=== PATIENT | female | born 1960 | race Caucasian/White ===

== ENCOUNTER 2016-08-01 08:31 | Inpatient (IN) | payer MEDICARE ==
--- NOTE | 2016-08-01 09:17 | ER Document Report ---
ED Extremity Problem, Lower - General Mode of Arrival: Ambulatory Information source: Patient TRAVEL OUTSIDE OF THE [place] IN LAST 30 DAYS: No - HPI Patient complains to provider of: Pain, Swelling Location: Foot - Right <JAYE BARRON - Last Filed: 08/01/16 10:33> <BERRYGUEROANTOINE - Last Filed: 08/01/16 16:07> - General Chief Complaint: Foot Pain Stated Complaint: FOOT INJURY Notes: Patient is a 55-year-old female presenting to the emergency department concerned of a foot wound worsening. Patient was seen here on 07/24/2016 and diagnosed with a cellulitic diabetic wound and treated with Keflex and doxycycline. Patient had a white cell count of 17,000, but her x-ray was normal. Today, patient states that her wound has worsened over the past couple of days. Patient states that her toes have turned purple, there is seepage with blood, foul odor, and her fever is now 99.9. Patient has not been managing her blood sugar for "a few months". Patient does not have access to insulin or other medications due to lack of insurance. (JAYE BARRON) - Related Data Allergies/Adverse Reactions: Shellfish * [Shellfish] Allergy (Verified 07/24/16 17:37) sulfamethoxazole [From Bactrim] Allergy (Verified 07/24/16 17:37) trimethoprim [From Bactrim] Allergy (Verified 07/24/16 17:37) Past Medical History - General Information source: Patient - Social History Smoking Status: Current Every Day Smoker Lives with: Spouse/Significant other Family History: Reviewed & Not Pertinent - Past Medical History Cardiac Medical History: Reports: Hx Hypertension Pulmonary Medical History: Reports: Hx Pneumonia Endocrine Medical History: Reports: Hx Diabetes Mellitus Type 2 Past Surgical History: Reports: Hx Orthopedic Surgery - Left shoulder <JAYE BARRON - Last Filed: 08/01/16 10:33> Review of Systems - Review of Systems Constitutional: See HPI, Fever EENT: No symptoms reported Cardiovascular: No symptoms reported Respiratory: No symptoms reported Gastrointestinal: No symptoms reported Genitourinary: No symptoms reported Female Genitourinary: No symptoms reported Musculoskeletal: See HPI, Other - Right leg and foot pain. Skin: See HPI, Change in color - Right foot wound. Has odor and pus. Neurological/Psychological: No symptoms reported -: Yes All other systems reviewed and negative <JAYE BARRON - Last Filed: 08/01/16 10:33> Physical Exam - Vital signs Interpretation: Hypertensive, Tachycardic - General General appearance: Alert - HEENT Head: Normocephalic, Atraumatic Eyes: Normal Pupils: PERRL - Respiratory Respiratory status: No respiratory distress Chest status: Nontender Breath sounds: Normal Chest palpation: Normal - Cardiovascular Rhythm: Regular Heart sounds: Normal auscultation Murmur: No - Abdominal Distension: No distension Bowel sounds: Normal Tenderness: Nontender Organomegaly: No organomegaly - Extremities General upper extremity: Normal inspection, Nontender, Normal color, Normal ROM , Normal temperature General lower extremity: Tender - Tender to palpation of right calf up into thigh. Foot: Tender, Edema, Other - Left foot anterior surface erythemic from the midfoot down. Limited range of motion secondary to pain. Wound spreads between second and third digits. The dorsal aspect of 2nd, 3rd, and 4th digits are erythemic with open blisters consisting of pus and fowl odor. The bottom of the right foot has deep callusing and discoloration and is exquisitely tender. - Neurological Neuro grossly intact: Yes Cognition: Normal Ashish Coma Scale Eye Opening: Spontaneous Dickens Coma Scale Verbal: Oriented Ashish Coma Scale Motor: Obeys Commands Dickens Coma Scale Total: 15 Speech: Normal - Psychological Associated symptoms: Normal affect, Normal mood - Skin Skin Color: negative: Normal - See foot exam <JAYE BARRON - Last Filed: 08/01/16 10:33> Course <JAYE BARRON - Last Filed: 08/01/16 10:33> - Laboratory Result Diagrams: 08/01/16 11:15 08/01/16 12:00 - Diagnostic Test Radiology reviewed: Image reviewed, Reports reviewed <ANTOINE BERRY - Last Filed: 08/01/16 16:07> - Re-evaluation Re-evalutation: 08/01/16 16:02 Dr. Giles contacted for patient's admission. He agrees on admission to [facility]. Dr. maki called phone reports positive DVT but it looks chronic to him. Dr. Lopes reports this is acute, no history of DVT, will treat for DVT. White count elevated 26.8 lactic acid ordered pt updated on plan. (ANTOINE BERRY) - Vital Signs Vital signs: Temp Pulse Resp BP Pulse Ox 99.9 F 103 H 20 178/79 H 99 08/01/16 08:59 08/01/16 08:59 08/01/16 08:59 08/01/16 08:59 08/01/16 08:59 (ANTOINE BERRY) - Laboratory Laboratory results interpreted by me: 08/01/16 08/01/16 08/01/16 11:15 11:30 12:00 WBC 26.8 H Seg Neuts % (Manual) 80 H Lymphocytes % (Manual) 11 L Abs Neuts (Manual) 22.2 H Abs Monocytes (Manual) 1.6 H Sodium 133.6 L Chloride 93 L Glucose 309 H Total Bilirubin 2.0 H Alkaline Phosphatase 144 H Albumin 3.3 L Urine Protein >=500 H Urine Glucose (UA) >=500 H Urine Ketones 80 H Urine Blood SMALL H Urine Urobilinogen 2.0 H (ANTOINE BERRY) Discharge <JAYE BARRON - Last Filed: 08/01/16 10:33> - Discharge Admitting Provider: Hospitalist - [facility] Unit Admitted: Telemetry <ANTOINE BERRY - Last Filed: 08/01/16 16:07> - Discharge Clinical Impression: Cellulitis of left foot Pain of foot Qualifiers: Laterality: left Qualified Code(s): M79.672 - Pain in left foot Condition: Stable Disposition: ADMITTED INPATIENT Scribe Documentation - Scribe Written by Scribkeyana:: Jaye Barron 08/01/2016 09:16 acting as scribe for :: Moses <JAYE BARRON - Last Filed: 08/01/16 10:33>
[2016-08-01] MEDS ORDERED: FENTANYL CITRATE INJ/PF 100 MCG/2 ML AMPUL IV ONE (10:35)
[2016-08-01] MEDS ORDERED: ERTAPENEM SODIUM INJ 1 GM VIAL IV ONE (10:35)
[2016-08-01 11:35] LABS: HEMATOCRIT 41.2 % (36.0-47.0); HEMOGLOBIN 14.2 g/dL (12.0-15.5); HGB HCT DIFFERENCE 1.4; MEAN CORPUSCULAR HEMOGLOBIN 28.9 pg (27.0-33.4); MEAN CORPUSCULAR HGB CONC 34.5 g/dL (32.0-36.0); MEAN CORPUSCULAR VOLUME 84 fl (80-97); RED BLOOD COUNT 4.91 10^6/uL (3.72-5.28); RED CELL DISTRIBUTION WIDTH 12.6 % (11.5-14.0); WHITE BLOOD COUNT 26.8 10^3/uL (4.0-10.5)
[2016-08-01 11:56] LABS: APPEARANCE,URINE SLIGHTLY-CLOUDY; BILIRUBIN,URINE NEGATIVE (NEGATIVE); GLUCOSE, URINE >=500 mg/dL (NEGATIVE); KETONES,URINE 80 mg/dL (NEGATIVE); LEUKOCYTE ESTERASE,URINE NEGATIVE (NEGATIVE); NITRITE,URINE NEGATIVE (NEGATIVE); PROTEIN,URINE >=500 mg/dL (NEGATIVE); URINE SPECIFIC GRAVITY 1.026
[2016-08-01 11:59] LABS: BAND NEUTROPHILS % (MANUAL) 3 % (3-5); BASOPHILS % (MANUAL) 0 % (0-2); EOSINOPHILS % (MANUAL) 0 % (0-6); LYMPHOCYTES % (MANUAL) 11 % (13-45); TOTAL CELLS COUNTED 100
[2016-08-01 12:00] LABS: RBC MORPHOLOGY COMMENT NORMO-CYTIC/CHROMIC; TOXIC GRANULATION 1+
[2016-08-01 12:26] LABS: ALANINE AMINOTRANSFERASE 22 U/L (9-52); ALBUMIN 3.3 g/dL (3.5-5.0); ALKALINE PHOSPHATASE 144 U/L (38-126); ANION GAP 16 (5-19); ASPARTATE AMINO TRANSFERASE 14 U/L (14-36); BLOOD UREA NITROGEN 10 mg/dL (7-20); CALCIUM 9.1 mg/dL (8.4-10.2); CARBON DIOXIDE 25 mmol/L (22-30); CHLORIDE 93 mmol/L (98-107); GLUCOSE 309 mg/dL (75-110); POTASSIUM 4.1 mmol/L (3.6-5.0); SODIUM 133.6 mmol/L (137-145); TOTAL PROTEIN 6.6 g/dL (6.3-8.2)
--- NOTE | 2016-08-01 14:21 | XCELERA REPORT ---
[address] [address] Lower Extremity Venous Evaluation Name: SATURNINO MURGUIA Age: 55 yrs Gender: Female : 1960 Patient Status: Emergency Patient Location: ER Study Date: 08/01/2016 12:06 PM Procedure: Color flow and duplex imaging of the veins of the left lower extremity as well as the right Common Femoral vein. Reason For Study: er 13 left lower pain and swelling Ordering Physician: AMANDEEP KINGSTON Performed By: Gigi Slater Right Sided Venous Evaluation The right common femoral vein is fully compressible. Spontaneous and phasic flow is present in the right common femoral vein. Left Sided Venous Evaluation Abnormal, partial flow in the medial of two Gastrocnemius veins, with echogenic, retracted intraluminal content.. Otherwise normal vessel filling wall to wall, compression and augmentation as well as Colour flow down to the infrageniculate veins. Critical Findings Discussed with FISH Bocanegra in the ER at 1418 hours. Interpretation Summary Limited, old looking( chronic) DVT in one of two Gastrocnemius veins on the left. : AMANDEEP KINGSTON > Stephen Muñiz
[2016-08-01] MEDS ORDERED: DEXTROSE 50%-WATER 25 GM/50 ML DISP.SYRIN IV PRN ×2 (16:39)
[2016-08-01] MEDS ORDERED: DEXTROSE 40% GEL 15 GM TUBE PO PRN ×2 (16:39)
[2016-08-01] MEDS ORDERED: GLUCAGON,HUMAN RECOMB 1 MG INJ IM PRN (16:39)
[2016-08-01] MEDS ORDERED: IPRATROPIUM/ALBUTEROL 0.5-2.5 MG/3 ML AMPUL NEB PRN (16:42)
[2016-08-01] MEDS ORDERED: ONDANSETRON HCL INJ/PF 4 MG/2 ML SDV IV PRN (16:51)
[2016-08-01] MEDS ORDERED: VANCOMYCIN HCL INJ 1000 MG VIAL IV SCH (17:00)
[2016-08-01 17:07] LABS: PROTHROMBIN TIME 14.7 SEC (11.4-15.4)
--- NOTE | 2016-08-01 17:14 | PDOC H&P ---
History of Present Illness Admission Date/PCP: 08/01/16 16:48 Patient complains of: Foot pain and swelling History of Present Illness: SATURNINO MURGUIA is a 55 year old female with diabetes, peripheral vascular disease apparently stepped on a nail about 10 days ago started noticing some serous drainage. This was on the patient's left foot. Patient noted a small wound on the dorsum of the foot which started to swell. Patient went to the emergency room 3 days later and was even Keflex and doxycycline. She was advised to elevate legs all the time and some warm compress. The patient reports following instructions in taking the medications however started to develop increasing swelling and pain for the past few days there is noted associated redness and eventual follow smelling drainage. Eventually there was sloughing of the skin and therefore he presents with emergency room for evaluation. The patient has a low-grade fever. Drainage became foul-smelling. In the emergency room a lower extremity venous Doppler was obtained was positive for questionable old deep venous thrombosis on the left. Patient was given full dose Lovenox and intravenous Invanz and was referred for admission. Past Medical History Past Medical History: Medication reconciliation pending verification from the patient's pharmacist Cardiac Medical History: Reports: Hypertension, Other - Abdominal aortic aneurysm Pulmonary Medical History: Reports: Pneumonia Neurological Medical History: Reports: Ischemic CVA - Right-sided weakness Endocrine Medical History: Reports: Diabetes Mellitus Type 2 - Insulin- requiring With retinopathy and neuropathy Skin Medical History: Reports: Other - Retinal detachment Psychiatric Medical History: Reports: Depression, General Anxiety Disorder Past Surgical History Past Surgical History: Reports: Orthopedic Surgery - Left shoulder, Other - Eye surgery with laser Social History Information Source: Patient Lives with: Spouse/Significant other Smoking Status: Current Every Day Smoker Frequency of Alcohol Use: None Hx Recreational Drug Use: No Drugs: None Family History Family History: Malignancy, Other - Asthma and heart disease Parental Family History Reviewed: Yes Children Family History Reviewed: Yes Sibling(s) Family History Reviewed.: Yes Medication/Allergy Home Medications: Amox Tr/Potassium Clavulanate [Augmentin 875-125 mg Tablet] 1 tab PO BID #20 tablet 11/13/15 Atenolol [Tenormin] 25 mg PO DAILY 11/13/15 Azithromycin [Zithromax 250 mg Tablet] 250 mg PO ASDIR PRN #6 tablet 11/13/15 Hydrochlorothiazide 25 mg PO DAILY 11/13/15 Insulin NPH Hum/Reg Insulin Hm [Humulin 70-30 Vial] 60 - 80 unit SQ QHS Insulin NPH Hum/Reg Insulin Hm [Humulin 70-30 Vial] 70 unit SQ QAM 11/13/15 Lisinopril 40 mg PO DAILY 11/13/15 Prednisone 40 mg PO QAM #10 tablet 11/13/15 Albuterol Sulfate [Albuterol Sulfate 2.5mg/3 mL] 2.5 mg IH Q6 #20 ml 11/24/15 Atenolol [Tenormin] 25 mg PO BID #60 tablet 11/24/15 Ipratropium [place] [Atrovent 0.02% Neb 0.5 Mg/2.5 Ml Vial.Neb] 0.5 mg IH Q6HP PRN #20 vial.neb 11/24/15 Lisinopril 20 mg PO DAILY #30 tablet 11/24/15 Oxycodone HCl/Acetaminophen [Percocet 5-325 mg Tablet] 1 - 2 tab PO ASDIR PRN # 25 tablet 11/24/15 Cephalexin [Cephalexin 500 MG Capsule] 1 cap PO QID #40 capsule 07/24/16 Doxycycline Hyclate 100 mg PO BID #20 capsule 07/24/16 Fluticasone Propionate [Flonase Nasal [place] 50 Mcg/[place] 16 gm] 2 sprays NASL Q12 #1 inhaler 07/24/16 Allergies/Adverse Reactions: Shellfish * [Shellfish] Allergy (Verified 07/24/16 17:37) sulfamethoxazole [From Bactrim] Allergy (Verified 07/24/16 17:37) trimethoprim [From Bactrim] Allergy (Verified 07/24/16 17:37) Review of Systems Constitutional: PRESENT: fever(s) - Low-grade, weakness - Generalized. ABSENT: chills, headache(s), night sweats, weight gain, weight loss Eyes: PRESENT: visual disturbances - From retinopathy Ears: ABSENT: hearing changes Nose, Mouth, and Throat: ABSENT: mouth pain, sore throat Cardiovascular: ABSENT: chest pain, dyspnea on exertion, edema, orthropnea, palpitations Respiratory: ABSENT: cough, dyspnea, hemoptysis, sputum Gastrointestinal: ABSENT: abdominal pain, constipation, diarrhea, hematemesis, hematochezia, melena, nausea, vomiting Genitourinary: ABSENT: difficulty urinating, dysuria, hematuria Musculoskeletal: PRESENT: joint swelling - Left ankle Integumentary: PRESENT: rash - Foot L. ABSENT: pruritus, wounds Neurological: ABSENT: abnormal gait, abnormal speech, confusion, dizziness, focal weakness, syncope Psychiatric: ABSENT: anxiety, depression, homidical ideation, suicidal ideation Endocrine: ABSENT: cold intolerance, heat intolerance, polydipsia, polyuria Hematologic/Lymphatic: ABSENT: easy bleeding, easy bruising Physical Exam Vital Signs: Temp Pulse Resp BP Pulse Ox 99.9 F 103 H 20 178/79 H 99 08/01/16 08:59 08/01/16 08:59 08/01/16 08:59 08/01/16 08:59 08/01/16 08:59 General appearance: PRESENT: no acute distress, cooperative, obese Head exam: PRESENT: atraumatic, normocephalic Eye exam: PRESENT: conjunctiva pink, EOMI, PERRLA. ABSENT: scleral icterus Ear exam: PRESENT: normal external ear exam Mouth exam: PRESENT: moist, neck supple, tongue midline Throat exam: PRESENT: other - Tonsils enlarged. ABSENT: tonsillar erythema, tonsillar exudate Neck exam: ABSENT: carotid bruit, JVD, lymphadenopathy, thyromegaly Respiratory exam: PRESENT: clear to auscultation martha. ABSENT: rales, rhonchi, wheezes Cardiovascular exam: PRESENT: RRR, +S1, +S2. ABSENT: diastolic murmur, rubs, systolic murmur Pulses: PRESENT: normal dorsalis pedis pul Vascular exam: PRESENT: normal capillary refill GI/Abdominal exam: PRESENT: normal bowel sounds, soft. ABSENT: distended, guarding, mass, organolmegaly, rebound, tenderness Rectal exam: PRESENT: deferred Extremities exam: PRESENT: calf tenderness - left, full ROM, pedal edema - Left foot, warm, other - Left foot. A puncture wound of the dorsum there is foul- smelling drainage. There is surrounding redness. 4th toe with sloughing of the skin. ABSENT: clubbing Neurological exam: PRESENT: alert, awake, oriented to person, oriented to place , oriented to time, oriented to situation Psychiatric exam: PRESENT: appropriate affect, normal mood. ABSENT: homicidal ideation, suicidal ideation Skin exam: PRESENT: dry, intact, warm. ABSENT: cyanosis, rash Results Impressions: Foot X-Ray 08/01/16 10:34 IMPRESSION: SOFT TISSUE SWELLING WITH ULCERATION. NO SUBCUTANEOUS GAS OR ACUTE OSSEOUS ABNORMALITY IDENTIFIED. Assessment & Plan - Diagnosis (1) Cellulitis of left foot Is this a current diagnosis for this admission?: Yes (2) Abscess of left foot Is this a current diagnosis for this admission?: Yes (3) Deep venous thrombosis Qualifiers: DVT location: lower extremity Affected thrombotic vein of extremity: unspecified vein of extremity Laterality: left Chronicity: unspecified Qualified Code(s): I82.402 - Acute embolism and thrombosis of unspecified deep veins of left lower extremity Is this a current diagnosis for this admission?: Yes (4) Diabetes mellitus Qualifiers: Diabetes mellitus type: type 2 Diabetes mellitus complication status: with other specified complication Diabetes mellitus terminal carman insulin use: with terminal carman use Qualified Code(s): E11.69 - Type 2 diabetes mellitus with other specified complication; Z79.4 - buttermaker (current) use of insulin Is this a current diagnosis for this admission?: Yes (5) Hypertension Qualifiers: Hypertension type: essential hypertension Qualified Code(s): I10 - Essential (primary) hypertension Is this a current diagnosis for this admission?: Yes (6) Anxiety and depression Is this a current diagnosis for this admission?: Yes (7) History of stroke Is this a current diagnosis for this admission?: Yes (8) Abdominal aortic aneurysm Qualifiers: Presence of rupture: without rupture Qualified Code(s): I71.4 - Abdominal aortic aneurysm, without rupture Is this a current diagnosis for this admission?: Yes - Time Time Spent: 50 to 70 Minutes - Plan Summary Plan Summary: The patient will be admitted to telemetry. We will fully anticoagulate the patient and begin Invanz and vancomycin intravenously. We will consult surgery for debridement. In the meantime since for anticoagulation will be given we will check abdominal ultrasound to evaluate the aneurysm. Patient will be on sliding scale insulin. We'll resume her antihypertensive medications. I will hydrate her with normal saline. Blood culture and wound culture will be done. Further testing depends on the initial evaluation and per specialty recommendation as ABOVE.
[2016-08-01] MEDS ORDERED: VANCOMYCIN HCL INJ 1000 MG VIAL IV PRN (17:37)
[2016-08-01] MEDS ORDERED: VANCOMYCIN HCL 1,000 MG in DEXTROSE 5%-WATER 250 ML IV SCH (18:00)
[2016-08-01] MEDS: NORMAL SALINE 1000 ML 1,000 ML IV PRN (20:42)
[2016-08-01] MEDS: DOCUSATE SODIUM 100 MG CAPSULE PO SCH (20:45)
[2016-08-01] MEDS ORDERED: VANCOMYCIN HCL INJ 1000 MG VIAL ONE (20:46)
[2016-08-01] MEDS ORDERED: ENOXAPARIN SODIUM INJ 120 MG/0.8 ML DISP.SYRIN SUBCUT SCH (22:00)
[2016-08-02] MEDS ORDERED: INSULIN DETEMIR 100 UNIT/ML 3 ML PEN SUBCUT ONE (00:52)
[2016-08-02] MEDS: ENOXAPARIN SODIUM INJ 120 MG/0.8 ML DISP.SYRIN SUBCUT SCH (00:54)
[2016-08-02] MEDS: INSULIN REG, HUMAN 100 UNIT/ML 3 ML VIAL (PYX) SUBCUT PRN ×3 (00:56→22:24)
[2016-08-02] MEDS: ATENOLOL 50 MG TABLET PO SCH ×3 (00:57→22:21)
[2016-08-02] MEDS ORDERED: INFLUENZA ADLT QUAD (36MOS+) 2016-17 VAC 0.5 ML SYR IM PRN (03:53)
[2016-08-02] MEDS: INSULIN DETEMIR 100 UNIT/ML 3 ML PEN SUBCUT SCH ×3 (05:11→22:21)
[2016-08-02 05:18] LABS: HEMATOCRIT 38.4 % (36.0-47.0); HEMOGLOBIN 13.2 g/dL (12.0-15.5); HGB HCT DIFFERENCE 1.2; MEAN CORPUSCULAR HEMOGLOBIN 28.8 pg (27.0-33.4); MEAN CORPUSCULAR HGB CONC 34.2 g/dL (32.0-36.0); MEAN CORPUSCULAR VOLUME 84 fl (80-97); RED BLOOD COUNT 4.57 10^6/uL (3.72-5.28); RED CELL DISTRIBUTION WIDTH 12.7 % (11.5-14.0); WHITE BLOOD COUNT 26.7 10^3/uL (4.0-10.5)
[2016-08-02] MEDS: LANSOPRAZOLE 30 MG TAB.RAP.DR PO SCH (06:46)
[2016-08-02 07:39] LABS: ANION GAP 14 (5-19); BLOOD UREA NITROGEN 11 mg/dL (7-20); CALCIUM 8.5 mg/dL (8.4-10.2); CARBON DIOXIDE 23 mmol/L (22-30); CHLORIDE 94 mmol/L (98-107); CREATININE RESULT 0.59 mg/dL (0.52-1.25); GLUCOSE 244 mg/dL (75-110); POTASSIUM 3.7 mmol/L (3.6-5.0); SODIUM 130.5 mmol/L (137-145)
--- NOTE | 2016-08-02 08:21 | PDOC CONSULTATION ---
Consultation Consult Date: 08/01/16 History of Present Illness Admission Date/PCP: 08/01/16 16:42 History of Present Illness: Chuy Membreno is a 55-year-old white female with diabetes, with retinopathy and neuropathy, peripheral arterial disease, left bundle branch block, hypertension , history of pneumonia, history of CVA in 2004 with minimal residual right- sided weakness. Her diabetes is insulin-dependent. While her diet nociceptive diabetes was 24 years ago, she reports 11 years up neuropathy with no feeling in her bilateral feet. She reports noticing a puncture wound in the bottom of her left foot on 07/21/2016 or 07/22/2016. She inspected her slippers and found a minh nail sticking up through her slippers at least a half an inch. She cared for the wound at home until 2015, at which time she presented to the emergency room. She was placed on doxycycline and Keflex, told to elevate her foot and soak in Epsom salts daily. She did so but noticed on 07/31/2016 that her foot was much worse and the third toe had become black and blue. She also noticed foul-smelling drainage and a fever. She presented to the ER on 08/01/2016. In addition to the puncture wound in the black and blue toe she is noticed foot and lower leg swelling, erythema, drainage, foul smell, fevers. She has balance issues but this is chronic. Although her feet are numb, she notices some pain in the lower leg and calf. Venous duplex ultrasound was done and a left leg DVT was discovered, it is felt to be chronic in nature. Past Medical History Cardiac Medical History: Reports: DVT, Hypertension, Other - Left bundle branch block, Abdominal aortic aneurysm Pulmonary Medical History: Reports: Pneumonia EENT Medical History: Reports: Eyes - Retinal detachments. Bilateral vitrectomies. Left eye gas bubble placed. Neurological Medical History: Reports: Ischemic CVA - Right-sided weakness Endocrine Medical History: Reports: Diabetes Mellitus Type 2 - Insulin- requiring With retinopathy and neuropathy Psychiatric Medical History: Reports: Depression, General Anxiety Disorder Past Surgical History Past Surgical History: Reports: Other - Bilateral vitrectomies, also ? eye laser surgery. Negative ex laparoscopy. Social History Lives with: Spouse/Significant other Smoking Status: Current Every Day Smoker Cigarettes Packs Per Day: 0.5 - cut back recently, [id number] history Number of Years Smokin Last Time Smoked: 08/01/2016 Frequency of Alcohol Use: None Hx Recreational Drug Use: No Drugs: None Family History Family History: Malignancy, Other - Asthma and heart disease Parental Family History Reviewed: Yes Children Family History Reviewed: Yes Sibling(s) Family History Reviewed.: Yes Medication/Allergy Home Medications: Amox Tr/Potassium Clavulanate [Augmentin 875-125 mg Tablet] 1 tab PO BID #20 tablet 11/13/15 Atenolol [Tenormin] 25 mg PO DAILY 11/13/15 Azithromycin [Zithromax 250 mg Tablet] 250 mg PO ASDIR PRN #6 tablet 11/13/15 Hydrochlorothiazide 25 mg PO DAILY 11/13/15 Insulin NPH Hum/Reg Insulin Hm [Humulin 70-30 Vial] 60 - 80 unit SQ QHS Insulin NPH Hum/Reg Insulin Hm [Humulin 70-30 Vial] 70 unit SQ QAM 11/13/15 Lisinopril 40 mg PO DAILY 11/13/15 Prednisone 40 mg PO QAM #10 tablet 11/13/15 Albuterol Sulfate [Albuterol Sulfate 2.5mg/3 mL] 2.5 mg IH Q6 #20 ml 11/24/15 Atenolol [Tenormin] 25 mg PO BID #60 tablet 11/24/15 Ipratropium [place] [Atrovent 0.02% Neb 0.5 Mg/2.5 Ml Vial.Neb] 0.5 mg IH Q6HP PRN #20 vial.neb 11/24/15 Lisinopril 20 mg PO DAILY #30 tablet 11/24/15 Oxycodone HCl/Acetaminophen [Percocet 5-325 mg Tablet] 1 - 2 tab PO ASDIR PRN # 25 tablet 11/24/15 Cephalexin [Cephalexin 500 MG Capsule] 1 cap PO QID #40 capsule 07/24/16 Doxycycline Hyclate 100 mg PO BID #20 capsule 07/24/16 Fluticasone Propionate [Flonase Nasal [place] 50 Mcg/[place] 16 gm] 2 sprays NASL Q12 #1 inhaler 07/24/16 Allergies/Adverse Reactions: Shellfish * [Shellfish] Allergy (Verified 07/24/16 17:37) sulfamethoxazole [From Bactrim] Allergy (Verified 07/24/16 17:37) trimethoprim [From Bactrim] Allergy (Verified 07/24/16 17:37) Review of Systems All systems: reviewed and no additional remarkable complaints except as stated Physical Exam Vital Signs: Temp Pulse Resp BP Pulse Ox 98.6 F 95 18 163/68 H 99 08/02/16 01:05 08/02/16 02:00 08/02/16 01:05 08/02/16 01:05 08/02/16 01:05 Intake & Output 08/01/16 08/02/16 08/03/16 06:59 06:59 06:59 Weight 118.3 kg General appearance: PRESENT: no acute distress, morbidly obese Head exam: PRESENT: normocephalic Eye exam: PRESENT: EOMI Mouth exam: PRESENT: tongue midline Neck exam: ABSENT: JVD, lymphadenopathy, tenderness, thyromegaly Respiratory exam: PRESENT: clear to auscultation martha Cardiovascular exam: PRESENT: RRR GI/Abdominal exam: PRESENT: soft. ABSENT: distended, tenderness Extremities exam: PRESENT: other - Left calf tenderness. Left lower extremity is erythematous, swollen, indurated. The third toe is black and blue, the surrounding toes are deep red. The third toe has drainage from the base with macerated tissue. The plantar surface of the left foot has discoloration, pallor with a 1.5 cm open sore over the third metatarsal head. Wound culture is taken from the deep aspect of the wound. The wound is debrided with hydrogen peroxide, Q-tips, scissors, forceps. The open wound over the metatarsal head tracks posteriorly towards the heel approximately 3 cm. The wound is debrided with hydrogen peroxide and then packed with iodoform gauze. At the base of the third toe, on the dorsal surface, the macerated tissue is probed and tracks deeply. It is irrigated with hydrogen peroxide and then packed with iodoform gauze. The entire wound is then dressed with gauze 4 x 4 and Kerlix roll. The patient tolerated well. Musculoskeletal exam: PRESENT: deformity - Left foot, see above, tenderness - Left calf Neurological exam: PRESENT: alert, oriented to person, oriented to place, oriented to time, oriented to situation Psychiatric exam: PRESENT: appropriate affect, normal mood Skin exam: ABSENT: jaundice, rash Results Laboratory Results: 08/02/16 04:26 08/02/16 08/02/16 04:26 04:26 WBC 26.7 H RBC 4.57 Hgb 13.2 Hct 38.4 MCV 84 MCH 28.8 MCHC 34.2 RDW 12.7 Plt Count 229 Sodium Cancelled Potassium Cancelled Chloride Cancelled Carbon Dioxide Cancelled Anion Gap Cancelled BUN Cancelled Creatinine Cancelled Est GFR ( Amer) Cancelled Est GFR (Non-Af Amer) Cancelled Glucose Cancelled Calcium Cancelled Impressions: Foot X-Ray 08/01/16 10:34 IMPRESSION: SOFT TISSUE SWELLING WITH ULCERATION. NO SUBCUTANEOUS GAS OR ACUTE OSSEOUS ABNORMALITY IDENTIFIED. Status: Image reviewed by me Assessment & Plan - Diagnosis (1) Abscess of left foot Is this a current diagnosis for this admission?: YesPlan: Patient is eaten, wound was debrided at the bedside. See under physical exam. Will need further debridement in the OR. Morning Lovenox will be held. Nothing by mouth at midnight. Turn over to oncoming surgicalist for likely debridement. (2) Deep venous thrombosis Qualifiers: DVT location: lower extremity Affected thrombotic vein of extremity: unspecified vein of extremity Laterality: left Chronicity: unspecified Qualified Code(s): I82.402 - Acute embolism and thrombosis of unspecified deep veins of left lower extremity Is this a current diagnosis for this admission?: YesPlan: Being treated by medicine service with therapeutic dose Lovenox. Morning dose will be held for surgery. Questionable whether this is chronic or acute, the imaging suggests chronic, but the patient reports never having DVT previously. She does have a history of stroke/TIA. (3) Diabetes mellitus Qualifiers: Diabetes mellitus type: type 2 Diabetes mellitus complication status: with other specified complication Diabetes mellitus buttermaker continuous churn insulin use: with buttermaker continuous churn use Qualified Code(s): E11.69 - Type 2 diabetes mellitus with other specified complication Is this a current diagnosis for this admission?: YesPlan: Her disease has been uncontrolled recently. She and her on disability and had healthcare in [place] & [place], but cannot afford healthcare plan the [place], so she has left her disease untreated for several months. (4) History of stroke Is this a current diagnosis for this admission?: Yes
[2016-08-02] MEDS ORDERED: LIDOCAINE 0.5% INJ-PF (5 MG/ML) 50 ML SDV ONE (08:40)
[2016-08-02] MEDS ORDERED: BUPIVACAINE HCL 0.25 % INJ/PF (2.5 MG/1 ML) 30 ML VIAL ONE (08:40)
[2016-08-02] MEDS ORDERED: MIDAZOLAM 2 MG/2 ML INJ ONE (08:42)
[2016-08-02] MEDS ORDERED: FENTANYL CITRATE INJ/PF 100 MCG/2 ML AMPUL ONE ×2 (08:42)
[2016-08-02] MEDS ORDERED: ACETAMINOPHEN 0 ML IV ONE (08:43)
[2016-08-02] MEDS ORDERED: PROPOFOL INJ 200 MG/20 ML VIAL IV ONE (08:43)
[2016-08-02] MEDS ORDERED: KETAMINE HCL INJ 500 MG/10 ML VIAL ONE (09:23)
[2016-08-02] MEDS ORDERED: ERTAPENEM SODIUM INJ 1 GM VIAL IV SCH (10:00)
--- NOTE | 2016-08-02 10:20 | Operative Report ---
Operative Report DATE OF SURGERY: 08/02/16 PREOPERATIVE DIAGNOSIS: Septic, diabetic left foot with ischemic left POSTOPERATIVE DIAGNOSIS: Same with deep soft tissue infection of the left foot involving left third toe, deep subcutaneous tissue, fascia, and dorsal aspect distal foot OPERATION: 1. Left third ray amputation. 2. Intensive debridement of distal foot at base of third toe, adjacent webspaces medially and laterally including skin and subcutaneous tissue, fascia and tendons. 3. Counterincision distal aspect left foot, with large [place] drain placement. 4. Callus debridement left first metatarsal head SURGEON: LEOBARDO GONZALES CAFE TEAM MEMBER: none ANESTHESIA: LMAC TISSUE REMOVED OR ALTERED: Skin, soft tissue, left third toe, tendons COMPLICATIONS: None ESTIMATED BLOOD LOSS: 25 mL INTRAOPERATIVE FINDINGS: A below PROCEDURE: The patient was seen in the preoperative holding area with a left foot was marked. There was obvious infection involving the left foot, specifically a very generous mal perforans ulcer at the third metatarsal head; the left third toe was ischemic; toes 2 and 4 were challenged. The patient was taken to the operating room where LMAC anesthesia was induced. The left foot was isolated, prepped and draped in a sterile fashion. Surgical plan and surgical timeout were conducted. The findings are significant for an ischemic left third toe, with marginally but viable toes 2 and 4 on the left. The patient has an insensate foot. We therefore proceeded with a left third toe amputation with a #10 blade. The toe was amputated at its base and sent to pathology. Deep wound cultures of the pus obtained. The associated third metatarsal head ulcer was filleted opened by extending the patient excision down to incorporate in and deep subcutaneous tissue at the base and metatarsal head. The third metatarsal head was removed in a piecemeal fashion with bone Askew. The pus extended up dorsally along the distal forefoot to the mid foot where a counterincision was made the region of the mid foot, and a large [place] loop drain was placed connecting these 2 incisions. The intervening skin appeared viable but in jeopardy so it was left behind. Toes 2 and 4 though somewhat challenged appeared viable and warranted leaving them behind for further evaluation. Final wound dorsal surface left foot 1 cm in length; open wound at site of third ray amputation 3 x 7 cm x 2 cm deep. The left first metatarsal head had a very stiff callus which was excised using a #10 blade. The operative wounds were irrigated copiously with saline, hemostasis achieved with electrocautery. Of note there was some bleeding skin and deep subcutaneous tissue. The initial damage control operation was felt to be complete. Sponge and counts are correct; operative wounds packed with iodoform packing, dressings applied with 4 x 4's between the toes, Curlex wrap applied. Postop procedure well, taken recovery in stable condition.
[2016-08-02] MEDS ORDERED: VANCOMYCIN HCL 1,500 MG in DEXTROSE 5%-WATER 250 ML IV ONE (11:00)
[2016-08-02] MEDS: LISINOPRIL 10 MG TABLET PO SCH (11:45)
[2016-08-02] MEDS: HYDROCHLOROTHIAZIDE 25 MG TABLET PO SCH (11:46)
[2016-08-02] MEDS: DOCUSATE SODIUM 100 MG CAPSULE PO SCH ×2 (11:46→17:34)
[2016-08-02] MEDS: ERTAPENEM SODIUM 1 GM in NORMAL SALINE 50 ML IV SCH (11:47)
--- NOTE | 2016-08-02 11:56 | PDOC PROGRESS REPORT ---
Subjective Progress Note for:: 08/02/16 Subjective:: Patient status post debridement and reported amputation of toe. No reported nausea or vomiting or temperature spikes. Patient denies shortness of breath chills or fever nor any chest pain. Patient has not been taking insulin for a few months due to unable to afford. Unable to afford other medications as well. Physical Exam Vital Signs: Temp Pulse Resp BP Pulse Ox 98.7 F 85 20 137/73 H 98 08/02/16 08:38 08/02/16 08:38 08/02/16 08:38 08/02/16 08:38 08/02/16 08:38 Intake & Output 08/01/16 08/02/16 08/03/16 06:59 06:59 06:59 Intake Total 1300 Balance 1300 Weight 118.3 kg General appearance: PRESENT: no acute distress, cooperative, obese Head exam: PRESENT: normocephalic Eye exam: PRESENT: EOMI Mouth exam: PRESENT: moist, neck supple Neck exam: ABSENT: JVD Respiratory exam: PRESENT: clear to auscultation martha Cardiovascular exam: PRESENT: RRR. ABSENT: gallop GI/Abdominal exam: PRESENT: normal bowel sounds, soft. ABSENT: distended, tenderness Extremities exam: PRESENT: +1 edema - Left foot, other - Dressing on the left foot clean with minimal sanguinous drainage no foul-smelling drainage was noted. Neurological exam: PRESENT: alert, awake, oriented to situation Skin exam: PRESENT: dry, warm. ABSENT: cyanosis Results Laboratory Results: 08/02/16 04:26 08/02/16 06:25 08/02/16 08/02/16 08/02/16 04:26 04:26 06:25 WBC 26.7 H RBC 4.57 Hgb 13.2 Hct 38.4 MCV 84 MCH 28.8 MCHC 34.2 RDW 12.7 Plt Count 229 Sodium Cancelled 130.5 L Potassium Cancelled 3.7 Chloride Cancelled 94 L Carbon Dioxide Cancelled 23 Anion Gap Cancelled 14 BUN Cancelled 11 Creatinine Cancelled 0.59 Est GFR ( Amer) Cancelled > 60 Est GFR (Non-Af Amer) Cancelled > 60 Glucose Cancelled 244 H Calcium Cancelled 8.5 Impressions: Foot X-Ray 08/01/16 10:34 IMPRESSION: SOFT TISSUE SWELLING WITH ULCERATION. NO SUBCUTANEOUS GAS OR ACUTE OSSEOUS ABNORMALITY IDENTIFIED. Assessment & Plan - Diagnosis (1) Cellulitis of left foot Is this a current diagnosis for this admission?: Yes (2) Abscess of left foot Is this a current diagnosis for this admission?: Yes (3) Deep venous thrombosis Qualifiers: DVT location: lower extremity Affected thrombotic vein of extremity: unspecified vein of extremity Laterality: left Chronicity: unspecified Qualified Code(s): I82.402 - Acute embolism and thrombosis of unspecified deep veins of left lower extremity Is this a current diagnosis for this admission?: Yes (4) Diabetes mellitus Qualifiers: Diabetes mellitus type: type 2 Diabetes mellitus complication status: with other specified complication 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 Qualified Code(s): E11.69 - Type 2 diabetes mellitus with other specified complication Is this a current diagnosis for this admission?: Yes (5) Hypertension Qualifiers: Hypertension type: essential hypertension Qualified Code(s): I10 - Essential (primary) hypertension Is this a current diagnosis for this admission?: Yes (6) Anxiety and depression Is this a current diagnosis for this admission?: Yes (7) History of stroke Is this a current diagnosis for this admission?: Yes (8) Abdominal aortic aneurysm Qualifiers: Presence of rupture: without rupture Qualified Code(s): I71.4 - Abdominal aortic aneurysm, without rupture Is this a current diagnosis for this admission?: Yes - Time Time Spent with patient: 25-34 minutes - Plan Summary Plan Summary: Case discussed with surgical service. We will hold anticoagulation for today and resume it in the morning. Extensive necrosis on toe and deep soft tissue infection but fair to good blood flow per surgery. Will need at least 2 weeks of IV antibiotics. Will arrange for PICC line. We will continue current antibiotics. Consult network planner for medication assistance. Continue supportive care.
[2016-08-02 14:01] LABS: APPEARANCE,URINE SLIGHTLY-CLOUDY; BILIRUBIN,URINE NEGATIVE (NEGATIVE); GLUCOSE, URINE >=500 mg/dL (NEGATIVE); KETONES,URINE 20 mg/dL (NEGATIVE); LEUKOCYTE ESTERASE,URINE NEGATIVE (NEGATIVE); NITRITE,URINE NEGATIVE (NEGATIVE); PROTEIN,URINE 100 mg/dL (NEGATIVE); URINE SPECIFIC GRAVITY 1.013
[2016-08-02] MEDS ORDERED: LIDOCAINE 2% INJ-PF (20 MG/ML) 10 ML AMPUL ONE (14:55)
[2016-08-02] MEDS ORDERED: NEOSTIGMINE METHYLSULFATE 10 MG/10 ML VIAL ONE (14:55)
[2016-08-02] MEDS: VANCOMYCIN HCL 1,500 MG in DEXTROSE 5%-WATER 250 ML IV SCH (17:34)
[2016-08-03] MEDS: VANCOMYCIN HCL 1,500 MG in DEXTROSE 5%-WATER 250 ML IV SCH ×2 (02:21→10:45)
[2016-08-03 05:52] LABS: HEMATOCRIT 35.1 % (36.0-47.0); HGB HCT DIFFERENCE 0.9; MEAN CORPUSCULAR HEMOGLOBIN 28.7 pg (27.0-33.4); MEAN CORPUSCULAR HGB CONC 34.2 g/dL (32.0-36.0); MEAN CORPUSCULAR VOLUME 84 fl (80-97); RED BLOOD COUNT 4.19 10^6/uL (3.72-5.28); RED CELL DISTRIBUTION WIDTH 12.7 % (11.5-14.0); WHITE BLOOD COUNT 25.2 10^3/uL (4.0-10.5)
[2016-08-03 05:54] LABS: ANION GAP 11 (5-19); BLOOD UREA NITROGEN 12 mg/dL (7-20); CALCIUM 8.5 mg/dL (8.4-10.2); CARBON DIOXIDE 24 mmol/L (22-30); CHLORIDE 96 mmol/L (98-107); CREATININE RESULT 0.66 mg/dL (0.52-1.25); GLUCOSE 185 mg/dL (75-110); POTASSIUM 3.3 mmol/L (3.6-5.0); SODIUM 131.4 mmol/L (137-145)
[2016-08-03] MEDS: LANSOPRAZOLE 30 MG TAB.RAP.DR PO SCH (06:50)
[2016-08-03 10:41] LABS: CREATININE RESULT 0.74 mg/dL (0.52-1.25)
[2016-08-03] MEDS: ERTAPENEM SODIUM 1 GM in NORMAL SALINE 50 ML IV SCH (10:45)
[2016-08-03] MEDS: LISINOPRIL 10 MG TABLET PO SCH (10:45)
[2016-08-03] MEDS: HYDROCHLOROTHIAZIDE 25 MG TABLET PO SCH (10:46)
[2016-08-03] MEDS: ATENOLOL 50 MG TABLET PO SCH ×2 (10:46→22:56)
[2016-08-03] MEDS: POTASSIUM CHLORIDE 10 MEQ TABLET.SA PO SCH ×2 (10:46→22:56)
[2016-08-03] MEDS: DOCUSATE SODIUM 100 MG CAPSULE PO SCH ×2 (10:46→19:58)
[2016-08-03] MEDS: INSULIN DETEMIR 100 UNIT/ML 3 ML PEN SUBCUT SCH ×2 (10:47→22:57)
--- NOTE | 2016-08-03 12:46 | PDOC PROGRESS REPORT ---
Subjective Progress Note for:: 08/03/16 Subjective:: Denies any complaints. Reports her foot is numb at the surgical site. Physical Exam Vital Signs: Temp Pulse Resp BP Pulse Ox 98.1 F 74 16 133/58 H 100 08/03/16 08:31 08/03/16 11:17 08/03/16 11:17 08/03/16 08:31 08/03/16 11:17 Intake & Output 08/02/16 08/03/16 08/04/16 06:59 06:59 06:59 Intake Total 1300 2944 0 Output Total 250 Balance 1300 2944 -250 Weight 118.3 kg 120.9 kg General appearance: PRESENT: no acute distress Eye exam: PRESENT: conjunctiva pink Mouth exam: PRESENT: moist, tongue midline Neck exam: ABSENT: JVD Respiratory exam: PRESENT: clear to auscultation martha. ABSENT: rales, rhonchi, wheezes Cardiovascular exam: PRESENT: RRR. ABSENT: diastolic murmur, rubs, systolic murmur GI/Abdominal exam: PRESENT: normal bowel sounds, soft. ABSENT: distended, guarding, mass, organolmegaly, rebound, tenderness Extremities exam: PRESENT: other - Dressing in place on the left foot from her surgical procedure. Neurological exam: PRESENT: alert, awake, oriented to person, oriented to place , oriented to time, oriented to situation Psychiatric exam: PRESENT: appropriate affect Skin exam: PRESENT: other - Dressing in place on the left foot. Results Laboratory Results: 08/03/16 05:11 08/03/16 09:46 08/02/16 08/03/16 08/03/16 13:30 05:11 05:11 WBC 25.2 H RBC 4.19 Hgb 12.0 Hct 35.1 L MCV 84 MCH 28.7 MCHC 34.2 RDW 12.7 Plt Count 254 Sodium 131.4 L Potassium 3.3 L Chloride 96 L Carbon Dioxide 24 Anion Gap 11 BUN 12 Creatinine 0.66 Est GFR ( Amer) > 60 Est GFR (Non-Af Amer) > 60 Glucose 185 H Calcium 8.5 Urine Color YELLOW Urine Appearance SLIGHTLY-CLOUDY Urine pH 5.0 Ur Specific [place] 1.013 Urine Protein 100 H Urine Glucose (UA) >=500 H Urine Ketones 20 H Urine Blood SMALL H Urine Nitrite NEGATIVE Ur Leukocyte Esterase NEGATIVE Urine WBC (Auto) 1 08/03/16 09:46 WBC RBC Hgb Hct MCV MCH MCHC RDW Plt Count Sodium Potassium Chloride Carbon Dioxide Anion Gap BUN Creatinine 0.74 Est GFR ( Amer) > 60 Est GFR (Non-Af Amer) > 60 Glucose Calcium Urine Color Urine Appearance Urine pH Ur Specific [place] Urine Protein Urine Glucose (UA) Urine Ketones Urine Blood Urine Nitrite Ur Leukocyte Esterase Urine WBC (Auto) 08/01/16 23:30 Foot - Left Gram Stain - Final Impressions: Foot X-Ray 08/01/16 10:34 IMPRESSION: SOFT TISSUE SWELLING WITH ULCERATION. NO SUBCUTANEOUS GAS OR ACUTE OSSEOUS ABNORMALITY IDENTIFIED. Abdomen Ultrasound 08/03/16 00:00 IMPRESSION: NO ABDOMINAL AORTIC ANEURYSM. Assessment & Plan - Diagnosis (1) Abscess of left foot Is this a current diagnosis for this admission?: YesPlan: The patient is growing out group B strep from her wound culture. She currently is on vancomycin and ertapenem. 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 Patient will need to weeks of IV antibiotics. Will discuss with surgery as to the choice of antibiotics. (2) Diabetes mellitus Qualifiers: Diabetes mellitus type: type 2 Diabetes mellitus complication status: with other specified complication Diabetes mellitus shelter insulin use: with shelter use Qualified Code(s): E11.69 - Type 2 diabetes mellitus with other specified complication Is this a current diagnosis for this admission?: YesPlan: Continue with Levemir and sliding scale insulin. (3) Anxiety and depression Is this a current diagnosis for this admission?: YesPlan: Stable (4) Deep venous thrombosis Qualifiers: DVT location: lower extremity Affected thrombotic vein of extremity: unspecified vein of extremity Laterality: left Chronicity: unspecified Qualified Code(s): I82.402 - Acute embolism and thrombosis of unspecified deep veins of left lower extremity Is this a current diagnosis for this admission?: YesPlan: Continue with Lovenox. (5) Hypertension Qualifiers: Hypertension type: essential hypertension Qualified Code(s): I10 - Essential (primary) hypertension Is this a current diagnosis for this admission?: YesPlan: Continue metoprolol and lisinopril. - Time Time Spent with patient: 25-34 minutes - Inpatient Certification Medical Necessity: Need for IV Antibiotics - Plan Summary Plan Summary: Patient will need a PICC line placed.
[2016-08-03] MEDS: ACETAMINOPHEN 325 MG TABLET PO PRN (22:56)
[2016-08-03] MEDS: NORMAL SALINE 10 ML SDV (SCHEDULED) IV SCH (22:59)
[2016-08-03] MEDS: INSULIN REG, HUMAN 100 UNIT/ML 3 ML VIAL (PYX) SUBCUT PRN (22:59)
[2016-08-03] MEDS: NORMAL SALINE 1000 ML 1,000 ML IV PRN (23:00)
[2016-08-04] MEDS: VANCOMYCIN HCL 1,500 MG in DEXTROSE 5%-WATER 250 ML IV SCH ×2 (05:30→17:13)
[2016-08-04] MEDS: LANSOPRAZOLE 30 MG TAB.RAP.DR PO SCH (05:30)
[2016-08-04 06:43] LABS: HEMATOCRIT 34.1 % (36.0-47.0); HEMOGLOBIN 11.7 g/dL (12.0-15.5); MEAN CORPUSCULAR HEMOGLOBIN 28.7 pg (27.0-33.4); MEAN CORPUSCULAR HGB CONC 34.3 g/dL (32.0-36.0); MEAN CORPUSCULAR VOLUME 84 fl (80-97); RED BLOOD COUNT 4.07 10^6/uL (3.72-5.28); RED CELL DISTRIBUTION WIDTH 12.6 % (11.5-14.0); WHITE BLOOD COUNT 21.8 10^3/uL (4.0-10.5)
[2016-08-04 06:53] LABS: ANION GAP 7 (5-19); BLOOD UREA NITROGEN 15 mg/dL (7-20); CALCIUM 8.6 mg/dL (8.4-10.2); CARBON DIOXIDE 29 mmol/L (22-30); CHLORIDE 97 mmol/L (98-107); CREATININE RESULT 1.13 mg/dL (0.52-1.25); GLUCOSE 225 mg/dL (75-110); POTASSIUM 3.4 mmol/L (3.6-5.0); SODIUM 133.2 mmol/L (137-145)
[2016-08-04] MEDS: LISINOPRIL 10 MG TABLET PO SCH (09:21)
[2016-08-04] MEDS: POTASSIUM CHLORIDE 10 MEQ TABLET.SA PO SCH ×2 (09:21→21:49)
[2016-08-04] MEDS: NORMAL SALINE 10 ML SDV (SCHEDULED) IV SCH ×2 (09:22→21:53)
[2016-08-04] MEDS: HYDROCHLOROTHIAZIDE 25 MG TABLET PO SCH (09:22)
[2016-08-04] MEDS: ATENOLOL 50 MG TABLET PO SCH ×2 (09:27→21:53)
[2016-08-04] MEDS: ERTAPENEM SODIUM 1 GM in NORMAL SALINE 50 ML IV SCH (09:28)
[2016-08-04] MEDS: INSULIN DETEMIR 100 UNIT/ML 3 ML PEN SUBCUT SCH ×2 (09:30→22:20)
[2016-08-04] MEDS: INSULIN REG, HUMAN 100 UNIT/ML 3 ML VIAL (PYX) SUBCUT PRN ×3 (09:38→21:51)
[2016-08-04] MEDS: DOCUSATE SODIUM 100 MG CAPSULE PO SCH ×2 (09:40→17:13)
[2016-08-04] MEDS: ENOXAPARIN SODIUM INJ 120 MG/0.8 ML DISP.SYRIN SUBCUT SCH ×2 (09:40→10:22)
--- NOTE | 2016-08-04 14:03 | PDOC PROGRESS REPORT ---
Subjective Progress Note for:: 08/04/16 Subjective:: Denies any complaints. Physical Exam Vital Signs: Temp Pulse Resp BP Pulse Ox 97.3 F 69 14 122/65 99 08/04/16 12:02 08/04/16 12:02 08/04/16 12:02 08/04/16 12:02 08/04/16 12:02 Intake & Output 08/03/16 08/04/16 08/05/16 06:59 06:59 06:59 Intake Total 4694 2400 960 Output Total 1515 1750 Balance 3179 650 960 Weight 120.9 kg 121 kg General appearance: PRESENT: no acute distress Eye exam: PRESENT: conjunctiva pink Mouth exam: PRESENT: moist, tongue midline Neck exam: ABSENT: JVD Respiratory exam: PRESENT: clear to auscultation martha. ABSENT: rales, rhonchi, wheezes Cardiovascular exam: PRESENT: RRR. ABSENT: diastolic murmur, rubs, systolic murmur GI/Abdominal exam: PRESENT: normal bowel sounds, soft. ABSENT: distended, guarding, mass, organolmegaly, rebound, tenderness Extremities exam: PRESENT: other - Dressing in place on the foot. Neurological exam: PRESENT: alert, awake, oriented to person, oriented to place , oriented to time, oriented to situation Psychiatric exam: PRESENT: appropriate affect Skin exam: PRESENT: other - Dressing in place on the foot Results Laboratory Results: 08/04/16 06:20 08/04/16 06:20 08/04/16 08/04/16 06:20 06:20 WBC 21.8 H RBC 4.07 Hgb 11.7 L Hct 34.1 L MCV 84 MCH 28.7 MCHC 34.3 RDW 12.6 Plt Count 255 Sodium 133.2 L Potassium 3.4 L Chloride 97 L Carbon Dioxide 29 Anion Gap 7 BUN 15 Creatinine 1.13 Est GFR ( Amer) > 60 Est GFR (Non-Af Amer) 50 L Glucose 225 H Calcium 8.6 08/02/16 09:36 Foot - Left Gram Stain - Final 08/01/16 23:30 Foot - Left Gram Stain - Final Impressions: Foot X-Ray 08/01/16 10:34 IMPRESSION: SOFT TISSUE SWELLING WITH ULCERATION. NO SUBCUTANEOUS GAS OR ACUTE OSSEOUS ABNORMALITY IDENTIFIED. Abdomen Ultrasound 08/03/16 00:00 IMPRESSION: NO ABDOMINAL AORTIC ANEURYSM. Guidance Fluoroscopy 08/03/16 00:00 IMPRESSION: SUCCESSFUL PLACEMENT OF A 5 FR DUAL LUMEN 45 CM PICC IN THE left basilic VEIN. Interventional Vascular Procedure 08/03/16 00:00 IMPRESSION: SUCCESSFUL PLACEMENT OF A 5 FR DUAL LUMEN 45 CM PICC IN THE left basilic VEIN. PICC Line Insertion 08/03/16 00:00 IMPRESSION: SUCCESSFUL PLACEMENT OF A 5 FR DUAL LUMEN 45 CM PICC IN THE left basilic VEIN. Assessment & Plan - Diagnosis (1) Abscess of left foot Is this a current diagnosis for this admission?: YesPlan: The patient is growing out group B strep and other organisms that are gram- positive cocci from her wound culture. She currently is on vancomycin and ertapenem. 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 Patient will need two weeks of IV antibiotics. Will discuss with surgery as to the choice of antibiotics once the cultures are finalized. 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 (3) Anxiety and depression Is this a current diagnosis for this admission?: YesPlan: Stable (4) Deep venous thrombosis Qualifiers: DVT location: lower extremity Affected thrombotic vein of extremity: unspecified vein of extremity Laterality: left Chronicity: unspecified Qualified Code(s): I82.402 - Acute embolism and thrombosis of unspecified deep veins of left lower extremity Is this a current diagnosis for this admission?: YesPlan: Continue with Lovenox. (5) Hypertension Qualifiers: Hypertension type: essential hypertension Qualified Code(s): I10 - Essential (primary) hypertension Is this a current diagnosis for this admission?: YesPlan: Continue metoprolol and lisinopril. - Time Time Spent with patient: 25-34 minutes - Inpatient Certification Medical Necessity: Need for IV Antibiotics
[2016-08-04] MEDS: NORMAL SALINE 1000 ML 1,000 ML IV PRN (16:04)
--- NOTE | 2016-08-04 17:29 | XCELERA REPORT ---
[address] [address] Lower Extremity Arterial Evaluation Name: SATURNINO MURGUIA Age: 55 yrs Gender: Female : 1960 Patient Status: Inpatient Patient Location: [id number] Study Date: 08/03/2016 11:13 AM Procedure: A color flow and duplex scan of the lower extremity arteries was performed bilaterally with velocity and waveform anaylsis. Ankle brachial indicies performed. Reason For Study: Left foot infection Ordering Physician: INGRID BAKER Performed By: Suni Allred Measurements and Calculations Right Left SAWMILL WORKER PSV 128.1 161.9 cm/sec Prox PFA PSV -106.9 -67.7 cm/sec Prox SFA PSV 117.9 162.6 cm/sec Mid SFA PSV -94.3 -183.9 cm/sec Dist SFA PSV -129.5 -141.4 cm/sec Prox Pop A PSV 103.7 174.4 cm/sec Dist LUIS PSV 89.3 120.8 cm/sec Dist SALES DEVELOPMENT DIRECTOR PSV 120.1 126.8 cm/sec Pablo Pedis PSV 115.0 -134.5 cm/sec Right Side Arterial Evaluation Normal velocity, waveform and triphasic flow are present, from the Common Femoral artery down to the infrageniculate vessels. The ankle-brachial index is 1.13. 0 % stenosis is noted at the Femoral artery. Left Side Arterial Evaluation Normal velocity, waveform and triphasic flow are present, from the Common Femoral artery down to the Posterior Tibial artery. The ankle-brachial index is 1.07. 0-19 % stenosis is noted at the Anterior tibial artery . Interpretation Summary No hemodynamically significant lesions in the right lower extremity only, on duplex imaging, at rest. Mild hemodynamically significant lesions in the left lower extremity only, on duplex imaging, at rest. : INGRID BAKER > Stephen Muñiz
[2016-08-04 18:25] LABS: APPEARANCE,URINE CLEAR; BILIRUBIN,URINE NEGATIVE (NEGATIVE); GLUCOSE, URINE 150 mg/dL (NEGATIVE); KETONES,URINE NEGATIVE (NEGATIVE); LEUKOCYTE ESTERASE,URINE NEGATIVE (NEGATIVE); NITRITE,URINE NEGATIVE (NEGATIVE); PROTEIN,URINE 30 mg/dL (NEGATIVE); URINE SPECIFIC GRAVITY 1.009; UROBILINOGEN,URINE NEGATIVE mg/dL (<2.0)
[2016-08-05] MEDS: VANCOMYCIN HCL 1,500 MG in DEXTROSE 5%-WATER 250 ML IV SCH ×2 (05:49→17:35)
[2016-08-05] MEDS: LANSOPRAZOLE 30 MG TAB.RAP.DR PO SCH (05:49)
[2016-08-05 06:44] LABS: ANION GAP 9 (5-19); BLOOD UREA NITROGEN 12 mg/dL (7-20); CALCIUM 8.7 mg/dL (8.4-10.2); CARBON DIOXIDE 28 mmol/L (22-30); CHLORIDE 100 mmol/L (98-107); CREATININE RESULT 1.18 mg/dL (0.52-1.25); GLUCOSE 118 mg/dL (75-110); POTASSIUM 3.4 mmol/L (3.6-5.0); SODIUM 136.9 mmol/L (137-145)
--- NOTE | 2016-08-05 06:51 | PDOC PROGRESS REPORT ---
Subjective Progress Note for:: 08/04/16 Subjective:: Seen earlier. Denies foot pain. Starts to have sensation around the ankle. Reports the foot looks better. No other complaints. Physical Exam Vital Signs: Temp Pulse Resp BP Pulse Ox 98.0 F 72 18 136/62 H 96 08/05/16 04:47 08/05/16 04:47 08/05/16 04:47 08/05/16 04:47 08/05/16 04:47 Intake & Output 08/03/16 08/04/16 08/05/16 06:59 06:59 06:59 Intake Total 4681 2400 6906 Output Total 1515 1750 1000 Balance 3179 650 5906 Weight 120.9 kg 121 kg 122 kg General appearance: PRESENT: no acute distress, morbidly obese Eye exam: PRESENT: EOMI Mouth exam: PRESENT: tongue midline Extremities exam: PRESENT: other - Left foot status post third toe amputation. Less erythema, induration, edema. Second and fourth toes much improved compared to previous exam by me. Wound is thoroughly probed, rinsed, scrubbed with hydrogen peroxide, gauze, Q-tips. Wound is repacked with quarter-inch iodoform gauze, gauze 4 x 4's, Kerlix roll. Neurological exam: PRESENT: alert, oriented to situation Psychiatric exam: PRESENT: appropriate affect, normal mood Results Laboratory Results: 08/04/16 08/04/16 08/04/16 06:20 06:20 17:55 WBC 21.8 H RBC 4.07 Hgb 11.7 L Hct 34.1 L MCV 84 MCH 28.7 MCHC 34.3 RDW 12.6 Plt Count 255 Sodium 133.2 L Potassium 3.4 L Chloride 97 L Carbon Dioxide 29 Anion Gap 7 BUN 15 Creatinine 1.13 Est GFR ( Amer) > 60 Est GFR (Non-Af Amer) 50 L Glucose 225 H Calcium 8.6 Urine Color YELLOW Urine Appearance CLEAR Urine pH 5.0 Ur Specific [place] 1.009 Urine Protein 30 H Urine Glucose (UA) 150 H Urine Ketones NEGATIVE Urine Blood SMALL H Urine Nitrite NEGATIVE Ur Leukocyte Esterase NEGATIVE Urine WBC (Auto) 1 Urine RBC (Auto) 1 08/02/16 09:36 Foot - Left Gram Stain - Final 08/01/16 23:30 Foot - Left Gram Stain - Final Impressions: Foot X-Ray 08/01/16 10:34 IMPRESSION: SOFT TISSUE SWELLING WITH ULCERATION. NO SUBCUTANEOUS GAS OR ACUTE OSSEOUS ABNORMALITY IDENTIFIED. Abdomen Ultrasound 08/03/16 00:00 IMPRESSION: NO ABDOMINAL AORTIC ANEURYSM. Guidance Fluoroscopy 08/03/16 00:00 IMPRESSION: SUCCESSFUL PLACEMENT OF A 5 FR DUAL LUMEN 45 CM PICC IN THE left basilic VEIN. Interventional Vascular Procedure 08/03/16 00:00 IMPRESSION: SUCCESSFUL PLACEMENT OF A 5 FR DUAL LUMEN 45 CM PICC IN THE left basilic VEIN. PICC Line Insertion 08/03/16 00:00 IMPRESSION: SUCCESSFUL PLACEMENT OF A 5 FR DUAL LUMEN 45 CM PICC IN THE left basilic VEIN. Assessment & Plan - Diagnosis (1) Abscess of left foot Is this a current diagnosis for this admission?: YesPlan: Much improvement in foot. There may still be some skin on the dorsal surface of the foot which has yet to declare. Continue daily wound care. Great deal of time was spent describing wound care regimen once discharged. (2) Deep venous thrombosis Qualifiers: DVT location: lower extremity Affected thrombotic vein of extremity: unspecified vein of extremity Laterality: left Chronicity: unspecified Qualified Code(s): I82.402 - Acute embolism and thrombosis of unspecified deep veins of left lower extremity Is this a current diagnosis for this admission?: Yes (3) Diabetes mellitus Qualifiers: Diabetes mellitus type: type 2 Diabetes mellitus complication status: with other specified complication Diabetes mellitus [facility] insulin use: with [facility] use Qualified Code(s): E11.69 - Type 2 diabetes mellitus with other specified complication Is this a current diagnosis for this admission?: Yes (4) History of stroke Is this a current diagnosis for this admission?: Yes
[2016-08-05 07:11] LABS: HEMOGLOBIN 11.4 g/dL (12.0-15.5); HGB HCT DIFFERENCE 1.2; MEAN CORPUSCULAR HEMOGLOBIN 28.7 pg (27.0-33.4); MEAN CORPUSCULAR HGB CONC 34.4 g/dL (32.0-36.0); MEAN CORPUSCULAR VOLUME 83 fl (80-97); RED BLOOD COUNT 3.96 10^6/uL (3.72-5.28); RED CELL DISTRIBUTION WIDTH 12.7 % (11.5-14.0); WHITE BLOOD COUNT 20.8 10^3/uL (4.0-10.5)
[2016-08-05 07:25] LABS: BAND NEUTROPHILS % (MANUAL) 1 % (3-5); BASOPHILS % (MANUAL) 0 % (0-2); EOSINOPHILS % (MANUAL) 0 % (0-6); LYMPHOCYTES % (MANUAL) 11 % (13-45); TOTAL CELLS COUNTED 100
[2016-08-05 07:27] LABS: OVALOCYTES SLIGHT; POIKILOCYTOSIS SLIGHT; POLYCHROMASIA SLIGHT; TOXIC GRANULATION SLIGHT; TOXIC VACUOLATION PRESENT
[2016-08-05] MEDS: HYDROCHLOROTHIAZIDE 25 MG TABLET PO SCH (09:41)
[2016-08-05] MEDS: POTASSIUM CHLORIDE 10 MEQ TABLET.SA PO SCH ×2 (09:42→21:41)
[2016-08-05] MEDS: INSULIN DETEMIR 100 UNIT/ML 3 ML PEN SUBCUT SCH ×2 (09:43→21:39)
[2016-08-05] MEDS: NORMAL SALINE 10 ML SDV (SCHEDULED) IV SCH ×2 (09:43→21:41)
[2016-08-05] MEDS: ATENOLOL 50 MG TABLET PO SCH ×2 (09:43→21:41)
[2016-08-05] MEDS: LISINOPRIL 10 MG TABLET PO SCH (09:44)
[2016-08-05] MEDS: ERTAPENEM SODIUM 1 GM in NORMAL SALINE 50 ML IV SCH (09:46)
[2016-08-05] MEDS: DOCUSATE SODIUM 100 MG CAPSULE PO SCH ×2 (09:47→17:34)
--- NOTE | 2016-08-05 10:07 | PDOC PROGRESS REPORT ---
Subjective Progress Note for:: 08/05/16 Subjective:: No complaints Physical Exam Vital Signs: Temp Pulse Resp BP Pulse Ox 98.0 F 69 18 136/62 H 96 08/05/16 04:47 08/05/16 07:00 08/05/16 04:47 08/05/16 04:47 08/05/16 04:47 Intake & Output 08/04/16 08/05/16 08/06/16 06:59 06:59 06:59 Intake Total 2400 6906 Output Total 1750 1000 Balance 650 5906 Weight 121 kg 122 kg Musculoskeletal exam: PRESENT: other - Left foot examined. Dressing removed; a [place] drain intact; toes 2 and 4R viable. And over the dorsum of the foot still challenged but viable. Debris from operative wound fished out with pickups and rubbed with 4 x 4. Moderate debris. No active pus. Results Laboratory Results: 08/05/16 05:55 08/05/16 05:55 08/04/16 08/05/16 08/05/16 17:55 05:55 05:55 WBC 20.8 H RBC 3.96 Hgb 11.4 L Hct 33.0 L MCV 83 MCH 28.7 MCHC 34.4 RDW 12.7 Plt Count 266 Seg Neutrophils % Not Reportable Lymphocytes % Not Reportable Monocytes % Not Reportable Eosinophils % Not Reportable Basophils % Not Reportable Absolute Neutrophils Not Reportable Absolute Lymphocytes Not Reportable Absolute Monocytes Not Reportable Absolute Eosinophils Not Reportable Absolute Basophils Not Reportable Sodium 136.9 L Potassium 3.4 L Chloride 100 Carbon Dioxide 28 Anion Gap 9 BUN 12 Creatinine 1.18 Est GFR ( Amer) 58 L Est GFR (Non-Af Amer) 48 L Glucose 118 H Calcium 8.7 Urine Color YELLOW Urine Appearance CLEAR Urine pH 5.0 Ur Specific [place] 1.009 Urine Protein 30 H Urine Glucose (UA) 150 H Urine Ketones NEGATIVE Urine Blood SMALL H Urine Nitrite NEGATIVE Ur Leukocyte Esterase NEGATIVE Urine WBC (Auto) 1 Urine RBC (Auto) 1 08/02/16 09:36 Foot - Left Gram Stain - Final 08/01/16 23:30 Foot - Left Gram Stain - Final Impressions: Foot X-Ray 08/01/16 10:34 IMPRESSION: SOFT TISSUE SWELLING WITH ULCERATION. NO SUBCUTANEOUS GAS OR ACUTE OSSEOUS ABNORMALITY IDENTIFIED. Abdomen Ultrasound 08/03/16 00:00 IMPRESSION: NO ABDOMINAL AORTIC ANEURYSM. Guidance Fluoroscopy 08/03/16 00:00 IMPRESSION: SUCCESSFUL PLACEMENT OF A 5 FR DUAL LUMEN 45 CM PICC IN THE left basilic VEIN. Interventional Vascular Procedure 08/03/16 00:00 IMPRESSION: SUCCESSFUL PLACEMENT OF A 5 FR DUAL LUMEN 45 CM PICC IN THE left basilic VEIN. PICC Line Insertion 08/03/16 00:00 IMPRESSION: SUCCESSFUL PLACEMENT OF A 5 FR DUAL LUMEN 45 CM PICC IN THE left basilic VEIN. Assessment & Plan - Diagnosis (1) Abscess of left foot Is this a current diagnosis for this admission?: YesPlan: 1. Foot is improved but not out of the wound; toes 2 and 4R viable; patient needs more aggressive local wound care. 2. Continue current intravenous antibiotics as they are appropriate for the enterococcus and Streptococcus in the foot. 3. Will order surgical sandal. Discussed with primary care team; suspect patient may be ready to go home over the weekend, however I am very concerned about patient's reliability. - Time Time Spent with patient: 15-24 minutes
[2016-08-05] MEDS ORDERED: ENOXAPARIN SODIUM INJ 120 MG/0.8 ML DISP.SYRIN SUBCUT ONE ×2 (13:00→16:45)
--- NOTE | 2016-08-05 13:36 | PDOC PROGRESS REPORT ---
Subjective Progress Note for:: 08/05/16 Subjective:: Denies any complaints. Physical Exam Vital Signs: Temp Pulse Resp BP Pulse Ox 98.0 F 69 18 136/62 H 96 08/05/16 04:47 08/05/16 07:00 08/05/16 04:47 08/05/16 04:47 08/05/16 04:47 Intake & Output 08/04/16 08/05/16 08/06/16 06:59 06:59 06:59 Intake Total 2400 6906 Output Total 1750 1000 Balance 650 5906 Weight 121 kg 122 kg General appearance: PRESENT: no acute distress Eye exam: PRESENT: conjunctiva pink Mouth exam: PRESENT: moist, tongue midline Neck exam: ABSENT: JVD Respiratory exam: PRESENT: clear to auscultation martha. ABSENT: rales, rhonchi, wheezes Cardiovascular exam: PRESENT: RRR. ABSENT: diastolic murmur, rubs, systolic murmur Extremities exam: PRESENT: other - Patient is a Quincy in place in the surgical space. No obvious pus. Neurological exam: PRESENT: alert, awake, oriented to person, oriented to place , oriented to time, oriented to situation Psychiatric exam: PRESENT: appropriate affect Results Laboratory Results: 08/05/16 05:55 08/05/16 05:55 08/04/16 08/05/16 08/05/16 17:55 05:55 05:55 WBC 20.8 H RBC 3.96 Hgb 11.4 L Hct 33.0 L MCV 83 MCH 28.7 MCHC 34.4 RDW 12.7 Plt Count 266 Seg Neutrophils % Not Reportable Lymphocytes % Not Reportable Monocytes % Not Reportable Eosinophils % Not Reportable Basophils % Not Reportable Absolute Neutrophils Not Reportable Absolute Lymphocytes Not Reportable Absolute Monocytes Not Reportable Absolute Eosinophils Not Reportable Absolute Basophils Not Reportable Sodium 136.9 L Potassium 3.4 L Chloride 100 Carbon Dioxide 28 Anion Gap 9 BUN 12 Creatinine 1.18 Est GFR ( Amer) 58 L Est GFR (Non-Af Amer) 48 L Glucose 118 H Calcium 8.7 Urine Color YELLOW Urine Appearance CLEAR Urine pH 5.0 Ur Specific [place] 1.009 Urine Protein 30 H Urine Glucose (UA) 150 H Urine Ketones NEGATIVE Urine Blood SMALL H Urine Nitrite NEGATIVE Ur Leukocyte Esterase NEGATIVE Urine WBC (Auto) 1 Urine RBC (Auto) 1 08/02/16 09:36 Foot - Left Gram Stain - Final 08/01/16 23:30 Foot - Left Gram Stain - Final Impressions: Foot X-Ray 08/01/16 10:34 IMPRESSION: SOFT TISSUE SWELLING WITH ULCERATION. NO SUBCUTANEOUS GAS OR ACUTE OSSEOUS ABNORMALITY IDENTIFIED. Abdomen Ultrasound 08/03/16 00:00 IMPRESSION: NO ABDOMINAL AORTIC ANEURYSM. Guidance Fluoroscopy 08/03/16 00:00 IMPRESSION: SUCCESSFUL PLACEMENT OF A 5 FR DUAL LUMEN 45 CM PICC IN THE left basilic VEIN. Interventional Vascular Procedure 08/03/16 00:00 IMPRESSION: SUCCESSFUL PLACEMENT OF A 5 FR DUAL LUMEN 45 CM PICC IN THE left basilic VEIN. PICC Line Insertion 08/03/16 00:00 IMPRESSION: SUCCESSFUL PLACEMENT OF A 5 FR DUAL LUMEN 45 CM PICC IN THE left basilic VEIN. Assessment & Plan - Diagnosis (1) Abscess of left foot Is this a current diagnosis for this admission?: YesPlan: The patient is growing out group B strep and enterococcus from her wound culture. She currently is on vancomycin and ertapenem. 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 Patient will need two weeks of IV antibiotics. Will plan on 2 weeks of IV vancomycin. We'll consult discharge planning for arrange home health and antibiotics and PICC online health and fitness coach. (2) Diabetes mellitus Qualifiers: Diabetes mellitus type: type 2 Diabetes mellitus complication status: with other specified complication Diabetes mellitus roasterman insulin use: with roasterman use Qualified Code(s): E11.69 - Type 2 diabetes mellitus with other specified complication Is this a current diagnosis for this admission?: YesPlan: Continue with Levemir and sliding scale insulin. (3) Anxiety and depression Is this a current diagnosis for this admission?: YesPlan: Stable (4) Deep venous thrombosis Qualifiers: DVT location: lower extremity Affected thrombotic vein of extremity: unspecified vein of extremity Laterality: left Chronicity: unspecified Qualified Code(s): I82.402 - Acute embolism and thrombosis of unspecified deep veins of left lower extremity Is this a current diagnosis for this admission?: YesPlan: Continue with Lovenox. It's not clear if the clot in her leg is chronic or new. It is in the calf (5) Hypertension Qualifiers: Hypertension type: essential hypertension Qualified Code(s): I10 - Essential (primary) hypertension Is this a current diagnosis for this admission?: YesPlan: Continue metoprolol and lisinopril. - Time Time Spent with patient: 25-34 minutes - Inpatient Certification Medical Necessity: Need Close Monitoring Due to Risk of Patient Decompensation, Need for IV Antibiotics
[2016-08-05] MEDS: INSULIN REG, HUMAN 100 UNIT/ML 3 ML VIAL (PYX) SUBCUT PRN (21:40)
[2016-08-05] MEDS ORDERED: ENOXAPARIN SODIUM INJ 120 MG/0.8 ML DISP.SYRIN SUBCUT SCH (22:00)
[2016-08-06] MEDS: LANSOPRAZOLE 30 MG TAB.RAP.DR PO SCH (05:43)
[2016-08-06] MEDS: NORMAL SALINE 1000 ML 1,000 ML IV PRN ×2 (05:43→18:32)
[2016-08-06] MEDS: VANCOMYCIN HCL 1,500 MG in DEXTROSE 5%-WATER 250 ML IV SCH (05:43)
[2016-08-06] MEDS: ENOXAPARIN SODIUM INJ 120 MG/0.8 ML DISP.SYRIN SUBCUT SCH ×2 (05:43→17:20)
[2016-08-06 06:38] LABS: HEMATOCRIT 33.9 % (36.0-47.0); HEMOGLOBIN 11.4 g/dL (12.0-15.5); HGB HCT DIFFERENCE 0.3; MEAN CORPUSCULAR HEMOGLOBIN 28.2 pg (27.0-33.4); MEAN CORPUSCULAR HGB CONC 33.5 g/dL (32.0-36.0); MEAN CORPUSCULAR VOLUME 84 fl (80-97); RED BLOOD COUNT 4.02 10^6/uL (3.72-5.28); RED CELL DISTRIBUTION WIDTH 12.7 % (11.5-14.0); WHITE BLOOD COUNT 18.5 10^3/uL (4.0-10.5)
[2016-08-06 07:00] LABS: ANION GAP 12 (5-19); BLOOD UREA NITROGEN 11 mg/dL (7-20); CALCIUM 8.5 mg/dL (8.4-10.2); CARBON DIOXIDE 27 mmol/L (22-30); CHLORIDE 99 mmol/L (98-107); CREATININE RESULT 1.13 mg/dL (0.52-1.25); GLUCOSE 123 mg/dL (75-110); POTASSIUM 3.8 mmol/L (3.6-5.0); SODIUM 137.7 mmol/L (137-145)
[2016-08-06] MEDS: INSULIN DETEMIR 100 UNIT/ML 3 ML PEN SUBCUT SCH ×2 (10:05→23:49)
[2016-08-06] MEDS: LISINOPRIL 10 MG TABLET PO SCH (10:07)
[2016-08-06] MEDS: HYDROCHLOROTHIAZIDE 25 MG TABLET PO SCH (10:08)
[2016-08-06] MEDS: POTASSIUM CHLORIDE 10 MEQ TABLET.SA PO SCH ×2 (10:08→23:48)
[2016-08-06] MEDS: DOCUSATE SODIUM 100 MG CAPSULE PO SCH ×2 (10:08→17:22)
[2016-08-06] MEDS: ATENOLOL 50 MG TABLET PO SCH ×2 (10:08→23:48)
[2016-08-06] MEDS: NORMAL SALINE 10 ML SDV (SCHEDULED) IV SCH (10:12)
[2016-08-06] MEDS: ERTAPENEM SODIUM 1 GM in NORMAL SALINE 50 ML IV SCH (10:39)
--- NOTE | 2016-08-06 12:01 | PDOC PROGRESS REPORT ---
Subjective Progress Note for:: 08/06/16 Subjective:: Denies any complaints. Physical Exam Vital Signs: Temp Pulse Resp BP Pulse Ox 99.1 F 67 21 H 151/64 H 96 08/06/16 07:38 08/06/16 07:38 08/06/16 07:38 08/06/16 07:38 08/06/16 07:38 Intake & Output 08/05/16 08/06/16 08/07/16 06:59 06:59 06:59 Intake Total 6906 4144 Output Total 1000 750 Balance 5906 3394 Weight 122 kg 125.7 kg General appearance: PRESENT: no acute distress Eye exam: PRESENT: conjunctiva pink Neck exam: ABSENT: JVD Respiratory exam: PRESENT: clear to auscultation martha. ABSENT: rales, rhonchi, wheezes Cardiovascular exam: PRESENT: RRR. ABSENT: diastolic murmur, rubs, systolic murmur GI/Abdominal exam: PRESENT: normal bowel sounds, soft. ABSENT: distended, guarding, mass, organolmegaly, rebound, tenderness Extremities exam: ABSENT: calf tenderness, clubbing, pedal edema Neurological exam: PRESENT: alert, awake, oriented to person, oriented to place , oriented to time, oriented to situation Skin exam: PRESENT: other - Dressing in place on the left foot Results Laboratory Results: 08/06/16 05:45 08/06/16 05:45 08/06/16 08/06/16 05:45 05:45 WBC 18.5 H RBC 4.02 Hgb 11.4 L Hct 33.9 L MCV 84 MCH 28.2 MCHC 33.5 RDW 12.7 Plt Count 300 Sodium 137.7 Potassium 3.8 Chloride 99 Carbon Dioxide 27 Anion Gap 12 BUN 11 Creatinine 1.13 Est GFR ( Amer) > 60 Est GFR (Non-Af Amer) 50 L Glucose 123 H Calcium 8.5 08/01/16 23:30 Foot - Left Gram Stain - Final 08/01/16 23:30 Foot - Left Wound Culture - Final Enterococcus Faecalis(Group D) Staphylococcus Aureus Group B Beta Streptococcus 08/02/16 09:36 Foot - Left Gram Stain - Final Impressions: Foot X-Ray 08/01/16 10:34 IMPRESSION: SOFT TISSUE SWELLING WITH ULCERATION. NO SUBCUTANEOUS GAS OR ACUTE OSSEOUS ABNORMALITY IDENTIFIED. Abdomen Ultrasound 08/03/16 00:00 IMPRESSION: NO ABDOMINAL AORTIC ANEURYSM. Guidance Fluoroscopy 08/03/16 00:00 IMPRESSION: SUCCESSFUL PLACEMENT OF A 5 FR DUAL LUMEN 45 CM PICC IN THE left basilic VEIN. Interventional Vascular Procedure 08/03/16 00:00 IMPRESSION: SUCCESSFUL PLACEMENT OF A 5 FR DUAL LUMEN 45 CM PICC IN THE left basilic VEIN. PICC Line Insertion 08/03/16 00:00 IMPRESSION: SUCCESSFUL PLACEMENT OF A 5 FR DUAL LUMEN 45 CM PICC IN THE left basilic VEIN. Assessment & Plan - Diagnosis (1) Abscess of left foot Is this a current diagnosis for this admission?: YesPlan: The patient is growing out group B strep and enterococcus from her wound culture. She currently is on vancomycin and ertapenem. 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 Patient will need two weeks of IV antibiotics. Will plan on 2 weeks of IV vancomycin. We'll consult discharge planning for arrange home health and antibiotics and PICC hogshead liner. Patient will be sent home when surgery feels the patient's foot has reached maximal benefit from inpatient treatment (2) Diabetes mellitus Qualifiers: Diabetes mellitus type: type 2 Diabetes mellitus complication status: with other specified complication Diabetes mellitus usp insulin use: with usp use Qualified Code(s): E11.69 - Type 2 diabetes mellitus with other specified complication Is this a current diagnosis for this admission?: YesPlan: Continue with Levemir and sliding scale insulin. (3) Anxiety and depression Is this a current diagnosis for this admission?: YesPlan: Stable (4) Deep venous thrombosis Qualifiers: DVT location: lower extremity Affected thrombotic vein of extremity: unspecified vein of extremity Laterality: left Chronicity: unspecified Qualified Code(s): I82.402 - Acute embolism and thrombosis of unspecified deep veins of left lower extremity Is this a current diagnosis for this admission?: YesPlan: Continue with Lovenox. It's not clear if the clot in her leg is chronic or new. It is in the calf (5) Hypertension Qualifiers: Hypertension type: essential hypertension Qualified Code(s): I10 - Essential (primary) hypertension Is this a current diagnosis for this admission?: YesPlan: Continue metoprolol and lisinopril. - Time Time Spent with patient: 25-34 minutes - Inpatient Certification Medical Necessity: Need for IV Antibiotics
--- NOTE | 2016-08-06 16:44 | PDOC PROGRESS REPORT ---
Subjective Progress Note for:: 08/06/16 Subjective:: Denies nausea vomiting. Denies changes in foot. No complaints. Physical Exam Vital Signs: Temp Pulse Resp BP Pulse Ox 98.5 F 68 21 H 147/63 H 100 08/06/16 12:15 08/06/16 14:00 08/06/16 12:15 08/06/16 12:15 08/06/16 12:15 Intake & Output 08/05/16 08/06/16 08/07/16 06:59 06:59 06:59 Intake Total 6906 4144 Output Total 1000 750 Balance 5906 3394 Weight 122 kg 125.7 kg General appearance: PRESENT: no acute distress Eye exam: PRESENT: EOMI Mouth exam: PRESENT: tongue midline Extremities exam: PRESENT: other - Left foot status post third ray amputation. Wound covers extensive portion of the plantar and dorsal surface with a Red Devil drain placed in a tract along the dorsal surface to the midfoot. The plantar surfaces largely open. Old dressing is removed. Wound is cleansed and probed and debrided with hydrogen peroxide, gauze 4 x 4's, Q-tips. The track with the Red Devil is packed with quarter-inch iodoform gauze. The remaining portion of the wound is packed with iodoform gauze and then gauze 4 x 4's and a Kerlix roll. The erythema is essentially stable, extending to the midfoot, respecting the previous marking line. The induration and edema are decreased slightly. Neurological exam: PRESENT: alert, oriented to situation Results Laboratory Results: 08/06/16 05:45 08/06/16 05:45 08/06/16 08/06/16 05:45 05:45 WBC 18.5 H RBC 4.02 Hgb 11.4 L Hct 33.9 L MCV 84 MCH 28.2 MCHC 33.5 RDW 12.7 Plt Count 300 Sodium 137.7 Potassium 3.8 Chloride 99 Carbon Dioxide 27 Anion Gap 12 BUN 11 Creatinine 1.13 Est GFR ( Amer) > 60 Est GFR (Non-Af Amer) 50 L Glucose 123 H Calcium 8.5 08/02/16 09:36 Foot - Left Gram Stain - Final 08/02/16 09:36 Foot - Left Wound Culture - Final Enterococcus Faecalis(Group D) Staphylococcus Aureus Group B Beta Streptococcus Prevotella Species 08/01/16 23:30 Foot - Left Gram Stain - Final 08/01/16 23:30 Foot - Left Wound Culture - Final Enterococcus Faecalis(Group D) Staphylococcus Aureus Group B Beta Streptococcus Impressions: Foot X-Ray 08/01/16 10:34 IMPRESSION: SOFT TISSUE SWELLING WITH ULCERATION. NO SUBCUTANEOUS GAS OR ACUTE OSSEOUS ABNORMALITY IDENTIFIED. Abdomen Ultrasound 08/03/16 00:00 IMPRESSION: NO ABDOMINAL AORTIC ANEURYSM. Guidance Fluoroscopy 08/03/16 00:00 IMPRESSION: SUCCESSFUL PLACEMENT OF A 5 FR DUAL LUMEN 45 CM PICC IN THE left basilic VEIN. Interventional Vascular Procedure 08/03/16 00:00 IMPRESSION: SUCCESSFUL PLACEMENT OF A 5 FR DUAL LUMEN 45 CM PICC IN THE left basilic VEIN. PICC Line Insertion 08/03/16 00:00 IMPRESSION: SUCCESSFUL PLACEMENT OF A 5 FR DUAL LUMEN 45 CM PICC IN THE left basilic VEIN. Assessment & Plan - Diagnosis (1) Abscess of left foot Is this a current diagnosis for this admission?: YesPlan: 25 minutes spent with the patient. Wound cares performed. See physical exam. The foot is slowly improving. Would like to see the erythema reduced prior to discharge. Continue daily wound care. The patient also had many questions about a purported diagnosis of abdominal aortic aneurysm. I presented her copies of her abdominal ultrasound from this visit as well as her CTs of her chest, abdomen and pelvis from her October 2015 imaging. None of these show any evidence of thoracic or abdominal aortic aneurysm. (2) Deep venous thrombosis Qualifiers: DVT location: lower extremity Affected thrombotic vein of extremity: unspecified vein of extremity Laterality: left Chronicity: unspecified Qualified Code(s): I82.402 - Acute embolism and thrombosis of unspecified deep veins of left lower extremity Is this a current diagnosis for this admission?: Yes (3) Diabetes mellitus Qualifiers: Diabetes mellitus type: type 2 Diabetes mellitus complication status: with other specified complication Diabetes mellitus intermediate insulin use: with manager terminal use Qualified Code(s): E11.69 - Type 2 diabetes mellitus with other specified complication Is this a current diagnosis for this admission?: Yes (4) History of stroke Is this a current diagnosis for this admission?: Yes
[2016-08-06] MEDS: INSULIN REG, HUMAN 100 UNIT/ML 3 ML VIAL (PYX) SUBCUT PRN (23:49)
[2016-08-07] MEDS: NORMAL SALINE 10 ML SDV (SCHEDULED) IV SCH ×3 (01:05→22:22)
[2016-08-07 03:39] LABS: APPEARANCE,URINE SLIGHTLY-CLOUDY; BILIRUBIN,URINE NEGATIVE (NEGATIVE); GLUCOSE, URINE 50 mg/dL (NEGATIVE); KETONES,URINE NEGATIVE (NEGATIVE); LEUKOCYTE ESTERASE,URINE TRACE (NEGATIVE); NITRITE,URINE NEGATIVE (NEGATIVE); PROTEIN,URINE NEGATIVE (NEGATIVE); URINE SPECIFIC GRAVITY 1.006; UROBILINOGEN,URINE NEGATIVE mg/dL (<2.0)
[2016-08-07] MEDS: ENOXAPARIN SODIUM INJ 120 MG/0.8 ML DISP.SYRIN SUBCUT SCH ×2 (06:57→17:35)
[2016-08-07] MEDS: LANSOPRAZOLE 30 MG TAB.RAP.DR PO SCH (06:58)
[2016-08-07 08:15] LABS: ABSOLUTE BASOPHILS # (AUTO) 0.2 10^3/uL (0.0-0.2); ABSOLUTE EOSINOPHILS # (AUTO) 0.2 10^3/uL (0.0-0.6); ABSOLUTE LYMPHOCYTES (AUTO) 2.5 10^3/uL (0.5-4.7); ABSOLUTE MONOCYTES (AUTO) 1.4 10^3/uL (0.1-1.4); ABSOLUTE NEUT (AUTO) 12.4 10^3/uL (1.7-8.2); EOSINOPHILS % (AUTO) 1.3 % (0-6); HEMATOCRIT 33.6 % (36.0-47.0); HEMOGLOBIN 11.2 g/dL (12.0-15.5); MEAN CORPUSCULAR HGB CONC 33.2 g/dL (32.0-36.0); MEAN CORPUSCULAR VOLUME 85 fl (80-97); MONOCYTES % (AUTO) 8.3 % (3-13); RED BLOOD COUNT 3.98 10^6/uL (3.72-5.28); RED CELL DISTRIBUTION WIDTH 12.9 % (11.5-14.0); SEGMENTED NEUTROPHILS % (AUTO) 74.4 % (42-78); WHITE BLOOD COUNT 16.7 10^3/uL (4.0-10.5)
[2016-08-07 08:30] LABS: ANION GAP 10 (5-19); BLOOD UREA NITROGEN 10 mg/dL (7-20); CALCIUM 8.4 mg/dL (8.4-10.2); CARBON DIOXIDE 27 mmol/L (22-30); CHLORIDE 100 mmol/L (98-107); CREATININE RESULT 1.04 mg/dL (0.52-1.25); GLUCOSE 127 mg/dL (75-110); SODIUM 136.8 mmol/L (137-145)
--- NOTE | 2016-08-07 10:42 | PDOC PROGRESS REPORT ---
Subjective Progress Note for:: 08/07/16 Subjective:: Denies any complaints. Physical Exam Vital Signs: Temp Pulse Resp BP Pulse Ox 97.4 F 67 20 146/59 H 100 08/07/16 08:11 08/07/16 08:11 08/07/16 08:11 08/07/16 08:11 08/07/16 08:11 Intake & Output 08/06/16 08/07/16 08/08/16 06:59 06:59 06:59 Intake Total 4144 3680 Output Total 750 2200 Balance 3394 1480 Weight 125.7 kg 125.8 kg General appearance: PRESENT: no acute distress Eye exam: PRESENT: conjunctiva pink Mouth exam: PRESENT: moist, tongue midline Respiratory exam: PRESENT: clear to auscultation martha. ABSENT: rales, rhonchi, wheezes Cardiovascular exam: PRESENT: RRR. ABSENT: diastolic murmur, rubs, systolic murmur GI/Abdominal exam: PRESENT: normal bowel sounds, soft. ABSENT: distended, guarding, mass, organolmegaly, rebound, tenderness Extremities exam: PRESENT: other Neurological exam: PRESENT: alert, awake, oriented to person, oriented to place , oriented to time, oriented to situation Psychiatric exam: PRESENT: appropriate affect Skin exam: PRESENT: dry, intact, warm. ABSENT: cyanosis, rash Results Laboratory Results: 08/07/16 07:00 08/07/16 07:00 08/07/16 08/07/16 08/07/16 03:15 07:00 07:00 WBC 16.7 H RBC 3.98 Hgb 11.2 L Hct 33.6 L MCV 85 MCH 28.0 MCHC 33.2 RDW 12.9 Plt Count 319 Seg Neutrophils % 74.4 Lymphocytes % 15.0 Monocytes % 8.3 Eosinophils % 1.3 Basophils % 1.0 Absolute Neutrophils 12.4 H Absolute Lymphocytes 2.5 Absolute Monocytes 1.4 Absolute Eosinophils 0.2 Absolute Basophils 0.2 Sodium 136.8 L Potassium 4.0 Chloride 100 Carbon Dioxide 27 Anion Gap 10 BUN 10 Creatinine 1.04 Est GFR ( Amer) > 60 Est GFR (Non-Af Amer) 55 L Glucose 127 H Calcium 8.4 Urine Color YELLOW Urine Appearance SLIGHTLY-CLOUDY Urine pH 5.0 Ur Specific [place] 1.006 Urine Protein NEGATIVE Urine Glucose (UA) 50 H Urine Ketones NEGATIVE Urine Blood SMALL H Urine Nitrite NEGATIVE Ur Leukocyte Esterase TRACE H Urine WBC (Auto) 14 Urine RBC (Auto) 0 08/01/16 17:56 Blood Blood Culture - Final NO GROWTH IN 5 DAYS 08/02/16 09:36 Foot - Left Gram Stain - Final 08/02/16 09:36 Foot - Left Wound Culture - Final Enterococcus Faecalis(Group D) Staphylococcus Aureus Group B Beta Streptococcus Prevotella Species 08/01/16 23:30 Foot - Left Gram Stain - Final 08/01/16 23:30 Foot - Left Wound Culture - Final Enterococcus Faecalis(Group D) Staphylococcus Aureus Group B Beta Streptococcus Impressions: Foot X-Ray 08/01/16 10:34 IMPRESSION: SOFT TISSUE SWELLING WITH ULCERATION. NO SUBCUTANEOUS GAS OR ACUTE OSSEOUS ABNORMALITY IDENTIFIED. Abdomen Ultrasound 08/03/16 00:00 IMPRESSION: NO ABDOMINAL AORTIC ANEURYSM. Guidance Fluoroscopy 08/03/16 00:00 IMPRESSION: SUCCESSFUL PLACEMENT OF A 5 FR DUAL LUMEN 45 CM PICC IN THE left basilic VEIN. Interventional Vascular Procedure 08/03/16 00:00 IMPRESSION: SUCCESSFUL PLACEMENT OF A 5 FR DUAL LUMEN 45 CM PICC IN THE left basilic VEIN. PICC Line Insertion 08/03/16 00:00 IMPRESSION: SUCCESSFUL PLACEMENT OF A 5 FR DUAL LUMEN 45 CM PICC IN THE left basilic VEIN. Assessment & Plan - Diagnosis (1) Abscess of left foot Is this a current diagnosis for this admission?: YesPlan: The patient is growing out group B strep and enterococcus from her wound culture. She currently is on vancomycin and ertapenem. 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 Patient will need two weeks of IV antibiotics. Will plan on 2 weeks of IV vancomycin. We'll consult discharge planning for arrange home health and antibiotics and PICC bag liner. Patient will be sent home when surgery feels the patient's foot has reached maximal benefit from inpatient treatment (2) Diabetes mellitus Qualifiers: Diabetes mellitus type: type 2 Diabetes mellitus complication status: with other specified complication Diabetes mellitus equipment operator intermodal yard insulin use: with residential use Qualified Code(s): E11.69 - Type 2 diabetes mellitus with other specified complication Is this a current diagnosis for this admission?: YesPlan: Continue with Levemir and sliding scale insulin. (3) Anxiety and depression Is this a current diagnosis for this admission?: YesPlan: Stable (4) Deep venous thrombosis Qualifiers: DVT location: lower extremity Affected thrombotic vein of extremity: unspecified vein of extremity Laterality: left Chronicity: unspecified Qualified Code(s): I82.402 - Acute embolism and thrombosis of unspecified deep veins of left lower extremity Is this a current diagnosis for this admission?: YesPlan: Continue with Lovenox. It's not clear if the clot in her leg is chronic or new. It is in the calf (5) Hypertension Qualifiers: Hypertension type: essential hypertension Qualified Code(s): I10 - Essential (primary) hypertension Is this a current diagnosis for this admission?: YesPlan: Continue metoprolol and lisinopril. - Time Time Spent with patient: 25-34 minutes - Inpatient Certification Medical Necessity: Need for IV Antibiotics
[2016-08-07] MEDS: LISINOPRIL 10 MG TABLET PO SCH (10:55)
[2016-08-07] MEDS: POTASSIUM CHLORIDE 10 MEQ TABLET.SA PO SCH ×2 (10:55→22:22)
[2016-08-07] MEDS: HYDROCHLOROTHIAZIDE 25 MG TABLET PO SCH (10:55)
[2016-08-07] MEDS: INSULIN DETEMIR 100 UNIT/ML 3 ML PEN SUBCUT SCH ×2 (10:55→22:22)
[2016-08-07] MEDS: ERTAPENEM SODIUM 1 GM in NORMAL SALINE 50 ML IV SCH (10:55)
[2016-08-07] MEDS: DOCUSATE SODIUM 100 MG CAPSULE PO SCH ×2 (10:56→17:02)
[2016-08-07 11:46] LABS: CREATININE RESULT 0.99 mg/dL (0.52-1.25)
[2016-08-07] MEDS: INSULIN REG, HUMAN 100 UNIT/ML 3 ML VIAL (PYX) SUBCUT PRN ×3 (13:05→22:22)
[2016-08-07] MEDS: VANCOMYCIN HCL 1,500 MG in DEXTROSE 5%-WATER 250 ML IV SCH (13:05)
[2016-08-07] MEDS: ATENOLOL 50 MG TABLET PO SCH ×2 (13:09→22:22)
--- NOTE | 2016-08-07 14:02 | PDOC PROGRESS REPORT ---
Subjective Progress Note for:: 08/07/16 Subjective:: Denies nausea, vomiting, fever, pain. Physical Exam Vital Signs: Temp Pulse Resp BP Pulse Ox 97.4 F 67 20 146/59 H 100 08/07/16 08:11 08/07/16 08:11 08/07/16 08:11 08/07/16 08:11 08/07/16 08:11 Intake & Output 08/06/16 08/07/16 08/08/16 06:59 06:59 06:59 Intake Total 4144 3680 120 Output Total 750 2200 Balance 3394 1480 120 Weight 125.7 kg 125.8 kg General appearance: PRESENT: no acute distress, cooperative Head exam: PRESENT: atraumatic, normocephalic Respiratory exam: PRESENT: clear to auscultation martha GI/Abdominal exam: PRESENT: soft Rectal exam: PRESENT: deferred Extremities exam: PRESENT: other - The left leg erythema is improving, still have some swelling on the dorsal aspect of the left foot, Quincy drain is in place, the site of the third toe amputation is clean with minimal fibrinous exudate, there is improved swelling of the second toe, with persistent swelling of the fourth toe, no gangrene, minimal debridement was done at the bedside, the wound was irrigated with peroxide, and the packing was performed. Neurological exam: PRESENT: alert, awake Results Laboratory Results: 08/07/16 07:00 08/07/16 11:17 08/07/16 08/07/16 08/07/16 03:15 07:00 07:00 WBC 16.7 H RBC 3.98 Hgb 11.2 L Hct 33.6 L MCV 85 MCH 28.0 MCHC 33.2 RDW 12.9 Plt Count 319 Seg Neutrophils % 74.4 Lymphocytes % 15.0 Monocytes % 8.3 Eosinophils % 1.3 Basophils % 1.0 Absolute Neutrophils 12.4 H Absolute Lymphocytes 2.5 Absolute Monocytes 1.4 Absolute Eosinophils 0.2 Absolute Basophils 0.2 Sodium 136.8 L Potassium 4.0 Chloride 100 Carbon Dioxide 27 Anion Gap 10 BUN 10 Creatinine 1.04 Est GFR ( Amer) > 60 Est GFR (Non-Af Amer) 55 L Glucose 127 H Calcium 8.4 Urine Color YELLOW Urine Appearance SLIGHTLY-CLOUDY Urine pH 5.0 Ur Specific [place] 1.006 Urine Protein NEGATIVE Urine Glucose (UA) 50 H Urine Ketones NEGATIVE Urine Blood SMALL H Urine Nitrite NEGATIVE Ur Leukocyte Esterase TRACE H Urine WBC (Auto) 14 Urine RBC (Auto) 0 08/07/16 11:17 WBC RBC Hgb Hct MCV MCH MCHC RDW Plt Count Seg Neutrophils % Lymphocytes % Monocytes % Eosinophils % Basophils % Absolute Neutrophils Absolute Lymphocytes Absolute Monocytes Absolute Eosinophils Absolute Basophils Sodium Potassium Chloride Carbon Dioxide Anion Gap BUN Creatinine 0.99 Est GFR ( Amer) > 60 Est GFR (Non-Af Amer) 58 L Glucose Calcium Urine Color Urine Appearance Urine pH Ur Specific [place] Urine Protein Urine Glucose (UA) Urine Ketones Urine Blood Urine Nitrite Ur Leukocyte Esterase Urine WBC (Auto) Urine RBC (Auto) 08/01/16 17:56 Blood Blood Culture - Final NO GROWTH IN 5 DAYS 08/02/16 09:36 Foot - Left Gram Stain - Final 08/02/16 09:36 Foot - Left Wound Culture - Final Enterococcus Faecalis(Group D) Staphylococcus Aureus Group B Beta Streptococcus Prevotella Species 08/01/16 23:30 Foot - Left Gram Stain - Final 08/01/16 23:30 Foot - Left Wound Culture - Final Enterococcus Faecalis(Group D) Staphylococcus Aureus Group B Beta Streptococcus Impressions: Foot X-Ray 08/01/16 10:34 IMPRESSION: SOFT TISSUE SWELLING WITH ULCERATION. NO SUBCUTANEOUS GAS OR ACUTE OSSEOUS ABNORMALITY IDENTIFIED. Abdomen Ultrasound 08/03/16 00:00 IMPRESSION: NO ABDOMINAL AORTIC ANEURYSM. Guidance Fluoroscopy 08/03/16 00:00 IMPRESSION: SUCCESSFUL PLACEMENT OF A 5 FR DUAL LUMEN 45 CM PICC IN THE left basilic VEIN. Interventional Vascular Procedure 08/03/16 00:00 IMPRESSION: SUCCESSFUL PLACEMENT OF A 5 FR DUAL LUMEN 45 CM PICC IN THE left basilic VEIN. PICC Line Insertion 08/03/16 00:00 IMPRESSION: SUCCESSFUL PLACEMENT OF A 5 FR DUAL LUMEN 45 CM PICC IN THE left basilic VEIN. Assessment & Plan - Diagnosis (1) Abscess of left foot Is this a current diagnosis for this admission?: Yes (2) Cellulitis of left foot Is this a current diagnosis for this admission?: YesPlan: Mild improvement, patient is a status post surgical amputation, mild improvement in the swelling and erythema, plan: Continue IV antibiotics, leg elevation, local wound care, patient will need to follow up in the wound clinic after discharge. (3) Diabetes mellitus Qualifiers: Diabetes mellitus type: type 2 Diabetes mellitus complication status: with other specified complication Diabetes mellitus chcf insulin use: with chcf use Qualified Code(s): E11.69 - Type 2 diabetes mellitus with other specified complication Is this a current diagnosis for this admission?: Yes
[2016-08-07] MEDS: NORMAL SALINE 1000 ML 1,000 ML IV PRN (16:52)
[2016-08-07] MEDS: ACETAMINOPHEN 325 MG TABLET PO PRN (22:21)
[2016-08-08] MEDS: ENOXAPARIN SODIUM INJ 120 MG/0.8 ML DISP.SYRIN SUBCUT SCH ×2 (06:43→17:24)
[2016-08-08 06:44] LABS: ABSOLUTE BASOPHILS # (AUTO) 0.1 10^3/uL (0.0-0.2); ABSOLUTE EOSINOPHILS # (AUTO) 0.2 10^3/uL (0.0-0.6); ABSOLUTE LYMPHOCYTES (AUTO) 1.8 10^3/uL (0.5-4.7); ABSOLUTE MONOCYTES (AUTO) 1.3 10^3/uL (0.1-1.4); ABSOLUTE NEUT (AUTO) 11.2 10^3/uL (1.7-8.2); BASOPHILS % (AUTO) 0.7 % (0-2); EOSINOPHILS % (AUTO) 1.6 % (0-6); HEMOGLOBIN 11.1 g/dL (12.0-15.5); HGB HCT DIFFERENCE 0.3; LYMPHOCYTES % (AUTO) 12.1 % (13-45); MEAN CORPUSCULAR HEMOGLOBIN 28.4 pg (27.0-33.4); MEAN CORPUSCULAR HGB CONC 33.6 g/dL (32.0-36.0); MEAN CORPUSCULAR VOLUME 85 fl (80-97); MONOCYTES % (AUTO) 8.6 % (3-13); RED CELL DISTRIBUTION WIDTH 12.8 % (11.5-14.0); WHITE BLOOD COUNT 14.6 10^3/uL (4.0-10.5)
[2016-08-08] MEDS: LANSOPRAZOLE 30 MG TAB.RAP.DR PO SCH (06:44)
[2016-08-08 07:01] LABS: ANION GAP 11 (5-19); BLOOD UREA NITROGEN 8 mg/dL (7-20); CALCIUM 8.2 mg/dL (8.4-10.2); CARBON DIOXIDE 28 mmol/L (22-30); CHLORIDE 101 mmol/L (98-107); CREATININE RESULT 0.96 mg/dL (0.52-1.25); GLUCOSE 92 mg/dL (75-110); POTASSIUM 3.9 mmol/L (3.6-5.0); SODIUM 139.8 mmol/L (137-145)
[2016-08-08] MEDS: ERTAPENEM SODIUM 1 GM in NORMAL SALINE 50 ML IV SCH (10:19)
[2016-08-08] MEDS: NORMAL SALINE 10 ML SDV (SCHEDULED) IV SCH ×2 (10:20→22:17)
[2016-08-08] MEDS: POTASSIUM CHLORIDE 10 MEQ TABLET.SA PO SCH ×2 (10:20→22:16)
[2016-08-08] MEDS: HYDROCHLOROTHIAZIDE 25 MG TABLET PO SCH (10:20)
[2016-08-08] MEDS: DOCUSATE SODIUM 100 MG CAPSULE PO SCH ×2 (10:20→17:35)
[2016-08-08] MEDS: LISINOPRIL 10 MG TABLET PO SCH (10:21)
[2016-08-08] MEDS: ATENOLOL 50 MG TABLET PO SCH ×2 (10:21→22:16)
[2016-08-08] MEDS: VANCOMYCIN HCL 1,500 MG in DEXTROSE 5%-WATER 250 ML IV SCH (10:21)
[2016-08-08] MEDS: INSULIN DETEMIR 100 UNIT/ML 3 ML PEN SUBCUT SCH ×2 (10:25→22:17)
--- NOTE | 2016-08-08 12:05 | PDOC PROGRESS REPORT ---
Subjective Progress Note for:: 08/08/16 Subjective:: Denies any complaints. Physical Exam Vital Signs: Temp Pulse Resp BP Pulse Ox 98.9 F 68 21 H 158/77 H 98 08/08/16 07:38 08/08/16 07:38 08/08/16 07:38 08/08/16 07:38 08/08/16 07:38 Intake & Output 08/07/16 08/08/16 08/09/16 06:59 06:59 06:59 Intake Total 3680 3820 Output Total 2200 900 Balance 1480 2920 Weight 125.8 kg 125.9 kg General appearance: PRESENT: no acute distress Eye exam: PRESENT: conjunctiva pink Mouth exam: PRESENT: moist, tongue midline Neck exam: ABSENT: JVD Respiratory exam: PRESENT: clear to auscultation martha. ABSENT: rales, rhonchi, wheezes Cardiovascular exam: PRESENT: RRR. ABSENT: diastolic murmur, rubs, systolic murmur GI/Abdominal exam: PRESENT: normal bowel sounds, soft. ABSENT: distended, guarding, mass, organolmegaly, rebound, tenderness Extremities exam: PRESENT: other - Dressing in place on the foot Neurological exam: PRESENT: alert, awake, oriented to person, oriented to place , oriented to time, oriented to situation Psychiatric exam: PRESENT: appropriate affect Skin exam: PRESENT: other - Dressing in place on the foot Results Laboratory Results: 08/08/16 06:30 08/08/16 06:30 08/08/16 08/08/16 06:30 06:30 WBC 14.6 H RBC 3.90 Hgb 11.1 L Hct 33.0 L MCV 85 MCH 28.4 MCHC 33.6 RDW 12.8 Plt Count 348 Seg Neutrophils % 77.0 Lymphocytes % 12.1 L Monocytes % 8.6 Eosinophils % 1.6 Basophils % 0.7 Absolute Neutrophils 11.2 H Absolute Lymphocytes 1.8 Absolute Monocytes 1.3 Absolute Eosinophils 0.2 Absolute Basophils 0.1 Sodium 139.8 Potassium 3.9 Chloride 101 Carbon Dioxide 28 Anion Gap 11 BUN 8 Creatinine 0.96 Est GFR ( Amer) > 60 Est GFR (Non-Af Amer) > 60 Glucose 92 Calcium 8.2 L Impressions: Foot X-Ray 08/01/16 10:34 IMPRESSION: SOFT TISSUE SWELLING WITH ULCERATION. NO SUBCUTANEOUS GAS OR ACUTE OSSEOUS ABNORMALITY IDENTIFIED. Abdomen Ultrasound 08/03/16 00:00 IMPRESSION: NO ABDOMINAL AORTIC ANEURYSM. Guidance Fluoroscopy 08/03/16 00:00 IMPRESSION: SUCCESSFUL PLACEMENT OF A 5 FR DUAL LUMEN 45 CM PICC IN THE left basilic VEIN. Interventional Vascular Procedure 08/03/16 00:00 IMPRESSION: SUCCESSFUL PLACEMENT OF A 5 FR DUAL LUMEN 45 CM PICC IN THE left basilic VEIN. PICC Line Insertion 08/03/16 00:00 IMPRESSION: SUCCESSFUL PLACEMENT OF A 5 FR DUAL LUMEN 45 CM PICC IN THE left basilic VEIN. Assessment & Plan - Diagnosis (1) Abscess of left foot Is this a current diagnosis for this admission?: YesPlan: The patient is growing out group B strep and enterococcus from her wound culture. She currently is on vancomycin and ertapenem. We will stop the ertapenem and just treat with vancomycin. 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 Patient will need two weeks of IV antibiotics. Will plan on 2 weeks of IV vancomycin. We'll consult discharge planning for arrange home health and antibiotics and PICC airline captain. Patient will be sent home when surgery feels the patient's foot has reached maximal benefit from inpatient treatment (2) Diabetes mellitus Qualifiers: Diabetes mellitus type: type 2 Diabetes mellitus complication status: with other specified complication Diabetes mellitus joint terminal attack controller insulin use: with halfway use Qualified Code(s): E11.69 - Type 2 diabetes mellitus with other specified complication Is this a current diagnosis for this admission?: YesPlan: Continue with Levemir and sliding scale insulin. (3) Anxiety and depression Is this a current diagnosis for this admission?: YesPlan: Stable (4) Deep venous thrombosis Qualifiers: DVT location: lower extremity Affected thrombotic vein of extremity: unspecified vein of extremity Laterality: left Chronicity: unspecified Qualified Code(s): I82.402 - Acute embolism and thrombosis of unspecified deep veins of left lower extremity Is this a current diagnosis for this admission?: YesPlan: Continue with Lovenox. It's not clear if the clot in her leg is chronic or new. It is in the calf (5) Hypertension Qualifiers: Hypertension type: essential hypertension Qualified Code(s): I10 - Essential (primary) hypertension Is this a current diagnosis for this admission?: YesPlan: Continue metoprolol and lisinopril. - Time Time Spent with patient: 25-34 minutes - Inpatient Certification Medical Necessity: Need for IV Antibiotics - Plan Summary Plan Summary: Most likely will be ready for discharge in the next 48 hours.
[2016-08-08] MEDS: INSULIN REG, HUMAN 100 UNIT/ML 3 ML VIAL (PYX) SUBCUT PRN ×3 (12:48→22:17)
--- NOTE | 2016-08-08 13:28 | PDOC PROGRESS REPORT ---
Subjective Progress Note for:: 08/08/16 Subjective:: Patient denies nausea, vomiting, fever, pain. Physical Exam Vital Signs: Temp Pulse Resp BP Pulse Ox 98.1 F 68 20 160/79 H 100 08/08/16 11:53 08/08/16 11:53 08/08/16 11:53 08/08/16 11:53 08/08/16 11:53 Intake & Output 08/07/16 08/08/16 08/09/16 06:59 06:59 06:59 Intake Total 3680 3820 Output Total 2200 900 Balance 1480 2920 Weight 125.8 kg 125.9 kg General appearance: PRESENT: no acute distress Head exam: PRESENT: atraumatic, normocephalic GI/Abdominal exam: PRESENT: soft Extremities exam: PRESENT: other - The left leg erythema is improving, still have some swelling on the dorsal aspect of the left foot, Com[place] drain is in place, the site of the third toe amputation is clean with minimal fibrinous exudate, there is improved swelling of the second toe, with persistent swelling of the fourth toe, no gangrene, minimal debridement was done at the bedside, the wound was irrigated with peroxide, and the packing was performed. Neurological exam: PRESENT: alert Results Laboratory Results: 08/08/16 06:30 08/08/16 06:30 08/08/16 08/08/16 06:30 06:30 WBC 14.6 H RBC 3.90 Hgb 11.1 L Hct 33.0 L MCV 85 MCH 28.4 MCHC 33.6 RDW 12.8 Plt Count 348 Seg Neutrophils % 77.0 Lymphocytes % 12.1 L Monocytes % 8.6 Eosinophils % 1.6 Basophils % 0.7 Absolute Neutrophils 11.2 H Absolute Lymphocytes 1.8 Absolute Monocytes 1.3 Absolute Eosinophils 0.2 Absolute Basophils 0.1 Sodium 139.8 Potassium 3.9 Chloride 101 Carbon Dioxide 28 Anion Gap 11 BUN 8 Creatinine 0.96 Est GFR ( Amer) > 60 Est GFR (Non-Af Amer) > 60 Glucose 92 Calcium 8.2 L Impressions: Foot X-Ray 08/01/16 10:34 IMPRESSION: SOFT TISSUE SWELLING WITH ULCERATION. NO SUBCUTANEOUS GAS OR ACUTE OSSEOUS ABNORMALITY IDENTIFIED. Abdomen Ultrasound 08/03/16 00:00 IMPRESSION: NO ABDOMINAL AORTIC ANEURYSM. Guidance Fluoroscopy 08/03/16 00:00 IMPRESSION: SUCCESSFUL PLACEMENT OF A 5 FR DUAL LUMEN 45 CM PICC IN THE left basilic VEIN. Interventional Vascular Procedure 08/03/16 00:00 IMPRESSION: SUCCESSFUL PLACEMENT OF A 5 FR DUAL LUMEN 45 CM PICC IN THE left basilic VEIN. PICC Line Insertion 08/03/16 00:00 IMPRESSION: SUCCESSFUL PLACEMENT OF A 5 FR DUAL LUMEN 45 CM PICC IN THE left basilic VEIN. Assessment & Plan - Diagnosis (1) Abscess of left foot Is this a current diagnosis for this admission?: Yes (2) Cellulitis of left foot Is this a current diagnosis for this admission?: YesPlan: Patient status post third toe amputation, improving and the cellulitis of the left leg. Plan: Continue local wound care, IV antibiotics, leg elevation, patient will need to have an arrangement for long-term antibiotics treatment in addition to follow up with the wound clinic. Hopefully she would be discharged in the next 24-48 hours (3) Diabetes mellitus Qualifiers: Diabetes mellitus type: type 2 Diabetes mellitus complication status: with other specified complication Diabetes mellitus skilled nursing insulin use: with exterminator termite use Qualified Code(s): E11.69 - Type 2 diabetes mellitus with other specified complication Is this a current diagnosis for this admission?: Yes
[2016-08-09] MEDS: LANSOPRAZOLE 30 MG TAB.RAP.DR PO SCH (05:45)
[2016-08-09] MEDS: ENOXAPARIN SODIUM INJ 120 MG/0.8 ML DISP.SYRIN SUBCUT SCH ×2 (05:45→17:59)
[2016-08-09] MEDS: NORMAL SALINE 10 ML SDV (AFTER EACH USE) IV PRN ×2 (05:46→07:57)
[2016-08-09 08:20] LABS: HEMATOCRIT 32.8 % (36.0-47.0); HEMOGLOBIN 10.9 g/dL (12.0-15.5); HGB HCT DIFFERENCE -0.1; MEAN CORPUSCULAR HEMOGLOBIN 28.2 pg (27.0-33.4); MEAN CORPUSCULAR HGB CONC 33.1 g/dL (32.0-36.0); MEAN CORPUSCULAR VOLUME 85 fl (80-97); RED BLOOD COUNT 3.86 10^6/uL (3.72-5.28); RED CELL DISTRIBUTION WIDTH 13.2 % (11.5-14.0); WHITE BLOOD COUNT 13.6 10^3/uL (4.0-10.5)
[2016-08-09] MEDS: INSULIN REG, HUMAN 100 UNIT/ML 3 ML VIAL (PYX) SUBCUT PRN ×4 (08:25→22:16)
[2016-08-09 08:45] LABS: ANION GAP 11 (5-19); BLOOD UREA NITROGEN 11 mg/dL (7-20); CARBON DIOXIDE 29 mmol/L (22-30); CHLORIDE 97 mmol/L (98-107); CREATININE RESULT 1.03 mg/dL (0.52-1.25); GLUCOSE 211 mg/dL (75-110); POTASSIUM 4.2 mmol/L (3.6-5.0); SODIUM 137.2 mmol/L (137-145)
--- NOTE | 2016-08-09 09:11 | PDOC PROGRESS REPORT ---
Subjective Progress Note for:: 08/09/16 Subjective:: Denies any complaints. Physical Exam Vital Signs: Temp Pulse Resp BP Pulse Ox 99.5 F 71 20 135/57 H 96 08/08/16 23:19 08/09/16 02:00 08/08/16 23:19 08/08/16 23:19 08/08/16 23:19 Intake & Output 08/08/16 08/09/16 08/10/16 06:59 06:59 06:59 Intake Total 3820 2820 Output Total 900 4 Balance 2920 2816 Weight 125.9 kg 125.5 kg General appearance: PRESENT: no acute distress Eye exam: PRESENT: conjunctiva pink Mouth exam: PRESENT: moist, tongue midline Neck exam: ABSENT: JVD Respiratory exam: PRESENT: clear to auscultation martha. ABSENT: rales, rhonchi, wheezes Cardiovascular exam: PRESENT: RRR. ABSENT: diastolic murmur, rubs, systolic murmur GI/Abdominal exam: PRESENT: normal bowel sounds, soft. ABSENT: distended, guarding, mass, organolmegaly, rebound, tenderness Extremities exam: PRESENT: other - Patient has dressing in place on the left foot. Neurological exam: PRESENT: alert, awake, oriented to person, oriented to place , oriented to time, oriented to situation Psychiatric exam: PRESENT: appropriate affect Skin exam: PRESENT: other - Dressing in place on the left foot. Results Laboratory Results: 08/09/16 05:50 08/09/16 07:57 08/09/16 08/09/16 05:50 07:57 WBC 13.6 H RBC 3.86 Hgb 10.9 L Hct 32.8 L MCV 85 MCH 28.2 MCHC 33.1 RDW 13.2 Plt Count 330 Sodium 137.2 Potassium 4.2 Chloride 97 L Carbon Dioxide 29 Anion Gap 11 BUN 11 Creatinine 1.03 Est GFR ( Amer) > 60 Est GFR (Non-Af Amer) 56 L Glucose 211 H Calcium 8.0 L Impressions: Foot X-Ray 08/01/16 10:34 IMPRESSION: SOFT TISSUE SWELLING WITH ULCERATION. NO SUBCUTANEOUS GAS OR ACUTE OSSEOUS ABNORMALITY IDENTIFIED. Abdomen Ultrasound 08/03/16 00:00 IMPRESSION: NO ABDOMINAL AORTIC ANEURYSM. Guidance Fluoroscopy 08/03/16 00:00 IMPRESSION: SUCCESSFUL PLACEMENT OF A 5 FR DUAL LUMEN 45 CM PICC IN THE left basilic VEIN. Interventional Vascular Procedure 08/03/16 00:00 IMPRESSION: SUCCESSFUL PLACEMENT OF A 5 FR DUAL LUMEN 45 CM PICC IN THE left basilic VEIN. PICC Line Insertion 08/03/16 00:00 IMPRESSION: SUCCESSFUL PLACEMENT OF A 5 FR DUAL LUMEN 45 CM PICC IN THE left basilic VEIN. Assessment & Plan - Diagnosis (1) Abscess of left foot Is this a current diagnosis for this admission?: YesPlan: The patient is growing out group B strep and enterococcus from her wound culture. She currently is on vancomycin. 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 Patient will need two weeks of IV antibiotics. Will plan on 2 weeks of IV vancomycin. We'll consult discharge planning for arrange home health and antibiotics and PICC line up worker. Patient will be sent home when surgery feels the patient's foot has reached maximal benefit from inpatient treatment. Anticipate discharge probably tomorrow. (2) Diabetes mellitus Qualifiers: Diabetes mellitus type: type 2 Diabetes mellitus complication status: with other specified complication Diabetes mellitus group home insulin use: with group home use Qualified Code(s): E11.69 - Type 2 diabetes mellitus with other specified complication Is this a current diagnosis for this admission?: YesPlan: Continue with Levemir and sliding scale insulin. (3) Anxiety and depression Is this a current diagnosis for this admission?: YesPlan: Stable (4) Deep venous thrombosis Qualifiers: DVT location: lower extremity Affected thrombotic vein of extremity: unspecified vein of extremity Laterality: left Chronicity: unspecified Qualified Code(s): I82.402 - Acute embolism and thrombosis of unspecified deep veins of left lower extremity Is this a current diagnosis for this admission?: YesPlan: Continue with Lovenox. It's not clear if the clot in her leg is chronic or new. It is in the calf (5) Hypertension Qualifiers: Hypertension type: essential hypertension Qualified Code(s): I10 - Essential (primary) hypertension Is this a current diagnosis for this admission?: YesPlan: Continue metoprolol and lisinopril. - Time Time Spent with patient: 15-24 minutes - Inpatient Certification Medical Necessity: Need for IV Antibiotics - Plan Summary Plan Summary: Patient will be discharged home with IV antibiotics when surgery feels the patient is stable from a surgical standpoint.
[2016-08-09 11:25] LABS: APPEARANCE,URINE SLIGHTLY-CLOUDY; BILIRUBIN,URINE NEGATIVE (NEGATIVE); GLUCOSE, URINE 50 mg/dL (NEGATIVE); KETONES,URINE NEGATIVE (NEGATIVE); LEUKOCYTE ESTERASE,URINE TRACE (NEGATIVE); NITRITE,URINE NEGATIVE (NEGATIVE); PROTEIN,URINE NEGATIVE (NEGATIVE); URINE SPECIFIC GRAVITY 1.006; UROBILINOGEN,URINE NEGATIVE mg/dL (<2.0)
[2016-08-09] MEDS: POTASSIUM CHLORIDE 10 MEQ TABLET.SA PO SCH ×2 (11:25→22:15)
[2016-08-09] MEDS: VANCOMYCIN HCL 1,500 MG in DEXTROSE 5%-WATER 250 ML IV SCH (11:25)
[2016-08-09] MEDS: DOCUSATE SODIUM 100 MG CAPSULE PO SCH ×2 (11:25→18:00)
[2016-08-09] MEDS: NORMAL SALINE 10 ML SDV (SCHEDULED) IV SCH ×2 (11:25→22:16)
[2016-08-09] MEDS: LISINOPRIL 10 MG TABLET PO SCH (11:26)
[2016-08-09] MEDS: HYDROCHLOROTHIAZIDE 25 MG TABLET PO SCH (11:26)
[2016-08-09] MEDS: ATENOLOL 50 MG TABLET PO SCH ×2 (11:26→22:15)
[2016-08-09] MEDS: INSULIN DETEMIR 100 UNIT/ML 3 ML PEN SUBCUT SCH ×2 (11:27→22:22)
--- NOTE | 2016-08-09 11:27 | Operative Report ---
Nonrecallable Operative Report DATE OF SURGERY: 08/09/16 PREOPERATIVE DIAGNOSIS: Deep soft tissue infection left foot with status post left third toe amputation POSTOPERATIVE DIAGNOSIS: Same. OPERATION: Excisional debridement of skin, subcutaneous tissue, fascia left foot. SURGEON: LEOBARDO GONZALES INDUSTRIAL SAFETY ENGINEER: SADAF HORTON ANESTHESIA: Other - none; foot is insensate TISSUE REMOVED OR ALTERED: Nonviable tissue COMPLICATIONS: None ESTIMATED BLOOD LOSS: scant INTRAOPERATIVE FINDINGS: See below PROCEDURE: The left foot dressing was removed. [place] drain intact. The foot is insensate therefore no local anesthesia required. Using pickup, scissors and #10 blade, skin subcutaneous tissue and nonviable fibrinous debris all excised. Approximately a half a gram of tissue was removed. The remaining cavernous at the amputation site of the third toe and metatarsal head was irrigated vigorously. The cavity dorsally adjacent to the [place] drain site was irrigated and Q- tip debrided. The overlying skin is viable. There is no foul smell or purulent discharge. Wound was irrigated and packed again with the iodoform packing. Of note the dorsum of the mid foot is somewhat tender to the patient. Furthermore, toes 2 and 4 are viable. Plan: 1. Local wound care, intravenous antibiotics; the foot is salvageable. 2. Tomorrow we will discontinue Quin[place] drain, and likely initiate VAC therapy. 3. Emphasized to patient the importance of a vigorous outpatient care, attentiveness to her foot, preserving existing toes, using surgical sandal etc. Given patient's history of noncompliance, this may be a tall task for the patient.
[2016-08-10] MEDS: LANSOPRAZOLE 30 MG TAB.RAP.DR PO SCH (05:58)
[2016-08-10] MEDS: ENOXAPARIN SODIUM INJ 120 MG/0.8 ML DISP.SYRIN SUBCUT SCH (05:58)
[2016-08-10] MEDS: NORMAL SALINE 10 ML SDV (AFTER EACH USE) IV PRN (06:00)
[2016-08-10 06:15] LABS: ABSOLUTE BASOPHILS # (AUTO) 0.1 10^3/uL (0.0-0.2); ABSOLUTE EOSINOPHILS # (AUTO) 0.4 10^3/uL (0.0-0.6); ABSOLUTE LYMPHOCYTES (AUTO) 2.1 10^3/uL (0.5-4.7); ABSOLUTE MONOCYTES (AUTO) 1.3 10^3/uL (0.1-1.4); EOSINOPHILS % (AUTO) 2.6 % (0-6); HEMOGLOBIN 11.2 g/dL (12.0-15.5); HGB HCT DIFFERENCE 0.6; LYMPHOCYTES % (AUTO) 15.2 % (13-45); MEAN CORPUSCULAR HEMOGLOBIN 28.5 pg (27.0-33.4); MEAN CORPUSCULAR HGB CONC 33.9 g/dL (32.0-36.0); MEAN CORPUSCULAR VOLUME 84 fl (80-97); MONOCYTES % (AUTO) 9.4 % (3-13); RED BLOOD COUNT 3.94 10^6/uL (3.72-5.28); SEGMENTED NEUTROPHILS % (AUTO) 71.8 % (42-78); WHITE BLOOD COUNT 13.9 10^3/uL (4.0-10.5)
[2016-08-10 06:35] LABS: ANION GAP 10 (5-19); BLOOD UREA NITROGEN 13 mg/dL (7-20); CALCIUM 8.6 mg/dL (8.4-10.2); CARBON DIOXIDE 32 mmol/L (22-30); CHLORIDE 97 mmol/L (98-107); GLUCOSE 164 mg/dL (75-110); POTASSIUM 4.3 mmol/L (3.6-5.0); SODIUM 138.9 mmol/L (137-145)
[2016-08-10] MEDS: VANCOMYCIN HCL 1,500 MG in DEXTROSE 5%-WATER 250 ML IV SCH (10:01)
[2016-08-10] MEDS: POTASSIUM CHLORIDE 10 MEQ TABLET.SA PO SCH (10:02)
[2016-08-10] MEDS: HYDROCHLOROTHIAZIDE 25 MG TABLET PO SCH (10:02)
[2016-08-10] MEDS: LISINOPRIL 10 MG TABLET PO SCH (10:03)
[2016-08-10] MEDS: INSULIN DETEMIR 100 UNIT/ML 3 ML PEN SUBCUT SCH (10:03)
[2016-08-10] MEDS: ATENOLOL 50 MG TABLET PO SCH (10:03)
[2016-08-10] MEDS: NORMAL SALINE 10 ML SDV (SCHEDULED) IV SCH (10:10)
[2016-08-10] MEDS: DOCUSATE SODIUM 100 MG CAPSULE PO SCH (10:11)
[2016-08-10] MEDS: INSULIN REG, HUMAN 100 UNIT/ML 3 ML VIAL (PYX) SUBCUT PRN (12:16)
--- NOTE | 2016-08-10 13:33 | PDOC PROGRESS REPORT ---
Subjective Progress Note for:: 08/10/16 Subjective:: Patient reports sanguinous drainage from wound since her debridement yesterday. Otherwise no complaints. Physical Exam Vital Signs: Temp Pulse Resp BP Pulse Ox 98.0 F 63 16 149/67 H 98 08/10/16 12:05 08/10/16 12:05 08/10/16 12:05 08/10/16 12:05 08/10/16 12:05 Intake & Output 08/09/16 08/10/16 08/11/16 06:59 06:59 06:59 Intake Total 2820 1040 1310 Output Total 4 Balance 2816 1040 1310 Weight 125.5 kg 128.5 kg General appearance: PRESENT: no acute distress, morbidly obese Eye exam: PRESENT: EOMI, other - Glasses Mouth exam: PRESENT: tongue midline Extremities exam: PRESENT: other - Left lower extremity with edema, decreased. Status post left third toe amputation. Deep wound with a channel tracking on the dorsal surface to a counterincision. The erythema and induration have decreased and are now limited to several centimeters surrounding the wound. Stage IV wound. Wound care note: The [place] drain is removed. The dressing is removed. There is a bleeder on the lateral aspect of the wound. Pressure and crimping with a forcep fail to stop the bleeding. A hand-held battery cautery is used to obtain hemostasis. The wound is irrigated and debrided with hydrogen peroxide and gauze. The wound is repacked with half-inch iodoform gauze, covered with gauze 4 x 4's and then Kerlix roll. Patient tolerated well. Neurological exam: PRESENT: alert, oriented to situation Results Laboratory Results: 08/10/16 06:00 08/10/16 06:00 08/10/16 08/10/16 06:00 06:00 WBC 13.9 H RBC 3.94 Hgb 11.2 L Hct 33.0 L MCV 84 MCH 28.5 MCHC 33.9 RDW 13.0 Plt Count 374 Seg Neutrophils % 71.8 Lymphocytes % 15.2 Monocytes % 9.4 Eosinophils % 2.6 Basophils % 1.0 Absolute Neutrophils 10.0 H Absolute Lymphocytes 2.1 Absolute Monocytes 1.3 Absolute Eosinophils 0.4 Absolute Basophils 0.1 Sodium 138.9 Potassium 4.3 Chloride 97 L Carbon Dioxide 32 H Anion Gap 10 BUN 13 Creatinine 1.10 Est GFR ( Amer) > 60 Est GFR (Non-Af Amer) 52 L Glucose 164 H Calcium 8.6 Impressions: Foot X-Ray 08/01/16 10:34 IMPRESSION: SOFT TISSUE SWELLING WITH ULCERATION. NO SUBCUTANEOUS GAS OR ACUTE OSSEOUS ABNORMALITY IDENTIFIED. Abdomen Ultrasound 08/03/16 00:00 IMPRESSION: NO ABDOMINAL AORTIC ANEURYSM. Guidance Fluoroscopy 08/03/16 00:00 IMPRESSION: SUCCESSFUL PLACEMENT OF A 5 FR DUAL LUMEN 45 CM PICC IN THE left basilic VEIN. Interventional Vascular Procedure 08/03/16 00:00 IMPRESSION: SUCCESSFUL PLACEMENT OF A 5 FR DUAL LUMEN 45 CM PICC IN THE left basilic VEIN. PICC Line Insertion 08/03/16 00:00 IMPRESSION: SUCCESSFUL PLACEMENT OF A 5 FR DUAL LUMEN 45 CM PICC IN THE left basilic VEIN. Assessment & Plan - Diagnosis (1) Abscess of left foot Is this a current diagnosis for this admission?: YesPlan: Status post left third toe amputation. Continue IV antibiotics. Outpatient IV antibiotics are being coordinated by internal medicine. Continue daily wound care with home health care and her on days that home healthcare cannot visit. Continue diabetes control. Follow-up with wound care clinic within 7 days of discharge. (2) Deep venous thrombosis Qualifiers: DVT location: lower extremity Affected thrombotic vein of extremity: unspecified vein of extremity Laterality: left Chronicity: unspecified Qualified Code(s): I82.402 - Acute embolism and thrombosis of unspecified deep veins of left lower extremity Is this a current diagnosis for this admission?: Yes (3) Diabetes mellitus Qualifiers: Diabetes mellitus type: type 2 Diabetes mellitus complication status: with other specified complication Diabetes mellitus intermediate school teacher insulin use: with intermediate school teacher use Qualified Code(s): E11.69 - Type 2 diabetes mellitus with other specified complication Is this a current diagnosis for this admission?: Yes (4) History of stroke Is this a current diagnosis for this admission?: Yes
--- NOTE | 2016-08-10 15:17 | PDOC DISCHARGE SUMMARY ---
General - Admit/Disc Date/PCP Admission Date/Primary Care Provider: 08/01/16 16:42 Discharge Date: 08/10/16 - Discharge Diagnosis (1) Cellulitis of left foot Is this a current diagnosis for this admission?: Yes (2) Abscess of left foot Is this a current diagnosis for this admission?: Yes (3) Deep venous thrombosis Is this a current diagnosis for this admission?: Yes (4) Diabetes mellitus Is this a current diagnosis for this admission?: Yes (5) Hypertension Is this a current diagnosis for this admission?: Yes (6) Anxiety and depression Is this a current diagnosis for this admission?: Yes (7) History of stroke Is this a current diagnosis for this admission?: Yes (8) Abdominal aortic aneurysm Is this a current diagnosis for this admission?: Yes - Additional Information Resuscitation Status: Full Code Discharge Diet: Cardiac - low-fat low-salt, Diabetic - no concentrated sweets Discharge Activity: Activity As Tolerated, Balance Activity w/Rest Home Medications: Hydrochlorothiazide 25 mg PO DAILY 11/13/15 Insulin NPH Hum/Reg Insulin Hm [Humulin 70-30 Vial] 60 - 80 unit SQ QHS Insulin NPH Hum/Reg Insulin Hm [Humulin 70-30 Vial] 70 unit SQ QAM 11/13/15 Lisinopril 40 mg PO DAILY 11/13/15 Albuterol Sulfate [Albuterol Sulfate 2.5mg/3 mL] 2.5 mg IH Q6 #20 ml 11/24/15 Atenolol [Tenormin] 25 mg PO BID #60 tablet 11/24/15 Ipratropium [place] [Atrovent 0.02% Neb 0.5 mg/2.5 ml Ampul] 0.5 mg IH Q6HP PRN #20 vial.neb 11/24/15 Oxycodone HCl/Acetaminophen [Percocet 5-325 mg Tablet] 1 - 2 tab PO ASDIR PRN # 25 tablet 11/24/15 Fluticasone Propionate [Flonase Nasal [place] 50 Mcg/[place] 16 gm] 2 sprays NASL Q12 #1 inhaler 07/24/16 Apixaban [Eliquis 5 mg Tablet] 5 mg PO BID #60 tablet 08/10/16 Apixaban [Eliquis 5 mg Tablet] 10 mg PO BID 7 Days 01/10/17 Vancomycin HCl/D5w [Vancomycin 1.5 Gram/250 ml-D5w] 1.5 gm IV DAILY 14 Days 05/17 Additional Information: 1. Cleaned the wound Daily with normal saline apply iodoform gauze and covered with 4 x 4. 2. Vancomycin to be given at the outpatient infusion/ambulatory clinic daily for 2 weeks. Monitoring of creatinine weekly starting 08/16/2069 on 3 occasions. 3. PICC line care and discontinuation as per infusion/ambulatory clinic protocol. 4. Eliquis 10 mg twice a day for a week and subsequently 5 mg twice a day. 5. Appointment at the wound clinic every week History of Present Illness Patient complains of: Foot pain and swelling History of Present Illness: SATURNINO MURGUIA is a 55 year old female with diabetes, peripheral vascular disease apparently stepped on a nail about 10 days ago started noticing some serous drainage. This was on the patient's left foot. Patient noted a small wound on the dorsum of the foot which started to swell. Patient went to the emergency room 3 days later and was even Keflex and doxycycline. She was advised to elevate legs all the time and some warm compress. The patient reports following instructions in taking the medications however started to develop increasing swelling and pain for the past few days there is noted associated redness and eventual follow smelling drainage. Eventually there was sloughing of the skin and therefore he presents with emergency room for evaluation. The patient has a low-grade fever. Drainage became foul-smelling. In the emergency room a lower extremity venous Doppler was obtained was positive for questionable old deep venous thrombosis on the left. Patient was given full dose Lovenox and intravenous Invanz and was referred for admission. Hospital Course Hospital Course: The patient was admitted to telemetry. Broad-spectrum intravenous antibiotic was started including coverage for both gram-positive and gram-negative organisms. Surgery was consulted who in subsequently performed incision and drainage with noted involvement of the deep tissue. Third toe on the left foot was significantly affected requiring amputation. Cultures were sent and were growing gram-positive organisms. Lower extremity venous Doppler was obtained and positive for deep venous anastomosis. Patient also started on anticoagulation. Arterial Doppler was done showing no significant disease as reported. Eventually intravenous antibiotic tailored according to the result. Organisms were all sensitive to vancomycin and therefore this was continued with discontinuation of the other antibiotic. The patient had to undergo another debridement which basically did not reveal any purulent drainage and therefore reportedly needs prolonged IV antibiotics in the hope of saving her foot. Patient was educated by surgical service regarding care and surveillance and they understood. Patient and family was taught on how to clean and change dressing daily and necessity for constant frequent follow-ups. Interventional radiology was consulted for PICC line placement and information systems planner was consulted for IV antibiotics. Medication assistance was likewise sought for however patient already on coverage by her existing Medicare Medicaid. Patient was arranged for home health and IV antibiotics but the patient refused and therefore she was arranged to have from care done at the wound clinic and IV infusion at the outpatient center infusion clinic. Physical Exam Vital Signs: Temp Pulse Resp BP Pulse Ox 98.0 F 51 L 16 149/67 H 98 08/10/16 12:05 08/10/16 14:00 08/10/16 12:05 08/10/16 12:05 08/10/16 12:05 Intake & Output 08/09/16 08/10/16 08/11/16 06:59 06:59 06:59 Intake Total 2820 1040 1310 Output Total 4 Balance 2816 1040 1310 Weight 125.5 kg 128.5 kg General appearance: PRESENT: no acute distress, cooperative Head exam: PRESENT: normocephalic Eye exam: PRESENT: EOMI Mouth exam: PRESENT: moist, neck supple Neck exam: ABSENT: JVD Respiratory exam: PRESENT: clear to auscultation martha Cardiovascular exam: PRESENT: RRR GI/Abdominal exam: PRESENT: normal bowel sounds, soft. ABSENT: distended Extremities exam: PRESENT: other - Foot dressing on the left with dry some venous drainage. Mild edema noted. No foul smelling odor noted Neurological exam: PRESENT: alert, awake, oriented to situation Skin exam: PRESENT: dry, warm. ABSENT: cyanosis Results Laboratory Results: 08/10/16 06:00 08/10/16 06:00 08/10/16 08/10/16 06:00 06:00 WBC 13.9 H RBC 3.94 Hgb 11.2 L Hct 33.0 L MCV 84 MCH 28.5 MCHC 33.9 RDW 13.0 Plt Count 374 Seg Neutrophils % 71.8 Lymphocytes % 15.2 Monocytes % 9.4 Eosinophils % 2.6 Basophils % 1.0 Absolute Neutrophils 10.0 H Absolute Lymphocytes 2.1 Absolute Monocytes 1.3 Absolute Eosinophils 0.4 Absolute Basophils 0.1 Sodium 138.9 Potassium 4.3 Chloride 97 L Carbon Dioxide 32 H Anion Gap 10 BUN 13 Creatinine 1.10 Est GFR ( Amer) > 60 Est GFR (Non-Af Amer) 52 L Glucose 164 H Calcium 8.6 Impressions: Foot X-Ray 08/01/16 10:34 IMPRESSION: SOFT TISSUE SWELLING WITH ULCERATION. NO SUBCUTANEOUS GAS OR ACUTE OSSEOUS ABNORMALITY IDENTIFIED. Abdomen Ultrasound 08/03/16 00:00 IMPRESSION: NO ABDOMINAL AORTIC ANEURYSM. Guidance Fluoroscopy 08/03/16 00:00 IMPRESSION: SUCCESSFUL PLACEMENT OF A 5 FR DUAL LUMEN 45 CM PICC IN THE left basilic VEIN. Interventional Vascular Procedure 08/03/16 00:00 IMPRESSION: SUCCESSFUL PLACEMENT OF A 5 FR DUAL LUMEN 45 CM PICC IN THE left basilic VEIN. PICC Line Insertion 08/03/16 00:00 IMPRESSION: SUCCESSFUL PLACEMENT OF A 5 FR DUAL LUMEN 45 CM PICC IN THE left basilic VEIN. Qualifiers PATEINT BEING DISCHARGED WITH ANY OF THE FOLLOWING DIAGNOSIS?: No Plan Discharge Plan: 1. Appointment with primary care physician in one week 2. Appointment with Dr. Crowley in 3-5 days Time Spent: Greater than 30 Minutes
[2016-08-10 15:40] VITALS: BP 136/67
--- NOTE | 2016-08-30 18:53 | Progress Note ---
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
== END 2016-08-10 18:26 | disposition home or self-care (01) | DRG 617 ==
LOC: ER 08:31 → EH 16:42 → UNDOADMIN 16:48 → EH 16:48 → 4N 19:39
PROC: 0LBW0ZZ Excision of Left Foot Tendon, Open Approach (ICD-10-PCS; 2016-08-02)
PROC: 0Y6U0Z0 Detachment at Left 3rd Toe, Complete, Open Approach (ICD-10-PCS; principal; 2016-08-02 09:00)
PROC: 02HV33Z Insertion of Infusion Device into Superior Vena Cava, Percutaneous Approach (ICD-10-PCS; 2016-08-03)
PROC: B548ZZA Ultrasonography of Superior Vena Cava, Guidance (ICD-10-PCS; 2016-08-03)
PROC: 0JBR0ZZ Excision of Left Foot Subcutaneous Tissue and Fascia, Open Approach (ICD-10-PCS; 2016-08-09)
PROC: 3E0234Z Introduction of Serum, Toxoid and Vaccine into Muscle, Percutaneous Approach (ICD-10-PCS; 2016-08-10)
DX: E11.69 Type 2 diabetes mellitus with other specified complication (principal); L03.116 Cellulitis of left lower limb; L02.612 Cutaneous abscess of left foot; L97.422 Non-pressure chronic ulcer of left heel and midfoot with fat layer exposed; I69.851 Hemiplegia and hemiparesis following other cerebrovascular disease affecting right dominant side; E11.52 Type 2 diabetes mellitus with diabetic peripheral angiopathy with gangrene; M86.172 Other acute osteomyelitis, left ankle and foot; E11.621 Type 2 diabetes mellitus with foot ulcer; L97.524 Non-pressure chronic ulcer of other part of left foot with necrosis of bone; E11.319 Type 2 diabetes mellitus with unspecified diabetic retinopathy without macular edema; E11.40 Type 2 diabetes mellitus with diabetic neuropathy, unspecified; I44.7 Left bundle-branch block, unspecified; F17.210 Nicotine dependence, cigarettes, uncomplicated; F32.9 Major depressive disorder, single episode, unspecified; F41.1 Generalized anxiety disorder; I71.4 Abdominal aortic aneurysm, without rupture; I82.402 Acute embolism and thrombosis of unspecified deep veins of left lower extremity; B95.1 Streptococcus, group B, as the cause of diseases classified elsewhere; B95.2 Enterococcus as the cause of diseases classified elsewhere; I10 Essential (primary) hypertension; S91.342A Puncture wound with foreign body, left foot, initial encounter; W45.0XXA Nail entering through skin, initial encounter; L84 Corns and callosities; Z88.2 Allergy status to sulfonamides; Z88.8 Allergy status to other drugs, medicaments and biological substances; Z91.013 Allergy to seafood; Z59.9 Problem related to housing and economic circumstances, unspecified; Z82.5 Family history of asthma and other chronic lower respiratory diseases; Z79.4 Long term (current) use of insulin; Z23 Encounter for immunization
CPT/HCPCS: 01480; 36415; 36569; 76706; 76937; 77001; 80048; 80053; 80202; 81001; 82565; 82962; 83036; 83605; 84484; 85025; 85027; 85610; 87040; 87070; 87075; 87077; 87186; 87205; 88304; 90686; 93925; 93971; 96374; 99285; J0131; J1335; J1642; J1650; J1815; J2250; J2704; J3010; J3370; J3490; J7030; J7060

== ENCOUNTER → 2016-08-23 | Outpatient (CLI) | payer MEDICARE | LOC: OD 09:43 | PROVIDERS: ATTEND Surgery | DX: Z01.818 Encounter for other preprocedural examination (principal); L97.523 Non-pressure chronic ulcer of other part of left foot with necrosis of muscle | CPT/HCPCS: 71020 ==

== ENCOUNTER → 2016-09-03 | Outpatient (CLI) | payer MEDICARE | LOC: RAD 08:40 | PROVIDERS: ATTEND Surgery | DX: L97.523 Non-pressure chronic ulcer of other part of left foot with necrosis of muscle (principal); M86.8X7 Other osteomyelitis, ankle and foot | CPT/HCPCS: 73720; A9576 ==

== ENCOUNTER → 2016-10-07 | Outpatient (CLI) | payer MEDICARE | LOC: EDBD 11:38 → RAD 11:38 | PROVIDERS: ATTEND Preventive Medicine Undersea and Hyperbaric Medicine | DX: E11.621 Type 2 diabetes mellitus with foot ulcer (principal); L97.523 Non-pressure chronic ulcer of other part of left foot with necrosis of muscle ==

== ENCOUNTER → 2016-11-08 | Outpatient (CLI) | payer MEDICARE | LOC: RAD 11:10 | PROVIDERS: ATTEND Preventive Medicine Undersea and Hyperbaric Medicine | DX: L97.522 Non-pressure chronic ulcer of other part of left foot with fat layer exposed (principal) ==

== ENCOUNTER → 2016-12-20 | Outpatient (CLI) | payer MEDICARE, MEDICAID ==
--- NOTE | 2016-12-20 11:36 | RADIOLOGY REPORT (SQ) ---
EXAM DESCRIPTION: FOOT LEFT COMPLETE COMPLETED DATE/TIME: 12/20/2016 10:05 am REASON FOR STUDY: NON-PRS CHRONIC ULCER OTH PRT LEFT FOOT W FAT LAYER EXPOSED L97.522 NON-PRS CHRON IC ULCER OTH PRT LEFT FOOT W FAT LAYER COMPARISON: None. NUMBER OF VIEWS: Three views. TECHNIQUE: AP, lateral and oblique radiographic images acquired of the left foot. LIMITATIONS: None. FINDINGS: MINERALIZATION: Osteopenia. BONES: The 3rd digit is been resected. There is no evidence of osteomyelitis. Calcaneal spurs are p resent. JOINTS: No effusions. SOFT TISSUES: No soft tissue swelling. No foreign body. OTHER: No other significant finding. IMPRESSION: There is no evidence of osteomyelitis. Findings as described. TECHNICAL DOCUMENTATION: JOB ID: [id number]- All Rights Reserved
== END ==
LOC: RAD 09:35
PROVIDERS: ATTEND Preventive Medicine Undersea and Hyperbaric Medicine
DX: L97.522 Non-pressure chronic ulcer of other part of left foot with fat layer exposed (principal)

== ENCOUNTER → 2017-01-11 | Outpatient (CLI) | payer MEDICARE, MEDICAID ==
[2017-01-11 11:27] LABS: ABSOLUTE BASOPHILS # (AUTO) 0.1 10^3/uL (0.0-0.2); ABSOLUTE EOSINOPHILS # (AUTO) 0.3 10^3/uL (0.0-0.6); ABSOLUTE LYMPHOCYTES (AUTO) 3.7 10^3/uL (0.5-4.7); ABSOLUTE MONOCYTES (AUTO) 0.6 10^3/uL (0.1-1.4); ABSOLUTE NEUT (AUTO) 5.9 10^3/uL (1.7-8.2); BASOPHILS % (AUTO) 0.8 % (0-2); EOSINOPHILS % (AUTO) 2.8 % (0-6); HEMATOCRIT 42.6 % (36.0-47.0); HGB HCT DIFFERENCE -0.6; LYMPHOCYTES % (AUTO) 34.9 % (13-45); MEAN CORPUSCULAR HEMOGLOBIN 27.8 pg (27.0-33.4); MEAN CORPUSCULAR HGB CONC 32.9 g/dL (32.0-36.0); MEAN CORPUSCULAR VOLUME 85 fl (80-97); RED BLOOD COUNT 5.03 10^6/uL (3.72-5.28); RED CELL DISTRIBUTION WIDTH 13.8 % (11.5-14.0); SEGMENTED NEUTROPHILS % (AUTO) 55.5 % (42-78); WHITE BLOOD COUNT 10.6 10^3/uL (4.0-10.5)
[2017-01-11 11:45] LABS: ALANINE AMINOTRANSFERASE 22 U/L (9-52); ALBUMIN 3.7 g/dL (3.5-5.0); ALKALINE PHOSPHATASE 78 U/L (38-126); ANION GAP 11 (5-19); ASPARTATE AMINO TRANSFERASE 14 U/L (14-36); BILIRUBIN,DIRECT 0.3 mg/dL (0.0-0.4); BLOOD UREA NITROGEN 14 mg/dL (7-20); CALCIUM 9.5 mg/dL (8.4-10.2); CARBON DIOXIDE 28 mmol/L (22-30); CHLORIDE 103 mmol/L (98-107); CHOLESTEROL 211.19 mg/dL (0-200); CREATINE KINASE 43 U/L (30-135); CREATININE RESULT 0.71 mg/dL (0.52-1.25); Direct HDL 61 mg/dL (>40); GLUCOSE 138 mg/dL (75-110); POTASSIUM 4.3 mmol/L (3.6-5.0); SODIUM 141.7 mmol/L (137-145); TOTAL PROTEIN 6.8 g/dL (6.3-8.2); TRIGLYCERIDES 79 mg/dL (<150)
[2017-01-11 11:56] LABS: DIRECT LDL 121 mg/dL (<100)
[2017-01-11 12:01] LABS: TROPONIN I < 0.012 ng/mL
== END ==
LOC: OD 10:08
PROVIDERS: ATTEND Family Medicine
DX: R07.9 Chest pain, unspecified (principal); E78.5 Hyperlipidemia, unspecified; E08.621 Diabetes mellitus due to underlying condition with foot ulcer
CPT/HCPCS: 36415; 80053; 80061; 82550; 82553; 83036; 84484; 85025

== ENCOUNTER → 2017-01-12 | Outpatient (CLI) | payer MEDICARE, MEDICAID ==
--- NOTE | 2017-01-12 16:00 | XCELERA REPORT ---
[address] [address] Lower Extremity Venous Evaluation Name: SATURNINO MURGUIA Age: 56 yrs Gender: Female : 1960 Patient Status: Outpatient Patient Location: Study Date: 01/12/2017 12:21 PM Procedure: Color flow and duplex imaging of the veins of the left lower extremity as well as the right Common Femoral vein. Reason For Study: [place] MALAVE THROMBOSIS OF DEEP VEIN I82.592 Ordering Physician: NATTY JETER Performed By: Spring Alexandre Right Sided Venous Evaluation The right common femoral vein is fully compressible. Spontaneous and phasic flow is present in the right common femoral vein. Left Sided Venous Evaluation Normal vessel filling wall to wall, compression and augmentation as well as Colour flow down to the infrageniculate veins. Interpretation Summary No duplex evidence of DVT or obstruction in the left lower extremity nor in the right Common Femoral vein. : NATTY JETER > Stephen Muñiz
== END ==
LOC: SP 12:01
PROVIDERS: ATTEND Physician Assistant
DX: I82.592 Chronic embolism and thrombosis of other specified deep vein of left lower extremity (principal)
CPT/HCPCS: 93971

== ENCOUNTER 2017-01-26 18:51 | Inpatient (IN) | payer MEDICARE, MEDICAID ==
[2017-01-26] MEDS ORDERED: NORMAL SALINE 1000 ML 1,000 ML IV ONE (19:15)
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
--- NOTE | 2017-01-26 19:47 | RADIOLOGY REPORT (SQ) ---
EXAM DESCRIPTION: CHEST SINGLE VIEW COMPLETED DATE/TIME: 01/26/2017 7:36 pm REASON FOR STUDY: chest pain COMPARISON: 07/03/2017 EXAM PARAMETERS: NUMBER OF VIEWS: One view. TECHNIQUE: Single frontal radiographic view of the chest acquired. RADIATION DOSE: NA LIMITATIONS: None. FINDINGS: LUNGS AND PLEURA: No opacities, masses or pneumothorax. No pleural effusion. MEDIASTINUM AND HILAR STRUCTURES: No masses. Contour normal. HEART AND VASCULAR STRUCTURES: Heart normal in size. Normal vasculature. BONES: No acute findings. HARDWARE: None in the chest. OTHER: No other significant finding. IMPRESSION: NO ACUTE RADIOGRAPHIC FINDING IN THE CHEST. TECHNICAL DOCUMENTATION: JOB ID: [id number]
[2017-01-26 20:55] LABS: ABSOLUTE BASOPHILS # (AUTO) 0.1 10^3/uL (0.0-0.2); ABSOLUTE EOSINOPHILS # (AUTO) 0.3 10^3/uL (0.0-0.6); ABSOLUTE LYMPHOCYTES (AUTO) 3.8 10^3/uL (0.5-4.7); ABSOLUTE MONOCYTES (AUTO) 0.8 10^3/uL (0.1-1.4); ABSOLUTE NEUT (AUTO) 5.2 10^3/uL (1.7-8.2); BASOPHILS % (AUTO) 1.1 % (0-2); EOSINOPHILS % (AUTO) 2.9 % (0-6); HEMATOCRIT 45.6 % (36.0-47.0); HGB HCT DIFFERENCE -0.6; LYMPHOCYTES % (AUTO) 37.5 % (13-45); MEAN CORPUSCULAR HEMOGLOBIN 28.2 pg (27.0-33.4); MEAN CORPUSCULAR HGB CONC 32.9 g/dL (32.0-36.0); MEAN CORPUSCULAR VOLUME 86 fl (80-97); MONOCYTES % (AUTO) 7.8 % (3-13); RED BLOOD COUNT 5.31 10^6/uL (3.72-5.28); RED CELL DISTRIBUTION WIDTH 13.6 % (11.5-14.0); SEGMENTED NEUTROPHILS % (AUTO) 50.7 % (42-78); WHITE BLOOD COUNT 10.2 10^3/uL (4.0-10.5)
[2017-01-26 21:08] LABS: ALANINE AMINOTRANSFERASE 22 U/L (9-52); ALBUMIN 4.1 g/dL (3.5-5.0); ALKALINE PHOSPHATASE 72 U/L (38-126); ANION GAP 13 (5-19); ASPARTATE AMINO TRANSFERASE 15 U/L (14-36); BILIRUBIN,DIRECT 0.3 mg/dL (0.0-0.4); BILIRUBIN,TOTAL 1.7 mg/dL (0.2-1.3); BLOOD UREA NITROGEN 27 mg/dL (7-20); CALCIUM 10.3 mg/dL (8.4-10.2); CARBON DIOXIDE 29 mmol/L (22-30); CHLORIDE 97 mmol/L (98-107); CREATINE KINASE 36 U/L (30-135); CREATININE RESULT 0.96 mg/dL (0.52-1.25); GLUCOSE 249 mg/dL (75-110); POTASSIUM 4.2 mmol/L (3.6-5.0); SODIUM 139.2 mmol/L (137-145); TOTAL PROTEIN 7.4 g/dL (6.3-8.2)
--- NOTE | 2017-01-26 21:19 | RADIOLOGY REPORT (SQ) ---
EXAM DESCRIPTION: CT HEAD WITHOUT COMPLETED DATE/TIME: 01/26/2017 9:11 pm REASON FOR STUDY: right arm numbness/weakness COMPARISON: None. TECHNIQUE: Axial images acquired through the brain without intravenous contrast. Images reviewed wi th bone, brain and subdural windows. Images stored on PACS. All CT scanners at this facility use dose modulation, iterative reconstruction, and/or weight based d osing when appropriate to reduce radiation dose to as low as reasonably achievable (ALARA). [facility]: Dose Right [facility]: CareDose [facility]: Dose Right [facility]: Teradose 4D [facility]: Smart Familiar RADIATION DOSE: Up-to-date CT equipment and radiation dose reduction techniques were employed. CTDIv ol: 64.6 mGy. DLP: 1034 mGy-cm. mGy. LIMITATIONS: None. FINDINGS: VENTRICLES: Normal size and contour. CEREBRUM: No masses. No hemorrhage. No midline shift. Normal otto/white matter differentiation. N o evidence for acute infarction. CEREBELLUM: No masses. No hemorrhage. No alteration of density. No evidence for acute infarction. EXTRAAXIAL SPACES: No fluid collections. No masses. ORBITS AND GLOBE: No intra- or extraconal masses. Normal contour of globe without masses. CALVARIUM: No fracture. PARANASAL SINUSES: No fluid or mucosal thickening. SOFT TISSUES: No mass or hematoma. OTHER: No other significant finding. IMPRESSION: NORMAL BRAIN CT WITHOUT CONTRAST. TECHNICAL DOCUMENTATION: JOB ID: [id number] Quality ID # [id number]: Final reports with documentation of one or more dose reduction techniques (e.g., Au tomated exposure control, adjustment of the mA and/or kV according to patient size, use of iterative reconstruction technique) 2010 [employer]- All Rights Reserved
[2017-01-26 21:20] LABS: CREATINE KINASE MB 0.83 ng/mL (<4.55)
[2017-01-26 21:21] LABS: TROPONIN I < 0.012 ng/mL
--- NOTE | 2017-01-26 21:24 | EKG REPORT ---
SEVERITY:- ABNORMAL ECG - SINUS RHYTHM LEFT BUNDLE BRANCH BLOCK : Confirmed by: Debi Carr 26-Jan-2017 21:23:56
[2017-01-27] MEDS ORDERED: NORMAL SALINE 1000 ML 1,000 ML IV PRN (00:13)
[2017-01-27] MEDS ORDERED: ACETAMINOPHEN 325 MG TABLET PO PRN (00:13)
[2017-01-27] MEDS ORDERED: DEXTROSE 50%-WATER 25 GM/50 ML DISP.SYRIN IV PRN ×2 (00:16)
[2017-01-27] MEDS ORDERED: DEXTROSE 40% GEL 15 GM TUBE PO PRN ×2 (00:16)
[2017-01-27] MEDS ORDERED: GLUCAGON,HUMAN RECOMB 1 MG INJ IM PRN (00:16)
[2017-01-27 03:22] LABS: APPEARANCE,URINE SLIGHTLY-CLOUDY; BILIRUBIN,URINE NEGATIVE (NEGATIVE); GLUCOSE, URINE 150 mg/dL (NEGATIVE); KETONES,URINE NEGATIVE (NEGATIVE); LEUKOCYTE ESTERASE,URINE NEGATIVE (NEGATIVE); NITRITE,URINE NEGATIVE (NEGATIVE); PROTEIN,URINE 100 mg/dL (NEGATIVE); UROBILINOGEN,URINE NEGATIVE mg/dL (<2.0)
[2017-01-27 06:11] LABS: TROPONIN I < 0.012 ng/mL
[2017-01-27] MEDS: INSULIN LISPRO 100 UNIT/ML 3 ML VIAL SUBCUT PRN ×2 (09:05→11:24)
[2017-01-27] MEDS ORDERED: ENOXAPARIN SODIUM INJ 40 MG/0.4 ML DISP.SYRIN SUBCUT SCH (10:00)
--- NOTE | 2017-01-27 10:14 | PDOC H&P ---
History of Present Illness Admission Date/PCP: 01/27/17 00:20 ALEXY BAIG MD Patient complains of: Syncopal episode and chest pain History of Present Illness: SATURNINO MURGUIA is a 56 year old female This 56-year-old female with a significant history of the type 2 diabetes and noncompliance with the medications and that recently started all medications with a history of the hypertensions hyperlipidemia history of the amputations on the footAnd also history of anxiety and a history of the DVT in the leg which the recent ultrasound was negative for any acute DVTCame to the emergency department prior to arrival patient's tried to come out from her car and stood up and felt dizzy and her pretty much help her but did not completely pass out but feeling weak and some tingling and numbness on the right side but other than that no other symptoms In the emergency department patient initial CT head was negative patient to all the other blood work was all stable and when I saw the patient on the floor patient is doing well denied any chest pain denied any shortness of the breathDenied any tingling numbness patient of ongoing chronic neuropathy but other than that no weakness no blurry vision patient's gait is also normalAnd patients expressed to go home Past Medical History Cardiac Medical History: Reports: DVT, Hypertension, Peripheral Vascular Disease Denies: Coronary Artery Disease, Myocardial Infarction Pulmonary Medical History: Reports: Pneumonia - hx Denies: Asthma, Bronchitis, Chronic Obstructive Pulmonary Disease (COPD) Neurological Medical History: Denies: Seizures Endocrine Medical History: Reports: 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 eye laser surgery. Negative ex laparoscopy. Social History Lives with: Family Smoking Status: Current Every Day Smoker Last Time Smoked: 01/26/17 Frequency of Alcohol Use: None Hx Recreational Drug Use: No Drugs: None Hx Prescription Drug Abuse: No Family History Family History: Reviewed & Not Pertinent, Malignancy, Other - Asthma and heart disease Parental Family History Reviewed: Yes Children Family History Reviewed: Yes Sibling(s) Family History Reviewed.: Yes Medication/Allergy Home Medications: Atenolol [Tenormin 50 mg Tablet] 50 mg PO Q12 01/27/17 Atorvastatin Calcium [Lipitor 20 mg Tablet] 20 mg PO QHS 01/27/17 Ibuprofen [Motrin 800 mg Tablet] 800 mg PO Q12HP PRN 01/27/17 Insulin NPH Hum/Reg Insulin Hm [Humulin 70-30 Vial] 70 unit SQ QAM 01/27/17 Insulin NPH Hum/Reg Insulin Hm [Humulin 70-30 Vial] 70 unit SQ QHS 01/27/17 Insulin Regular, Human [Humulin R (Reg) Insulin 100 unit/mL] 0 unit SUBCUT .SLD SCALE 01/27/17 Lisinopril/Hydrochlorothiazide [Lisinopril-Hctz 20-12.5 mg Tab] 1 each PO DAILY 01/27/17 Metformin HCl [Metformin HCl ER] 500 mg PO BIDBS 01/27/17 Sertraline HCl [Zoloft] 25 mg PO DAILY 01/27/17 Allergies/Adverse Reactions: Shellfish * [Shellfish] Allergy (Verified 07/24/16 17:37) sulfamethoxazole [From Bactrim] Allergy (Verified 07/24/16 17:37) trimethoprim [From Bactrim] Allergy (Verified 07/24/16 17:37) Review of Systems Constitutional: ABSENT: chills, fever(s), headache(s), weight gain, weight loss Eyes: ABSENT: visual disturbances Ears: ABSENT: hearing changes Cardiovascular: PRESENT: chest pain. ABSENT: dyspnea on exertion, edema, orthropnea, palpitations Respiratory: ABSENT: cough, hemoptysis Gastrointestinal: ABSENT: abdominal pain, constipation, diarrhea, hematemesis, hematochezia, nausea, vomiting Genitourinary: ABSENT: dysuria, hematuria Musculoskeletal: ABSENT: joint swelling Integumentary: ABSENT: rash, wounds Neurological: ABSENT: abnormal gait, abnormal speech, confusion, dizziness, focal weakness, syncope Psychiatric: ABSENT: anxiety, depression, homidical ideation, suicidal ideation Endocrine: ABSENT: cold intolerance, heat intolerance, menstrual abnormalities, polydipsia, polyuria Hematologic/Lymphatic: ABSENT: easy bleeding, easy bruising, lymphadenopathy Physical Exam Vital Signs: Temp Pulse Resp BP Pulse Ox 98.2 F 63 20 147/63 H 96 01/27/17 07:36 01/27/17 07:36 01/27/17 07:36 01/27/17 07:36 01/27/17 07:36 Intake & Output 01/26/17 01/27/17 01/28/17 06:59 06:59 06:59 Intake Total 625 Output Total 500 Balance 125 Weight 93 kg General appearance: PRESENT: no acute distress, well-developed, well-nourished Head exam: PRESENT: atraumatic, normocephalic Eye exam: PRESENT: conjunctiva pink, EOMI, PERRLA. ABSENT: scleral icterus Ear exam: PRESENT: normal external ear exam Mouth exam: PRESENT: moist, tongue midline Neck exam: PRESENT: full ROM. ABSENT: carotid bruit, JVD, lymphadenopathy, thyromegaly Respiratory exam: PRESENT: clear to auscultation martha Cardiovascular exam: PRESENT: RRR. ABSENT: diastolic murmur, rubs, systolic murmur Pulses: PRESENT: normal dorsalis pedis pul, +2 pedal pulses bilateral Vascular exam: PRESENT: normal capillary refill GI/Abdominal exam: PRESENT: normal bowel sounds, soft. ABSENT: distended, guarding, mass, organolmegaly, rebound, tenderness Rectal exam: PRESENT: deferred Neurological exam: PRESENT: alert, awake, oriented to person, oriented to place , oriented to time, oriented to situation, reflexes normal, CN II-XII grossly intact, normal gait. ABSENT: motor sensory deficit Psychiatric exam: PRESENT: anxious, appropriate affect, normal mood. ABSENT: homicidal ideation, suicidal ideation Skin exam: PRESENT: dry, intact, warm. ABSENT: cyanosis, rash Results Laboratory Results: 01/27/17 02:10 Urine Color YELLOW Urine Appearance SLIGHTLY-CLOUDY Urine pH 5.0 Ur Specific [place] 1.010 Urine Protein 100 H Urine Glucose (UA) 150 H Urine Ketones NEGATIVE Urine Blood NEGATIVE Urine Nitrite NEGATIVE Ur Leukocyte Esterase NEGATIVE Urine WBC (Auto) 2 Urine RBC (Auto) 2 01/27/17 01/27/17 05:22 05:22 Creatine Kinase 32 CK-MB (CK-2) 0.90 Troponin I < 0.012 Impressions: Chest X-Ray 01/26/17 19:15 IMPRESSION: NO ACUTE RADIOGRAPHIC FINDING IN THE CHEST. Head CT 01/26/17 19:48 IMPRESSION: NORMAL BRAIN CT WITHOUT CONTRAST. Assessment & Plan - Diagnosis (1) Syncope Qualifiers: Syncope type: unspecified Qualified Code(s): R55 - Syncope and collapse Is this a current diagnosis for this admission?: YesPlan: Most likely underlying dehydration's no sign of any neurological symptoms or any cardiac events. Will get the MRI of the head and will get the carotid ultrasound to rule out any neurological symptoms (2) Chest pain Qualifiers: Chest pain type: unspecified Qualified Code(s): R07.9 - Chest pain, unspecified Is this a current diagnosis for this admission?: YesPlan: Will get the cardiology consults and rule out the acute coronary syndromesMost likely a probably underlying anxiety disorders (3) Hyperlipidemia Qualifiers: Hyperlipidemia type: other hyperlipidemia Qualified Code(s): E78.4 - Other hyperlipidemia Is this a current diagnosis for this admission?: YesPlan: Continues to current medications (4) Anxiety and depression Is this a current diagnosis for this admission?: YesPlan: Currently stable (5) Diabetes mellitus Qualifiers: Diabetes mellitus type: type 2 Diabetes mellitus complication status: with other specified complication Diabetes mellitus assisted insulin use: with assisted use Qualified Code(s): E11.69 - Type 2 diabetes mellitus with other specified complication Is this a current diagnosis for this admission?: YesPlan: Continues current medications (6) Hypertension Qualifiers: Hypertension type: essential hypertension Qualified Code(s): I10 - Essential (primary) hypertension Is this a current diagnosis for this admission?: YesPlan: Continues current medications - Time Time Spent: 30 to 50 Minutes Medications reviewed and adjusted accordingly: Yes Anticipated discharge: Home Within: within 24 hours - Inpatient Certification Medical Necessity: Need Close Monitoring Due to Risk of Patient Decompensation Post Hospital Care: D/C Home Aide Documentation - Plan Summary Plan Summary: Will get the MRI of the head and cardiology consults and as per discussed with the cardiology suggest a discharge home and follow outpatients and if the all the neuro workup is negative patient's discharge home but patient is very anxious to go home
[2017-01-27 11:49] LABS: CREATINE KINASE MB 0.92 ng/mL (<4.55)
[2017-01-27 11:55] LABS: TROPONIN I < 0.012 ng/mL
[2017-01-27 12:21] VITALS: BP 145/76
--- NOTE | 2017-01-27 12:37 | RADIOLOGY REPORT (SQ) ---
EXAM DESCRIPTION: CAROTID DOPPLER COMPLETED DATE/TIME: 01/27/2017 11:36 am REASON FOR STUDY: syncopal episode COMPARISON: None. TECHNIQUE: Grayscale ultrasound, Doppler velocity and spectra, and color Doppler images acquired of the extra-cranial carotid and vertebral arteries. Images stored on PACS. LIMITATIONS: None. FINDINGS: RIGHT CAROTID CCA Velocities: Within normal limits. ICA Velocities Peak systolic 56 centimeters/second. End diastolic 15 centimeters/second. Proximal ICA/CCA peak systolic ratio 1.1. There is calcified plaque in the carotid bulb and proximal internal carotid artery. LEFT CAROTID CCA Velocities: Within normal limits. ICA Velocities Peak systolic 109 centimeters/second End diastolic 35 centimeters/second. Proximal ICA/CCA peak systolic ratio 1.4. There is moderate plaque in the carotid bulb proximal internal carotid artery. There is also signifi cant calcified plaque in the external carotid. VERTEBRAL ARTERIES: Antegrade flow. Normal waveforms. SUBCLAVIAN ARTERIES: No finding. OTHER: No other significant finding. IMPRESSION: 1. There are atherosclerotic changes with no hemodynamically significant lesion in [facility] er internal carotid artery. 2. There is greater than 70% stenosis of the left external carotid artery. COMMENT: Quality ID #[id number]: Velocity criteria are extrapolated from the diameter data as defined by t he Society of Radiologists in Ultrasound Consensus Conference. Radiology 2003: 229; 340-346. TECHNICAL DOCUMENTATION: JOB ID: [id number]- All Rights Reserved
--- NOTE | 2017-01-27 14:16 | RADIOLOGY REPORT (SQ) ---
EXAM DESCRIPTION: MRI HEAD WITHOUT COMPLETED DATE/TIME: 01/27/2017 1:36 pm REASON FOR STUDY: syncopal episode COMPARISON: CT brain 01/26/2017 TECHNIQUE: Multiplanar imaging includes non-contrasted T1, T2, FLAIR, and diffusion with ADC map seq uences. Images stored on PACS. LIMITATIONS: None. FINDINGS: ANATOMY: No developmental anomalies. Normal vascular flow voids. Pituitary fossa normal. CSF SPACES: Normal in size and contour. No hemorrhage. CEREBRUM: Increased FLAIR/T2 white matter signal in the changes of the corpus callosum and bifrontal and biparietal deep white matter, likely chronic small vessel ischemic change. No signal abnormaliti es worrisome for acute ischemic change, or acute intracranial hemorrhage, mass effect, or midline adeline ft. Sulci and gyri normal in size and contour. POSTERIOR FOSSA: No signal alteration. No hemorrhage. No edema, masses or mass effect. Internal gregor tory canals, cerebello-pontine angles, mastoids normal. DIFFUSION IMAGING: Negative for acute or sub-acute infarction. ORBITS: No masses. Globes unremarkable PARANASAL SINUSES: No fluid levels. Mucosa normal. OTHER: Fluid in the bilateral mastoid air cells. IMPRESSION: Corpus callosum, bifrontal, and biparietal white matter disease, most likely small vesse l ischemic change. Demyelinating disease could mimic this appearance. No acute findings TECHNICAL DOCUMENTATION: JOB ID: [id number]- All Rights Reserved
--- NOTE | 2017-01-27 15:20 | RADIOLOGY REPORT (SQ) ---
EXAM DESCRIPTION: CTA CHEST COMPLETED DATE/TIME: 01/27/2017 1:51 pm REASON FOR STUDY: chest pain COMPARISON: CT angio chest 11/13/2015 TECHNIQUE: CT scan of the chest performed using helical scanning technique with dynamic intravenous contrast injection. Images reviewed with lung, soft tissue and bone windows. Reconstructed coronal and sagittal MPR images reviewed. Additional 3 dimensional post-processing performed to develop Maximal Intensity Projection images (MS P). All images stored on PACS. All CT scanners at this facility use dose modulation, iterative reconstruction, and/or weight based d osing when appropriate to reduce radiation dose to as low as reasonably achievable (ALARA). [facility]: Dose Right [facility]: CareDose [facility]: Dose Right [facility]: Teradose 4D [facility]: Vivo CONTRAST TYPE AND DOSE: contrast/concentration: Isovue 370.00 mg/ml; Total Contrast Delivered: 72.0 ml; Total Saline Delivered: 110.1 ml RENAL FUNCTION: Creatinine 0.96 RADIATION DOSE: Up-to-date CT equipment and radiation dose reduction techniques were employed. CTDIv ol: 14.1 - 15.5 mGy. DLP: 606 mGy-cm. . LIMITATIONS: None. FINDINGS: LUNGS AND PLEURA: No masses, infiltrates, pneumothorax. No pleural effusions, calcificati ons. AORTA AND GREAT VESSELS: No aneurysm or dissection. HEART: No pericardial effusion. Heavy coronary artery calcification PULMONARY ARTERIES: No emboli visualized in the main pulmonary arteries or the segmental branches. HILAR AND MEDIASTINAL STRUCTURES: No identified masses or abnormal nodes. There is an air-fluid leve l in the esophagus throughout the study, likely reflecting gastroesophageal reflux HARDWARE: None in the chest. UPPER ABDOMEN: No significant findings. Limited exam. THYROID AND OTHER SOFT TISSUES: No masses. No adenopathy. BONES: No acute or significant finding. 3D MIPS: Confirm above findings. OTHER: No other significant finding. IMPRESSION: No CT angio evidence of acute pulmonary emboli. Air-fluid level in the esophagus likely from gastroesophageal reflux Heavy coronary artery calcification TECHNICAL DOCUMENTATION: JOB ID: [id number] Quality ID # [id number]: Final reports with documentation of one or more dose reduction techniques (e.g., Au tomated exposure control, adjustment of the mA and/or kV according to patient size, use of iterative reconstruction technique) 2010 [employer]- All Rights Reserved
--- NOTE | 2017-01-27 15:49 | PDOC DISCHARGE SUMMARY ---
General - Admit/Disc Date/PCP Admission Date/Primary Care Provider: 01/27/17 00:20 ALEXY BAIG MD Discharge Date: 01/27/17 - Discharge Diagnosis (1) Syncope Is this a current diagnosis for this admission?: YesSummary: Patient's all workup is negative including the MRI to some microvascular changes but no acute finding and patient have a some abnormal and carotid artery follow as outpatient Patient seen by cardiology and scheduled outpatient stress test (2) Chest pain Is this a current diagnosis for this admission?: YesSummary: Currently all resolved seen by cardiology schedule outpatient stress test (3) Hyperlipidemia Is this a current diagnosis for this admission?: YesSummary: Continues current medications (4) Anxiety and depression Is this a current diagnosis for this admission?: YesSummary: Currently stable (5) Diabetes mellitus Is this a current diagnosis for this admission?: YesSummary: Continues current medications (6) Hypertension Is this a current diagnosis for this admission?: YesSummary: Stable - Additional Information Discharge Diet: Diabetic Discharge Activity: Activity As Tolerated Home Medications: Atenolol [Tenormin 50 mg Tablet] 50 mg PO Q12 01/27/17 Atorvastatin Calcium [Lipitor 20 mg Tablet] 20 mg PO QHS 01/27/17 Insulin NPH Hum/Reg Insulin Hm [Humulin 70-30 Vial] 70 unit SQ QAM 01/27/17 Insulin NPH Hum/Reg Insulin Hm [Humulin 70-30 Vial] 70 unit SQ QHS 01/27/17 Insulin Regular, Human [Humulin R (Reg) Insulin 100 unit/mL] 0 unit SUBCUT .SLD SCALE 01/27/17 Lisinopril/Hydrochlorothiazide [Lisinopril-Hctz 20-12.5 mg Tab] 1 each PO DAILY 01/27/17 Metformin HCl [Metformin HCl ER] 500 mg PO BIDBS #0 01/27/17 Sertraline HCl [Zoloft] 25 mg PO DAILY 01/27/17 History of Present Illness History of Present Illness: SATURNINO MURGUIA is a 56 year old female This 56-year-old female with a significant history of the type 2 diabetes and noncompliance with the medications and that recently started all medications with a history of the hypertensions hyperlipidemia history of the amputations on the footAnd also history of anxiety and a history of the DVT in the leg which the recent ultrasound was negative for any acute DVTCame to the emergency department prior to arrival patient's tried to come out from her car and stood up and felt dizzy and her pretty much help her but did not completely pass out but feeling weak and some tingling and numbness on the right side but other than that no other symptoms In the emergency department patient initial CT head was negative patient to all the other blood work was all stable and when I saw the patient on the floor patient is doing well denied any chest pain denied any shortness of the breathDenied any tingling numbness patient of ongoing chronic neuropathy but other than that no weakness no blurry vision patient's gait is also normalAnd patients expressed to go home Hospital Course Hospital Course: This is a 56-year-old female present with the chest pain and syncopal episodes and the patient was admitted in the telemetry bed for further evaluation and treatment Patient initial workup in the ER including the cardiac enzyme EKG and a CT of the head was negative In the telemetry patient on routine cardiac workup is negative patient seen by the hospice care consultant and suggest no acute cardiac events and follow outpatients for the further workup Patient underwent for the MRI of the head and a carotid ultrasound which did not find any acute finding patient have a some external carotid arteries stenosis which follow outpatient Patient of a history of the DVT in the recent ultrasound for the leg was negative and patient's CT angiogram was also negative to Patient's otherwise remained stable patient's p.o. intake is good patient's denied any chest pain no shortness of the breath most likely related to some dehydration's Patient's expressed to go home and patient's all workup is so much negative patient's discharge home with the stable conditions Patient still have a high risk for coronary disease and discussed with the cardiology and suggest a follow outpatients Patient was put on aspirin and continues to current other medications Physical Exam Vital Signs: Temp Pulse Resp BP Pulse Ox 98.0 F 65 18 134/69 H 97 01/27/17 12:13 01/27/17 12:13 01/27/17 12:13 01/27/17 12:13 01/27/17 12:13 Intake & Output 01/26/17 01/27/17 01/28/17 06:59 06:59 06:59 Intake Total 625 Output Total 500 Balance 125 Weight 93 kg General appearance: PRESENT: no acute distress, well-developed, well-nourished Head exam: PRESENT: atraumatic, normocephalic Eye exam: PRESENT: conjunctiva pink, EOMI, PERRLA. ABSENT: scleral icterus Ear exam: PRESENT: normal external ear exam Mouth exam: PRESENT: moist, tongue midline Neck exam: PRESENT: full ROM. ABSENT: carotid bruit, JVD, lymphadenopathy, thyromegaly Respiratory exam: PRESENT: clear to auscultation martha Cardiovascular exam: PRESENT: RRR. ABSENT: diastolic murmur, rubs, systolic murmur Pulses: PRESENT: normal dorsalis pedis pul, +2 pedal pulses bilateral Vascular exam: PRESENT: normal capillary refill GI/Abdominal exam: PRESENT: normal bowel sounds, soft. ABSENT: distended, guarding, mass, organolmegaly, rebound, tenderness Rectal exam: PRESENT: deferred Neurological exam: PRESENT: alert, awake, oriented to person, oriented to place , oriented to time, oriented to situation, CN II-XII grossly intact. ABSENT: motor sensory deficit Psychiatric exam: PRESENT: appropriate affect, normal mood. ABSENT: homicidal ideation, suicidal ideation Skin exam: PRESENT: dry, intact, warm. ABSENT: cyanosis, rash Results Laboratory Results: 01/27/17 02:10 Urine Color YELLOW Urine Appearance SLIGHTLY-CLOUDY Urine pH 5.0 Ur Specific [place] 1.010 Urine Protein 100 H Urine Glucose (UA) 150 H Urine Ketones NEGATIVE Urine Blood NEGATIVE Urine Nitrite NEGATIVE Ur Leukocyte Esterase NEGATIVE Urine WBC (Auto) 2 Urine RBC (Auto) 2 01/27/17 01/27/17 01/27/17 05:22 05:22 10:58 Creatine Kinase 32 38 CK-MB (CK-2) 0.90 Troponin I < 0.012 01/27/17 10:58 Creatine Kinase CK-MB (CK-2) 0.92 Troponin I < 0.012 Impressions: Chest X-Ray 01/26/17 19:15 IMPRESSION: NO ACUTE RADIOGRAPHIC FINDING IN THE CHEST. Head CT 01/26/17 19:48 IMPRESSION: NORMAL BRAIN CT WITHOUT CONTRAST. Carotid Doppler Study 01/27/17 00:00 IMPRESSION: 1. There are atherosclerotic changes with no hemodynamically significant lesion in either internal carotid artery. 2. There is greater than 70% stenosis of the left external carotid artery. Chest/Abdomen CTA 01/27/17 00:00 IMPRESSION: No CT angio evidence of acute pulmonary emboli. Air-fluid level in the esophagus likely from gastroesophageal reflux Heavy coronary artery calcification Head MRI 01/27/17 00:00 IMPRESSION: Corpus callosum, bifrontal, and biparietal white matter disease, most likely small vessel ischemic change. Demyelinating disease could mimic this appearance. No acute findings Plan Time Spent: Greater than 30 Minutes - Discussed with the patient and the about the all the patient's current condition and all the test results and discuss with the cardiology as above plan Follow in a one-week in office hold the metformin for 48 hours because of the current IV contrast take aspirin 81 mg daily more aggressive blood sugar control and blood pressures controlled and will make arrangement is a vascular surgeon as outpatient for further evaluations for carotid disease
--- NOTE | 2017-01-27 16:43 | CONSULTATION REPORT E ---
Consultation Report NAME: SATURNINO MURGUIA : 1960 AGE: 56Y DATE: 01/27/2017 529 A TO: OFE AVALOS M.D. FROM: ALEXY BAIG M.D. Requesting Physician Note that the patient was seen at 11 a.m. REASON FOR CONSULTATION: Chest pain and syncope. 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 She was syncopal for over 3-4 minutes per the and when she woke up she was slightly confused. There was no seizure activity. There was no chest pain, shortness of breath or palpitations prior to or after the syncopal episodes. She has not had any syncope in the past. She also states that for the past few months she has been having chest pains in the center of the chest with radiation to the left and right of the chest which lasts sometimes an hour and is associated with some shortness of breath but no palpitations. She states that this is not brought on or increased with exertion. Sometimes this lasts for an hour. She denies any symptoms of PND, orthopnea or leg edema. There are no palpitations. She denies any history of TIA or CVA symptoms. PAST MEDICAL HISTORY: Positive for history of hypertension, history of DVT but no pulmonary emboli, history of peripheral vascular disease. She denies any history of coronary artery disease or IA. She has atypical chest pains as mentioned earlier, which sounds more neurological than cardiac origin but needs 30-day event monitor since she is not a very good historian. She has a past history of pneumonia. There is no history of asthma or COPD. There is no history of pulmonary embolism. There is no history of sleep apnea. There is no history of TIA or CVA or seizures. She has a history of diabetes mellitus type 2 insulin requiring with retinopathy and diabetic neuropathy. The patient is not very compliant. There is no history of thyroid disease. She has no history of arthritis. She has a history of anxiety and depression. There is no history of chronic kidney disease. There is no history of GI bleed or GERD. 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 She has also had 2 vitrectomies in her left eye. FAMILY HISTORY: Positive for malignancy, asthma and heart disease. SOCIAL HISTORY: The patient is a smoker. There is no history of EtOH abuse. DISPOSITION: The patient is a F[employer]. Her is her surrogate healthcare decision maker. MEDICATIONS: 1. Atenolol 50 mg p.o. q.12 h. 2. Atorvastatin/Lipitor 20 mg p.o. at bedtime. 3. Ibuprofen/Motrin 80 mg p.o. q.12 h. p.r.n. 4. Insulin NPH Humulin/regular insulin 70/30 70 units subcutaneously q.a.m. and 70 units subcutaneously at bedtime. 5. Insulin regular Humulin insulin subcutaneously as per sliding scale. 6. Lisinopril/hydrochlorothiazide 20/12.5 mg 1 p.o. daily. 7. Metformin hydrochloride 500 mg p.o. b.i.d. 8. Sertraline/Zoloft 25 mg p.o. daily. ALLERGIES: 1. SHELLFISH. 2. BACTRIM. REVIEW OF SYSTEMS: CONSTITUTIONAL: Denies any fever, chills or rigors. There is no history of weight gain or weight loss. No history of headaches. She had dizziness followed by syncope as mentioned earlier. No history of head injury. HEENT: Eyes: No history of amblyopia or diplopia. No history of amaurosis fugax. History of vitrectomy. She has a history of retinal bleeds and history of retinopathy due to diabetes. Ears: No history of tinnitus, no history of vertigo although she states that when she had the syncopal episode she had some dizziness with the room spinning. There are no recurrent ear infections. There is no hearing loss. Nose: There is no history of hay fever. There is no history of recurrent nosebleeds. Mouth: No history of altered taste sensation, no history of ulcers in the mouth, no bleeding from the gums. Throat: There is no odynophagia or dysphagia, no history of recurrent sore throats. SKIN: There is no history of skin cancer, no psoriasis. NECK: There are no symptoms of C-spine arthritis. No painless or painful swelling in the neck, no goiter. LUNGS: No history of cough or wheezing. No history of asthma or COPD. No history of sleep apnea. No history of pulmonary embolism although she has had a history of DVT. No history of pleuritic chest pain. Atypical chest pain as mentioned earlier not related to exertion, lasting sometimes for an hour. No history of wheezing. CARDIAC: History of hypertension present. No history of coronary artery disease. Atypical chest pain as mentioned earlier. She has no history of congestive heart failure, no history of palpitations. History of syncope as mentioned earlier. No history of PND or orthopnea or leg edema. No history of rheumatic fever. No history of heart disease. GASTROINTESTINAL: No history of GI bleed, no history of GERD. No history of peptic ulcer disease. No history of cirrhosis. No history of jaundice. No history of abdominal pain. No history of altered bowel movements. RENAL: No history of chronic kidney disease. No symptoms of hematuria, polyuria or dysuria. No history of recurrent urinary tract infections. MUSCULOSKELETAL: Denies arthritis or collagen vascular disease. ENDOCRINE: History of diabetes mellitus with retinopathy and neuropathy. No history of polydipsia or polyuria. The patient is not very compliant with the medications. Blood sugars are not very well controlled. There is no history of thyroid disease, no history of heat or cold intolerance, no history of excessive sweating, no history of hirsutism. CENTRAL NERVOUS SYSTEM: No history of TIA or CVA, no history of seizures. No history of headaches or migraines. No history of gait imbalance. No history of sleep apnea. PSYCHIATRIC: History of anxiety and depression well controlled at present with Zoloft. No suicidal ideation, no homicidal ideation. VASCULAR: Although she has a history of peripheral arterial disease there is no history of buttock or calf claudication, but the patient does not walk much due to her gait imbalance due to diabetic neuropathy and uses a walker. She has a past history of DVT with no recurrence. HEMATOLOGICAL: No history of bleeding diathesis. No history of clotting disorders. No history of anemia. PHYSICAL EXAMINATION: GENERAL: Patient is mildly obese in no acute distress at present. She is well groomed. VITAL SIGNS: She is afebrile with a temperature of 98 degrees Fahrenheit. Pulse is 65 beats per minute, blood pressure 145/76, respirations are 18 per minute, 02 sats are 97% on room air. HEENT: Head is atraumatic, normocephalic. Eyes: Pupils are equal, round, regular, reactive to light and accommodation. Extraocular movements are normal. There is no conjunctival pallor. There is no scleral icterus. Ears: Tympanic membranes are intact. External auditory canals are clear. There are no lesions of the pinnae. Nose: There is no deviated nasal septum. There is no inflammation of the nasal mucous membranes. Mouth: Mucous membranes of the mouth are moist. Tongue is moist. There are no ulcers. There is no bleeding from the gums. Throat: There is no redness of the oropharynx. There is no exudate. SKIN: There are no skin rashes. There is no petechia or ecchymosis. There are no skin lesions. NECK: Supple. There is no JVD. There is no lymphadenopathy. There is no goiter. Carotids are equal. Trachea is central. LUNGS: Clear to auscultation and percussion. There is no chest wall tenderness. HEART: S1 and S2 are heard. There is no S3 gallop. There is no S4 gallop. There is a systolic murmur in the left sternal border and the apex, question mitral regurgitation, question severity. There is no rub. ABDOMEN: Soft, nontender. There is no hepatosplenomegaly. Bowel sounds are well heard. There are no tender areas or masses. There is rebound, guarding or rigidity. EXTREMITIES: Femorals are diminished. There are no femoral bruits. Leg pulses are diminished. There is no pedal edema. There is no DVT or cellulitis. There is no calf tenderness. There is no cyanosis or clubbing. CENTRAL NERVOUS SYSTEM: The patient is conscious, awake, alert, oriented x3 with no focal deficits. PSYCHIATRIC: The patient's judgment and insight are intact. Her affect is normal. DIAGNOSTIC TEST RESULTS: The patient's 24-hr intake is 625 mL; output is 500 mL. The patient's chest x-ray shows no acute radiographic findings; I have reviewed the chest x-ray myself. The patient's EKG shows sinus rhythm with left bundle branch block pattern. The patient's head CT is a normal brain CT without contrast. The patient's carotid Doppler shows greater than 70% stenosis of the left external carotid artery. There are atherosclerotic changes with no hemodynamically significant lesions in both the internal carotid arteries. The patient's MRI of the head shows corpus callosum, bifrontal and biparietal white matter disease most likely small vessel ischemic changes, demyelinating disease could mimic this appearance. No acute findings. The patient's laboratory data: The white count is 10,200, hemoglobin is 15, hematocrit is 45.16, and platelet count is 224,000. The patient's sodium is 139.2, potassium 4.2, chloride 97, CO2 29, the patient's BUN is 27, creatinine 0.96, GFR is greater than 60, glucose is 249, calcium is 10.3, total bilirubin is 1.7 and the rest of liver function tests are normal. The total protein is 7.4, albumin is 4.1. IMPRESSION: 1. Syncope, most likely neurologic in etiology. Doubt cardiac etiology but would recommend a 30-day event monitor. 2. Chest pain, atypical but patient has multiple risk factors for coronary artery disease since the patient does smoke, her age, hypertension, family history, diabetes mellitus, and hyperlipidemia. 3. Hypertension, fairly well controlled. 4. Diabetes mellitus with neuropathy and retinopathy. 5. Peripheral artery disease. 6. History of DVT with no recurrence and no history of pulmonary embolism. 7. Anxiety. 8. Depression. 9. Hyperlipidemia. 10. Systolic murmur of mitral regurgitation, question severity. RECOMMENDATIONS: Would continue current medications. Recommend that the patient have an IV Lexiscan Cardiolite stress test which could be done as an outpatient and also would get a 30-day event monitor to assess the patient's syncope to make sure that this is not cardiac in etiology. Also would recommend an echocardiogram for LV ejection fraction and diagnosis of the patient's systolic murmur which sounds like mitral regurgitation and need to find out the severity of this. Note, the patient was seen at 11 o'clock, 40 minutes were spent on this patient with more than 50% of the time spent on direct patient care. Medications have been reviewed and discussion with the attending physician. Coordination of care done with attending physician, Dr. Baig. Note that this case involves highly complex medical decision making in view of the patient's syncope, chest pain, multiple risk factors of coronary artery disease and diagnosis of a murmur. The patient will follow up with me in the office since she desires follow up with me. I have given her my cell number and my office number. We will arrange for the tests mentioned above as an outpatient. Thanking you. DICTATING PHYSICIAN: OEF AVALOS M.D. [id number] PHY#: [id number] ID: [id number] JOB#: [id number] ACCT: [id number] cc:OFE AVALOS M.D. >
== END 2017-01-27 16:00 | disposition home or self-care (01) | DRG 641 ==
LOC: ER 18:51 → EH 01-27 00:14 → OBSVTOIN 01-27 00:20 → INTOOBSV 01-27 00:20 → UNDOADMOB 01-27 00:20 → 5 01-27 02:45
PROVIDERS: ADMIT Family Medicine; ATTEND Family Medicine
DX: E86.0 Dehydration (principal); R55 Syncope and collapse; R07.9 Chest pain, unspecified; F32.9 Major depressive disorder, single episode, unspecified; R01.1 Cardiac murmur, unspecified; I10 Essential (primary) hypertension; E11.40 Type 2 diabetes mellitus with diabetic neuropathy, unspecified; E11.319 Type 2 diabetes mellitus with unspecified diabetic retinopathy without macular edema; E11.51 Type 2 diabetes mellitus with diabetic peripheral angiopathy without gangrene; F41.1 Generalized anxiety disorder; F17.200 Nicotine dependence, unspecified, uncomplicated; Z89.422 Acquired absence of other left toe(s); Z91.14 Patient's other noncompliance with medication regimen; Z86.718 Personal history of other venous thrombosis and embolism; Z79.84 Long term (current) use of oral hypoglycemic drugs; Z91.013 Allergy to seafood; Z88.2 Allergy status to sulfonamides
CPT/HCPCS: 36415; 70450; 70551; 71010; 71275; 80053; 81001; 82550; 82553; 82962; 84484; 85025; 85379; 93005; 93010; 93880; 99285; J1650; J7030

== ENCOUNTER → 2017-02-04 | Outpatient (CLI) | payer MEDICARE, MEDICAID ==
[2017-02-04 12:38] LABS: ABSOLUTE BASOPHILS # (AUTO) 0.1 10^3/uL (0.0-0.2); ABSOLUTE EOSINOPHILS # (AUTO) 0.3 10^3/uL (0.0-0.6); ABSOLUTE LYMPHOCYTES (AUTO) 3.1 10^3/uL (0.5-4.7); ABSOLUTE MONOCYTES (AUTO) 0.7 10^3/uL (0.1-1.4); ABSOLUTE NEUT (AUTO) 6.8 10^3/uL (1.7-8.2); BASOPHILS % (AUTO) 1.2 % (0-2); EOSINOPHILS % (AUTO) 2.9 % (0-6); HEMATOCRIT 42.6 % (36.0-47.0); HEMOGLOBIN 14.4 g/dL (12.0-15.5); HGB HCT DIFFERENCE 0.6; MEAN CORPUSCULAR HEMOGLOBIN 28.5 pg (27.0-33.4); MEAN CORPUSCULAR HGB CONC 33.8 g/dL (32.0-36.0); MEAN CORPUSCULAR VOLUME 84 fl (80-97); MONOCYTES % (AUTO) 6.7 % (3-13); RED BLOOD COUNT 5.04 10^6/uL (3.72-5.28); RED CELL DISTRIBUTION WIDTH 13.4 % (11.5-14.0); SEGMENTED NEUTROPHILS % (AUTO) 61.2 % (42-78)
--- NOTE | 2017-02-04 12:53 | RADIOLOGY REPORT (SQ) ---
EXAM DESCRIPTION: ACUTE ABDOMEN SERIES COMPLETED DATE/TIME: 02/04/2017 12:28 pm REASON FOR STUDY: UNSPECIFIED ABDOMINAL PAIN R10.9 UNSPECIFIED ABDOMINAL PAIN COMPARISON: CT chest 01/27/2017 NUMBER OF VIEWS: Three views. TECHNIQUE: Frontal chest, supine abdomen and decubitus abdomen radiographic images acquired. LIMITATIONS: None. FINDINGS: CHEST: Lungs clear of infiltrates. No cardiomegaly. Brigette bony structures unremarkable. FREE AIR: None. No abnormal gas collections. BOWEL GAS PATTERN: Nonobstructive pattern. No dilated loops or air fluid levels. CALCIFICATIONS: No suspicious calcifications. HARDWARE: None in the abdomen. SOFT TISSUES: No gross mass or suggestion of organomegaly. BONES: No acute fracture. No worrisome bone lesions. OTHER: No other significant finding. IMPRESSION: NO RADIOGRAPHIC EVIDENCE FOR ACUTE ABDOMINAL DISEASE. TECHNICAL DOCUMENTATION: JOB ID: [id number] [employer]- All Rights Reserved
[2017-02-04 13:13] LABS: ALANINE AMINOTRANSFERASE 24 U/L (9-52); ALBUMIN 4.1 g/dL (3.5-5.0); ALKALINE PHOSPHATASE 93 U/L (38-126); ANION GAP 16 (5-19); ASPARTATE AMINO TRANSFERASE 16 U/L (14-36); BILIRUBIN,DIRECT 0.3 mg/dL (0.0-0.4); BILIRUBIN,TOTAL 1.3 mg/dL (0.2-1.3); BLOOD UREA NITROGEN 23 mg/dL (7-20); CALCIUM 9.7 mg/dL (8.4-10.2); CARBON DIOXIDE 22 mmol/L (22-30); CHLORIDE 102 mmol/L (98-107); GLUCOSE 222 mg/dL (75-110); LIPASE 228.6 U/L (23-300); POTASSIUM 4.6 mmol/L (3.6-5.0); SODIUM 139.7 mmol/L (137-145); TOTAL PROTEIN 7.2 g/dL (6.3-8.2)
== END ==
LOC: OD 11:42
PROVIDERS: ATTEND Physician Assistant
DX: R10.9 Unspecified abdominal pain (principal)
CPT/HCPCS: 36415; 74022; 80053; 83690; 85025

== ENCOUNTER 2017-05-24 10:09 | Day surgery (SDC) | payer MEDICARE, MEDICAID ==
[~2017-05-24 10:09] MED LIST: BUPIVACAINE HCL 0.75% INJ/PF (7.5 MG/1 ML) 10 ML SDV OD PRN; FENTANYL CITRATE INJ/PF 100 MCG/2 ML AMPUL ONE; KETOROLAC TROMETHAMINE 0.45% 4 DROP/0.4 ML DROPERETTE OD PRN; LIDOCAINE 4% INJ/PF (40 MG/ML) 5 ML AMPUL OD PRN; MIDAZOLAM 2 MG/2 ML INJ ONE
[2017-05-24] MEDS ORDERED: CHONDR SU A NA/HYALUR INTRAOC KIT (SURGICARE) ONE (10:28)
[2017-05-24] MEDS ORDERED: PHENYLEPHRINE/KETOROLAC 1%-0.3% 4 ML VIAL ONE (10:28)
[2017-05-24] MEDS ORDERED: LIDOCAINE 1% INJ-PF (10 MG/ML) 30 ML SDV ONE (10:28)
[2017-05-24] MEDS: TETRACAINE HCL 0.5% OPH SOLN 0.6 ML DROPERETTE OD PRN ×2 (10:51→11:16)
[2017-05-24] MEDS: BESIFLOXACIN HCL 0.6% OPH SUSP 5 ML BOTTLE OD PRN ×3 (10:52→11:46)
[2017-05-24] MEDS: TROPICAMIDE 1% OPH SOLN 3 ML OD PRN ×3 (10:52→11:07)
[2017-05-24] MEDS: CYCLOPENTOLATE 0.2%/PHENYLEPHRINE 1% OPH SOLN 2 ML OD PRN ×3 (10:52→11:07)
--- NOTE | 2017-05-24 12:22 | [facility] DISCHARGE SUMMARY E ---
[facility] Discharge Summary NAME: SATURNINO MURGUIA AGE: 56Y ADMITTED: 05/24/2017 DISCHARGED: 05/24/2017 HOSPITAL COURSE: The patient is a 56-year-old lady who underwent uneventful cataract extraction with intraocular lens implant, right eye, on 05/24/2017. She will be discharged to home. She is instructed to resume preoperative medications, take Tylenol as needed for discomfort, to keep her eye shielded, to use Besivance, Durezol, and Ilevro at 3 p.m. and 8 p.m., and to follow up in my office in 1 day. DICTATING PHYSICIAN: DENISE LERMA M.D. [id number] PHY#: [id number] ID: [id number] JOB#: [id number] ACCT: [id number] cc:DENISE LERMA M.D. >
--- NOTE | 2017-05-24 12:23 | [facility] OPERATIVE REPORT E ---
[facility] Operative Report NAME: SATURNINO MURGUIA AGE: 56Y DATE OF SURGERY: 05/24/2017 ROOM: PREOPERATIVE DIAGNOSIS: Cataract, right eye. POSTOPERATIVE DIAGNOSIS: Cataract, right eye. PROCEDURE PERFORMED: Phacoemulsification with posterior chamber intraocular lens, right eye. SURGEON: DENISE LERMA M.D. ANESTHESIA: Topical with MAC. INDICATIONS FOR SURGERY: Difficulty reading and watching TV. Best corrected visual acuity 20/40. PROCEDURE: The patient was brought to the Operating Room and placed on the operative table. Following tetracaine drops, topical anesthesia was administered. This consisted of instrument wipe pledgets soaked in a solution of 4% Xylocaine mixed with 0.75% Marcaine in a 1:2 ratio. A 2 x 1 cm pledget was placed in the superior fornix. A 1 x 1 cm pledget was placed in the inferior fornix. The eye was patched shut for 5 minutes. The patch was removed. The eye was sterilely prepped and draped in the usual manner. Lid speculum was placed in the eye. The pledgets were removed. 4-0 black silk sutures were placed around the superior and the inferior rectus muscles to be used as traction. A conjunctival peritomy was made at the 10 o'clock position. Hemostasis was obtained with bipolar cautery. A posterior limbal groove was created using a crescent knife and dissected anteriorly towards the cornea. A sharp point blade was used to create a paracentesis site at the 2 o'clock position. A 2.4 mm keratome was used to enter the anterior chamber through the groove. Viscoelastic was injected into the anterior chamber. An anterior capsulotomy was performed using Utrata forceps in a capsulorrhexis fashion. Hydrodissection and hydrodelineation were performed. Phacoemulsification was performed in peijhb-cen-zfjewly technique. A total of 58 seconds phaco time was used. Following this, the I/A unit was used to remove residual cortex. Viscoelastic was injected into the capsular bag. Intraocular lens model [id number], 15.0 diopters, serial number [id number] was placed in the capsular bag. The I/A unit was used to remove residual viscoelastic. The wound was seen to be watertight under high and low pressure, and no sutures were placed. The intraocular lens was well centered. The pressure was adjusted in the eye to normal pressure. The 4-0 black silk sutures and lid speculum were removed. The eye was shielded after Besivance drops were placed. The patient tolerated the procedure well and was sent to the Recovery Room in good condition. DICTATING PHYSICIAN: DENISE LERMA M.D. [id number] PHY#: [id number] ID: [id number] JOB#: [id number] ACCT: [id number] cc:DENISE LERMA M.D. >
== END 2017-05-24 12:31 | disposition home or self-care (01) ==
LOC: SC 10:09
PROVIDERS: ATTEND Ophthalmology
PROC: 08RJ3JZ Replacement of Right Lens with Synthetic Substitute, Percutaneous Approach (ICD-10-PCS; principal; 2017-05-24 11:30)
DX: H25.813 Combined forms of age-related cataract, bilateral (principal); E78.00 Pure hypercholesterolemia, unspecified; M19.90 Unspecified osteoarthritis, unspecified site; F17.210 Nicotine dependence, cigarettes, uncomplicated; I10 Essential (primary) hypertension; K21.9 Gastro-esophageal reflux disease without esophagitis; E11.3593 Type 2 diabetes mellitus with proliferative diabetic retinopathy without macular edema, bilateral; Z79.899 Other long term (current) drug therapy; Z79.82 Long term (current) use of aspirin; Z86.73 Personal history of transient ischemic attack (TIA), and cerebral infarction without residual deficits; Z79.4 Long term (current) use of insulin
CPT/HCPCS: 66984; 82962; V2632; J2250; J3490 ×4; A9270; J3010; C9447; 142

== ENCOUNTER → 2017-05-25 | Outpatient (CLI) | payer MEDICARE, MEDICAID ==
[2017-05-25 11:13] LABS: ABSOLUTE BASOPHILS # (AUTO) 0.1 10^3/uL (0.0-0.2); ABSOLUTE EOSINOPHILS # (AUTO) 0.3 10^3/uL (0.0-0.6); ABSOLUTE LYMPHOCYTES (AUTO) 2.8 10^3/uL (0.5-4.7); ABSOLUTE MONOCYTES (AUTO) 0.6 10^3/uL (0.1-1.4); ABSOLUTE NEUT (AUTO) 6.4 10^3/uL (1.7-8.2); BASOPHILS % (AUTO) 0.8 % (0-2); EOSINOPHILS % (AUTO) 3.2 % (0-6); HEMATOCRIT 40.7 % (36.0-47.0); HEMOGLOBIN 14.2 g/dL (12.0-15.5); HGB HCT DIFFERENCE 1.9; LYMPHOCYTES % (AUTO) 27.8 % (13-45); MEAN CORPUSCULAR HEMOGLOBIN 30.1 pg (27.0-33.4); MEAN CORPUSCULAR HGB CONC 34.9 g/dL (32.0-36.0); MEAN CORPUSCULAR VOLUME 87 fl (80-97); MONOCYTES % (AUTO) 5.6 % (3-13); RED BLOOD COUNT 4.71 10^6/uL (3.72-5.28); RED CELL DISTRIBUTION WIDTH 13.3 % (11.5-14.0); SEGMENTED NEUTROPHILS % (AUTO) 62.6 % (42-78); WHITE BLOOD COUNT 10.2 10^3/uL (4.0-10.5)
[2017-05-25 11:36] LABS: ALANINE AMINOTRANSFERASE 32 U/L (9-52); ALBUMIN 4.1 g/dL (3.5-5.0); ALKALINE PHOSPHATASE 81 U/L (38-126); ANION GAP 12 (5-19); ASPARTATE AMINO TRANSFERASE 14 U/L (14-36); BILIRUBIN,DIRECT 0.5 mg/dL (0.0-0.4); BILIRUBIN,TOTAL 1.3 mg/dL (0.2-1.3); BLOOD UREA NITROGEN 18 mg/dL (7-20); CALCIUM 9.7 mg/dL (8.4-10.2); CARBON DIOXIDE 28 mmol/L (22-30); CHLORIDE 103 mmol/L (98-107); CHOLESTEROL 185.45 mg/dL (0-200); CREATININE RESULT 0.72 mg/dL (0.52-1.25); Direct HDL 61 mg/dL (>40); GLUCOSE 217 mg/dL (75-110); POTASSIUM 4.9 mmol/L (3.6-5.0); SODIUM 142.5 mmol/L (137-145); TRIGLYCERIDES 121 mg/dL (<150)
[2017-05-25 11:48] LABS: DIRECT LDL 102 mg/dL (<100)
[2017-05-25 11:54] LABS: FREE T3 3.4 pg/mL (2.77-5.27)
[2017-05-25 12:08] LABS: THYROID STIMULATING HORMONE 1.42 uIU/mL (0.47-4.68)
[2017-05-25 12:42] LABS: FOLATE 10.3 ng/mL (>2.76)
== END ==
LOC: OD 09:58
PROVIDERS: ATTEND Specialist
DX: G62.9 Polyneuropathy, unspecified (principal); G47.33 Obstructive sleep apnea (adult) (pediatric); I10 Essential (primary) hypertension; E08.621 Diabetes mellitus due to underlying condition with foot ulcer; E78.5 Hyperlipidemia, unspecified
CPT/HCPCS: 36415; 80053; 80061; 82607; 82746; 83036; 84439; 84443; 84481; 85025; 86592

== ENCOUNTER 2017-06-21 08:17 | Day surgery (SDC) | payer MEDICARE, MEDICAID ==
[~2017-06-21 08:17] MED LIST changes: -BUPIVACAINE HCL 0.75% INJ/PF (7.5 MG/1 ML) 10 ML SDV OD PRN; +BUPIVACAINE HCL 0.75% INJ/PF (7.5 MG/1 ML) 10 ML SDV OS PRN; +CHONDR SU A NA/HYALUR INTRAOC KIT (SURGICARE) ONE; +EPINEPHRINE INJ/PF 1 MG/1 ML AMPULE ONE; -KETOROLAC TROMETHAMINE 0.45% 4 DROP/0.4 ML DROPERETTE OD PRN; +KETOROLAC TROMETHAMINE 0.45% 4 DROP/0.4 ML DROPERETTE OS PRN; -LIDOCAINE 4% INJ/PF (40 MG/ML) 5 ML AMPUL OD PRN; +LIDOCAINE 4% INJ/PF (40 MG/ML) 5 ML AMPUL OS PRN
[2017-06-21] MEDS: TROPICAMIDE 1% OPH SOLN 3 ML OS PRN ×3 (08:28→08:47)
[2017-06-21] MEDS: CYCLOPENTOLATE 0.2%/PHENYLEPHRINE 1% OPH SOLN 2 ML OS PRN ×3 (08:28→08:47)
[2017-06-21] MEDS: TETRACAINE HCL 0.5% OPH SOLN 0.6 ML DROPERETTE OS PRN ×2 (08:28→08:47)
[2017-06-21] MEDS: BESIFLOXACIN HCL 0.6% OPH SUSP 5 ML BOTTLE OS PRN ×3 (08:29→09:15)
[2017-06-21] MEDS ORDERED: LIDOCAINE 1% INJ-PF (10 MG/ML) 30 ML SDV ONE (08:55)
--- NOTE | 2017-06-21 09:28 | [facility] DISCHARGE SUMMARY E ---
[facility] Discharge Summary NAME: SATURNINO MURGUIA AGE: 56Y ADMITTED: 06/21/2017 DISCHARGED: 06/21/2017 FINAL DIAGNOSIS: Cataract, left eye. HOSPITAL COURSE: The patient is a 56-year-old lady who underwent uneventful cataract extraction with intraocular lens implant, left eye, on 06/21/2017. She will be discharged to home. She was instructed to resume preoperative medications, to take Tylenol as needed for discomfort, to keep her eye shielded, to use Besivance, Durezol and Ilevro at 3 p.m. and 8 p.m., and to follow up in my office in 1 day. DICTATING PHYSICIAN: DENISE LERMA M.D. [id number] PHY#: [id number] ID: [id number] JOB#: [id number] ACCT: [id number] cc:DENISE LERMA M.D. >
--- NOTE | 2017-06-21 09:28 | [facility] OPERATIVE REPORT E ---
[facility] Operative Report NAME: SATURNINO MURGUIA AGE: 56Y DATE OF SURGERY: 06/21/2017 ROOM: PREOPERATIVE DIAGNOSIS: Cataract, left eye. POSTOPERATIVE DIAGNOSIS: Cataract, left eye. PROCEDURE PERFORMED: Phacoemulsification with posterior chamber intraocular lens, left eye. SURGEON: DENISE LERMA M.D. ANESTHESIA: Topical with MAC. INDICATIONS FOR SURGERY: Status post vitrectomy, difficulty with glare and seeing distance. Best corrected visual acuity 20/60. PROCEDURE: The patient was brought to the Operating Room and placed on the operative table. Following tetracaine drops, topical anesthesia was administered. This consisted of instrument wipe pledgets soaked in a solution of 4% Xylocaine mixed with 0.75% Marcaine in a 1:2 ratio. A 2 x 1 cm pledget was placed in the superior fornix. A 1 x 1 cm pledget was placed in the inferior fornix. The eye was patched shut for 5 minutes. The patch was removed. The eye was sterilely prepped and draped in the usual manner. Lid speculum was placed in the eye. The pledgets were removed and 4-0 black silk sutures were placed around the superior and the inferior rectus muscles to be used as traction. A conjunctival peritomy was made at the 10 o'clock position. Hemostasis was obtained with bipolar cautery. A posterior limbal groove was created using a crescent knife and dissected anteriorly towards the cornea. A sharp point blade was used to create a paracentesis site at the 2 o'clock position. A 2.4 mm keratome was used to enter the anterior chamber through the groove. Viscoelastic was injected into the anterior chamber. An anterior capsulotomy was performed using Utrata forceps in a capsulorrhexis fashion. Hydrodissection and hydrodelineation were performed. Phacoemulsification was performed in idtvau-khy-qstxbfe technique. A total of 5.88 CDE phaco time was used. Following this, the I/A unit was used to remove residual cortex. Viscoelastic was injected into the capsular bag. Intraocular lens model [id number], 16.5 diopters, serial number [id number], was placed in the capsular bag. The I/A unit was used to remove residual viscoelastic. The wound was seen to be watertight under high and low pressure, and no sutures were placed. The intraocular lens was well centered. The pressure was adjusted in the eye to normal pressure. The 4-0 black silk sutures and lid speculum were removed. The eye was shielded after Besivance drops were placed. The patient tolerated the procedure well and was sent to the Recovery Room in good condition. DICTATING PHYSICIAN: DENISE LERMA M.D. [id number] PHY#: [id number] ID: [id number] JOB#: [id number] ACCT: [id number] cc:DENISE LERMA M.D. >
== END 2017-06-21 09:57 | disposition home or self-care (01) ==
LOC: SC 08:17
PROVIDERS: ATTEND Ophthalmology
PROC: 08RK3JZ Replacement of Left Lens with Synthetic Substitute, Percutaneous Approach (ICD-10-PCS; principal; 2017-06-21 09:30)
DX: H25.812 Combined forms of age-related cataract, left eye (principal); Z96.1 Presence of intraocular lens; E11.9 Type 2 diabetes mellitus without complications; K21.9 Gastro-esophageal reflux disease without esophagitis; I10 Essential (primary) hypertension; F17.210 Nicotine dependence, cigarettes, uncomplicated; I44.7 Left bundle-branch block, unspecified; Z79.4 Long term (current) use of insulin; Z79.899 Other long term (current) drug therapy; Z79.82 Long term (current) use of aspirin; Z88.2 Allergy status to sulfonamides
CPT/HCPCS: 66984; 82962; V2632; J2250; J3490 ×4; A9270; J0171; 142; J3010

== ENCOUNTER → 2017-09-05 | Outpatient (CLI) | payer MEDICARE, MEDICAID ==
--- NOTE | 2017-09-05 16:31 | RADIOLOGY REPORT (SQ) ---
EXAM DESCRIPTION: CHEST PA/LATERAL COMPLETED DATE/TIME: 09/05/2017 4:23 pm REASON FOR STUDY: COUGH COMPARISON: CT angio chest 01/27/2017 AP chest 02/04/2017 EXAM PARAMETERS: NUMBER OF VIEWS: two views TECHNIQUE: Digital Frontal and Lateral radiographic views of the chest acquired. RADIATION DOSE: NA LIMITATIONS: none FINDINGS: LUNGS AND PLEURA: No opacities, masses or pneumothorax. No pleural effusion. MEDIASTINUM AND HILAR STRUCTURES: No masses or contour abnormalities. HEART AND VASCULAR STRUCTURES: Heart normal size. No evidence for failure. BONES: No acute findings. HARDWARE: None in the chest. OTHER: No other significant finding. IMPRESSION: NO SIGNIFICANT RADIOGRAPHIC FINDING IN THE CHEST. TECHNICAL DOCUMENTATION: JOB ID: [id number] [employer]- All Rights Reserved
[2017-09-05 16:55] LABS: ABSOLUTE BASOPHILS # (AUTO) 0.1 10^3/uL (0.0-0.2); ABSOLUTE EOSINOPHILS # (AUTO) 0.4 10^3/uL (0.0-0.6); ABSOLUTE LYMPHOCYTES (AUTO) 2.8 10^3/uL (0.5-4.7); ABSOLUTE MONOCYTES (AUTO) 0.7 10^3/uL (0.1-1.4); ABSOLUTE NEUT (AUTO) 5.9 10^3/uL (1.7-8.2); BASOPHILS % (AUTO) 1.2 % (0-2); EOSINOPHILS % (AUTO) 4.3 % (0-6); HEMATOCRIT 42.9 % (36.0-47.0); HEMOGLOBIN 14.6 g/dL (12.0-15.5); LYMPHOCYTES % (AUTO) 28.2 % (13-45); MEAN CORPUSCULAR VOLUME 85 fl (80-97); MONOCYTES % (AUTO) 6.7 % (3-13); PLATELET COUNT 234 10^3/uL (150-450); RED BLOOD COUNT 5.04 10^6/uL (3.72-5.28); RED CELL DISTRIBUTION WIDTH 13.5 % (11.5-14.0); SEGMENTED NEUTROPHILS % (AUTO) 59.6 % (42-78); TOTAL CELLS COUNTED % (AUTO) 100 %; WHITE BLOOD COUNT 9.8 10^3/uL (4.0-10.5)
[2017-09-05 17:13] LABS: ALANINE AMINOTRANSFERASE 23 U/L (9-52); ALBUMIN 3.8 g/dL (3.5-5.0); ALKALINE PHOSPHATASE 73 U/L (38-126); ANION GAP 8 (5-19); ASPARTATE AMINO TRANSFERASE 13 U/L (14-36); BILIRUBIN,DIRECT 0.4 mg/dL (0.0-0.4); BILIRUBIN,TOTAL 0.8 mg/dL (0.2-1.3); BLOOD UREA NITROGEN 18 mg/dL (7-20); CARBON DIOXIDE 28 mmol/L (22-30); CHLORIDE 100 mmol/L (98-107); GLUCOSE 287 mg/dL (75-110); POTASSIUM 4.2 mmol/L (3.6-5.0); SODIUM 136.3 mmol/L (137-145); TOTAL PROTEIN 6.6 g/dL (6.3-8.2)
== END ==
LOC: OD 16:00
PROVIDERS: ATTEND Physician Assistant
DX: R05 Cough (principal)
CPT/HCPCS: 36415; 71046; 80053; 85025

== ENCOUNTER 2017-12-31 15:42 | Observation (INO) | payer MEDICARE, MEDICAID ==
[2017-12-31] MEDS ORDERED: ASPIRIN 81 MG TABLET, CHEWABLE PO ONE (15:56)
[2017-12-31 16:13] LABS: ABSOLUTE EOSINOPHILS # (AUTO) 0.4 10^3/uL (0.0-0.6); ABSOLUTE LYMPHOCYTES (AUTO) 3.5 10^3/uL (0.5-4.7); ABSOLUTE MONOCYTES (AUTO) 0.9 10^3/uL (0.1-1.4); ABSOLUTE NEUT (AUTO) 8.3 10^3/uL (1.7-8.2); BASOPHILS % (AUTO) 0.2 % (0-2); HEMATOCRIT 41.3 % (36.0-47.0); HEMOGLOBIN 14.2 g/dL (12.0-15.5); LYMPHOCYTES % (AUTO) 26.5 % (13-45); MEAN CORPUSCULAR HEMOGLOBIN 29.4 pg (27.0-33.4); MEAN CORPUSCULAR HGB CONC 34.4 g/dL (32.0-36.0); MEAN CORPUSCULAR VOLUME 86 fl (80-97); MONOCYTES % (AUTO) 6.8 % (3-13); PLATELET COUNT 308 10^3/uL (150-450); RED BLOOD COUNT 4.84 10^6/uL (3.72-5.28); RED CELL DISTRIBUTION WIDTH 13.5 % (11.5-14.0); SEGMENTED NEUTROPHILS % (AUTO) 63.5 % (42-78); TOTAL CELLS COUNTED % (AUTO) 100 %
[2017-12-31] MEDS ORDERED: NORMAL SALINE 1000 ML 1,000 ML IV ONE (16:20)
--- NOTE | 2017-12-31 16:20 | ER Document Report ---
ED General - General Mode of Arrival: Ambulatory Information source: Patient TRAVEL OUTSIDE OF THE [place] IN LAST 30 DAYS: No <NIKOLAS HARLEY - Last Filed: 12/31/17 17:45> <ABBY LAIRD - Last Filed: 12/31/17 19:33> - General Chief Complaint: Chest Pressure Stated Complaint: LIGHTHEADED,WEAKNESS,CHEST PRESSURE Time Seen by Provider: 12/31/17 15:56 Notes: Patient is a 57-year-old female who presents to the emergency department today with complaints of chest pressure for the last 2 days. Patient complains of generalized weakness as well as today stating she has been unable to get up because of this lightheadedness. Patient states her head has felt "foggy" stating that she cannot think straight. Patient is a smoker and has a positive family history stating her mom and grandmother both had heart attacks in their 60s. Patient denies a history of CHF. (NIKOLAS HARLEY) - Related Data Allergies/Adverse Reactions: Shellfish * [Shellfish] Allergy (Severe, Verified 06/21/17 08:44) Hives sulfamethoxazole [From Bactrim] Allergy (Severe, Verified 06/21/17 08:44) Anaphylaxis, RASH trimethoprim [From Bactrim] Allergy (Severe, Verified 06/21/17 08:44) Anaphylaxis, RASH Past Medical History - General Information source: Patient - Social History Smoking Status: Never Smoker Cigarette use (# per day): No Frequency of alcohol use: None Drug Abuse: None Lives with: Family Family History: Reviewed & Not Pertinent, Malignancy, Other - Asthma and heart disease - Past Medical History Cardiac Medical History: Reports: Hx DVT, Hx Hypertension, Hx Peripheral Vascular Disease Pulmonary Medical History: Reports: Hx Pneumonia - hx Neurological Medical History: Reports: Hx 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 eye laser surgery. Negative ex laparoscopy. - Immunizations Hx Diphtheria, Pertussis, Tetanus Vaccination: Yes <NIKOLAS HARLEY - Last Filed: 12/31/17 17:45> Review of Systems - Review of Systems Constitutional: No symptoms reported EENT: See HPI Cardiovascular: See HPI, Chest pain, Dizziness, Lightheaded Respiratory: No symptoms reported, Hurts to breathe. denies: Cough Gastrointestinal: No symptoms reported Genitourinary: No symptoms reported Female Genitourinary: No symptoms reported Musculoskeletal: See HPI, Neck pain Skin: No symptoms reported Hematologic/Lymphatic: No symptoms reported Neurological/Psychological: No symptoms reported -: Yes All other systems reviewed and negative <NIKOLAS HARLEY - Last Filed: 12/31/17 17:45> Physical Exam <NIKOLAS HARLEY - Last Filed: 12/31/17 17:45> <ABBY LAIRD - Last Filed: 12/31/17 19:33> - Vital signs Vitals: Resp Pulse Ox 21 H 96 12/31/17 15:59 12/31/17 15:59 - Notes Notes: PHYSICAL EXAM GENERAL: Alert, interacts well. No acute distress. Obese. HEAD: Normocephalic, atraumatic. EYES: Pupils equal, round, and reactive to light. Extraocular movements intact. ENT: Oral mucosa moist, tongue midline. NECK: Full range of motion. Supple. Trachea midline. LUNGS: Clear to auscultation bilaterally, no wheezes, rales, or rhonchi. No respiratory distress. HEART: Faint heart sounds secondary to body habitus but regular rate and rhythm. No murmurs, gallops, or rubs. ABDOMEN: Soft, non-tender. Non-distended. Bowel sounds present in all 4 quadrants. No guarding, rigidity, or rebound. EXTREMITIES: Moves all 4 extremities spontaneously. No edema, radial and dorsalis pedis pulses 2/4 bilaterally. No cyanosis. NEUROLOGICAL: Alert and oriented x3. Normal speech. PSYCH: Normal affect, normal mood. SKIN: Warm, dry, normal turgor. No rashes or lesions noted. (NIKOLAS HARLEY) Course - Laboratory Result Diagrams: 12/31/17 16:04 12/31/17 16:04 <NIKOLAS HARLEY - Last Filed: 12/31/17 17:45> - Laboratory Result Diagrams: 12/31/17 16:04 12/31/17 16:04 <ABBY LAIRD - Last Filed: 12/31/17 19:33> - Re-evaluation Re-evalutation: 12/31/17 18:59 EKG is nonischemic, CBC shows elevated white count of 13.0, CMP shows elevated BUN at 25, glucose elevated 230, total bilirubin elevated at 1.4 which is nonspecific, cardiac enzymes negative, proBNP 713, chest x-ray reveals no acute process. EKG is nonischemic. Patient is chest pain-free. Patient was discussed with Dr. Alex who agrees to admit the patient to his service in observation status on the [facility]. (ABBY LAIRD) - Vital Signs Vital signs: Temp Pulse Resp BP Pulse Ox 17 122/62 96 12/31/17 16:01 12/31/17 16:01 12/31/17 16:12 - Laboratory Laboratory results interpreted by me: 12/31/17 12/31/17 16:04 16:04 WBC 13.0 H Absolute Neutrophils 8.3 H BUN 25 H Est GFR (Non-Af Amer) 53 L Glucose 230 H Total Bilirubin 1.4 H - EKG Interpretation by Me Additional EKG results interpreted by me: 12/31/17 19:00 EKG shows sinus rhythm at a rate of 79, normal axis, left bundle branch block, occasional PVCs, negative sgarbossa criteria, per my interpretation. (ABBY LAIRD) Discharge <NIKOLAS HARLEY - Last Filed: 12/31/17 17:45> - Discharge Admitting Provider: Isai Unit Admitted: [facility] <ABBY LAIRD - Last Filed: 12/31/17 19:33> - Discharge Clinical Impression: Chest pain, rule out acute myocardial infarction Type 2 diabetes mellitus Qualifiers: Diabetes mellitus mcc insulin use: with mcc use Diabetes mellitus complication status: with hyperglycemia Qualified Code(s): E11.65 - Type 2 diabetes mellitus with hyperglycemia Condition: Fair Disposition: ADMITTED OBSERVATION Scribe Attestation: 12/31/17 19:33 I personally performed the services described in the documentation, reviewed and edited the documentation which was dictated to the scribe in my presence, and it accurately records my words and actions. (ABBY LAIRD)
[2017-12-31 16:32] LABS: ALANINE AMINOTRANSFERASE 25 U/L (9-52); ALBUMIN 4.1 g/dL (3.5-5.0); ALKALINE PHOSPHATASE 102 U/L (38-126); ANION GAP 14 (5-19); ASPARTATE AMINO TRANSFERASE 17 U/L (14-36); BILIRUBIN,DIRECT 0.3 mg/dL (0.0-0.4); BILIRUBIN,TOTAL 1.4 mg/dL (0.2-1.3); BLOOD UREA NITROGEN 25 mg/dL (7-20); CALCIUM 10.2 mg/dL (8.4-10.2); CARBON DIOXIDE 26 mmol/L (22-30); CHLORIDE 102 mmol/L (98-107); CREATINE KINASE 55 U/L (30-135); GLUCOSE 230 mg/dL (75-110); POTASSIUM 4.7 mmol/L (3.6-5.0); SODIUM 141.6 mmol/L (137-145); TOTAL PROTEIN 7.3 g/dL (6.3-8.2)
[2017-12-31 16:44] LABS: CREATINE KINASE MB 0.94 ng/mL (<4.55)
[2017-12-31 16:46] LABS: TROPONIN I < 0.012 ng/mL
--- NOTE | 2017-12-31 16:58 | RADIOLOGY REPORT (SQ) ---
EXAM DESCRIPTION: CHEST SINGLE VIEW COMPLETED DATE/TIME: 12/31/2017 4:45 pm REASON FOR STUDY: cp COMPARISON: 09/05/2017 EXAM PARAMETERS: NUMBER OF VIEWS: One view. TECHNIQUE: Single frontal radiographic view of the chest acquired. RADIATION DOSE: NA LIMITATIONS: None. FINDINGS: LUNGS AND PLEURA: No opacities, masses or pneumothorax. No pleural effusion. MEDIASTINUM AND HILAR STRUCTURES: No masses. Contour normal. HEART AND VASCULAR STRUCTURES: Heart normal in size. Normal vasculature. BONES: No acute findings. HARDWARE: None in the chest. OTHER: No other significant finding. IMPRESSION: NO ACUTE RADIOGRAPHIC FINDING IN THE CHEST. TECHNICAL DOCUMENTATION: JOB ID: [id number] [employer]- All Rights Reserved Reading location - IP/workstation name: [email or web address]
--- NOTE | 2017-12-31 17:32 | EKG REPORT ---
SEVERITY:- ABNORMAL ECG - SINUS RHYTHM PAIRED VENTRICULAR PREMATURE COMPLEXES LEFT BUNDLE BRANCH BLOCK : Confirmed by: Debi Carr 31-Dec-2017 17:31:20
[2017-12-31] MEDS ORDERED: ONDANSETRON 4 MG TAB.RAPDIS PO PRN (19:05)
[2017-12-31] MEDS ORDERED: IPRATROPIUM/ALBUTEROL 0.5-2.5 MG/3 ML AMPUL NEB PRN (19:05)
[2017-12-31] MEDS ORDERED: INSULIN LISPRO 100 UNIT/ML 3 ML VIAL SUBCUT PRN (19:10)
[2017-12-31] MEDS ORDERED: DEXTROSE 40% GEL 15 GM TUBE PO PRN ×2 (19:10)
[2017-12-31] MEDS ORDERED: DEXTROSE 50%-WATER 25 GM/50 ML DISP.SYRIN IV PRN ×2 (19:10)
[2017-12-31] MEDS ORDERED: GLUCAGON,HUMAN RECOMB 1 MG INJ IM PRN (19:10)
[2017-12-31] MEDS ORDERED: HYDROCORTISONE SOD SUCCINATE INJ/PF 100 MG/2 ML SDV IV ONE (20:05)
--- NOTE | 2017-12-31 20:27 | PDOC H&P ---
History of Present Illness Admission Date/PCP: 12/31/17 19:24 VELIA CEE Patient complains of: Chest pain History of Present Illness: SATURNINO MURGUIA is a 57 year old female This is a 57-year-old female with a history of insulin-dependent type 2 diabetes history of the hypertension's and hyperlipidemia and morbid obesity and a history of the noncompliance came to the emergency department with a complaint of a several days of the neck pain and the chest pressure and not getting better Patient's denied any history of the heart disease in the past patient was admitting in the hospital last year for the same problems and patient was referred to the Dr. Watson for a stress test but patients canceled the appointment due to the scan of the stress test which patients claimed that she had a stress test done 13 years back in which causing the more neck pressure and shortness of the breath and she is scheduled for the stress test she never went it Also have a history of the carotid disease Currently initial cardiac enzyme and EKG shows a left bundle branch block which is all same as the last year Is currently denied any chest pain denied any shortness of the breath my Self in a Dr. Watson saw the patient in the emergency departments Suggested a CT angiogram which patient had a done last year and patient having no problem with the IV dye Due to the selfish causing the more hand swelling but patient with several CT scan done in the past without any problem with the IV dye Past Medical History Cardiac Medical History: Reports: DVT, Hypertension, Peripheral Vascular Disease Denies: Coronary Artery Disease, Myocardial Infarction Pulmonary Medical History: Reports: Pneumonia - hx Denies: Asthma, Bronchitis, Chronic Obstructive Pulmonary Disease (COPD) Neurological Medical History: Denies: Seizures Endocrine Medical History: Reports: Diabetes Mellitus Type 2 - Insulin- requiring With retinopathy and neuropathy GI Medical History: Denies: Hepatitis, Hiatal Hernia Musculoskeltal Medical History: Denies: Arthritis Psychiatric Medical History: Reports: Depression Hematology: Reports: Anemia - HX OF Denies: Sickle Cell Disease Past Surgical History Past Surgical History: Reports: Amputation - THIRD TOE LEFT FOOT, Orthopedic Surgery - Left shoulder, Other - Bilateral vitrectomies, also ? eye laser surgery. Negative ex laparoscopy. Denies: Hysterectomy, Mastectomy, Pacemaker Social History Lives with: Family Smoking Status: Never Smoker Frequency of Alcohol Use: None Hx Recreational Drug Use: No Drugs: None Hx Prescription Drug Abuse: No Family History Family History: Reviewed & Not Pertinent, Malignancy, Other - Asthma and heart disease Parental Family History Reviewed: Yes Children Family History Reviewed: Yes Sibling(s) Family History Reviewed.: Yes Medication/Allergy Home Medications: Atenolol [Tenormin 50 mg Tablet] 50 mg PO BID 01/27/17 Atorvastatin Calcium [Lipitor 20 mg Tablet] 20 mg PO QHS 01/27/17 Insulin NPH Hum/Reg Insulin Hm [Humulin 70-30 Vial] 70 unit SQ QAM 01/27/17 Insulin NPH Hum/Reg Insulin Hm [Humulin 70-30 Vial] 70 unit SQ QHS 01/27/17 Insulin Regular, Human [Humulin R (Reg) Insulin 100 unit/mL] 0 unit SUBCUT .SLD SCALE 01/27/17 Lisinopril/Hydrochlorothiazide [Lisinopril-Hctz 20-12.5 mg Tab] 1 each PO DAILY 01/27/17 Sertraline HCl [Zoloft] 50 mg PO DAILY 01/27/17 Aspirin [Ecotrin] 81 mg PO DAILY PRN 05/23/17 Besifloxacin HCl [Besivance Drops] 1 drop OP .3PM AND 8PM TODAY 05/23/17 Difluprednate [Durezol] 1 drop OP .3PM AND 8PM TODAY 05/23/17 Nepafenac [Ilevro] 1 drop OP .3PM AND 8PM TODAY 05/23/17 Omeprazole 20 mg PO DAILY 05/23/17 Allergies/Adverse Reactions: Shellfish * [Shellfish] Allergy (Severe, Verified 06/21/17 08:44) Hives sulfamethoxazole [From Bactrim] Allergy (Severe, Verified 06/21/17 08:44) Anaphylaxis, RASH trimethoprim [From Bactrim] Allergy (Severe, Verified 06/21/17 08:44) Anaphylaxis, RASH Review of Systems Constitutional: ABSENT: chills, fever(s), headache(s), weight gain, weight loss Eyes: ABSENT: visual disturbances Ears: ABSENT: hearing changes Cardiovascular: PRESENT: chest pain. ABSENT: dyspnea on exertion, edema, orthropnea, palpitations Respiratory: ABSENT: cough, hemoptysis Gastrointestinal: ABSENT: abdominal pain, constipation, diarrhea, hematemesis, hematochezia, nausea, vomiting Genitourinary: ABSENT: dysuria, hematuria Musculoskeletal: ABSENT: joint swelling Integumentary: ABSENT: rash, wounds Neurological: ABSENT: abnormal gait, abnormal speech, confusion, dizziness, focal weakness, syncope Psychiatric: ABSENT: anxiety, depression, homidical ideation, suicidal ideation Endocrine: ABSENT: cold intolerance, heat intolerance, menstrual abnormalities, polydipsia, polyuria Hematologic/Lymphatic: ABSENT: easy bleeding, easy bruising, lymphadenopathy Physical Exam Vital Signs: Temp Pulse Resp BP Pulse Ox 17 122/62 96 12/31/17 16:01 12/31/17 16:01 12/31/17 16:12 General appearance: PRESENT: no acute distress, well-developed, well-nourished Head exam: PRESENT: atraumatic, normocephalic Eye exam: PRESENT: conjunctiva pink, EOMI, PERRLA. ABSENT: scleral icterus Ear exam: PRESENT: normal external ear exam Mouth exam: PRESENT: moist, tongue midline Neck exam: PRESENT: full ROM. ABSENT: carotid bruit, JVD, lymphadenopathy, thyromegaly Respiratory exam: PRESENT: clear to auscultation martha Cardiovascular exam: PRESENT: RRR. ABSENT: diastolic murmur, rubs, systolic murmur Pulses: PRESENT: normal dorsalis pedis pul, +2 pedal pulses bilateral Vascular exam: PRESENT: normal capillary refill GI/Abdominal exam: PRESENT: normal bowel sounds, soft. ABSENT: distended, guarding, mass, organolmegaly, rebound, tenderness Rectal exam: PRESENT: deferred Extremities exam: ABSENT: pedal edema Musculoskeletal exam: PRESENT: ambulatory Neurological exam: PRESENT: alert, awake, oriented to person, oriented to place , oriented to time, oriented to situation, CN II-XII grossly intact. ABSENT: motor sensory deficit Psychiatric exam: PRESENT: appropriate affect, normal mood. ABSENT: homicidal ideation, suicidal ideation Skin exam: PRESENT: dry, intact, warm. ABSENT: cyanosis, rash Results Impressions: Chest X-Ray 12/31/17 15:56 IMPRESSION: NO ACUTE RADIOGRAPHIC FINDING IN THE CHEST. Assessment & Plan - Diagnosis (1) Chest pain, rule out acute myocardial infarction Is this a current diagnosis for this admission?: Yes Plan: Admit the patient's in the IMCU rule out acute coronary syndrome So we order the CT angiogram to rule out any aneurysms or PE Give her 1 dose of hydrocortisone and Benadryl before the CT scan due to the shellfish allergies but patient had already a CTA done in the past without any problems Seen by the cardiology and suggest the will see how the patient's dose for the next 24 hours and decide about the stress test (2) Type 2 diabetes mellitus Qualifiers: Diabetes mellitus local intermodal truck driver insulin use: with local intermodal truck driver use Diabetes mellitus complication status: with hyperglycemia Qualified Code(s): E11.65 - Type 2 diabetes mellitus with hyperglycemia; Z79.4 - buttermaker continuous churn (current) use of insulin; Z79.4 - retirement (current) use of insulin; Z79.4 - buttermaker continuous churn (current ) use of insulin; Z79.4 - buttermaker continuous churn (current) use of insulin Is this a current diagnosis for this admission?: Yes Plan: Continues to current medications (3) Deep venous thrombosis Qualifiers: Is this a current diagnosis for this admission?: No Plan: She had a history of the DVT in the past was negative ultrasound subsequently no more symptoms (4) Hyperlipidemia Qualifiers: Hyperlipidemia type: unspecified Qualified Code(s): E78.5 - Hyperlipidemia , unspecified Is this a current diagnosis for this admission?: Yes Plan: Continues to statin (5) Hypertension Qualifiers: Hypertension type: essential hypertension Is this a current diagnosis for this admission?: Yes Plan: Continues current medication - Time Time Spent: 30 to 50 Minutes Medications reviewed and adjusted accordingly: Yes Anticipated discharge: Home with Homehealth Within: Other - Inpatient Certification Medical Necessity: Need Close Monitoring Due to Risk of Patient Decompensation Post Hospital Care: D/C Housekeeping Supervisor Hotel Documentation - Plan Summary Plan Summary: Admit the patient in IMCU Discussed with the patient about the all the test reports Patient seen by fitter's assistant in the ER
--- NOTE | 2017-12-31 20:52 | RADIOLOGY REPORT (SQ) ---
EXAM DESCRIPTION: CTA CHEST COMPLETED DATE/TIME: 12/31/2017 8:41 pm REASON FOR STUDY: chest pain COMPARISON: 01/27/2017 TECHNIQUE: CT scan of the chest performed using helical scanning technique with dynamic intravenous contrast injection. Images reviewed with lung, soft tissue and bone windows. Reconstructed coronal and sagittal MPR images reviewed. Additional 3 dimensional post-processing performed to develop Maximal Intensity Projection images (IL P). All images stored on PACS. All CT scanners at this facility use dose modulation, iterative reconstruction, and/or weight based d osing when appropriate to reduce radiation dose to as low as reasonably achievable (ALARA). [facility]: Dose Right [facility]: CareDose [facility]: Dose Right [facility]: Teradose 4D [facility]: Stylitics CONTRAST TYPE AND DOSE: contrast/concentration: Isovue 370.00 mg/ml; Total Contrast Delivered: 86.0 ml; Total Saline Delivered: 110.1 ml RENAL FUNCTION: GFR > 60. RADIATION DOSE: CT Rad equipment meets quality standard of care and radiation dose reduction techniq ues were employed. CTDIvol: 33.1 - 38.6 mGy. DLP: 1633 mGy-cm. . LIMITATIONS: Timing of contrast bolus. FINDINGS: LUNGS AND PLEURA: No masses, infiltrates, pneumothorax. No pleural effusions, calcificati ons. AORTA AND GREAT VESSELS: No aneurysm. No dissection. HEART: No pericardial effusion. PULMONARY ARTERIES: No filling defect in the central pulmonary arteries. Evaluation of the more vaibhav pheral pulmonary arteries is limited due to timing of contrast bolus. HILAR AND MEDIASTINAL STRUCTURES: No identified masses or abnormal nodes. HARDWARE: None in the chest. UPPER ABDOMEN: Old granulomatous disease in the spleen. Limited exam. THYROID AND OTHER SOFT TISSUES: No masses. No adenopathy. BONES: No acute or significant finding. 3D MIPS: Confirm above findings. OTHER: No other significant finding. IMPRESSION: No evidence of pulmonary embolus. COMMENT: Quality ID # [id number]: Final reports with documentation of one or more dose reduction techniques (e.g., Automated exposure control, adjustment of the mA and/or kV according to patient size, use of iterative reconstruction technique) TECHNICAL DOCUMENTATION: JOB ID: [id number] [employer]- All Rights Reserved Reading location - IP/workstation name: [email or web address]
[2017-12-31 23:10] LABS: CREATINE KINASE MB 0.81 ng/mL (<4.55)
[2017-12-31 23:13] LABS: TROPONIN I < 0.012 ng/mL
[2017-12-31] MEDS: ATORVASTATIN CALCIUM 20 MG TABLET PO SCH (23:24)
[2018-01-01 05:04] LABS: ABSOLUTE BASOPHILS # (AUTO) 0.1 10^3/uL (0.0-0.2); ABSOLUTE LYMPHOCYTES (AUTO) 2.4 10^3/uL (0.5-4.7); ABSOLUTE MONOCYTES (AUTO) 0.5 10^3/uL (0.1-1.4); ABSOLUTE NEUT (AUTO) 7.2 10^3/uL (1.7-8.2); BASOPHILS % (AUTO) 1.2 % (0-2); EOSINOPHILS % (AUTO) 0.4 % (0-6); HEMATOCRIT 37.8 % (36.0-47.0); HEMOGLOBIN 12.9 g/dL (12.0-15.5); LYMPHOCYTES % (AUTO) 23.3 % (13-45); MEAN CORPUSCULAR HEMOGLOBIN 29.1 pg (27.0-33.4); MEAN CORPUSCULAR HGB CONC 34.1 g/dL (32.0-36.0); MEAN CORPUSCULAR VOLUME 85 fl (80-97); MONOCYTES % (AUTO) 5.2 % (3-13); PLATELET COUNT 253 10^3/uL (150-450); RED BLOOD COUNT 4.43 10^6/uL (3.72-5.28); RED CELL DISTRIBUTION WIDTH 13.3 % (11.5-14.0); SEGMENTED NEUTROPHILS % (AUTO) 69.9 % (42-78); TOTAL CELLS COUNTED % (AUTO) 100 %; WHITE BLOOD COUNT 10.2 10^3/uL (4.0-10.5)
[2018-01-01 05:26] LABS: ANION GAP 11 (5-19); BLOOD UREA NITROGEN 26 mg/dL (7-20); CALCIUM 9.6 mg/dL (8.4-10.2); CARBON DIOXIDE 26 mmol/L (22-30); CHLORIDE 104 mmol/L (98-107); CHOLESTEROL 130.27 mg/dL (0-200); GLUCOSE 257 mg/dL (75-110); POTASSIUM 4.9 mmol/L (3.6-5.0); SODIUM 140.5 mmol/L (137-145); TRIGLYCERIDES 110 mg/dL (<150)
[2018-01-01 05:34] LABS: TROPONIN I < 0.012 ng/mL
[2018-01-01 05:36] LABS: DIRECT LDL 73 mg/dL (<100)
[2018-01-01] MEDS: LANSOPRAZOLE 30 MG TAB.RAP.DR PO SCH ×2 (05:58→18:03)
[2018-01-01] MEDS ORDERED: ATENOLOL 50 MG TABLET PO SCH ×2 (10:00→22:00)
[2018-01-01] MEDS ORDERED: HYDROCHLOROTHIAZIDE 12.5 MG CAPSULE PO SCH (10:00)
[2018-01-01] MEDS: ACETAMINOPHEN 325 MG TABLET PO PRN ×3 (10:07→23:57)
[2018-01-01] MEDS: ASPIRIN 81 MG TABLET, ENT COATED PO SCH (10:09)
[2018-01-01] MEDS: SERTRALINE HCL 50 MG TABLET PO SCH (10:09)
[2018-01-01] MEDS: LISINOPRIL 10 MG TABLET PO SCH (10:10)
[2018-01-01] MEDS: ENOXAPARIN SODIUM INJ 40 MG/0.4 ML DISP.SYRIN SUBCUT SCH (10:11)
[2018-01-01] MEDS ORDERED: ISOSORBIDE MONONITRATE 30 MG TAB.ER.24H PO ONE (11:00)
[2018-01-01] MEDS ORDERED: ATENOLOL 50 MG TABLET PO ONE (11:00)
[2018-01-01] MEDS ORDERED: HYDROCHLOROTHIAZIDE 12.5 MG CAPSULE PO ONE (11:00)
--- NOTE | 2018-01-01 11:09 | RADIOLOGY REPORT (SQ) ---
EXAM DESCRIPTION: CT SOFT TISSUE NECK WITHOUT COMPLETED DATE/TIME: 01/01/2018 10:59 am REASON FOR STUDY: neck swelling/pain COMPARISON: CT chest from 12/31/2017 and 01/27/2017 TECHNIQUE: Noncontrast scanning from skull base through lung apices with review of bone, soft tissue and lung windows. Reconstructed coronal and sagittal MPR images reviewed. All images stored on PAC S. All CT scanners at this facility use dose modulation, iterative reconstruction, and/or weight based d osing when appropriate to reduce radiation dose to as low as reasonably achievable (ALARA). [facility]: Dose Right [facility]: CareDose [facility]: Dose Right [facility]: Teradose 4D [facility]: Smart Preen.Me RADIATION DOSE: CT Rad equipment meets quality standard of care and radiation dose reduction techniq ues were employed. CTDIvol: 17.5 mGy. DLP: 645 mGy-cm. mGy. LIMITATIONS: None. FINDINGS: SKULL BASE: Intact. MAJOR SALIVARY GLANDS: No solid or cystic masses. No inflammatory changes. LYMPHADENOPATHY: No adenopathy. MUCOSAL MASSES OR ASYMMETRY: No mucosal masses or asymmetry. LARYNX/CORDS: No abnormal findings. LUNG APICES: Clear. BONES: Degenerative change without fracture or suspicious osseous lesion. THYROID: Normal size. Stable nodule left lobe of the thyroid. PARANASAL SINUSES: Clear. OTHER: Vascular calcifications. IMPRESSION: NO ACUTE FINDINGS IDENTIFIED ON THIS NONCONTRAST CT OF THE NECK. CHRONIC CHANGES ABOVE. TECHNICAL DOCUMENTATION: JOB ID: [id number] Quality ID # [id number]: Final reports with documentation of one or more dose reduction techniques (e.g., Au tomated exposure control, adjustment of the mA and/or kV according to patient size, use of iterative reconstruction technique) 2010 [employer]- All Rights Reserved Reading location - IP/workstation name: [email or web address]
--- NOTE | 2018-01-01 11:16 | PDOC PROGRESS REPORT ---
Subjective Progress Note for:: 01/01/18 Reason For Visit: CHEST PAIN Patient is complaining of her neck swelling and the pain on that area Is otherwise all cardiac enzyme is negative Patient's denied any chest pain denied any shortness of the breath CTA of the chest is also negative Physical Exam Vital Signs: Temp Pulse Resp BP Pulse Ox 98.2 F 75 19 148/63 H 97 01/01/18 04:07 01/01/18 04:07 01/01/18 04:07 01/01/18 04:07 01/01/18 04:07 Pulse Oximeter Continuous Start: 12/31/17 20: 15 Freq: RTQ4 Status: Active Document 01/01/18 04:00 SFL (Rec: 01/01/18 04:17 SFL [id number]) Pulse Oximetry Assessment Oxygen Saturation (92-100) 95 Oxygen Delivery Method Room Air Fraction of Inspired Oxygen (FIO2) 21 Equipment Usage Equipment in Use Continuous SpO2 Machine # 6 Intake & Output 12/31/17 01/01/18 01/02/18 06:59 06:59 06:59 Intake Total 222 Balance 222 Weight 135.6 kg General appearance: PRESENT: no acute distress, well-developed, well-nourished Head exam: PRESENT: atraumatic, normocephalic Eye exam: PRESENT: conjunctiva pink, EOMI, PERRLA. ABSENT: scleral icterus Ear exam: PRESENT: normal external ear exam Mouth exam: PRESENT: moist, tongue midline Additional comments: Normal exam Neck exam: PRESENT: full ROM. ABSENT: carotid bruit, JVD, lymphadenopathy, thyromegaly Respiratory exam: PRESENT: clear to auscultation martha Cardiovascular exam: PRESENT: RRR. ABSENT: diastolic murmur, rubs, systolic murmur Pulses: PRESENT: normal dorsalis pedis pul, +2 pedal pulses bilateral Vascular exam: PRESENT: normal capillary refill GI/Abdominal exam: PRESENT: normal bowel sounds, soft. ABSENT: distended, guarding, mass, organolmegaly, rebound, tenderness Rectal exam: PRESENT: deferred Extremities exam: ABSENT: pedal edema Musculoskeletal exam: PRESENT: ambulatory Neurological exam: PRESENT: alert, awake, oriented to person, oriented to place , oriented to time, oriented to situation, CN II-XII grossly intact. ABSENT: motor sensory deficit Psychiatric exam: PRESENT: appropriate affect, normal mood. ABSENT: homicidal ideation, suicidal ideation Skin exam: PRESENT: dry, intact, warm. ABSENT: cyanosis, rash Results Laboratory Results: 01/01/18 04:00 01/01/18 04:00 01/01/18 01/01/18 04:00 04:00 WBC 10.2 RBC 4.43 Hgb 12.9 Hct 37.8 MCV 85 MCH 29.1 MCHC 34.1 RDW 13.3 Plt Count 253 Seg Neutrophils % 69.9 Lymphocytes % 23.3 Monocytes % 5.2 Eosinophils % 0.4 Basophils % 1.2 Absolute Neutrophils 7.2 Absolute Lymphocytes 2.4 Absolute Monocytes 0.5 Absolute Eosinophils 0.0 Absolute Basophils 0.1 Sodium 140.5 Potassium 4.9 Chloride 104 Carbon Dioxide 26 Anion Gap 11 BUN 26 H Creatinine 1.04 Est GFR ( Amer) > 60 Est GFR (Non-Af Amer) 55 L Glucose 257 H Calcium 9.6 Triglycerides 110 Cholesterol 130.27 LDL Cholesterol Direct 73 VLDL Cholesterol 22.0 HDL Cholesterol 43 12/31/17 12/31/17 01/01/18 22:07 22:07 04:00 Creatine Kinase 51 72 CK-MB (CK-2) 0.81 Troponin I < 0.012 01/01/18 01/01/18 04:00 10:06 Creatine Kinase 69 CK-MB (CK-2) 0.90 Troponin I < 0.012 Impressions: Chest/Abdomen CTA 12/31/17 00:00 IMPRESSION: No evidence of pulmonary embolus. Chest X-Ray 12/31/17 15:56 IMPRESSION: NO ACUTE RADIOGRAPHIC FINDING IN THE CHEST. Soft Tissue Neck CT 01/01/18 00:00 IMPRESSION: NO ACUTE FINDINGS IDENTIFIED ON THIS NONCONTRAST CT OF THE NECK. CHRONIC CHANGES ABOVE. Assessment & Plan - Diagnosis (1) Chest pain, rule out acute myocardial infarction Is this a current diagnosis for this admission?: Yes Plan: all workup is negative follow with the cardiology (2) Type 2 diabetes mellitus Qualifiers: Diabetes mellitus moth exterminator insulin use: with moth exterminator use Diabetes mellitus complication status: with hyperglycemia Qualified Code(s): E11.65 - Type 2 diabetes mellitus with hyperglycemia; Z79.4 - moth exterminator (current) use of insulin; Z79.4 - moth exterminator (current) use of insulin; Z79.4 - moth exterminator (current ) use of insulin; Z79.4 - penitentiary (current) use of insulin Is this a current diagnosis for this admission?: Yes Plan: Continues to current medications (3) Deep venous thrombosis Qualifiers: Is this a current diagnosis for this admission?: No (4) Hyperlipidemia Qualifiers: Hyperlipidemia type: unspecified Qualified Code(s): E78.5 - Hyperlipidemia , unspecified Is this a current diagnosis for this admission?: Yes (5) Hypertension Qualifiers: Hypertension type: essential hypertension Is this a current diagnosis for this admission?: Yes (6) Neck swelling Is this a current diagnosis for this admission?: Yes Plan: Patient have a CT soft tissue neck was ordered was all stable - Time Time Spent with patient: 15-24 minutes Medications reviewed and adjusted accordingly: Yes Anticipated discharge: Other Within: Other - Inpatient Certification Medical Necessity: Need Close Monitoring Due to Risk of Patient Decompensation Post Hospital Care: D/C Supervisor Furnace Room Documentation - Plan Summary Plan Summary: Currently doing well continues to monitor for next 24 hours remained stable discharge
[2018-01-01 11:19] LABS: CREATINE KINASE MB 0.99 ng/mL (<4.55)
[2018-01-01 11:22] LABS: TROPONIN I < 0.012 ng/mL
[2018-01-01] MEDS: MONTELUKAST SODIUM 10 MG TABLET PO SCH (12:10)
[2018-01-01] MEDS: CETIRIZINE 10 MG TABLET PO SCH (12:10)
[2018-01-01] MEDS: FLUTICASONE NASAL SPRAY 50 MCG/SPRY 120 SPRAY/16 GM NASL SCH ×2 (12:30→22:31)
[2018-01-01] MEDS: HUM INSULIN NPH/REG INSULIN HM 100 UNIT/1 ML 3 ML SUBCUT SCH (18:00)
[2018-01-01] MEDS: METOPROLOL TARTRATE 50 MG TABLET PO SCH (22:32)
[2018-01-01] MEDS: ATORVASTATIN CALCIUM 20 MG TABLET PO SCH (22:32)
[2018-01-02] MEDS: ACETAMINOPHEN 325 MG TABLET PO PRN (05:03)
[2018-01-02] MEDS: LANSOPRAZOLE 30 MG TAB.RAP.DR PO SCH (05:04)
[2018-01-02 05:28] LABS: ABSOLUTE BASOPHILS # (AUTO) 0.1 10^3/uL (0.0-0.2); ABSOLUTE EOSINOPHILS # (AUTO) 0.4 10^3/uL (0.0-0.6); ABSOLUTE LYMPHOCYTES (AUTO) 4.2 10^3/uL (0.5-4.7); ABSOLUTE MONOCYTES (AUTO) 1.2 10^3/uL (0.1-1.4); ABSOLUTE NEUT (AUTO) 6.5 10^3/uL (1.7-8.2); BASOPHILS % (AUTO) 0.9 % (0-2); EOSINOPHILS % (AUTO) 3.2 % (0-6); HEMATOCRIT 37.3 % (36.0-47.0); HEMOGLOBIN 12.5 g/dL (12.0-15.5); LYMPHOCYTES % (AUTO) 33.7 % (13-45); MEAN CORPUSCULAR HGB CONC 33.6 g/dL (32.0-36.0); MEAN CORPUSCULAR VOLUME 86 fl (80-97); MONOCYTES % (AUTO) 9.7 % (3-13); PLATELET COUNT 270 10^3/uL (150-450); RED BLOOD COUNT 4.32 10^6/uL (3.72-5.28); RED CELL DISTRIBUTION WIDTH 13.3 % (11.5-14.0); SEGMENTED NEUTROPHILS % (AUTO) 52.5 % (42-78); TOTAL CELLS COUNTED % (AUTO) 100 %; WHITE BLOOD COUNT 12.4 10^3/uL (4.0-10.5)
[2018-01-02 05:58] LABS: ANION GAP 9 (5-19); BLOOD UREA NITROGEN 25 mg/dL (7-20); CALCIUM 9.7 mg/dL (8.4-10.2); CARBON DIOXIDE 27 mmol/L (22-30); CHLORIDE 107 mmol/L (98-107); GLUCOSE 76 mg/dL (75-110); POTASSIUM 4.3 mmol/L (3.6-5.0); SODIUM 143.4 mmol/L (137-145)
--- NOTE | 2018-01-02 08:10 | CONSULTATION REPORT E ---
Consultation Report NAME: SATURNINO MURGUIA : 1960 AGE: 57Y DATE: 01/01/2018 ROOM: 414 A TO: OFE AVALOS M.D. FROM: GRETA BAIG M.D. Requesting Physician REASON FOR CONSULTATION: The patient with throat pain, chest heaviness, and shortness of breath. Note that the patient was seen for a short period on 12/31/2017 in the emergency room and subsequently formal consult. For the formal consult, the patient seen at around 8:00 on 01/01/2018. Note: Sixty minutes spent on the patient, and more than 50% of the time spent in direct patient care and consulting the patient and reassuring the patient that her symptoms are most likely noncardiac, and also discussion of the lab tests with the patient. MEDICAL DECISION-MAKING: In view of the patient's anxiety, makes it moderate to high complexity. Note: More than 50% of the time spent in direct patient care. HISTORY OF PRESENT ILLNESS: The patient is a 57-year-old female with a known history of anxiety and depression and a history of sleep apnea, noncompliant with CPAP, history of diabetes mellitus, and hypertension, who states since the past few days has been having a pressure-like pain in the throat radiating up into her head, and also she states that she also has chest pressure with heaviness and shortness of breath with ambulation and also at rest and also when lying down. The patient appears to be slightly depressed and also very anxious. She has had atypical chest symptoms in the past. There is some orthopnea, which is chronic. There is no PND. There are no palpitations. There is no leg edema. There is no TIA or CVA symptoms. PAST MEDICAL HISTORY: There is a past medical history of hypertension. She has a past DVT of the right leg with no recurrence. There is no history of pulmonary embolism and no history of peripheral vascular disease. She has no known coronary artery disease or TN. She has atypical chest pains as mentioned earlier and she was seen in December of 2016, and at that time an TN was ruled out and the patient's EKG did not show any major changes. She was supposed to have an IV Lexiscan Cardiolite stress test in the office, but the patient canceled it due to fear of having the test. She also has a history of claustrophobia. She has a history of sleep apnea documented by sleep study, but is intolerant to CPAP. She has a history of hypertension and a history of diabetes mellitus. There is no history of TIA or CVA. She has a history of anxiety and depression. She has no history of arthritis. There is no history of GI bleed or GERD. There is no history of chronic kidney disease. 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 She also has had 2 vitrectomies in her left eye. She has also had laparoscopy and right cataract surgery. FAMILY HISTORY: Positive for malignancy, asthma, and she states heart disease. SOCIAL HISTORY: The patient is a smoker. She smokes 48 to 10 cigarettes a day. There is no history of EtOH abuse. ADVANCED DIRECTIVES: The patient is a full code. is the surrogate healthcare decision maker. MEDICATIONS: 1. Tylenol 650 mg p.o. q. 4 hours p.r.n. 2. Aspirin 81 mg p.o. daily. 3. Atenolol 50 mg p.o. q. 12 hours. 4. Atorvastatin 20 mg p.o. at bedtime. 5. Zyrtec 10 mg p.o. at noon. 6. Hypoglycemia precautions with glucose 40% gel, 15 g and 30 g p.o. p.r.n. 7. Dextrose 30%, 12.5 g IV and 25 g IV p.r.n. with respect to the hypoglycemia. 8. Lovenox 40 mg subcutaneously daily. 9. Flonase 1 spray nasally q. 12 hours. 10. Glucagon 1 mg IM p.r.n. hypoglycemia. 11. Humulin NPH/regular insulin 70 units subcutaneously b.i.d. 12. Hydrochlorothiazide 12.5 mg p.o. daily. 13. She got hydrocortisone 100 mg IV x1 prior to her having a CAT scan of the chest with contrast. 14. Ipratropium-albuterol sulfate 3 mL nebulizer treatment q. 6 hours p.r.n. 15. Lisinopril 20 mg p.o. daily. 16. Lansoprazole 30 mg p.o. b.i.d. 17. Singulair 10 mg p.o. at noon. 18. Zoloft 50 mg p.o. daily. 19. Zofran 4 mg p.o. q. 4 hours p.r.n. REVIEW OF SYSTEMS: CONSTITUTIONAL: Denies any fever, chills, or rigors. Complains of generalized fatigue and weakness. HEENT: Head: She has pain and the pressure-like pain in the throat which radiates up into her head, but she denies any dizziness. Eyes: No history of amblyopia or diplopia. No history of amaurosis fugax. She has a history of diabetic retinopathy. Ears: No history of hearing loss. No history of tinnitus. No history of recurrent ear infections. Nose: History of nasal allergies present, but no history of hay fever. Uses Flonase. There are no nosebleeds. There is no nasal polyposis. Mouth: No altered taste sensation. No ulcers in the mouth. No bleeding from the gums. Throat: The patient does have some difficulty swallowing she states with a pressure-like pain in the throat, but she denies odynophagia. SKIN: There is no pruritus. There is no rash or discoloration of the skin. There is no psoriasis. There is no eczema. NECK: Complains of neck pain along with throat pain. There are no enlarged lymph nodes. No goiter. LUNGS: No history of asthma or COPD. The patient is a smoker. She denies any cough or sputum production. There is no wheezing. There is no hemoptysis. There is no pulmonary embolism, although she has had a DVT in the past in the right leg. She has sleep apnea, intolerant to CPAP. CARDIAC: History of hypertension present, not well controlled. She has atypical chest pains. No history of definite TN or coronary artery disease. No history of congestive heart failure. No palpitations. No syncope or near syncope. No PND, orthopnea, or leg edema. 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 No history of thyroid disease. No history of polydipsia or polyuria. No history of hirsutism. No history of excessive sweating. METABOLIC: History of hyperlipidemia present. History of morbid obesity present. No history of gout. GASTROINTESTINAL: Denies any history of GERD or peptic ulcer disease. No history of GI bleed. No history of hepatitis. No history of fatty food intolerance. No history of jaundice. No altered bowel movements. MUSCULOSKELETAL: Denies any history of arthritis or collagen vascular disease. RENAL: No history of chronic kidney disease. No symptoms of hematuria, polyuria, or dysuria. No symptoms of UTI. CENTRAL NERVOUS SYSTEM: The patient states in the past she has had right-sided weakness, although there is no definite TIA or CVA symptoms. She states that this is due to white matter disease. The patient can be dramatic, but there is no history of seizures. No history of migraines. No history of gait imbalance. PSYCHIATRIC: The patient has a history of anxiety and depression. No suicidal ideation. No history of homicidal ideation. The patient has claustrophobia. VASCULAR: Past history of DVT. No history of calf or buttock claudication. HEMATOLOGICAL: No history of bleeding diatheses. No history of clotting disorders. The rest of the review of systems: The patient is not very active. PHYSICAL EXAMINATION: GENERAL: The patient is morbidly obese, but well groomed. VITAL SIGNS: She is afebrile with a temperature of 98.4 degrees Fahrenheit. Pulse is 65 beats per minute, blood pressure 165/74, respirations are 16 per minute on room air. HEENT: Head is atraumatic, normocephalic. Eyes: Pupils are equal, round, regular, reactive to light and accommodation. Extraocular movements are normal. There is no conjunctival pallor. There is no scleral icterus. Ears: Tympanic membranes are intact. External auditory canals are clear. Nose: There is no deviated nasal septum. There is no inflammation of the nasal mucous membranes. There is no nasal polyp. Mouth: Mucous membranes of the mouth are moist. Tongue is moist. There are no ulcers. There is no bleeding from the gums. Throat: There is no redness of the oropharynx. There are no exudates. SKIN: There are no skin rashes. There is no petechia or ecchymosis. There are no skin lesions. NECK: Supple. There is no JVD. There is no neck tenderness. There is no lymphadenopathy. There is no goiter. Carotids are equal. There is no bruit. The trachea is central. LUNGS: Clear to auscultation and percussion. There is no chest wall tenderness. HEART: S1 and S2 heard. There is no S3 gallop. There is no S4 gallop. There is a systolic murmur in the left sternal border in the apex. There is no rub. ABDOMEN: Soft, nontender. There is no hepatosplenomegaly. Bowel sounds are well heard. EXTREMITIES: The femorals are deep. Femorals are diminished. There are no femoral bruits. Leg pulses are felt well. There is no pedal edema. There is no cyanosis or clubbing. There is no DVT or cellulitis. There is no calf tenderness. CENTRAL NERVOUS SYSTEM: The patient is conscious, awake, alert, oriented x3 with no focal deficits. PSYCHIATRIC: The patient is slightly anxious and appears to be slightly depressed. The patient does not appear to be agitated. DIAGNOSTIC TESTS: The patient's EKG shows sinus rhythm with PVC and left bundle branch block pattern. The left bundle branch block is chronic. The patient's chest x-ray shows no acute changes. Note: The chest and the EKG were reviewed by me. The patient's chest and abdomen CTA shows no evidence of pulmonary emboli. No infiltrates or other abnormalities found. The patient's soft tissue of the neck CT scan shows no acute findings identified on the noncontrast CT of the neck. Her bones showed degenerative change *------* fracture *------* osteo lesion. She has a stable nodule left lower thyroid. She does have some vascular calcification. LABORATORY DATA: The patient's white count is 10,200. Hemoglobin is 12.9. Hematocrit is 37.8. Platelet count is 253,000. The patient's cardiac enzymes have been negative x3. Her sodium is 140.5. Potassium is 4.9. Chloride is 104. CO2 is 23. Her BUN is 26, creatinine 1.04. GFR is mildly reduced at 55 mL. Her glucose is 257. The patient's triglycerides are 110. Her LDL cholesterol is 73. Her HDL cholesterol is 43. Her TSH is normal at 1.78. Albumin is 3.1 and her total protein is 7.3. The patient's total bilirubin is elevated at 1.4, but her other liver function tests are normal. IMPRESSION: 1. Chest pain, atypical in nature, with shortness of breath and multiple symptoms; mostly noncardiac, but in view of the patient's anxiety would change the patient's atenolol to metoprolol to see if this can be one of the causes of the patient's shortness of breath on exertion. Also, would add Imdur on the patient. Continue the patient on aspirin. Continue the patient on her statin. 2. Hypertension, not well controlled. 3. Diabetes mellitus with neuropathy and retinopathy. 4. Mild renal insufficiency, most likely prerenal. Would recommend increase her p.o. fluids and hold the patient's hydrochlorothiazide. 5. Morbid obesity. 6. Tobacco abuse. 7. Sleep apnea, intolerant to CPAP. 8. Anxiety. 9. Depression. 10. Claustrophobia. 11. Hyperlipidemia. 12. History of DVT with no recurrence and no history of pulmonary embolism. RECOMMENDATIONS: As mentioned earlier, the patient's symptoms do not fit any anginal pattern, typical or atypical. Hence, would continue the patient on aspirin, atorvastatin, change the atenolol or Lopressor 50 mg p.o. q. 12 hours, continue her insulin. Would stop the patient's hydrochlorothiazide and use it only as a p.r.n. Also, continue her Zoloft and Singulair and her Flonase. Note: The findings on the CAT scan, lab tests, including the negative biomarkers for acute coronary event; her EKG showing chronic left bundle branch block pattern, and her pulmonary CT angiogram findings and the neck CT findings have all been discussed with the patient. Would recommend discharging the patient home and will follow the patient in the office and schedule the patient for a stress test. The patient is very scared about having a stress test. Hence, will not push it for now. The other option given to the patient is to do a cardiac catheterization directly to make sure that there are no abdominal findings on the cardiac cath. The patient will decide about it and discuss with Dr. Greta Baig. Note: Medical decision making is of moderate to high complexity. Note: The medications have been reviewed and adjusted. Will follow the patient in the office. Will sign off the case. Thanking you. DICTATING PHYSICIAN: OFE AVALOS M.D. [id number] PHY#: [id number] ID: [id number] JOB#: [id number] ACCT: [id number] cc:OFE AVALOS M.D. >
--- NOTE | 2018-01-02 08:28 | PDOC DISCHARGE SUMMARY ---
General - Admit/Disc Date/PCP Admission Date/Primary Care Provider: 12/31/17 19:24 VELIA CEE Discharge Date: 01/02/18 - Discharge Diagnosis (1) Chest pain, rule out acute myocardial infarction Is this a current diagnosis for this admission?: Yes Summary: Currently all resolved follow with the outpatient Dr. Watson for stress test (2) Type 2 diabetes mellitus Is this a current diagnosis for this admission?: Yes Summary: Continues current medication (3) Deep venous thrombosis Is this a current diagnosis for this admission?: No Summary: Currently all stable (4) Hyperlipidemia Is this a current diagnosis for this admission?: Yes Summary: Continues to Lipitor (5) Hypertension Is this a current diagnosis for this admission?: Yes Summary: Currently all stable (6) Neck swelling Is this a current diagnosis for this admission?: Yes Summary: Patient CT of the soft tissue neck is all negative most likely patient's feeling is all allergy related which complaining of her ear congestion's nasal congestion's and chronic sinus issues Patient was started an antibiotic and follow outpatient ENT will make appointment to see him - Additional Information Resuscitation Status: Full Code Discharge Diet: Diabetic Discharge Activity: Activity As Tolerated Prescriptions: Amox Tr/Potassium Clavulanate [Augmentin 875-125 mg Tablet] 1 tab PO BID #14 tablet Ibuprofen 800 mg PO Q12HP PRN #30 tablet PRN Reason: Metoprolol Tartrate [Lopressor 50 mg Tablet] 50 mg PO Q12 #60 tablet Home Medications: Atorvastatin Calcium [Lipitor 20 mg Tablet] 20 mg PO QHS 01/27/17 Insulin NPH Hum/Reg Insulin Hm [Humulin 70-30 Vial] 70 unit SQ QAM 01/27/17 Insulin NPH Hum/Reg Insulin Hm [Humulin 70-30 Vial] 70 unit SQ QHS 01/27/17 Lisinopril/Hydrochlorothiazide [Lisinopril-Hctz 20-12.5 mg Tab] 1 each PO DAILY 01/27/17 Sertraline HCl [Zoloft] 50 mg PO DAILY 01/27/17 Omeprazole 20 mg PO DAILY 05/23/17 Cetirizine HCl [Zyrtec 10 mg Tablet] 10 mg PO DAILY 01/01/18 Fluticasone Propionate [Flonase Nasal Nunn 50 Mcg/Nunn 16 gm] 1 spray NASL DAILY 01/01/18 Montelukast Sodium [Singulair 10 mg Tablet] 10 mg PO QPM 01/01/18 Amox Tr/Potassium Clavulanate [Augmentin 875-125 mg Tablet] 1 tab PO BID #14 tablet 01/02/18 Ibuprofen 800 mg PO Q12HP PRN #30 tablet 01/02/18 Metoprolol Tartrate [Lopressor 50 mg Tablet] 50 mg PO Q12 #60 tablet 01/02/18 History of Present Illness History of Present Illness: SATURNINO MURGUIA is a 57 year old female This is a 57-year-old female with a history of insulin-dependent type 2 diabetes history of the hypertension's and hyperlipidemia and morbid obesity and a history of the noncompliance came to the emergency department with a complaint of a several days of the neck pain and the chest pressure and not getting better Patient's denied any history of the heart disease in the past patient was admitting in the hospital last year for the same problems and patient was referred to the Dr. Watson for a stress test but patients canceled the appointment due to the scan of the stress test which patients claimed that she had a stress test done 13 years back in which causing the more neck pressure and shortness of the breath and she is scheduled for the stress test she never went it Also have a history of the carotid disease Currently initial cardiac enzyme and EKG shows a left bundle branch block which is all same as the last year Is currently denied any chest pain denied any shortness of the breath my Self in a Dr. Watson saw the patient in the emergency departments Suggested a CT angiogram which patient had a done last year and patient having no problem with the IV dye Due to the selfish causing the more hand swelling but patient with several CT scan done in the past without any problem with the IV dye Hospital Course Hospital Course: This 57-year-old female present in the emergency department with a complaint of chest heaviness in the pressures and the patient was admitted to rule out acute coronary syndrome and seen by the cardiology and suggest a follow outpatient stress test with a negative cardiac workup and net negative CT angiograms In the hospital patient no ongoing chronic problem with allergy for the last 2 months and complaining of some more sinus congestion's ear congestion's and a complaining of some neck swellings but is all related to the allergies and the sinuses and a CT of the soft tissue neck was done was all stable Otherwise denied any chest pain denied any shortness of the breath patient's p.o. intake is good in patients walk in the hallway with a cane without any problems Patient's at this point start on Augmentin and patient was make appointment to see the ENT with ongoing problem with allergies and follow with the cardiology All discussed with the patient's regarding the test reports and the plan patient 's desire to go home today discharge with the stable condition and follow outpatient Physical Exam Vital Signs: Temp Pulse Resp BP Pulse Ox 98.7 F 64 20 118/53 L 95 01/01/18 23:46 01/02/18 02:00 01/01/18 23:46 01/01/18 23:46 01/02/18 04:02 Pulse Oximeter Continuous Start: 12/31/17 20: 15 Freq: RTQ4 Status: Active Document 01/02/18 04:02 CMI (Rec: 01/02/18 04:12 CMI [email or web address]) Pulse Oximetry Assessment Oxygen Saturation (92-100) 95 Oxygen Delivery Method Room Air Fraction of Inspired Oxygen (FIO2) 21 Equipment Usage Equipment Standby Continuous SpO2 Machine # 6 Intake & Output 01/01/18 01/02/18 01/03/18 06:59 06:59 06:59 Intake Total 222 1525 Balance 222 1525 Weight 135.6 kg 139.8 kg General appearance: PRESENT: no acute distress, well-developed, well-nourished Head exam: PRESENT: atraumatic, normocephalic Eye exam: PRESENT: conjunctiva pink, EOMI, PERRLA. ABSENT: scleral icterus Ear exam: PRESENT: normal external ear exam Mouth exam: PRESENT: moist, tongue midline Neck exam: PRESENT: full ROM. ABSENT: carotid bruit, JVD, lymphadenopathy, thyromegaly Respiratory exam: PRESENT: clear to auscultation martha Cardiovascular exam: PRESENT: RRR. ABSENT: diastolic murmur, rubs, systolic murmur Pulses: PRESENT: normal dorsalis pedis pul, +2 pedal pulses bilateral Vascular exam: PRESENT: normal capillary refill GI/Abdominal exam: PRESENT: normal bowel sounds, soft. ABSENT: distended, guarding, mass, organolmegaly, rebound, tenderness Rectal exam: PRESENT: deferred Extremities exam: ABSENT: pedal edema Musculoskeletal exam: PRESENT: ambulatory Neurological exam: PRESENT: alert, awake, oriented to person, oriented to place , oriented to time, oriented to situation, CN II-XII grossly intact. ABSENT: motor sensory deficit Psychiatric exam: PRESENT: appropriate affect, normal mood. ABSENT: homicidal ideation, suicidal ideation Skin exam: PRESENT: dry, intact, warm. ABSENT: cyanosis, rash Results Laboratory Results: 01/02/18 04:40 01/02/18 04:40 01/02/18 01/02/18 04:40 04:40 WBC 12.4 H RBC 4.32 Hgb 12.5 Hct 37.3 MCV 86 MCH 29.0 MCHC 33.6 RDW 13.3 Plt Count 270 Seg Neutrophils % 52.5 Lymphocytes % 33.7 Monocytes % 9.7 Eosinophils % 3.2 Basophils % 0.9 Absolute Neutrophils 6.5 Absolute Lymphocytes 4.2 Absolute Monocytes 1.2 Absolute Eosinophils 0.4 Absolute Basophils 0.1 Sodium 143.4 Potassium 4.3 Chloride 107 Carbon Dioxide 27 Anion Gap 9 BUN 25 H Creatinine 1.01 Est GFR ( Amer) > 60 Est GFR (Non-Af Amer) 56 L Glucose 76 Calcium 9.7 12/31/17 12/31/17 01/01/18 22:07 22:07 04:00 Creatine Kinase 51 72 CK-MB (CK-2) 0.81 Troponin I < 0.012 01/01/18 01/01/18 01/01/18 04:00 10:06 10:06 Creatine Kinase 69 CK-MB (CK-2) 0.90 0.99 Troponin I < 0.012 < 0.012 Impressions: Chest/Abdomen CTA 12/31/17 00:00 IMPRESSION: No evidence of pulmonary embolus. Chest X-Ray 12/31/17 15:56 IMPRESSION: NO ACUTE RADIOGRAPHIC FINDING IN THE CHEST. Soft Tissue Neck CT 01/01/18 00:00 IMPRESSION: NO ACUTE FINDINGS IDENTIFIED ON THIS NONCONTRAST CT OF THE NECK. CHRONIC CHANGES ABOVE. Qualifiers - * PATIENT BEING DISCHARGED WITH ANY OF THE FOLLOWING DIAGNOSIS: No VTE patient discharged on overlapping Therapy?: Yes Plan Time Spent: Greater than 30 Minutes - Patient's discharge home with the stable conditions follow outpatient ENT and outpatients cardiology
[2018-01-02 08:52] VITALS: BP 115/55
[2018-01-02] MEDS ORDERED: ISOSORBIDE MONONITRATE 60 MG TAB.ER.24H PO SCH (10:00)
[2018-01-02] MEDS ORDERED: HYDROCHLOROTHIAZIDE 12.5 MG CAPSULE PO SCH (10:00)
[2018-01-02] MEDS ORDERED: ISOSORBIDE MONONITRATE 30 MG TAB.ER.24H PO SCH (10:00)
[2018-01-02] MEDS: MONTELUKAST SODIUM 10 MG TABLET PO SCH (11:04)
[2018-01-02] MEDS: ENOXAPARIN SODIUM INJ 40 MG/0.4 ML DISP.SYRIN SUBCUT SCH (11:04)
[2018-01-02] MEDS: CETIRIZINE 10 MG TABLET PO SCH (11:04)
[2018-01-02] MEDS: METOPROLOL TARTRATE 50 MG TABLET PO SCH (11:04)
[2018-01-02] MEDS: LISINOPRIL 10 MG TABLET PO SCH (11:04)
[2018-01-02] MEDS: ASPIRIN 81 MG TABLET, ENT COATED PO SCH (11:04)
[2018-01-02] MEDS: SERTRALINE HCL 50 MG TABLET PO SCH (11:04)
[2018-01-02] MEDS: FLUTICASONE NASAL SPRAY 50 MCG/SPRY 120 SPRAY/16 GM NASL SCH (11:04)
[2018-01-02] MEDS: HUM INSULIN NPH/REG INSULIN HM 100 UNIT/1 ML 3 ML SUBCUT SCH (11:04)
== END 2018-01-02 11:07 | disposition home or self-care (01) ==
LOC: ER 15:42 → EH 19:24 → INTOOBSV 19:24 → OBSVTOIN 19:24 → 4N 22:59
PROVIDERS: ADMIT Family Medicine; ATTEND Family Medicine
DX: R07.89 Other chest pain (principal); E11.65 Type 2 diabetes mellitus with hyperglycemia; E11.40 Type 2 diabetes mellitus with diabetic neuropathy, unspecified; E11.319 Type 2 diabetes mellitus with unspecified diabetic retinopathy without macular edema; Z86.718 Personal history of other venous thrombosis and embolism; E78.5 Hyperlipidemia, unspecified; I10 Essential (primary) hypertension; R22.1 Localized swelling, mass and lump, neck; R09.81 Nasal congestion; I44.7 Left bundle-branch block, unspecified; F41.9 Anxiety disorder, unspecified; F32.9 Major depressive disorder, single episode, unspecified; M54.2 Cervicalgia; R07.0 Pain in throat; F17.210 Nicotine dependence, cigarettes, uncomplicated; R13.10 Dysphagia, unspecified; E66.01 Morbid (severe) obesity due to excess calories; R01.1 Cardiac murmur, unspecified; G47.30 Sleep apnea, unspecified; F40.240 Claustrophobia; N28.9 Disorder of kidney and ureter, unspecified; E11.51 Type 2 diabetes mellitus with diabetic peripheral angiopathy without gangrene; Z68.42 Body mass index [BMI] 45.0-49.9, adult; I49.3 Ventricular premature depolarization; R90.82 White matter disease, unspecified; Z79.899 Other long term (current) drug therapy; Z82.49 Family history of ischemic heart disease and other diseases of the circulatory system; Z79.82 Long term (current) use of aspirin; Z79.4 Long term (current) use of insulin
CPT/HCPCS: 93005; 99285; 96361; 96374; 36415 ×3; 87070; 82553 ×2; 87880; 82962 ×2; 82550 ×2; 84443; 85025 ×3; 80048 ×2; 80053; 84484 ×2; 80061; 83880; 71045; 70490; 71275; 93010; 94762 ×2; G0378 ×2; A9270 ×13; J1720; J1650; J7030

== ENCOUNTER 2018-02-13 12:50 | Emergency (ER) | payer MEDICARE, MEDICAID ==
--- NOTE | 2018-02-13 13:50 | ER Document Report ---
ED Medical Screen (RME) - General Chief Complaint: Shortness Of Breath Stated Complaint: SHORTNESS OF BREATH Time Seen by Provider: 02/13/18 13:48 Notes: RAPID MEDICAL EVALUATION DISCLOSURE I have seen this patient as part of a Rapid Medical Evaluation and, if applicable, placed any initially appropriate orders. The patient will be seen and fully evaluated, including a full history and physical exam, by a provider ( in Main ED or Fast Track) when a room becomes available. 57-year-old female sent here by her regional sales manager for further evaluation of her midsternal nonradiating chest pain shortness of breath palpitations lightheadedness. Patient states that the symptoms have been ongoing for several months now however have worsened as of 5 days ago. The symptoms are particularly worse with bending forward and laying flat however they do sometimes get worse with exertion. Symptoms are significantly improved with sitting upright. EXAM CTAB RRR TRAVEL OUTSIDE OF THE [place] IN LAST 30 DAYS: No - Related Data Allergies/Adverse Reactions: Shellfish * [Shellfish] Allergy (Severe, Verified 02/13/18 12:51) Hives sulfamethoxazole [From Bactrim] Allergy (Severe, Verified 02/13/18 12:51) Anaphylaxis, RASH trimethoprim [From Bactrim] Allergy (Severe, Verified 02/13/18 12:51) Anaphylaxis, RASH Past Medical History - Social History Chew tobacco use (# tins/day): No Frequency of alcohol use: None Drug Abuse: None - Past Medical History Cardiac Medical History: Reports: Hx DVT, Hx Hypercholesterolemia, Hx Hypertension, Hx Peripheral Vascular Disease Denies: Hx Coronary Artery Disease, Hx Heart Attack Pulmonary Medical History: Reports: Hx Pneumonia - hx Denies: Hx Asthma, Hx Bronchitis, Hx COPD Neurological Medical History: Reports: 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 eye laser surgery. Negative ex laparoscopy.. Denies: Hx Hysterectomy, Hx Mastectomy, Hx Open Heart Surgery, Hx Pacemaker - Immunizations Hx Diphtheria, Pertussis, Tetanus Vaccination: Yes History of Influenza Vaccine for 05/2017 - 09/2017 Season: Yes Physical Exam - Vital signs Vitals: Temp Pulse Resp BP Pulse Ox 98.6 F 87 16 154/77 H 94 02/13/18 13:06 02/13/18 13:06 02/13/18 13:06 02/13/18 13:06 02/13/18 13:06 Course - Vital Signs Vital signs: Temp Pulse Resp BP Pulse Ox 98.6 F 87 16 154/77 H 94 02/13/18 13:06 02/13/18 13:06 02/13/18 13:06 02/13/18 13:06 02/13/18 13:06 Doctor's Discharge - Discharge Referrals: NATTY JETER PA [Primary Care Provider] - Follow up as needed
--- NOTE | 2018-02-13 14:20 | RADIOLOGY REPORT (SQ) ---
EXAM DESCRIPTION: CHEST 2 VIEWS COMPLETED DATE/TIME: 02/13/2018 2:11 pm REASON FOR STUDY: CP SOB COMPARISON: 11/24/2015 EXAM PARAMETERS: NUMBER OF VIEWS: two views TECHNIQUE: Digital Frontal and Lateral radiographic views of the chest acquired. RADIATION DOSE: NA LIMITATIONS: none FINDINGS: LUNGS AND PLEURA: No opacities, masses or pneumothorax. No pleural effusion. Small calcif ied granuloma. MEDIASTINUM AND HILAR STRUCTURES: No masses or contour abnormalities. HEART AND VASCULAR STRUCTURES: Heart normal size. No evidence for failure. BONES: No acute findings. HARDWARE: None in the chest. OTHER: No other significant finding. IMPRESSION: 1 No significant interval changes since the prior examination dated 11/24/2015. No acute finding. TECHNICAL DOCUMENTATION: JOB ID: [id number]- All Rights Reserved Reading location - IP/workstation name: [email or web address]
[2018-02-13 14:26] LABS: ABSOLUTE EOSINOPHILS # (AUTO) 0.5 10^3/uL (0.0-0.6); ABSOLUTE LYMPHOCYTES (AUTO) 2.6 10^3/uL (0.5-4.7); ABSOLUTE MONOCYTES (AUTO) 0.8 10^3/uL (0.1-1.4); BASOPHILS % (AUTO) 0.2 % (0-2); EOSINOPHILS % (AUTO) 4.3 % (0-6); HEMATOCRIT 39.2 % (36.0-47.0); HEMOGLOBIN 13.3 g/dL (12.0-15.5); LYMPHOCYTES % (AUTO) 24.2 % (13-45); MEAN CORPUSCULAR HEMOGLOBIN 29.5 pg (27.0-33.4); MEAN CORPUSCULAR VOLUME 87 fl (80-97); MONOCYTES % (AUTO) 7.1 % (3-13); PLATELET COUNT 277 10^3/uL (150-450); RED BLOOD COUNT 4.51 10^6/uL (3.72-5.28); RED CELL DISTRIBUTION WIDTH 13.3 % (11.5-14.0); SEGMENTED NEUTROPHILS % (AUTO) 64.2 % (42-78); TOTAL CELLS COUNTED % (AUTO) 100 %; WHITE BLOOD COUNT 10.9 10^3/uL (4.0-10.5)
[2018-02-13 14:45] LABS: ALANINE AMINOTRANSFERASE 26 U/L (9-52); ALBUMIN 3.8 g/dL (3.5-5.0); ALKALINE PHOSPHATASE 94 U/L (38-126); ANION GAP 10 (5-19); ASPARTATE AMINO TRANSFERASE 22 U/L (14-36); BILIRUBIN,DIRECT 0.2 mg/dL (0.0-0.4); BILIRUBIN,TOTAL 1.4 mg/dL (0.2-1.3); BLOOD UREA NITROGEN 12 mg/dL (7-20); CALCIUM 9.2 mg/dL (8.4-10.2); CARBON DIOXIDE 29 mmol/L (22-30); CHLORIDE 103 mmol/L (98-107); GLUCOSE 157 mg/dL (75-110); LIPASE 39.8 U/L (23-300); POTASSIUM 4.1 mmol/L (3.6-5.0); SODIUM 142.3 mmol/L (137-145)
[2018-02-13 14:58] LABS: TROPONIN I 7.31 ng/mL
[2018-02-13] MEDS ORDERED: HEPARIN SOD (PORCINE) 1,000 UNIT/ML 10 ML VIAL IV ONE ×2 (15:11)
[2018-02-13] MEDS ORDERED: HEPARIN SODIUM,PORCINE/D5W 25,000 UNIT/250 ML RTUINJ IV PRN (15:11)
[2018-02-13] MEDS ORDERED: ASPIRIN 81 MG TABLET, CHEWABLE PO ONE (15:11)
[2018-02-13] MEDS ORDERED: HEPARIN SODIUM,PORCINE/D5W 25,000 UNIT/250 ML RTUINJ IV ONE (15:12)
[2018-02-13] MEDS ORDERED: HEPARIN SOD (PORCINE) 1,000 UNIT/ML 10 ML VIAL ONE (15:12)
[2018-02-13] MEDS ORDERED: MORPHINE SULFATE 10 MG/ML INJ IV ONE (15:13)
[2018-02-13] MEDS ORDERED: ONDANSETRON HCL 8 MG TABLET PO ONE (15:13)
[2018-02-13 15:32] LABS: INTERNATIONAL RATION (INR) 0.94; PROTHROMBIN TIME 13.1 SEC (11.4-15.4)
[2018-02-13 15:33] LABS: PARTIAL THROMBOPLASTIN TIME 25.6 SEC (23.5-35.8)
[2018-02-13 15:42] LABS: APPEARANCE,URINE CLOUDY; BILIRUBIN,URINE NEGATIVE (NEGATIVE); GLUCOSE, URINE NEGATIVE (NEGATIVE); KETONES,URINE NEGATIVE (NEGATIVE); LEUKOCYTE ESTERASE,URINE SMALL (NEGATIVE); NITRITE,URINE NEGATIVE (NEGATIVE); PROTEIN,URINE >=500 mg/dL (NEGATIVE); URINE SPECIFIC GRAVITY 1.019
[2018-02-13 15:45] LABS: COLOR,URINE YELLOW
[2018-02-13 17:36] VITALS: BP 143/66
--- NOTE | 2018-02-13 19:24 | EKG REPORT ---
SEVERITY:- ABNORMAL ECG - SINUS RHYTHM LEFT BUNDLE BRANCH BLOCK : Confirmed by: Debi Carr 13-Feb-2018 19:23:36
--- NOTE | 2018-02-14 00:03 | ER Document Report ---
ED General - General Chief Complaint: Shortness Of Breath Stated Complaint: SHORTNESS OF BREATH Time Seen by Provider: 02/13/18 13:48 Mode of Arrival: Ambulatory Information source: Patient, Office, [facility] Records Notes: 57-year-old female with hypertension, type 2 diabetes, known left bundle branch block, peripheral vascular disease presents with complaint of chest pressure that started 4 days prior to arrival. Patient states that she has been experiencing a constant chest pressure for 4 days that has been associated with nausea, dizziness, diaphoresis and shortness of breath, weakness. She states that she has had radiation of pain to her right upper extremity. She denies any recent illness. Patient did contact her batch and furnace operator Dr. Cavazos who advised her to come to the emergency department. TRAVEL OUTSIDE OF THE [place] IN LAST 30 DAYS: No - HPI Onset: Other Onset/Duration: Gradual, Persistent, Worse Quality of pain: Pressure Severity: Moderate Pain Level: 2 Associated symptoms: Chest pain, Hurts to breath, Nausea, Shortness of breath, Sweating, Weakness. denies: Fever Exacerbated by: Supine, Movement Relieved by: Denies Similar symptoms previously: No Recently seen / treated by doctor: Yes - Related Data Allergies/Adverse Reactions: Shellfish * [Shellfish] Allergy (Severe, Verified 02/13/18 12:51) Hives sulfamethoxazole [From Bactrim] Allergy (Severe, Verified 02/13/18 12:51) Anaphylaxis, RASH trimethoprim [From Bactrim] Allergy (Severe, Verified 02/13/18 12:51) Anaphylaxis, RASH Past Medical History - General Information source: Patient, [facility] Records - Social History Smoking Status: Current Every Day Smoker Chew tobacco use (# tins/day): No Frequency of alcohol use: None Drug Abuse: None Lives with: Spouse/Significant other Family History: Reviewed & Not Pertinent, Malignancy, Other - Asthma and heart disease Patient has suicidal ideation: No Patient has homicidal ideation: No - Past Medical History Cardiac Medical History: Reports: Hx DVT, Hx Hypercholesterolemia, Hx Hypertension, Hx Peripheral Vascular Disease Denies: Hx Coronary Artery Disease, Hx Heart Attack Pulmonary Medical History: Reports: Hx Pneumonia - hx Denies: Hx Asthma, Hx Bronchitis, Hx COPD Neurological Medical History: Reports: 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 eye laser surgery. Negative ex laparoscopy.. Denies: Hx Hysterectomy, Hx Mastectomy, Hx Open Heart Surgery, Hx Pacemaker - Immunizations Hx Diphtheria, Pertussis, Tetanus Vaccination: Yes Review of Systems - Review of Systems Constitutional: Weakness EENT: denies: Blurred vision Cardiovascular: Chest pain, Palpitations, Dizziness, Lightheaded Respiratory: Short of breath Gastrointestinal: Nausea Genitourinary: denies: Flank pain Female Genitourinary: No symptoms reported Musculoskeletal: Muscle pain Skin: denies: Rash Hematologic/Lymphatic: denies: Easy bruising Neurological/Psychological: Headaches -: Yes All other systems reviewed and negative Physical Exam - Vital signs Vitals: Temp Pulse Resp BP Pulse Ox 98.6 F 87 16 154/77 H 94 02/13/18 13:06 02/13/18 13:06 02/13/18 13:06 02/13/18 13:06 02/13/18 13:06 Interpretation: Hypertensive. No: Hypoxic - Notes Notes: PHYSICAL EXAMINATION: GENERAL: Morbidly obese, in mild distress HEAD: Atraumatic, normocephalic. EYES: Pupils equal round and reactive to light, extraocular movements intact, conjunctiva are normal. ENT: Nares patent, oropharynx clear without exudates. Moist mucous membranes. NECK: Normal range of motion, supple without lymphadenopathy LUNGS: Breath sounds clear to auscultation bilaterally and equal. No wheezes rales or rhonchi. HEART: Regular rate and rhythm without murmurs ABDOMEN: Soft, nontender, nondistended abdomen. No guarding, no rebound. No masses appreciated. Female : deferred Musculoskeletal: Normal range of motion, no pitting or edema. No cyanosis. NEUROLOGICAL: Cranial nerves grossly intact. Normal speech, normal gait. Normal sensory, motor exams PSYCH: Normal mood, normal affect. SKIN: Warm, Dry, normal turgor, no rashes or lesions noted. Course - Re-evaluation Re-evalutation: 02/14/18 00:01 Laboratory 02/13/18 02/13/18 02/13/18 14:00 14:00 14:00 WBC 10.9 H RBC 4.51 Hgb 13.3 Hct 39.2 MCV 87 MCH 29.5 MCHC 34.0 RDW 13.3 Plt Count 277 Seg Neutrophils % 64.2 Lymphocytes % 24.2 Monocytes % 7.1 Eosinophils % 4.3 Basophils % 0.2 Absolute Neutrophils 7.0 Absolute Lymphocytes 2.6 Absolute Monocytes 0.8 Absolute Eosinophils 0.5 Absolute Basophils 0.0 PT INR APTT Sodium 142.3 Potassium 4.1 Chloride 103 Carbon Dioxide 29 Anion Gap 10 BUN 12 Creatinine 0.74 Est GFR ( Amer) > 60 Est GFR (Non-Af Amer) > 60 Glucose 157 H POC Glucose Calcium 9.2 Total Bilirubin 1.4 H Direct Bilirubin 0.2 Neonat Total Bilirubin Not Reportable Neonat Direct Bilirubin Not Reportable Neonat Indirect Bili Not Reportable AST 22 ALT 26 Alkaline Phosphatase 94 Troponin I 7.310 NT-Pro-B Natriuret Pep 1830 H Total Protein 7.0 Albumin 3.8 Lipase 39.8 Urine Color Urine Appearance Urine pH Ur Specific [place] Urine Protein Urine Glucose (UA) Urine Ketones Urine Blood Urine Nitrite Urine Bilirubin Urine Urobilinogen Ur Leukocyte Esterase Urine WBC (Auto) Urine RBC (Auto) Urine Bacteria (Auto) Squamous Epi Cells Auto Urine Mucus (Auto) Urine Ascorbic Acid 02/13/18 02/13/18 02/13/18 14:00 15:05 15:11 WBC RBC Hgb Hct MCV MCH MCHC RDW Plt Count Seg Neutrophils % Lymphocytes % Monocytes % Eosinophils % Basophils % Absolute Neutrophils Absolute Lymphocytes Absolute Monocytes Absolute Eosinophils Absolute Basophils PT 13.1 INR 0.94 APTT 25.6 Sodium Potassium Chloride Carbon Dioxide Anion Gap BUN Creatinine Est GFR ( Amer) Est GFR (Non-Af Amer) Glucose POC Glucose 137 H Calcium Total Bilirubin Direct Bilirubin Neonat Total Bilirubin Neonat Direct Bilirubin Neonat Indirect Bili AST ALT Alkaline Phosphatase Troponin I NT-Pro-B Natriuret Pep Total Protein Albumin Lipase Urine Color YELLOW Urine Appearance CLOUDY Urine pH 5.0 Ur Specific [place] 1.019 Urine Protein >=500 H Urine Glucose (UA) NEGATIVE Urine Ketones NEGATIVE Urine Blood SMALL H Urine Nitrite NEGATIVE Urine Bilirubin NEGATIVE Urine Urobilinogen 2.0 H Ur Leukocyte Esterase SMALL H Urine WBC (Auto) 70 Urine RBC (Auto) 2 Urine Bacteria (Auto) 3+ Squamous Epi Cells Auto 5 Urine Mucus (Auto) OCC Urine Ascorbic Acid NEGATIVE Chest X-Ray 02/13/18 13:49 IMPRESSION: 1 No significant interval changes since the prior examination dated 11/24/2015. No acute finding. 02/14/18 00:03 57-year-old female with hypertension, type 2 diabetes, known left bundle branch block, peripheral vascular disease presents with complaint of chest pressure that started 4 days prior to arrival. Patient states that she has been experiencing a constant chest pressure for 4 days that has been associated with nausea, dizziness, diaphoresis and shortness of breath, weakness. She states that she has had radiation of pain to her right upper extremity. She denies any recent illness. Patient did contact her batch and furnace operator Dr. Cavazos who advised her to come to the emergency department. Upon arrival EKG was obtained which did show a left bundle branch block, no ST elevation. Patient has a known left bundle branch block. Significant findings include a troponin of 7. I spoke to Dr. Cavazos the patient's batch and furnace operator who advises transfer because he was told that there was no availability in the [facility] tomorrow. After several phone calls it was determined that a catheterization could be done tomorrow here but when discussed with the patient she expressed concern for our inability to place a stent if needed. She would like transfer to a facility that has this capability. [facility] has accepted the patient. Patient was given aspirin, morphine, Zofran and started on a heparin drip. On reevaluation patient is chest pain-free. Patient remained stable throughout her ED course and was transferred in stable condition. 02/14/18 00:04 02/14/18 00:09 - Vital Signs Vital signs: Temp Pulse Resp BP Pulse Ox 98.2 F 87 23 H 143/66 H 98 02/13/18 17:16 02/13/18 13:06 02/13/18 17:16 02/13/18 17:16 02/13/18 17:16 - Laboratory Result Diagrams: 02/13/18 14:00 02/13/18 14:00 Laboratory results interpreted by me: 02/13/18 02/13/18 02/13/18 14:00 14:00 14:00 WBC 10.9 H Glucose 157 H POC Glucose Total Bilirubin 1.4 H NT-Pro-B Natriuret Pep 1830 H Urine Protein Urine Blood Urine Urobilinogen Ur Leukocyte Esterase 02/13/18 02/13/18 15:05 15:11 WBC Glucose POC Glucose 137 H Total Bilirubin NT-Pro-B Natriuret Pep Urine Protein >=500 H Urine Blood SMALL H Urine Urobilinogen 2.0 H Ur Leukocyte Esterase SMALL H - Diagnostic Test Radiology reviewed: Image reviewed, Reports reviewed - EKG Interpretation by Me EKG shows normal: Sinus rhythm Rate: Normal Rhythm: NSR [place]/QRS: LBBB Critical Care Note - Critical Care Note Total time excluding time spent on procedures (mins): 35 - minutes of critical care time spent in direct contact evaluating and reevaluating the patient, treating symptoms, reviewing labs and studies and speaking with family and consultants excluding any procedures Discharge - Discharge Clinical Impression: NSTEMI (non-ST elevated myocardial infarction) Condition: Fair Disposition: CRITICAL ACCESS HOSPITAL Referrals: NATTY JETER PA [PHYSICIAN ELECTRICAL ENGINEER [facility]] - Follow up as needed
== END 2018-02-13 17:46 | disposition short-term general hospital (02) ==
LOC: ER 12:50
DX: I21.4 Non-ST elevation (NSTEMI) myocardial infarction (principal); R07.89 Other chest pain; R42 Dizziness and giddiness; R00.2 Palpitations; I44.7 Left bundle-branch block, unspecified; F17.200 Nicotine dependence, unspecified, uncomplicated; I10 Essential (primary) hypertension; R11.0 Nausea; R44.2 Other hallucinations; R06.02 Shortness of breath; R61 Generalized hyperhidrosis; R53.1 Weakness; E11.40 Type 2 diabetes mellitus with diabetic neuropathy, unspecified; E11.319 Type 2 diabetes mellitus with unspecified diabetic retinopathy without macular edema; E11.51 Type 2 diabetes mellitus with diabetic peripheral angiopathy without gangrene; Z79.4 Long term (current) use of insulin; Z91.013 Allergy to seafood; Z88.1 Allergy status to other antibiotic agents
CPT/HCPCS: 93005; 99291; 96375; 96365; 96366; 36415; 82962; 83690; 85025; 85610; 85730; 80053; 81001; 84484; 83880; 71046; 93010; J1644; A9270 ×2; J2270; S0119

== ENCOUNTER 2018-02-20 15:41 | Emergency (ER) | payer MEDICARE, MEDICAID ==
[2018-02-20] MEDS ORDERED: ASPIRIN 81 MG TABLET, CHEWABLE PO ONE (17:33)
--- NOTE | 2018-02-20 17:40 | ER Document Report ---
ED Medical Screen (RME) - General Chief Complaint: Chest Pressure Stated Complaint: CHEST PRESSURE Time Seen by Provider: 02/20/18 17:33 TRAVEL OUTSIDE OF THE [place] IN LAST 30 DAYS: No - HPI Notes: 02/20/18 17:38 Recent end STEMI with transfer to [facility] with 2 stent placement coming in today initially for left leg swelling states while she was getting ready to come to the hospital has some intermittent chest pain more likely thought to be due to anxiety patient states very anxious after leaving the hospital - Related Data Allergies/Adverse Reactions: Shellfish * [Shellfish] Allergy (Severe, Verified 02/20/18 15:43) Hives sulfamethoxazole [From Bactrim] Allergy (Severe, Verified 02/20/18 15:43) Anaphylaxis, RASH trimethoprim [From Bactrim] Allergy (Severe, Verified 02/20/18 15:43) Anaphylaxis, RASH Past Medical History - Social History Chew tobacco use (# tins/day): No Frequency of alcohol use: None Drug Abuse: None - Past Medical History Cardiac Medical History: Reports: Hx DVT, Hx Hypercholesterolemia, Hx Hypertension, Hx Peripheral Vascular Disease Denies: Hx Coronary Artery Disease, Hx Heart Attack Pulmonary Medical History: Reports: Hx Pneumonia - hx Denies: Hx Asthma, Hx Bronchitis, Hx COPD Neurological Medical History: Reports: 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 eye laser surgery. Negative ex laparoscopy.. Denies: Hx Hysterectomy, Hx Mastectomy, Hx Open Heart Surgery, Hx Pacemaker - Immunizations Hx Diphtheria, Pertussis, Tetanus Vaccination: Yes History of Influenza Vaccine for 05/2017 - 09/2017 Season: Yes Review of Systems - Review of Systems Cardiovascular: Chest pain Neurological/Psychological: Other - leg swelling Physical Exam - Vital signs Vitals: Temp Pulse Resp BP Pulse Ox 97.7 F 83 18 134/66 H 94 02/20/18 15:55 02/20/18 15:55 02/20/18 15:55 02/20/18 15:55 02/20/18 15:55 - Respiratory Respiratory status: No respiratory distress Chest status: Nontender Breath sounds: Normal Chest palpation: Normal Course - Vital Signs Vital signs: Temp Pulse Resp BP Pulse Ox 97.7 F 83 18 134/66 H 94 02/20/18 15:55 02/20/18 15:55 02/20/18 15:55 02/20/18 15:55 02/20/18 15:55 Doctor's Discharge - Discharge Referrals: ALEXY BAIG MD [Primary Care Provider] - Follow up as needed
--- NOTE | 2018-02-20 17:55 | RADIOLOGY REPORT (SQ) ---
EXAM DESCRIPTION: CHEST 2 VIEWS COMPLETED DATE/TIME: 02/20/2018 5:43 pm REASON FOR STUDY: sob COMPARISON: 02/13/2018. EXAM PARAMETERS: NUMBER OF VIEWS: two views TECHNIQUE: Digital Frontal and Lateral radiographic views of the chest acquired. RADIATION DOSE: NA LIMITATIONS: none FINDINGS: LUNGS AND PLEURA: No opacities, masses or pneumothorax. No pleural effusion. MEDIASTINUM AND HILAR STRUCTURES: No masses or contour abnormalities. HEART AND VASCULAR STRUCTURES: Heart normal size. No evidence for failure. BONES: No acute findings. HARDWARE: None in the chest. OTHER: No other significant finding. IMPRESSION: NO ACUTE RADIOGRAPHIC FINDING IN THE CHEST. TECHNICAL DOCUMENTATION: JOB ID: [id number] [employer]- All Rights Reserved Reading location - IP/workstation name: [email or web address]
--- NOTE | 2018-02-20 19:08 | RADIOLOGY REPORT (SQ) ---
EXAM DESCRIPTION: VENOUS UNILATERAL LOWER COMPLETED DATE/TIME: 02/20/2018 6:59 pm REASON FOR STUDY: right leg COMPARISON: None. TECHNIQUE: Dynamic and static otto scale and color images acquired of the right leg venous system. S elected spectral images acquired with additional compression and augmentation maneuvers. The contrala teral common femoral vein and saphenofemoral junction were also imaged. Images stored on PACS. LIMITATIONS: None. FINDINGS: COMMON FEMORAL: Normal phasicity, compression and augmentation. No visualized echogenic ma terial on otto scale. No defects on color images. FEMORAL: Normal compression and augmentation. No visualized echogenic material on otto scale. No defe cts on color images. POPLITEAL: Normal compression, augmentation. No visualized echogenic material on otto scale. No defec ts on color images. CALF VESSELS: Normal compression, augmentation. No visualized echogenic material on otto scale. No de fects on color images. GSV and SSV: Normal compression, augmentation. No visualized echogenic material on otto scale. No def ects on color images. ANY DEEP VENOUS INSUFFICIENCY: No. ANY EVIDENCE OF POPLITEAL CYST: No. OTHER: No other significant finding. CONTRALATERAL COMMON FEMORAL VEIN AND SAPHENOFEMORAL JUNCTION: Normal phasicity, compression and augmentation. No visualized echogenic material on otto scale. No de fects on color images. IMPRESSION: NO EVIDENCE DVT OR SVT IN THE RIGHT LEG. TECHNICAL DOCUMENTATION: JOB ID: [id number] [employer]- All Rights Reserved Reading location - IP/workstation name: [email or web address]
--- NOTE | 2018-02-20 19:12 | ER Document Report ---
ED Cardiac - General Chief Complaint: Chest Pressure Stated Complaint: CHEST PRESSURE Time Seen by Provider: 02/20/18 17:33 Notes: Patient is a 57-year-old female with a past medical history of morbid obesity, hypertension, hyperlipidemia, diabetes, former smoker, recent cardiac catheterization with 2 stents placed on the 16th of this month who presents with an episode of chest pressure and shortness of breath that occurred approximately 2 hours prior to my assessment. Patient states that her symptoms spontaneously resolved and she now feels fine. She attributes her symptoms to anxiety regarding her recent change in health status after having a myocardial infarction. She states that when the sensation was present was a heaviness in her left chest as well as her bilateral upper extremities. She does note that ever since having her catheterization she has felt more short of breath than she usually does. She has not contacted her machine folder regarding today's concerns. She has not noted that anything seemed to improve or worsen her symptoms. She denies any associated diaphoresis or vomiting TRAVEL OUTSIDE OF THE [place] IN LAST 30 DAYS: No - Related Data Allergies/Adverse Reactions: Shellfish * [Shellfish] Allergy (Severe, Verified 02/20/18 15:43) Hives sulfamethoxazole [From Bactrim] Allergy (Severe, Verified 02/20/18 15:43) Anaphylaxis, RASH trimethoprim [From Bactrim] Allergy (Severe, Verified 02/20/18 15:43) Anaphylaxis, RASH Past Medical History - General Information source: Patient, Relative - Social History Smoking Status: Former Smoker Chew tobacco use (# tins/day): No Frequency of alcohol use: None Drug Abuse: None Lives with: Spouse/Significant other Family History: Reviewed & Not Pertinent, Malignancy, Other - Asthma and heart disease Patient has suicidal ideation: No Patient has homicidal ideation: No - Past Medical History Cardiac Medical History: Reports: Hx DVT, Hx Hypercholesterolemia, Hx Hypertension, Hx Peripheral Vascular Disease Denies: Hx Coronary Artery Disease, Hx Heart Attack Pulmonary Medical History: Reports: Hx Pneumonia - hx Denies: Hx Asthma, Hx Bronchitis, Hx COPD Neurological Medical History: Reports: 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 eye laser surgery. Negative ex laparoscopy.. Denies: Hx Hysterectomy, Hx Mastectomy, Hx Open Heart Surgery, Hx Pacemaker - Immunizations Hx Diphtheria, Pertussis, Tetanus Vaccination: Yes Review of Systems - Review of Systems Notes: Constitutional: Negative for fever. HENT: Negative for sore throat. Eyes: Negative for visual changes. Cardiovascular: Positive for chest pressure Respiratory: Positive for shortness of breath. Gastrointestinal: Negative for abdominal pain, vomiting or diarrhea. Genitourinary: Negative for dysuria. Musculoskeletal: Negative for back pain. Skin: Negative for rash. Neurological: Negative for headaches, weakness or numbness. 10 point ROS negative except as marked above and in HPI. Physical Exam - Vital signs Vitals: Temp Pulse Resp BP Pulse Ox 97.7 F 83 18 134/66 H 94 02/20/18 15:55 02/20/18 15:55 02/20/18 15:55 02/20/18 15:55 02/20/18 15:55 Interpretation: Normal Notes: PHYSICAL EXAMINATION: GENERAL: Well-appearing, well-nourished and in no acute distress. HEAD: Atraumatic, normocephalic. EYES: Pupils equal round and reactive to light, extraocular movements intact, sclera anicteric, conjunctiva are normal. ENT: nares patent, oropharynx clear without exudates. Moist mucous membranes. NECK: Normal range of motion, supple without lymphadenopathy LUNGS: Breath sounds clear to auscultation bilaterally and equal. No wheezes rales or rhonchi. HEART: Regular rate and rhythm without murmurs ABDOMEN: Soft, nontender, normoactive bowel sounds. No guarding, no rebound. No masses appreciated. EXTREMITIES: Normal range of motion, 2+ pitting edema in the right lower cavity , 1+ in the left. NEUROLOGICAL: No focal neurological deficits. Moves all extremities spontaneously and on command. PSYCH: Anxious, tearful SKIN: Warm, Dry, normal turgor, no rashes or lesions noted. Course - Re-evaluation Re-evalutation: 02/20/18 19:10 Patient presents with multiple complaints the first of which is right lower extremity pain. The patient has bilateral lower extremity edema that is slightly worse on the right. Venous Doppler ultrasound without any evidence of acute DVT. Suspect asymmetric edema in the setting of morbid obesity and possibly some degree of congestive heart failure following her myocardial infarction. Patient also reports that approximately 4-5 hours prior to arrival she did have a brief episode of left-sided chest discomfort with associated shortness of breath that has completely resolved the past 3 hours. The patient states that she believes she has been extremely anxious and having difficulty sleeping, is unable to stop thinking about the recent events over the past week and has become obsessed with her health. She attributes her symptoms to this issue. Her EKG does not show any acute ischemic changes. Left bundle branch block remains present. I did spend 20 minutes discussing with this patient and her grief as well as the normality of her response. I have encouraged gradual return to her normal activities and if encouraged ongoing smoking cessation, appropriate dietary habits, but I do not believe that she requires any acute psychiatric intervention at this time point. 02/20/18 20:19 Unfortunately troponin has again returned quite elevated at 7.64 which is even higher than it was on the . Patient remains chest pain-free. I have contacted [facility] and requested to speak to cardiology as it is possible that this is actually lower than it was at discharge but this is a markedly elevated troponin if this is still from the event on the . 02/20/18 22:54 Troponin has continued up trended slightly to 7.9. Patient remains without chest pain. Patient has been accepted by Dr. Moscoso at [facility]. He reports that the troponin was 3.4 at time of her discharge. Awaiting transport. 02/21/18 0100 Patient remains stable, no ongoing chest pain. Transport has arrived and patient is appropriate for transport. - Vital Signs Vital signs: Temp Pulse Resp BP Pulse Ox 98 F 77 18 124/70 97 02/20/18 22:08 02/20/18 22:08 02/21/18 00:01 02/21/18 00:01 02/21/18 00:01 - Laboratory Result Diagrams: 02/20/18 19:13 02/20/18 19:13 Laboratory results interpreted by me: 02/20/18 02/20/18 19:13 19:13 WBC 11.7 H Eosinophils % 7.9 H Absolute Eosinophils 0.9 H Sodium 145.3 H Glucose 123 H - Diagnostic Test Radiology reviewed: Image reviewed, Reports reviewed Radiology results interpreted by me: 02/21/18 02:14 Chest x-ray: No acute infiltrate or pneumothorax - EKG Interpretation by Me Additional EKG results interpreted by me: 02/21/18 02:14 Left bundle branch block. Rate 86. Unchanged from prior. No Jessika's criteria. Discharge - Discharge Clinical Impression: Elevated troponin Chest pain Qualifiers: Chest pain type: unspecified Qualified Code(s): R07.9 - Chest pain, unspecified Condition: Fair Disposition: [facility] Referrals: ALEXY BAIG MD [Primary Care Provider] - Follow up as needed
[2018-02-20 19:22] LABS: ABSOLUTE BASOPHILS # (AUTO) 0.2 10^3/uL (0.0-0.2); ABSOLUTE EOSINOPHILS # (AUTO) 0.9 10^3/uL (0.0-0.6); ABSOLUTE MONOCYTES (AUTO) 0.9 10^3/uL (0.1-1.4); ABSOLUTE NEUT (AUTO) 6.7 10^3/uL (1.7-8.2); BASOPHILS % (AUTO) 1.5 % (0-2); EOSINOPHILS % (AUTO) 7.9 % (0-6); HEMATOCRIT 38.1 % (36.0-47.0); HEMOGLOBIN 12.8 g/dL (12.0-15.5); LYMPHOCYTES % (AUTO) 25.9 % (13-45); MEAN CORPUSCULAR HGB CONC 33.5 g/dL (32.0-36.0); MEAN CORPUSCULAR VOLUME 87 fl (80-97); MONOCYTES % (AUTO) 7.9 % (3-13); PLATELET COUNT 372 10^3/uL (150-450); RED BLOOD COUNT 4.41 10^6/uL (3.72-5.28); RED CELL DISTRIBUTION WIDTH 13.6 % (11.5-14.0); SEGMENTED NEUTROPHILS % (AUTO) 56.8 % (42-78); TOTAL CELLS COUNTED % (AUTO) 100 %; WHITE BLOOD COUNT 11.7 10^3/uL (4.0-10.5)
[2018-02-20 19:59] LABS: ALANINE AMINOTRANSFERASE 24 U/L (9-52); ALBUMIN 3.9 g/dL (3.5-5.0); ALKALINE PHOSPHATASE 88 U/L (38-126); ANION GAP 13 (5-19); ASPARTATE AMINO TRANSFERASE 25 U/L (14-36); BILIRUBIN,DIRECT 0.4 mg/dL (0.0-0.4); BILIRUBIN,TOTAL 1.3 mg/dL (0.2-1.3); BLOOD UREA NITROGEN 13 mg/dL (7-20); CALCIUM 9.7 mg/dL (8.4-10.2); CARBON DIOXIDE 28 mmol/L (22-30); CHLORIDE 104 mmol/L (98-107); GLUCOSE 123 mg/dL (75-110); POTASSIUM 4.7 mmol/L (3.6-5.0); SODIUM 145.3 mmol/L (137-145); TOTAL PROTEIN 7.4 g/dL (6.3-8.2)
--- NOTE | 2018-02-20 22:07 | EKG REPORT ---
SEVERITY:- ABNORMAL ECG - SINUS RHYTHM LEFT BUNDLE BRANCH BLOCK : Confirmed by: Linnette Watson MD 20-Feb-2018 22:06:33
[2018-02-21 00:46] VITALS: BP 124/70
== END 2018-02-21 00:59 | disposition short-term general hospital (02) ==
LOC: ER 15:41
DX: R07.89 Other chest pain (principal); R74.8 Abnormal levels of other serum enzymes; I44.7 Left bundle-branch block, unspecified; M79.604 Pain in right leg; R06.02 Shortness of breath; R60.0 Localized edema; I10 Essential (primary) hypertension; E11.40 Type 2 diabetes mellitus with diabetic neuropathy, unspecified; E11.319 Type 2 diabetes mellitus with unspecified diabetic retinopathy without macular edema; E11.51 Type 2 diabetes mellitus with diabetic peripheral angiopathy without gangrene; Z79.4 Long term (current) use of insulin; Z95.5 Presence of coronary angioplasty implant and graft; E66.01 Morbid (severe) obesity due to excess calories; Z68.42 Body mass index [BMI] 45.0-49.9, adult; F41.9 Anxiety disorder, unspecified; Z87.891 Personal history of nicotine dependence; Z91.013 Allergy to seafood; Z87.892 Personal history of anaphylaxis; Z88.1 Allergy status to other antibiotic agents; Z86.718 Personal history of other venous thrombosis and embolism; Z87.01 Personal history of pneumonia (recurrent)
CPT/HCPCS: 36415; 71046; 80053; 84484; 85025; 93005; 93010; 93971; 99285

== ENCOUNTER 2018-03-11 20:42 | Emergency (ER) | payer MEDICARE, MEDICAID ==
[2018-03-11] MEDS ORDERED: LIDOCAINE 5% (700 MG) TRANSDERMAL ADH..PATCH TP ONE (23:39)
[2018-03-11] MEDS ORDERED: ACETAMINOPHEN 325 MG TABLET PO ONE (23:39)
[2018-03-11] MEDS ORDERED: KETOROLAC TROMETHAMINE 60 MG/2 ML SDV IM ONE (23:39)
[2018-03-11] MEDS ORDERED: MORPHINE SULFATE IR 15 MG TABLET PO ONE (23:40)
--- NOTE | 2018-03-11 23:44 | ER Document Report ---
ED General - General Chief Complaint: Fall Injury Stated Complaint: FALL,NECK PAIN Time Seen by Provider: 03/11/18 22:45 Notes: Patient is a 57-year-old female with a past medical history of obesity, coronary artery disease who presents after mechanical slip and fall. She states that she slipped on wet gravel outside of her apartment while going for a walk. She fell directly onto her right shoulder. She presents complaining of a throbbing, aching, spasming pain to her right shoulder as well as the left side of her neck and left trapezius. She states that the symptoms started shortly after her fall and have progressed since that time. Moving the affected areas worsens the pain. She has not training to improve the pain. She denies any history of similar injuries. She notes that she has had some mild intermittent paresthesias of the right upper extremity but denies any loss of sensation, illness, confusion, vomiting. No head trauma. She has not seen her general doctor regarding today's concerns. TRAVEL OUTSIDE OF THE [place] IN LAST 30 DAYS: No - Related Data Allergies/Adverse Reactions: Shellfish * [Shellfish] Allergy (Severe, Verified 03/11/18 20:42) Hives sulfamethoxazole [From Bactrim] Allergy (Severe, Verified 03/11/18 20:42) Anaphylaxis, RASH trimethoprim [From Bactrim] Allergy (Severe, Verified 03/11/18 20:42) Anaphylaxis, RASH Past Medical History - General Information source: Patient - Social History Smoking Status: Former Smoker Frequency of alcohol use: None Drug Abuse: None Lives with: Spouse/Significant other Family History: Reviewed & Not Pertinent, Malignancy, Other - Asthma and heart disease - Past Medical History Cardiac Medical History: Reports: Hx DVT, Hx Hypercholesterolemia, Hx Hypertension, Hx Peripheral Vascular Disease Denies: Hx Coronary Artery Disease, Hx Heart Attack Pulmonary Medical History: Reports: Hx Pneumonia - hx Denies: Hx Asthma, Hx Bronchitis, Hx COPD Neurological Medical History: Reports: 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 eye laser surgery. Negative ex laparoscopy.. Denies: Hx Hysterectomy, Hx Mastectomy, Hx Open Heart Surgery, Hx Pacemaker - Immunizations Hx Diphtheria, Pertussis, Tetanus Vaccination: Yes Review of Systems - Review of Systems Notes: Constitutional: Negative for fever. Eyes: Negative for visual changes. ENT: Negative for facial injury Cardiovascular: Negative for chest injury. Respiratory: Negative for shortness of breath. Gastrointestinal: Negative for abdominal injury. Genitourinary: Negative for genital injury Musculoskeletal: Positive for neck pain and right shoulder injury Skin: Negative for laceration/abrasions. Neurological: Negative for head injury. Physical Exam - Vital signs Vitals: Temp Pulse Resp BP Pulse Ox 97.6 F 81 16 129/63 H 100 03/11/18 20:46 03/11/18 20:46 03/11/18 20:46 03/11/18 20:46 03/11/18 20:46 Interpretation: Normal Notes: PHYSICAL EXAMINATION: GENERAL: Well-appearing, no acute distress. HEAD: Atraumatic, normocephalic. EYES: Pupils equal round and reactive to light, extraocular movements intact, sclera anicteric, conjunctiva are normal. ENT: nares patent, no oral pharyngeal trauma. No hemotympanum, no Valencia's sign , no raccoon eyes. NECK: No midline cervical spine tenderness. Patient able to move their head to 45 bilaterally without any discomfort. LUNGS: Breath sounds clear to auscultation bilaterally and equal. No wheezes rales or rhonchi. HEART: Regular rate and rhythm without murmurs. CHEST WALL: No ecchymosis over the chest wall. ABDOMEN: Soft, nontender, normoactive bowel sounds. No guarding, no rebound. No abdominal bruising EXTREMITIES: Normal range of motion, no pitting or edema. No long bone deformities. BACK: No midline spinal tenderness, step-offs, or deformities. NEUROLOGICAL: Face symmetric. Tongue protrudes midline. Extraocular motions intact. Pupils are 2 mm and equally reactive. Normal speech, normal gait. 5 out of 5 strength in both the distal and proximal upper and lower extremities bilaterally. Sensation is grossly intact throughout. Finger to nose testing normal. Pronator drift normal. PSYCH: Normal mood, normal affect. SKIN: Warm, Dry, normal turgor, no rashes or lesions noted. Course - Re-evaluation Re-evalutation: 03/11/18 23:40 Presentation of a well patient in no acute distress, vitals within normal limits after a mechanical fall. No focal neurologic deficits on exam, no evidence of basilar skull fracture on exam without evidence of hemotympanum, raccoon eyes, or periauricular hematoma. No papilledema. Patient is not on anticoagulation. GCS is 15. No loss of consciousness. No episodes of vomiting. Patient is therefore negative via [place] head CT criteria and CT imaging will not be obtained at this time. Patient does have midline cervical spine tenderness as well as some mild paresthesias of her right upper extremity and therefore CT scan cervical spine has been obtained and is noted to be normal. No indication for further imaging of the cervical spine. Patient did complain of right shoulder pain, shoulder x-ray is noted to be normal. Chest and abdominal exam are benign without any focal tenderness, shortness of breath , or bruising over the chest or abdominal wall. Patient has no flank tenderness. There is no obvious findings on trauma exam today and therefore no further imaging or evaluation will be obtained at this time. I've instructed the patient to return to emergency room immediately should they have any worsening or new symptoms that are concerning to them. - Vital Signs Vital signs: Temp Pulse Resp BP Pulse Ox 97.6 F 81 16 129/63 H 100 03/11/18 20:46 03/11/18 20:46 03/11/18 20:46 03/11/18 20:46 03/11/18 20:46 - Diagnostic Test Radiology reviewed: Image reviewed, Reports reviewed Radiology results interpreted by me: 03/12/18 00:52 Right shoulder x-ray: No acute fracture or dislocation Discharge - Discharge Clinical Impression: Neck pain, Thyroid nodule Right shoulder pain Qualifiers: Chronicity: acute Qualified Code(s): M25.511 - Pain in right shoulder Fall Qualifiers: Encounter type: initial encounter Qualified Code(s): W19.XXXA - Unspecified fall, initial encounter Condition: Good Disposition: HOME, SELF-CARE Additional Instructions: You have been seen in the Emergency Department (ED) today following a fall. Your workup today did not reveal any injuries that require you to stay in the hospital. You can expect, though, to be stiff and sore for the next several days. You can take Tylenol 1000 mg every 6 hours as needed for pain. You can use topical Voltaren gel that has been prescribed to apply to the areas that are painful as directed. Please follow up with your primary care doctor as soon as possible regarding today's ED visit and your recent accident. Call your doctor or return to the ED if you develop a sudden or severe headache , confusion, slurred speech, facial droop, weakness or numbness in any arm or leg, extreme fatigue, vomiting more than two times, severe abdominal pain, or other symptoms that concern you. Prescriptions: Diclofenac Sodium [Voltaren] 4 gm TP TID PRN #[id number] gel..gram. PRN Reason: Referrals: ALEXY BAIG MD [Primary Care Provider] - Follow up as needed
--- NOTE | 2018-03-12 00:33 | RADIOLOGY REPORT (SQ) ---
EXAM DESCRIPTION: CT CERVICAL SPINE WITHOUT IV CONTRAST COMPLETED DATE/TME: 03/11/2018 23:39 CLINICAL HISTORY: 57 years Female, fall Comparison: November 13, 2015. Technique: No contrast. Coronal and sagittal reformat. This exam was performed according to our departmental dose-optimization program, which includes automated exposure control, adjustment of the mA and/or kV according to patient size and/or use of iterative reconstruction technique.[facility]: Dose Right [facility]: CareDose [facility]: Dose Right [facility]: Teradose 4D [facility]: [employer]fire LIMITATIONS: None Findings: Normal alignment. Normal curvature. No fracture. Normal vertebral heights. Atherosclerosis. Mild disc desiccation. 0.2 cm C4 anterolisthesis. Indeterminate, chronic 1.8 cm left thyroid lesion; thyroid ultrasound recommended. Partially imaged nuchal soft tissues, inferior cranium, and upper thorax appear otherwise grossly intact. IMPRESSION: 1. No acute findings of the cervical spine. 2.Indeterminate, chronic 1.8 cm left thyroid lesion; thyroid ultrasound recommended.
--- NOTE | 2018-03-12 00:33 | RADIOLOGY REPORT (SQ) ---
EXAM DESCRIPTION: XR SHOULDER 2 OR MORE VIEWS COMPLETED DATE/TME: 03/11/2018 23:39 CLINICAL HISTORY: 57 years, Female, fall COMPARISON: None. NUMBER OF VIEWS: Three view TECHNIQUE: Y-view, internal and external rotation views of the right shoulder LIMITATIONS: None. FINDINGS: Mild degenerative changes present at the acromial clavicular joint and the glenohumeral joint. No acute fracture or subluxation. No evidence of apical pneumothorax. IMPRESSION: No acute fracture or dislocation 2010 [employer]- All Rights Reserved
[2018-03-12 01:26] VITALS: BP 103/54
== END 2018-03-12 01:26 | disposition home or self-care (01) ==
LOC: ER 20:42
DX: S49.91XA Unspecified injury of right shoulder and upper arm, initial encounter (principal); M54.2 Cervicalgia; M25.511 Pain in right shoulder; W01.0XXA Fall on same level from slipping, tripping and stumbling without subsequent striking against object, initial encounter; Y93.01 Activity, walking, marching and hiking; M62.830 Muscle spasm of back; R20.2 Paresthesia of skin; E04.1 Nontoxic single thyroid nodule; I25.10 Atherosclerotic heart disease of native coronary artery without angina pectoris; E11.51 Type 2 diabetes mellitus with diabetic peripheral angiopathy without gangrene; E11.40 Type 2 diabetes mellitus with diabetic neuropathy, unspecified; E11.319 Type 2 diabetes mellitus with unspecified diabetic retinopathy without macular edema; Z79.4 Long term (current) use of insulin; Z91.013 Allergy to seafood; Z88.1 Allergy status to other antibiotic agents; Z87.891 Personal history of nicotine dependence
CPT/HCPCS: 99284; 96372; 73030; 72125; A9270 ×2; J1885

== ENCOUNTER → 2018-03-14 | Outpatient (CLI) | payer MEDICARE, MEDICAID ==
--- NOTE | 2018-03-14 15:15 | RADIOLOGY REPORT (SQ) ---
EXAM DESCRIPTION: ACUTE ABDOMEN SERIES COMPLETED DATE/TIME: 03/14/2018 1:38 pm REASON FOR STUDY: UNSPECIFIED ABDOMINAL PAIN R10.9 UNSPECIFIED ABDOMINAL PAIN COMPARISON: 2016. Chest films from January. NUMBER OF VIEWS: Three views. TECHNIQUE: Frontal chest, supine abdomen and upright/decubitus abdomen radiographic images acquired. LIMITATIONS: None. FINDINGS: CHEST: Lungs clear of infiltrates. FREE AIR: None. No abnormal gas collections. BOWEL GAS PATTERN: Nonobstructive pattern. No dilated loops or air fluid levels. CALCIFICATIONS: No suspicious calcifications. HARDWARE: None in the abdomen. SOFT TISSUES: No gross mass or suggestion of organomegaly. BONES: No acute fracture. No worrisome bone lesions. OTHER: No other significant finding. IMPRESSION: NO RADIOGRAPHIC EVIDENCE FOR ACUTE ABDOMINAL DISEASE. TECHNICAL DOCUMENTATION: JOB ID: [id number] [employer]- All Rights Reserved Reading location - IP/workstation name: [email or web address]
== END ==
LOC: OD 13:04
PROVIDERS: ATTEND Family Medicine
DX: R10.9 Unspecified abdominal pain (principal)
CPT/HCPCS: 74022

== ENCOUNTER → 2018-03-24 | Outpatient (CLI) | payer MEDICARE, MEDICAID ==
--- NOTE | 2018-03-28 10:45 | RADIOLOGY REPORT (SQ) ---
EXAM DESCRIPTION: U/S THYROID/SFT TISS HD NECK COMPLETED DATE/TIME: 03/24/2018 10:12 am REASON FOR STUDY: THYROID NODULE E04.1 NONTOXIC SINGLE THYROID NODULE COMPARISON: None. TECHNIQUE: Dynamic and static otto-scale images acquired of the thyroid gland. Selected additional c olor/power Doppler images recorded. All images stored to PACS. LIMITATIONS: None. FINDINGS: RIGHT LOBE: Normal size, 4.4 x 1.6 x 2.6 cm. Homogeneous echotexture. No cystic or solid masses. LEFT LOBE: Normal size, 4.2 x 2 x 2.1 cm. Homogeneous echotexture. There is a heterogeneous nodule measuring 1.8 x 1.5 x 1.8 cm. ISTHMUS: Normal size, 4 mm. Homogeneous echotexture. No cystic or solid masses. OTHER: No other significant finding. IMPRESSION: There is a heterogeneous hypoechoic left thyroid nodule. Consider biopsy. TECHNICAL DOCUMENTATION: JOB ID: [id number] [employer]- All Rights Reserved Reading location - IP/workstation name: [email or web address]
== END ==
LOC: RAD 09:43
PROVIDERS: ATTEND Family Medicine
DX: E04.1 Nontoxic single thyroid nodule (principal)
CPT/HCPCS: 76536

== ENCOUNTER → 2018-04-26 | Outpatient (CLI) | payer MEDICARE, MEDICAID ==
--- NOTE | 2018-04-26 12:51 | XCELERA REPORT ---
[address] [address] Upper Extremity Arterial Evaluation Name: SATURNINO MURGUIA Age: 57 yrs Gender: Female : 1960 Patient Status: Outpatient Patient Location: Study Date: 04/26/2018 09:57 AM Procedure: A duplex scan of the upper extremity arteries was performed on the right. Reason For Study: RT WRIST PAIN S/P CATHERIZATION Ordering Physician: CRISTOBAL RHOADES Performed By: Suni Allred Measurements and Calculations Right Left Prox SCLA PSV -137.0 cm/sec Ax A PSV 94.3 cm/sec Prox Brach A PSV 99.3 cm/sec Dist Brach A PSV -120.1 cm/sec Prox Rad A PSV -58.0 cm/sec Dist Rad A PSV -35.3 cm/sec Prox Ulnar A PSV -50.3 cm/sec Dist Ulnar A PSV -93.0 cm/sec Ax A PSV 94.3 cm/sec Dist Brach A PSV -120.1 cm/sec Dist Rad A PSV -35.3 cm/sec Dist Ulnar A PSV -93.0 cm/sec Prox Brach A PSV 99.3 cm/sec Prox Rad A PSV -58.0 cm/sec Prox Ulnar A PSV -50.3 cm/sec Right Side Arterial Evaluation Normal velocity and triphasic waveforms noted from the Common Carotid artery to the forearm vessels. 0 % stenosis noted. Interpretation Summary No hemodynamically significant lesions in the right upper extremity only, on duplex imaging, at rest. : CRISTOBAL RHOADES, Stephen >
== END ==
LOC: SP 09:03
PROVIDERS: ATTEND Internal Medicine Cardiovascular Disease
DX: M25.531 Pain in right wrist (principal)
CPT/HCPCS: 93931

== ENCOUNTER 2018-05-10 09:46 | Emergency (ER) | payer MEDICARE, MEDICAID ==
--- NOTE | 2018-05-10 10:53 | ER Document Report ---
ED Extremity Problem, Lower - General Chief Complaint: Leg Injury Stated Complaint: FALL/LEFT FOOT PAIN Time Seen by Provider: 05/10/18 10:41 Mode of Arrival: Ambulatory Information source: Patient Notes: Patient is a 57-year-old morbidly obese female comes emergency room complaint of left lower extremity pain. Patient states that on night she was walking to her bedroom and her left leg gave out she fell backwards landing on her butt and right shoulder. She had difficulty walking because her left leg hurt. She woke up this morning and the top of her left foot is red and swollen and she has pain in the lower leg area. Patient states she has a significant history for diabetes mellitus with insulin dependency. She also has a history of a third digit amputation on the foot secondary to having stepped on a nail and not realizing it. So it sounds like she had osteomyelitis and with amputation. She also states that during the fall she has a little opening on her distal end of her second digit on the left foot. She also has a significant history for this past year having 2 MIs in January she was sent and had 2 stent placements and sent home 2 days later she was back and had to be restented. Patient also states that she has severe neuropathy in her lower extremities. TRAVEL OUTSIDE OF THE [place] IN LAST 30 DAYS: No - HPI Patient complains to provider of: Altered sensation Location: Foot, Leg Occurred: Other - 4 nights ago Where: Home Onset/Duration: Sudden Quality of pain: Fullness, Sharp, Throbbing Severity: Moderate Pain Level: 3 Context: Barefoot, Fell Recent injury: Yes Exacerbated by: Walking Relieved by: Nothing Notes: Patient states that this pain originates from her left ankle and lower saucedo area radiates up the leg into her knee and into the thigh and up to the buttocks. - Related Data Allergies/Adverse Reactions: Shellfish * [Shellfish] Allergy (Severe, Verified 05/10/18 09:51) Hives sulfamethoxazole [From Bactrim] Allergy (Severe, Verified 05/10/18 09:51) Anaphylaxis, RASH trimethoprim [From Bactrim] Allergy (Severe, Verified 05/10/18 09:51) Anaphylaxis, RASH Past Medical History - General Information source: Patient - Social History Smoking Status: Former Smoker Cigarette use (# per day): No Chew tobacco use (# tins/day): No Smoking Education Provided: No Frequency of alcohol use: None Drug Abuse: None Lives with: Family Family History: Reviewed & Not Pertinent, Malignancy, Other - Asthma and heart disease Patient has suicidal ideation: No Patient has homicidal ideation: No - Past Medical History Cardiac Medical History: Reports: Hx Congestive Heart Failure, Hx DVT, Hx Hypercholesterolemia, Hx Hypertension, Hx Peripheral Vascular Disease Denies: Hx Coronary Artery Disease, Hx Heart Attack Pulmonary Medical History: Reports: Hx Pneumonia - hx Denies: Hx Asthma, Hx Bronchitis, Hx COPD Neurological Medical History: Reports: 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 Denies: Hx Hepatitis, Hx Hiatal Hernia, Hx Ulcer Musculoskeletal Medical History: Denies Hx Arthritis Psychiatric Medical History: Reports: Hx Depression Infectious Medical History: Denies: Hx Hepatitis Past Surgical History: Reports: Hx Orthopedic Surgery - Left shoulder, Other - Bilateral vitrectomies, also ? eye laser surgery. Negative ex laparoscopy.. Denies: Hx Hysterectomy, Hx Mastectomy, Hx Open Heart Surgery, Hx Pacemaker - Immunizations Hx Diphtheria, Pertussis, Tetanus Vaccination: Yes Review of Systems - Review of Systems Constitutional: No symptoms reported EENT: No symptoms reported Cardiovascular: No symptoms reported Respiratory: No symptoms reported Gastrointestinal: No symptoms reported Genitourinary: No symptoms reported Female Genitourinary: No symptoms reported Musculoskeletal: Joint pain, Joint swelling, Ankle swelling Skin: See HPI, Other - Erythema Hematologic/Lymphatic: No symptoms reported Neurological/Psychological: No symptoms reported -: Yes All other systems reviewed and negative Physical Exam - Vital signs Vitals: Temp Pulse Resp BP Pulse Ox 98.7 F 80 16 115/60 98 05/10/18 09:55 05/10/18 09:55 05/10/18 09:55 05/10/18 09:55 05/10/18 09:55 Interpretation: Normal - Notes Notes: Well-nourished well-developed morbidly obese female no apparent distress. - General General appearance: Alert In distress: None - HEENT Head: Normocephalic, Atraumatic Eyes: Normal - Respiratory Respiratory status: No respiratory distress Chest status: Nontender Breath sounds: Normal. No: Rales, Rhonchi, Stridor, Wheezing Chest palpation: Normal - Cardiovascular Rhythm: Regular, Other Murmur: No - Extremities General upper extremity: Normal inspection, Nontender, Normal ROM, Normal strength General lower extremity: Tender, Edema, Normal ROM, Normal strength, Normal weight bearing. No: Normal temperature, Terry's sign Ankle: Tender, Abrasion. No: Deformity, Ecchymosis, Edema, Instability, Laceration, Limited ROM, Positive Gonsalves's test, Unable to bear weight Foot: Tender, Edema, Other - Examination patient's left foot shows it to be moderately swollen. On the dorsal aspect of the foot is an area that has scar tissue caused the deformity. The area surrounding the dorsum is approximately 12 cm across and 6 cm down. It is moderate erythema and swelling of the toes. There is a opening on the second digit dorsal aspect of the toe at the distal end. Probably cause from the fall. May be the site of infection. Noticeable temperature difference from the erythematous area to normal skin where the erythematous is much warmer to touch. There is some lymphangitis noted along the lateral aspect of the dorsum of the foot. And some minimal at present. Further evaluation of the ankle shows it to be moderately swollen has full range of motion with flexion-extension rotation. The ankle displays 2+ posterior tibial pulses as well. There is moderate amount of swelling around the medial and lateral malleolus. Anterior portion of the ankle also some tenderness to palpation.. No: Ecchymosis, Instability, Laceration, Metatarsal compress. pain, Nail injury, Navicular tenderness, No evidence of FB, Puncture wound, Tender 5th metatarsal - Neurological Neuro grossly intact: Yes Cognition: Normal Orientation: AAOx4 Weikert Coma Scale Eye Opening: Spontaneous Ashish Coma Scale Verbal: Oriented Weikert Coma Scale Motor: Obeys Commands Ashish Coma Scale Total: 15 Speech: Normal - Skin Skin Temperature: Warm Skin Color: Erythema Skin irregularity: Erythema, other - See foot above Course - Re-evaluation Re-evalutation: 05/10/18 14:26 Patient's stay has been lengthened because lab was unable to come down within 3 hours. To draw her blood for CBC. Recent labs waiting for the CBC as she has a cellulitis of the left lower foot and wanted to get a confirmation on whether it was really bad or just bad. Also had to wait for a repeat x-ray of the ankle and then we had to get her splint in place. Anyway we are going to send her home on clindamycin for the cellulitis and nonweightbearing on the foot she has an orthopedic doctor that she sees Dr. Rivera I believe she told me but is local and she will follow-up with him on this questionable fracture or avulsion fracture. It was not seen on the ankle itself but it was seen on the tibial pitchers so we are going to treat it as if it still there. She is also very tender in the area where it is located or supposed to be located. - Vital Signs Vital signs: Temp Pulse Resp BP Pulse Ox 98.7 F 80 16 115/60 98 05/10/18 09:55 05/10/18 09:55 05/10/18 09:55 05/10/18 09:55 05/10/18 09:55 - Laboratory Result Diagrams: 05/10/18 12:42 05/10/18 12:42 Laboratory results interpreted by me: 05/10/18 05/10/18 12:42 12:42 Hgb 11.9 L Hct 34.9 L RDW 14.7 H Eosinophils % 6.2 H Glucose 156 H Total Bilirubin 1.8 H Procedures - Immobilization Left Ankle Time completed: 14:28 Pre-Proc Neuro Vasc Exam: Normal Immobilizer type: Ankle stirrup, Posterior ankle Performed by: PCT Post-Proc Neuro Vasc Exam: Normal, Unchanged from pre-exam Alignment checked and good: Yes Discharge - Discharge Clinical Impression: Chest pain, rule out acute myocardial infarction, Cellulitis of left foot Closed avulsion fracture of left ankle Qualifiers: Encounter type: initial encounter Qualified Code(s): S82.892A - Other fracture of left lower leg, initial encounter for closed fracture Condition: Stable Disposition: HOME, SELF-CARE Instructions: Cellulitis ([facility]), Avulsion Fracture of the Ankle ([facility]) Additional Instructions: Home and nonweightbearing to see her orthopedist. Ice through the splint 3 times a day. Ibuprofen for aches and pains this fracture. Along with the pain medication of written for you may alternate him. Antibiotic as prescribed. Monitor the foot very closely. You may soak it in warm soapy water 3 times a day. Set an appointment with your primary care to watch and monitor the cellulitis closely. Should it start to expand further where it is now want you to return to ER for recheck. Prescriptions: Cephalexin Monohydrate [Keflex 500 mg Capsule] 500 mg PO Q6H 7 Days #28 capsule Clindamycin HCl 300 mg PO QID #40 capsule Fluconazole [Diflucan] 150 mg PO ONCE PRN #1 tablet PRN Reason: Oxycodone HCl/Acetaminophen [Percocet 5-325 mg Tablet] 1 tab PO Q4H PRN #12 tablet PRN Reason: Referrals: ALEXY BAIG MD [Primary Care Provider] - Follow up as needed
--- NOTE | 2018-05-10 11:35 | RADIOLOGY REPORT (SQ) ---
EXAM DESCRIPTION: TIBIA FIBULA LEFT COMPLETED DATE/TIME: 05/10/2018 11:19 am REASON FOR STUDY: Fall with pain fall injury pain, very tender distal tibia and fibular COMPARISON: None. NUMBER OF VIEWS: Two views. TECHNIQUE: Two radiographic images acquired of the left tibia and fibula to include the knee and ank le in at least one projection. LIMITATIONS: None. FINDINGS: MINERALIZATION: Normal. BONES: Tiny acute avulsion fragment off the lateral aspect of the calcaneus near the attachment of th e fibular calcaneal ligament. Ankle films recommended for followup. SOFT TISSUES: No obvious swelling or foreign body. OTHER: No other significant finding. IMPRESSION: Tiny acute avulsion fragment off the lateral aspect of the calcaneus near the attachment of the fibular calcaneal ligament. Ankle films are recommended for followup TECHNICAL DOCUMENTATION: JOB ID: [id number] [employer]- All Rights Reserved Reading location - IP/workstation name: [email or web address]
--- NOTE | 2018-05-10 11:38 | RADIOLOGY REPORT (SQ) ---
EXAM DESCRIPTION: FOOT LEFT COMPLETE COMPLETED DATE/TIME: 05/10/2018 11:19 am REASON FOR STUDY: HX of amputation of toe to osteomyl now red swolle ankle pain, injury COMPARISON: Left foot films 12/20/2016 NUMBER OF VIEWS: Three views. TECHNIQUE: AP, lateral and oblique radiographic images acquired of the left foot. LIMITATIONS: None. FINDINGS: MINERALIZATION: Normal. BONES: Post amputation of the 3rd toe at the metatarsophalangeal joint level. No plain film findings worrisome for fracture or recurrent osteomyelitis. JOINTS: No effusions. SOFT TISSUES: No soft tissue swelling. No foreign body. OTHER: No other significant finding. IMPRESSION: Post amputation of the 3rd toe at the metatarsophalangeal joint level. No plain film fi ndings worrisome for fracture or recurrent osteomyelitis. Please note that on the left tib fib films are may be an acute avulsion fragment off the lateral calc aneus at the fibular calcaneal attachment region. Please follow-up with three-view ankle films TECHNICAL DOCUMENTATION: JOB ID: [id number] [employer]- All Rights Reserved Reading location - IP/workstation name: [email or web address]
--- NOTE | 2018-05-10 12:15 | RADIOLOGY REPORT (SQ) ---
EXAM DESCRIPTION: ANKLE LEFT COMPLETE COMPLETED DATE/TIME: 05/10/2018 12:03 pm REASON FOR STUDY: Requested by Rad. ? Avulsion FX on TIB-FIB view COMPARISON: None. NUMBER OF VIEWS: Three views. TECHNIQUE: AP, lateral, and oblique radiographic images acquired of the left ankle. LIMITATIONS: None. FINDINGS: MINERALIZATION: Normal. BONES: No acute fracture or dislocation. No worrisome bone lesions. JOINTS: No effusions. SOFT TISSUES: Generalized soft tissue swelling OTHER: Anterior and posterior heel spurs. IMPRESSION: No acute posttraumatic bony changes. Small heel spurs. Generalized soft tissue swellin g. TECHNICAL DOCUMENTATION: JOB ID: [id number] [employer]- All Rights Reserved Reading location - IP/workstation name: [email or web address]
[2018-05-10 13:02] LABS: ABSOLUTE BASOPHILS # (AUTO) 0.1 10^3/uL (0.0-0.2); ABSOLUTE EOSINOPHILS # (AUTO) 0.6 10^3/uL (0.0-0.6); ABSOLUTE LYMPHOCYTES (AUTO) 2.8 10^3/uL (0.5-4.7); ABSOLUTE MONOCYTES (AUTO) 0.8 10^3/uL (0.1-1.4); ABSOLUTE NEUT (AUTO) 5.9 10^3/uL (1.7-8.2); BASOPHILS % (AUTO) 0.9 % (0-2); EOSINOPHILS % (AUTO) 6.2 % (0-6); HEMATOCRIT 34.9 % (36.0-47.0); HEMOGLOBIN 11.9 g/dL (12.0-15.5); LYMPHOCYTES % (AUTO) 27.5 % (13-45); MEAN CORPUSCULAR HEMOGLOBIN 28.8 pg (27.0-33.4); MEAN CORPUSCULAR HGB CONC 34.2 g/dL (32.0-36.0); MEAN CORPUSCULAR VOLUME 84 fl (80-97); MONOCYTES % (AUTO) 8.2 % (3-13); PLATELET COUNT 232 10^3/uL (150-450); RED BLOOD COUNT 4.14 10^6/uL (3.72-5.28); RED CELL DISTRIBUTION WIDTH 14.7 % (11.5-14.0); SEGMENTED NEUTROPHILS % (AUTO) 57.2 % (42-78); TOTAL CELLS COUNTED % (AUTO) 100 %; WHITE BLOOD COUNT 10.3 10^3/uL (4.0-10.5)
[2018-05-10 13:13] LABS: ALANINE AMINOTRANSFERASE 27 U/L (9-52); ALBUMIN 3.9 g/dL (3.5-5.0); ALKALINE PHOSPHATASE 72 U/L (38-126); ANION GAP 12 (5-19); ASPARTATE AMINO TRANSFERASE 19 U/L (14-36); BILIRUBIN,DIRECT 0.2 mg/dL (0.0-0.4); BILIRUBIN,TOTAL 1.8 mg/dL (0.2-1.3); BLOOD UREA NITROGEN 18 mg/dL (7-20); CALCIUM 9.5 mg/dL (8.4-10.2); CARBON DIOXIDE 25 mmol/L (22-30); CHLORIDE 104 mmol/L (98-107); GLUCOSE 156 mg/dL (75-110); POTASSIUM 4.6 mmol/L (3.6-5.0); SODIUM 140.6 mmol/L (137-145); TOTAL PROTEIN 6.9 g/dL (6.3-8.2)
[2018-05-10] MEDS ORDERED: HYDROCODONE/ACETAMINOPHEN 5-325 MG TABLET PO ONE (14:59)
[2018-05-10 15:07] VITALS: BP 130/73
== END 2018-05-10 15:21 | disposition home or self-care (01) ==
LOC: ER 09:46
PROC: 2W3RX1Z Immobilization of Left Lower Leg using Splint (ICD-10-PCS; principal; 2018-05-10)
DX: S82.892A Other fracture of left lower leg, initial encounter for closed fracture (principal); R07.9 Chest pain, unspecified; L03.116 Cellulitis of left lower limb; W01.0XXA Fall on same level from slipping, tripping and stumbling without subsequent striking against object, initial encounter; Y92.009 Unspecified place in unspecified non-institutional (private) residence as the place of occurrence of the external cause; I50.9 Heart failure, unspecified; E78.00 Pure hypercholesterolemia, unspecified; I11.0 Hypertensive heart disease with heart failure; E11.9 Type 2 diabetes mellitus without complications; Z79.4 Long term (current) use of insulin; Z91.013 Allergy to seafood; Z87.891 Personal history of nicotine dependence; Z86.718 Personal history of other venous thrombosis and embolism; I69.951 Hemiplegia and hemiparesis following unspecified cerebrovascular disease affecting right dominant side; E66.01 Morbid (severe) obesity due to excess calories
CPT/HCPCS: 99283; 36415; 87040; 85025; 80053; 73610; 73630; 73590; 29515; A9270

== ENCOUNTER 2018-06-05 16:33 | Emergency (ER) | payer MEDICARE, MEDICAID ==
[2018-06-05] MEDS ORDERED: ASPIRIN 81 MG TABLET, CHEWABLE PO ONE (16:50)
--- NOTE | 2018-06-05 16:53 | ER Document Report ---
ED Medical Screen (RME) - General Chief Complaint: Weakness Stated Complaint: WEAKNESS Time Seen by Provider: 06/05/18 16:45 Mode of Arrival: Wheelchair Information source: Patient Notes: 57-year-old female presents emergency department with complaints of generalized weakness and lightheadedness. Patient states both her upper and lower extremities are generally weak. Patient states that she is having a hard time ambulating, a hard time eating as it requires her to lift her arm. Patient states that she is also having a pain in the left side of the neck. She denies any chest pain or difficulty breathing. Patient does have a history of diabetes , hypertension, coronary artery disease. Patient states that she had an WI with stent placement in January. I have greeted and performed a rapid initial assessment of this patient. A comprehensive ED assessment and evaluation of the patient, analysis of test results and completion of the medical decision making process will be conducted by additional ED providers. PHYSICAL EXAMINATION: GENERAL: Well-appearing, well-nourished and in no acute distress. HEAD: Atraumatic, normocephalic. EYES: Pupils equal round extraocular movements intact, conjunctiva are normal. ENT: Nares patent NECK: Normal range of motion LUNGS: No respiratory distress Musculoskeletal: Normal range of motion NEUROLOGICAL: Normal speech, normal gait. PSYCH: Normal mood, normal affect. SKIN: Warm, Dry, normal turgor, no rashes or lesions noted. TRAVEL OUTSIDE OF THE [place] IN LAST 30 DAYS: No - Related Data Allergies/Adverse Reactions: Shellfish * [Shellfish] Allergy (Severe, Verified 05/10/18 09:51) Hives sulfamethoxazole [From Bactrim] Allergy (Severe, Verified 05/10/18 09:51) Anaphylaxis, RASH trimethoprim [From Bactrim] Allergy (Severe, Verified 05/10/18 09:51) Anaphylaxis, RASH Past Medical History - Past Medical History Cardiac Medical History: Reports: Hx Congestive Heart Failure, Hx DVT, Hx Hypercholesterolemia, Hx Hypertension, Hx Peripheral Vascular Disease Denies: Hx Coronary Artery Disease, Hx Heart Attack Pulmonary Medical History: Reports: Hx Pneumonia - hx Denies: Hx Asthma, Hx Bronchitis, Hx COPD Neurological Medical History: Reports: 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 Denies: Hx Hepatitis, Hx Hiatal Hernia, Hx Ulcer Musculoskeltal Medical History: Denies Hx Arthritis Psychiatric Medical History: Reports: Hx Depression Infectious Medical History: Denies: Hx Hepatitis Past Surgical History: Reports: Hx Orthopedic Surgery - Left shoulder, Other - Bilateral vitrectomies, also ? eye laser surgery. Negative ex laparoscopy.. Denies: Hx Hysterectomy, Hx Mastectomy, Hx Open Heart Surgery, Hx Pacemaker - Immunizations Hx Diphtheria, Pertussis, Tetanus Vaccination: Yes History of Influenza Vaccine for 05/2017 - 09/2017 Season: Yes Physical Exam - Vital signs Vitals: Temp Pulse Resp BP Pulse Ox 98.7 F 69 18 101/59 L 98 06/05/18 16:36 06/05/18 16:36 06/05/18 16:36 06/05/18 16:36 06/05/18 16:36 Course - Vital Signs Vital signs: Temp Pulse Resp BP Pulse Ox 98.7 F 69 18 101/59 L 98 06/05/18 16:36 06/05/18 16:36 06/05/18 16:36 06/05/18 16:36 06/05/18 16:36 Doctor's Discharge - Discharge Referrals: LEOBARDO ASHER MD [Primary Care Provider] - Follow up as needed
--- NOTE | 2018-06-05 17:20 | RADIOLOGY REPORT (SQ) ---
EXAM DESCRIPTION: CHEST SINGLE VIEW COMPLETED DATE/TIME: 06/05/2018 5:04 pm REASON FOR STUDY: generalized weakness COMPARISON: 02/20/2018 EXAM PARAMETERS: NUMBER OF VIEWS: One view. TECHNIQUE: Single frontal radiographic view of the chest acquired. RADIATION DOSE: NA LIMITATIONS: None. FINDINGS: LUNGS AND PLEURA: No opacities, masses or pneumothorax. No pleural effusion. MEDIASTINUM AND HILAR STRUCTURES: No masses. Contour normal. HEART AND VASCULAR STRUCTURES: Heart normal in size. Normal vasculature. BONES: No acute findings. HARDWARE: None in the chest. OTHER: No other significant finding. IMPRESSION: NO ACUTE RADIOGRAPHIC FINDING IN THE CHEST. TECHNICAL DOCUMENTATION: JOB ID: [id number] [employer]- All Rights Reserved Reading location - IP/workstation name: [email or web address]
[2018-06-05 17:46] LABS: ABSOLUTE BASOPHILS # (AUTO) 0.1 10^3/uL (0.0-0.2); ABSOLUTE EOSINOPHILS # (AUTO) 1.5 10^3/uL (0.0-0.6); ABSOLUTE LYMPHOCYTES (AUTO) 4.4 10^3/uL (0.5-4.7); ABSOLUTE MONOCYTES (AUTO) 0.8 10^3/uL (0.1-1.4); ABSOLUTE NEUT (AUTO) 6.9 10^3/uL (1.7-8.2); BASOPHILS % (AUTO) 0.9 % (0-2); EOSINOPHILS % (AUTO) 11.2 % (0-6); HEMATOCRIT 35.7 % (36.0-47.0); HEMOGLOBIN 12.4 g/dL (12.0-15.5); LYMPHOCYTES % (AUTO) 31.7 % (13-45); MEAN CORPUSCULAR HEMOGLOBIN 29.4 pg (27.0-33.4); MEAN CORPUSCULAR HGB CONC 34.6 g/dL (32.0-36.0); MEAN CORPUSCULAR VOLUME 85 fl (80-97); MONOCYTES % (AUTO) 5.9 % (3-13); RED CELL DISTRIBUTION WIDTH 14.9 % (11.5-14.0); SEGMENTED NEUTROPHILS % (AUTO) 50.3 % (42-78); TOTAL CELLS COUNTED % (AUTO) 100 %; WHITE BLOOD COUNT 13.7 10^3/uL (4.0-10.5)
[2018-06-05 17:53] LABS: APPEARANCE,URINE SLIGHTLY-CLOUDY; BILIRUBIN,URINE NEGATIVE (NEGATIVE); COLOR,URINE YELLOW; GLUCOSE, URINE NEGATIVE (NEGATIVE); KETONES,URINE NEGATIVE (NEGATIVE); LEUKOCYTE ESTERASE,URINE NEGATIVE (NEGATIVE); NITRITE,URINE NEGATIVE (NEGATIVE); PROTEIN,URINE NEGATIVE (NEGATIVE); URINE SPECIFIC GRAVITY 1.012; UROBILINOGEN,URINE NEGATIVE mg/dL (<2.0)
[2018-06-05 17:56] LABS: ALANINE AMINOTRANSFERASE 16 U/L (9-52); ALBUMIN 4.4 g/dL (3.5-5.0); ALKALINE PHOSPHATASE 80 U/L (38-126); ANION GAP 11 (5-19); ASPARTATE AMINO TRANSFERASE 52 U/L (14-36); BILIRUBIN,DIRECT 0.3 mg/dL (0.0-0.4); BILIRUBIN,TOTAL 1.3 mg/dL (0.2-1.3); BLOOD UREA NITROGEN 18 mg/dL (7-20); CALCIUM 9.8 mg/dL (8.4-10.2); CARBON DIOXIDE 29 mmol/L (22-30); CHLORIDE 103 mmol/L (98-107); CREATINE KINASE 56 U/L (30-135); GLUCOSE 117 mg/dL (75-110); POTASSIUM 4.4 mmol/L (3.6-5.0); SODIUM 142.6 mmol/L (137-145)
[2018-06-05 18:05] LABS: URINE AMPHETAMINES SCREEN NEGATIVE; URINE BARBITURATES SCREEN NEGATIVE; URINE BENZODIAZEPINES SCREEN NEGATIVE; URINE COCAINE SCREEN NEGATIVE; URINE MARIJUANA (THC) SCREEN NEGATIVE; URINE METHADONE SCREEN NEGATIVE; URINE PHENCYCLIDINE SCREEN NEGATIVE
[2018-06-05 18:21] LABS: CREATINE KINASE MB 1.42 ng/mL (<4.55)
[2018-06-05 18:24] LABS: TROPONIN I < 0.012 ng/mL
[2018-06-05 18:31] LABS: PLATELET COUNT 258 10^3/uL (150-450)
[2018-06-05 18:32] LABS: FREE T4 (FREE THYROXINE) 1.1 ng/dL (0.78-2.19)
--- NOTE | 2018-06-05 18:37 | EKG REPORT ---
SEVERITY:- ABNORMAL ECG - SINUS RHYTHM LEFT BUNDLE BRANCH BLOCK : Confirmed by: Nilo Barney MD 05-Jun-2018 18:36:16
[2018-06-05 18:46] LABS: THYROID STIMULATING HORMONE 1.23 uIU/mL (0.47-4.68)
[2018-06-05 22:12] VITALS: BP 102/61
--- NOTE | 2018-06-05 22:17 | RADIOLOGY REPORT (SQ) ---
CT HEAD WITHOUT IV CONTRAST HISTORY: Lightheadedness. Weakness. COMPARISON: None. TECHNIQUE: CT scan of the brain without IV contrast. This exam was performed according to our departmental dose-optimization program, which includes automated exposure control, adjustment of the mA and/or kV according to patient size and/or use of iterative reconstruction technique. FINDINGS: The ventricles, cisterns, and sulci are age-appropriate. Scattered areas of hypoattenuation within the periventricular white matter likely representing chronic microvascular ischemia. No acute infarction, intracranial hemorrhage, midline shift, or extra-axial fluid collection is identified. No air-fluid levels in the paranasal sinuses. Calvarium is intact. IMPRESSION: No acute intracranial abnormality.
--- NOTE | 2018-06-05 22:37 | ER Document Report ---
ED General - General Chief Complaint: Weakness Stated Complaint: WEAKNESS Time Seen by Provider: 06/05/18 16:45 Mode of Arrival: Wheelchair Information source: Patient Notes: This is a 57-year-old female with a history of diabetes, hypertension, dyslipidemia white matter brain disease, coronary artery disease. The patient presents to the emergency room with generalized weakness bilateral upper extremities and lower extremities. Patient states that since her stents, she has resorted to a strict diet and since that period of time she is felt increasing weakness. She denies any chest pain, shortness of breath, abdominal pain. She denies focal motor weakness. She denies any forgetfulness. She denies any speech problems. TRAVEL OUTSIDE OF THE [place] IN LAST 30 DAYS: No - HPI Onset: Last week Onset/Duration: Gradual Quality of pain: No pain Severity: None Pain Level: Denies Associated symptoms: denies: Chest pain, Fever, Shortness of breath Exacerbated by: Movement Relieved by: Denies Similar symptoms previously: Yes Recently seen / treated by doctor: Yes - Related Data Allergies/Adverse Reactions: Shellfish * [Shellfish] Allergy (Severe, Verified 05/10/18 09:51) Hives sulfamethoxazole [From Bactrim] Allergy (Severe, Verified 05/10/18 09:51) Anaphylaxis, RASH trimethoprim [From Bactrim] Allergy (Severe, Verified 05/10/18 09:51) Anaphylaxis, RASH Past Medical History - General Information source: Patient - Social History Smoking Status: Never Smoker Cigarette use (# per day): No Chew tobacco use (# tins/day): No Frequency of alcohol use: None Drug Abuse: None Lives with: Spouse/Significant other Family History: Reviewed & Not Pertinent, Malignancy, Other - Asthma and heart disease Patient has suicidal ideation: No Patient has homicidal ideation: No - Past Medical History Cardiac Medical History: Reports: Hx Congestive Heart Failure, Hx DVT, Hx Hypercholesterolemia, Hx Hypertension, Hx Peripheral Vascular Disease Denies: Hx Coronary Artery Disease, Hx Heart Attack Pulmonary Medical History: Reports: Hx Pneumonia - hx Denies: Hx Asthma, Hx Bronchitis, Hx COPD Neurological Medical History: Reports: 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 Denies: Hx Hepatitis, Hx Hiatal Hernia, Hx Ulcer Musculoskeletal Medical History: Denies Hx Arthritis Psychiatric Medical History: Reports: Hx Depression Infectious Medical History: Denies: Hx Hepatitis Past Surgical History: Reports: Hx Cardiac Catheterization, Hx Orthopedic Surgery - Left shoulder, Other - Bilateral vitrectomies, also ? eye laser surgery. Negative ex laparoscopy.. Denies: Hx Hysterectomy, Hx Mastectomy, Hx Open Heart Surgery, Hx Pacemaker - Immunizations Hx Diphtheria, Pertussis, Tetanus Vaccination: Yes Review of Systems - Review of Systems Constitutional: denies: Chills, Fever EENT: No symptoms reported Cardiovascular: No symptoms reported Respiratory: No symptoms reported Gastrointestinal: No symptoms reported Genitourinary: No symptoms reported. denies: Burning, Dysuria, Discharge, Frequency, Flank pain, Hematuria Female Genitourinary: No symptoms reported Musculoskeletal: No symptoms reported Skin: No symptoms reported Hematologic/Lymphatic: No symptoms reported Neurological/Psychological: See HPI Physical Exam - Vital signs Vitals: Temp Pulse Resp BP Pulse Ox 98.7 F 69 18 101/59 L 98 06/05/18 16:36 06/05/18 16:36 06/05/18 16:36 06/05/18 16:36 06/05/18 16:36 Notes: Physical exam: GENERAL: Patient is alert and oriented x3, no acute distress HEAD: Atraumatic, normocephalic. EYES: Pupils equal round and reactive to light, extraocular movements intact, sclera anicteric, conjunctiva are normal. ENT: TMs normal, nares patent, oropharynx clear without exudates. Moist mucous membranes. NECK: Normal range of motion, supple without obvious mass or JVD. LUNGS: Breath sounds clear to auscultation bilaterally and equal. No wheezes rales or rhonchi. HEART: Regular rate and rhythm without murmurs, rubs or gallops. ABDOMEN: Soft, normoactive bowel sounds. No tenderness to palpation. No guarding, no rebound. No masses appreciated. EXTREMITIES: Normal range of motion, no pitting or edema. No clubbing or cyanosis. NEUROLOGICAL: Cranial nerves II through XII grossly intact. Normal speech, moving all extremities. Motor is 5/5 and symmetrical, sensory is closely intact , cerebellar is good. PSYCH: Normal mood, normal affect. SKIN: Warm, Dry, normal turgor, no rashes or lesions noted. Course - Re-evaluation Re-evalutation: 06/05/18 22:[address] Alex who will see patient in the morning. I do not think the patient has an acute stroke or ACS. I think she has had generalized weakness after following a strict dietary regimen. There are plans for her to see the automatic operator. She has had neurological issues and was given a diagnosis of white matter brain disease. She has been evaluated by Dr. Beaulieu set of neurology and can follow-up with him as well. - Vital Signs Vital signs: Temp Pulse Resp BP Pulse Ox 97.8 F 69 20 102/61 98 06/05/18 22:41 06/05/18 16:36 06/05/18 22:01 06/05/18 22:01 06/05/18 22:01 - Laboratory Result Diagrams: 06/05/18 17:15 06/05/18 17:15 Laboratory results interpreted by me: 06/05/18 06/05/18 17:15 17:15 WBC 13.7 H Hct 35.7 L RDW 14.9 H Eosinophils % 11.2 H Absolute Eosinophils 1.5 H Est GFR (Non-Af Amer) 53 L Glucose 117 H AST 52 H - Diagnostic Test Radiology reviewed: Image reviewed, Reports reviewed - CT of the head shows no acute bleed or infarct. - EKG Interpretation by Me Rate: Normal Rhythm: NSR - EKG shows normal sinus rhythm with a ventricular rate of 70, left bundle branch block which is old, no acute ST-T wave changes Discharge - Discharge Clinical Impression: Generalized weakness Condition: Stable Disposition: HOME, SELF-CARE Additional Instructions: As we discussed, your labs look good today. The CT showed no acute stroke or bleed. I did speak to Dr. Alex and he wants to see you in the office tomorrow. I think following up with a automatic operator is a good idea. Return to the ER for any chest pain, shortness of breath or any concerns or getting worse. Referrals: LEOBARDO ASHER MD [ACTIVE STAFF] - Follow up tomorrow ALEXY ALEX MD [Primary Care Provider] - Follow up tomorrow ADRYAN BEAULIEU MD [NO LOCAL MD] - Follow up in 3-5 days
== END 2018-06-05 22:41 | disposition home or self-care (01) ==
LOC: ER 16:33
DX: R53.1 Weakness (principal); E11.9 Type 2 diabetes mellitus without complications; I10 Essential (primary) hypertension; E78.5 Hyperlipidemia, unspecified; R90.82 White matter disease, unspecified
CPT/HCPCS: 93005; 99285; 36415; 87086; 84439; 82553; 82550; 84443; 85025; 87088; 80053; 81001; 84484; 87186; 80307; 71045; 70450; 93010; A9270

== ENCOUNTER 2018-06-18 16:42 | Emergency (ER) | payer MEDICARE, MEDICAID ==
--- NOTE | 2018-06-18 17:30 | EKG REPORT ---
SEVERITY:- ABNORMAL ECG - SINUS RHYTHM LEFT BUNDLE BRANCH BLOCK : Confirmed by: Debi Carr 18-Jun-2018 17:30:08
--- NOTE | 2018-06-18 17:34 | ER Document Report ---
ED Medical Screen (RME) - General Chief Complaint: Weak, Neck& shoulder pain, Arm & leg pain, Chest tightness Stated Complaint: WEAKNESS, NECK/ARMS/LEG PAIN Time Seen by Provider: 06/18/18 17:32 Mode of Arrival: Wheelchair Information source: Patient TRAVEL OUTSIDE OF THE [place] IN LAST 30 DAYS: No - HPI Patient complains to provider of: weakness Onset: Other - pt. with increasing weakness over the past week -- especially in neck, shoulders and legs. Also , some light-headedness and chest tightness - Related Data Allergies/Adverse Reactions: Shellfish * [Shellfish] Allergy (Severe, Verified 05/10/18 09:51) Hives sulfamethoxazole [From Bactrim] Allergy (Severe, Verified 05/10/18 09:51) Anaphylaxis, RASH trimethoprim [From Bactrim] Allergy (Severe, Verified 05/10/18 09:51) Anaphylaxis, RASH Past Medical History - Past Medical History Cardiac Medical History: Reports: Hx Congestive Heart Failure, Hx DVT, Hx Hypercholesterolemia, Hx Hypertension, Hx Peripheral Vascular Disease Denies: Hx Coronary Artery Disease, Hx Heart Attack Pulmonary Medical History: Reports: Hx Pneumonia - hx Denies: Hx Asthma, Hx Bronchitis, Hx COPD Neurological Medical History: Reports: 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 Denies: Hx Hepatitis, Hx Hiatal Hernia, Hx Ulcer Musculoskeltal Medical History: Denies Hx Arthritis Psychiatric Medical History: Reports: Hx Depression Infectious Medical History: Denies: Hx Hepatitis Past Surgical History: Reports: Hx Cardiac Catheterization, Hx Orthopedic Surgery - Left shoulder, Other - Bilateral vitrectomies, also ? eye laser surgery. Negative ex laparoscopy.. Denies: Hx Hysterectomy, Hx Mastectomy, Hx Open Heart Surgery, Hx Pacemaker - Immunizations Hx Diphtheria, Pertussis, Tetanus Vaccination: Yes History of Influenza Vaccine for 05/2017 - 09/2017 Season: Yes Physical Exam - Vital signs Vitals: Temp Pulse Resp BP Pulse Ox 98.7 F 72 16 120/61 98 06/18/18 16:54 06/18/18 16:54 06/18/18 16:54 06/18/18 16:54 06/18/18 16:54 Course - Vital Signs Vital signs: Temp Pulse Resp BP Pulse Ox 98.7 F 72 16 120/61 98 06/18/18 16:54 06/18/18 16:54 06/18/18 16:54 06/18/18 16:54 06/18/18 16:54 Doctor's Discharge - Discharge Referrals: ALEXY BAIG MD [Primary Care Provider] - Follow up as needed
[2018-06-18 18:17] LABS: ABSOLUTE BASOPHILS # (AUTO) 0.1 10^3/uL (0.0-0.2); ABSOLUTE EOSINOPHILS # (AUTO) 0.7 10^3/uL (0.0-0.6); ABSOLUTE LYMPHOCYTES (AUTO) 3.1 10^3/uL (0.5-4.7); ABSOLUTE MONOCYTES (AUTO) 0.8 10^3/uL (0.1-1.4); ABSOLUTE NEUT (AUTO) 6.9 10^3/uL (1.7-8.2); BASOPHILS % (AUTO) 0.6 % (0-2); EOSINOPHILS % (AUTO) 5.8 % (0-6); HEMATOCRIT 37.5 % (36.0-47.0); HEMOGLOBIN 12.7 g/dL (12.0-15.5); LYMPHOCYTES % (AUTO) 26.8 % (13-45); MEAN CORPUSCULAR HGB CONC 33.8 g/dL (32.0-36.0); MEAN CORPUSCULAR VOLUME 86 fl (80-97); MONOCYTES % (AUTO) 6.8 % (3-13); PLATELET COUNT 266 10^3/uL (150-450); RED BLOOD COUNT 4.38 10^6/uL (3.72-5.28); RED CELL DISTRIBUTION WIDTH 14.6 % (11.5-14.0); TOTAL CELLS COUNTED % (AUTO) 100 %; WHITE BLOOD COUNT 11.6 10^3/uL (4.0-10.5)
[2018-06-18 18:20] LABS: ALANINE AMINOTRANSFERASE 18 U/L (9-52); ALBUMIN 4.5 g/dL (3.5-5.0); ALKALINE PHOSPHATASE 77 U/L (38-126); ANION GAP 15 (5-19); ASPARTATE AMINO TRANSFERASE 25 U/L (14-36); BLOOD UREA NITROGEN 21 mg/dL (7-20); CALCIUM 9.8 mg/dL (8.4-10.2); CARBON DIOXIDE 27 mmol/L (22-30); CHLORIDE 102 mmol/L (98-107); GLUCOSE 123 mg/dL (75-110); POTASSIUM 4.3 mmol/L (3.6-5.0); SODIUM 143.7 mmol/L (137-145)
[2018-06-18 18:21] LABS: BILIRUBIN,DIRECT 0.2 mg/dL (0.0-0.4); BILIRUBIN,TOTAL 1.7 mg/dL (0.2-1.3); TOTAL PROTEIN 7.6 g/dL (6.3-8.2)
[2018-06-18 18:52] LABS: ERYTHROCYTE SEDIMENTATION RATE 33 mm/hr (0-30)
--- NOTE | 2018-06-18 19:55 | ER Document Report ---
ED General - General Chief Complaint: Weak, Neck& shoulder pain, Arm & leg pain, Chest tightness Stated Complaint: WEAKNESS, NECK/ARMS/LEG PAIN Time Seen by Provider: 06/18/18 17:32 Mode of Arrival: Wheelchair Notes: Patient is a 57-year-old patient well-known to me, history of coronary artery disease, hypertension, hyperlipidemia, morbid obesity, who presents with multiple complaints. The patient states that for weeks she has had diffuse body weakness, worse in the upper extremities. States that it is hard for her to get up and walk anywhere due to her degree of weakness. She states she often feels lightheaded, like she is about to pass out. She states that sometimes her chest gets tight but denies any current chest discomfort or pain. She has been seeing her general doctors regarding his issues, states she was recently started on Zoloft due to concerns that she has not been coping well after having a cardiac event. Nothing seems to improve or worsen her symptoms. She denies any fever. No vomiting or abdominal pain. She has not syncopized. TRAVEL OUTSIDE OF THE [place] IN LAST 30 DAYS: No - Related Data Allergies/Adverse Reactions: Shellfish * [Shellfish] Allergy (Severe, Verified 05/10/18 09:51) Hives sulfamethoxazole [From Bactrim] Allergy (Severe, Verified 05/10/18 09:51) Anaphylaxis, RASH trimethoprim [From Bactrim] Allergy (Severe, Verified 05/10/18 09:51) Anaphylaxis, RASH Past Medical History - General Information source: Patient - Social History Smoking Status: Former Smoker Chew tobacco use (# tins/day): No Frequency of alcohol use: None Drug Abuse: None Lives with: Spouse/Significant other Family History: Reviewed & Not Pertinent, Malignancy, Other - Asthma and heart disease Patient has suicidal ideation: No Patient has homicidal ideation: No - Past Medical History Cardiac Medical History: Reports: Hx Congestive Heart Failure, Hx DVT, Hx Heart Attack - x2 in 2018, Hx Hypercholesterolemia, Hx Hypertension, Hx Peripheral Vascular Disease Denies: Hx Coronary Artery Disease Pulmonary Medical History: Reports: Hx Pneumonia - hx Denies: Hx Asthma, Hx Bronchitis, Hx COPD Neurological Medical History: Reports: 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 Denies: Hx Hepatitis, Hx Hiatal Hernia, Hx Ulcer Musculoskeletal Medical History: Denies Hx Arthritis Psychiatric Medical History: Reports: Hx Depression Infectious Medical History: Denies: Hx Hepatitis Past Surgical History: Reports: Hx Cardiac Catheterization, Hx Orthopedic Surgery - left toe, Other - Bilateral vitrectomies, also ? eye laser surgery. Negative ex laparoscopy.. Denies: Hx Hysterectomy, Hx Mastectomy, Hx Open Heart Surgery, Hx Pacemaker - Immunizations Hx Diphtheria, Pertussis, Tetanus Vaccination: Yes Review of Systems - Review of Systems Notes: Constitutional: Negative for fever. Positive for generalized weakness And fatigue HENT: Negative for sore throat. Eyes: Negative for visual changes. Cardiovascular: Negative for chest pain. Respiratory: Negative for shortness of breath. Gastrointestinal: Negative for abdominal pain, vomiting or diarrhea. Genitourinary: Negative for dysuria. Musculoskeletal: Negative for back pain. Skin: Negative for rash. Neurological: Negative for headaches, weakness or numbness. 10 point ROS negative except as marked above and in HPI. Physical Exam - Vital signs Vitals: Temp Pulse Resp BP Pulse Ox 98.7 F 72 16 120/61 98 06/18/18 16:54 06/18/18 16:54 06/18/18 16:54 06/18/18 16:54 06/18/18 16:54 Interpretation: Normal Notes: PHYSICAL EXAMINATION: GENERAL: Appears anxious, fatigued HEAD: Atraumatic, normocephalic. EYES: Pupils equal round and reactive to light, extraocular movements intact, sclera anicteric, conjunctiva are normal. ENT: nares patent, oropharynx clear without exudates. Moist mucous membranes. NECK: Normal range of motion, supple without lymphadenopathy LUNGS: Breath sounds clear to auscultation bilaterally and equal. No wheezes rales or rhonchi. HEART: Regular rate and rhythm without murmurs ABDOMEN: Soft, nontender, normoactive bowel sounds. No guarding, no rebound. No masses appreciated. EXTREMITIES: Normal range of motion, no pitting or edema. No cyanosis. NEUROLOGICAL: Face symmetric. Tongue protrudes midline. Extraocular motions intact. Pupils are 2 mm and equally reactive. Normal speech. 5 out of 5 strength in both the distal and proximal upper and lower extremities bilaterally. Sensation is grossly intact throughout. Finger to nose testing normal. Pronator drift normal. PSYCH: Highly anxious, tearful SKIN: Warm, Dry, normal turgor, no rashes or lesions noted. Course - Re-evaluation Re-evalutation: 06/18/18 19:53 Patient presents with multiple complaints. Her main concern is ongoing muscle weakness and discomfort which appears to be likely due to a statin-induced myositis. I have advised her to discontinue her statin for several days and see if this resolves her symptoms. ESR is normal. She has no focal neurologic deficits on exam. Nothing to suggest an acute stroke or polymyositis. Patient also complains of intermittent periods of lightheadedness. She is eating very little, only a small bowl of cereal in the morning, a solid without protein at lunch, and 3-4 ounces of meat with a vegetable at night. I have emphasized the patient that although I am very happy about her significant weight loss, approximately 20 kg in the last 5 months, that I would prefer a slower weight loss and appropriate nutrition throughout the day to avoid these symptoms. Vitals are within normal limits at triage and at time of discharge. Physical examination is unremarkable. Patient has tolerated oral intake without difficulty. Patient was not noted to be in distress at any point during their ER visit. At this time, based on the reassuring evaluation, I do not suspect an acute IL, pulmonary embolus, aortic dissection, acute intra-abdominal pathology, stroke, or sepsis. Will discharge with return precautions and follow- up recommendations. Verbal discharge instructions given a the bedside and opportunity for questions given. Medication warnings reviewed. Patient is in agreement with this plan and has verbalized understanding of return precautions and the need for primary care follow-up in the next 24-72 hours. - Vital Signs Vital signs: Temp Pulse Resp BP Pulse Ox 98.7 F 72 19 120/61 93 06/18/18 16:54 06/18/18 16:54 06/19/18 01:01 06/19/18 01:01 06/19/18 01:01 - Laboratory Result Diagrams: 06/18/18 17:54 06/18/18 17:54 Laboratory results interpreted by me: 06/18/18 06/18/18 17:54 17:54 WBC 11.6 H RDW 14.6 H Absolute Eosinophils 0.7 H ESR 33 H BUN 21 H Est GFR (Non-Af Amer) 54 L Glucose 123 H Total Bilirubin 1.7 H - EKG Interpretation by Me Additional EKG results interpreted by me: 06/18/18 19:55 Sinus rhythm. Rate 67. Left bundle branch block. QTC 532. Unchanged from prior. Discharge - Discharge Clinical Impression: Anxiety and depression, Statin myopathy, General weakness, Lightheadedness Condition: Good Disposition: HOME, SELF-CARE Additional Instructions: Please discontinue the atorvastatin 40 mg for the next 3 doses (days). If you do not have resolution of your muscle weakness and fatigue you may restart the medication at 80 mg daily. If your symptoms resolved please do not restart the atorvastatin, contact your primary doctor for an alternative cholesterol- lowering medication. You are not eating enough. I am happy that you are losing weight, but you need to be eating more so that you are not experiencing lightheadedness during the day. Choose healthy snacks such as protein shakes, nuts, fresh fruits or vegetables. Your labs today are normal. We have transitioned you from ciprofloxacin to Keflex given your persistent urinary tract infection symptoms. Return if you develop chest pain, pass out, develop worsening of your symptoms, fever or any other symptoms that are worrisome to you Prescriptions: Cephalexin Monohydrate [Keflex 500 mg Capsule] 500 mg PO Q6H 5 Days capsule Referrals: ALEXY BAIG MD [Primary Care Provider] - Follow up in 3-5 days
[2018-06-18] MEDS ORDERED: LORAZEPAM 1 MG TABLET PO ONE (20:36)
[2018-06-19 06:58] VITALS: BP 106/50
== END 2018-06-19 02:14 | disposition home or self-care (01) ==
LOC: ER 16:42
DX: G72.0 Drug-induced myopathy (principal); T50.995A Adverse effect of other drugs, medicaments and biological substances, initial encounter; R53.1 Weakness; F41.9 Anxiety disorder, unspecified; F32.9 Major depressive disorder, single episode, unspecified; I25.2 Old myocardial infarction; R42 Dizziness and giddiness; R53.83 Other fatigue; E78.00 Pure hypercholesterolemia, unspecified; E78.5 Hyperlipidemia, unspecified; I25.10 Atherosclerotic heart disease of native coronary artery without angina pectoris; I10 Essential (primary) hypertension; I44.7 Left bundle-branch block, unspecified; Z91.013 Allergy to seafood; Z88.1 Allergy status to other antibiotic agents; Z87.891 Personal history of nicotine dependence
CPT/HCPCS: 93005; 99285; 36415; 85025; 85652; 80053; 84484; 93010; A9270

== ENCOUNTER 2018-08-13 15:10 | Emergency (ER) | payer MEDICARE, MEDICAID ==
[2018-08-13] MEDS ORDERED: KETOROLAC TROMETHAMINE INJ/PF 30 MG/1 ML SDV IV ONE (15:28)
--- NOTE | 2018-08-13 15:29 | ER Document Report ---
ED Medical Screen (RME) - General Chief Complaint: Abdominal Pain Stated Complaint: ABDOMINAL PAIN Time Seen by Provider: 08/13/18 15:27 Mode of Arrival: Wheelchair Information source: Patient TRAVEL OUTSIDE OF THE [place] IN LAST 30 DAYS: No - HPI Patient complains to provider of: abd pain Onset: Yesterday - pt. with onset of RLQ abd pain yessterday with exacerbation this am - Related Data Allergies/Adverse Reactions: Shellfish * [Shellfish] Allergy (Severe, Verified 05/10/18 09:51) Hives sulfamethoxazole [From Bactrim] Allergy (Severe, Verified 05/10/18 09:51) Anaphylaxis, RASH trimethoprim [From Bactrim] Allergy (Severe, Verified 05/10/18 09:51) Anaphylaxis, RASH Past Medical History - Social History Chew tobacco use (# tins/day): No Frequency of alcohol use: None Drug Abuse: None - Past Medical History Cardiac Medical History: Reports: Hx Congestive Heart Failure, Hx DVT, Hx Heart Attack - x2 in 2018, Hx Hypercholesterolemia, Hx Hypertension, Hx Peripheral Vascular Disease Denies: Hx Coronary Artery Disease Pulmonary Medical History: Reports: Hx Pneumonia - hx Denies: Hx Asthma, Hx Bronchitis, Hx COPD Neurological Medical History: Reports: 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 Denies: Hx Hepatitis, Hx Hiatal Hernia, Hx Ulcer Musculoskeltal Medical History: Denies Hx Arthritis Psychiatric Medical History: Reports: Hx Depression Infectious Medical History: Denies: Hx Hepatitis Past Surgical History: Reports: Hx Cardiac Catheterization - stents, Hx Orthopedic Surgery - left toe, Other - Bilateral vitrectomies, also ? eye laser surgery. Negative ex laparoscopy.. Denies: Hx Hysterectomy, Hx Mastectomy, Hx Open Heart Surgery, Hx Pacemaker - Immunizations Hx Diphtheria, Pertussis, Tetanus Vaccination: Yes History of Influenza Vaccine for 05/2017 - 09/2017 Season: Yes Physical Exam - Vital signs Vitals: Temp Pulse Resp BP Pulse Ox 98 F 81 20 138/60 H 100 08/13/18 15:24 08/13/18 15:24 08/13/18 15:24 08/13/18 15:24 08/13/18 15:24 Course - Vital Signs Vital signs: Temp Pulse Resp BP Pulse Ox 98 F 81 20 138/60 H 100 08/13/18 15:24 08/13/18 15:24 08/13/18 15:24 08/13/18 15:24 08/13/18 15:24 Doctor's Discharge - Discharge Referrals: ALEXY BAIG MD [Primary Care Provider] - Follow up as needed
[2018-08-13 16:23] LABS: ABSOLUTE BASOPHILS # (AUTO) 0.1 10^3/uL (0.0-0.2); ABSOLUTE EOSINOPHILS # (AUTO) 0.4 10^3/uL (0.0-0.6); ABSOLUTE LYMPHOCYTES (AUTO) 1.9 10^3/uL (0.5-4.7); ABSOLUTE MONOCYTES (AUTO) 1.4 10^3/uL (0.1-1.4); ABSOLUTE NEUT (AUTO) 14.7 10^3/uL (1.7-8.2); BASOPHILS % (AUTO) 0.5 % (0-2); EOSINOPHILS % (AUTO) 2.3 % (0-6); HEMATOCRIT 39.1 % (36.0-47.0); LYMPHOCYTES % (AUTO) 10.3 % (13-45); MEAN CORPUSCULAR HEMOGLOBIN 29.1 pg (27.0-33.4); MEAN CORPUSCULAR HGB CONC 33.1 g/dL (32.0-36.0); MEAN CORPUSCULAR VOLUME 88 fl (80-97); MONOCYTES % (AUTO) 7.6 % (3-13); PLATELET COUNT 236 10^3/uL (150-450); RED BLOOD COUNT 4.46 10^6/uL (3.72-5.28); RED CELL DISTRIBUTION WIDTH 13.4 % (11.5-14.0); SEGMENTED NEUTROPHILS % (AUTO) 79.3 % (42-78); TOTAL CELLS COUNTED % (AUTO) 100 %; WHITE BLOOD COUNT 18.5 10^3/uL (4.0-10.5)
[2018-08-13] MEDS ORDERED: ERTAPENEM SODIUM INJ 1 GM VIAL IV ONE (16:41)
--- NOTE | 2018-08-13 16:41 | ER Document Report ---
ED GI/ - General Mode of Arrival: Wheelchair Information source: Patient TRAVEL OUTSIDE OF THE [place] IN LAST 30 DAYS: No <NIKOLAS HARLEY - Last Filed: 08/13/18 17:33> <COBY NOLASCO - Last Filed: 08/13/18 20:17> - General Chief Complaint: Abdominal Pain Stated Complaint: ABDOMINAL PAIN Time Seen by Provider: 08/13/18 15:27 Notes: 57-year-old female who presents to the emergency department today with complaints of sudden onset of right pelvic pain beginning around 5-530 yesterday. Patient states the pain has progressed since onset. Patient has had some nausea but denies any vomiting. (NIKOLAS HARLEY) 57-year-old female patient insulin-dependent type 2 diabetes, past history of PA x2 last year with cardiac catheterization and stents. She is on Effient. She does have past history of DVT. Last ate 2 slices of raisin toast and a banana at 1 PM today. (COBY NOLASCO) - Related Data Allergies/Adverse Reactions: Shellfish * [Shellfish] Allergy (Severe, Verified 05/10/18 09:51) Hives sulfamethoxazole [From Bactrim] Allergy (Severe, Verified 05/10/18 09:51) Anaphylaxis, RASH trimethoprim [From Bactrim] Allergy (Severe, Verified 05/10/18 09:51) Anaphylaxis, RASH Past Medical History - General Information source: Patient - Social History Smoking Status: Former Smoker Cigarette use (# per day): No Chew tobacco use (# tins/day): No Frequency of alcohol use: None Drug Abuse: None Lives with: Family Family History: Reviewed & Not Pertinent, Malignancy, Other - Asthma and heart disease Patient has suicidal ideation: No Patient has homicidal ideation: No - Past Medical History Cardiac Medical History: Reports: Hx Congestive Heart Failure, Hx DVT, Hx Heart Attack - x2 in 2018, Hx Hypercholesterolemia, Hx Hypertension, Hx Peripheral Vascular Disease Pulmonary Medical History: Reports: Hx Pneumonia - hx Neurological Medical History: Reports: Hx 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 eye laser surgery. Negative ex laparoscopy. - Immunizations Hx Diphtheria, Pertussis, Tetanus Vaccination: Yes <NIKOLAS HARLEY - Last Filed: 08/13/18 17:33> Review of Systems - Review of Systems Constitutional: No symptoms reported EENT: No symptoms reported Cardiovascular: No symptoms reported Respiratory: denies: Hurts to breathe Gastrointestinal: See HPI, Abdominal pain, Nausea. denies: Vomiting Genitourinary: No symptoms reported Female Genitourinary: No symptoms reported Musculoskeletal: No symptoms reported Skin: No symptoms reported Hematologic/Lymphatic: No symptoms reported Neurological/Psychological: No symptoms reported -: Yes All other systems reviewed and negative <NIKOLAS HARLEY - Last Filed: 08/13/18 17:33> Physical Exam <NIKOLAS HARLEY - Last Filed: 08/13/18 17:33> - Vital signs Vitals: Temp Pulse Resp BP Pulse Ox 98 F 81 20 138/60 H 100 08/13/18 15:24 08/13/18 15:24 08/13/18 15:24 08/13/18 15:24 08/13/18 15:24 - Notes Notes: Physical Exam: General: Alert, appears uncomfortable. HEENT: Normocephalic. Atraumatic. PERRL. Extraocular movements intact. Oropharynx clear. Neck: Supple. Non-tender. Respiratory: No respiratory distress. Clear and equal breath sounds bilaterally. Cardiovascular: Regular rate and rhythm. Abdominal: Right lateral lower pelvic tenderness with palpation. Obese. No distension. Normal Bowel Sounds. Back: Non-tender. No deformity or step off. Extremities: Moves all four extremities. Upper extremities: Normal inspection. Normal ROM. Lower extremities: Normal inspection. No edema. Normal ROM. Neurological: Normal cognition. AAOx4. Normal speech. Psychological: Normal affect. Normal Mood. Skin: Warm. Dry. Normal color. (NIKOLAS HARLEY) Course - Laboratory Result Diagrams: 08/13/18 16:03 08/13/18 16:03 <NIKOLAS HARLEY - Last Filed: 08/13/18 17:33> - Laboratory Result Diagrams: 08/13/18 16:03 08/13/18 16:03 - Diagnostic Test Radiology reviewed: Reports reviewed - Acute appendicitis - EKG Interpretation by Me EKG shows normal: Sinus rhythm, [place], Intervals, QRS Complexes, ST-T Waves Rate: Normal - 78 Rhythm: NSR [place]/QRS: LBBB When compared to previous EKG there are: No significant change - Consults Dr. Walker Time consulted: 18:30 Consulted provider: will come to ER - Transfer of Care Care transferred to following provider: Dr. Acuna <COBY NOLASCO - Last Filed: 08/13/18 20:17> - Re-evaluation Re-evalutation: 08/13/18 19:46 Patient requested to go to [place] after Dr. Walker saw her and informed her and myself that our facility does not have placement platelets for urgent surgery. [facility] transfer center was called at 19:[address] Stanton was paged for surgical consultation. The [facility] transfer service called back at 19:[address] Stanton told them that he would not be able to get the patient on the OR schedule. The [facility] transfer service was called at 19:41. 08/13/18 20:16 Dr. Segura called me back and is accepting the patient as an ER to ER transfer. The transfer center will talk with our administrative project coordinator and coordinate transfer. (COBY NOLASCO) - Vital Signs Vital signs: Temp Pulse Resp BP Pulse Ox 98 F 81 16 106/74 97 08/13/18 15:24 08/13/18 15:24 08/13/18 18:16 08/13/18 18:15 08/13/18 18:16 - Laboratory Laboratory results interpreted by me: 08/13/18 08/13/18 08/13/18 16:03 16:03 17:20 WBC 18.5 H Seg Neutrophils % 79.3 H Lymphocytes % 10.3 L Absolute Neutrophils 14.7 H Est GFR (Non-Af Amer) 55 L Glucose 217 H Total Bilirubin 1.8 H Urine Protein 30 H Ur Leukocyte Esterase TRACE H - Transfer of Care Notes: 08/13/18 20:17 The patient is pending transfer to the [facility] emergency room. (COBY NOLASCO) Discharge <NIKOLAS HARLEY - Last Filed: 08/13/18 17:33> <COBY NOLASCO - Last Filed: 08/13/18 20:17> - Discharge Clinical Impression: Appendicitis Qualifiers: Appendicitis type: acute appendicitis Acute appendicitis type: with localized peritonitis Appendicitis gangrene presence: without gangrene Appendicitis perforation presence: without perforation Appendicitis abscess presence: without abscess Qualified Code(s): K35.30 - Acute appendicitis with localized peritonitis, without perforation or gangrene Leukocytosis Qualifiers: Leukocytosis type: unspecified Qualified Code(s): D72.829 - Elevated white blood cell count, unspecified Type 2 diabetes mellitus Qualifiers: Diabetes mellitus terminal press operator insulin use: with detention use Diabetes mellitus complication status: with unspecified complications Qualified Code(s): E11.8 - Type 2 diabetes mellitus with unspecified complications Condition: Stable Referrals: ALEXY BAIG MD [Primary Care Provider] - Follow up as needed Scribe Attestation: 08/13/18 18:19 I personally performed the services described in the documentation, reviewed and edited the documentation which was dictated to the scribe in my presence, and it accurately records my words and actions. (COBY NOLASCO) Scribe Documentation - Scribe Written by Jessicaibe:: Max Mckinney, 08/13/2018 1737 acting as scribe for :: Austyn <NIKOLAS HARLEY - Last Filed: 08/13/18 17:33>
[2018-08-13 16:43] LABS: ALANINE AMINOTRANSFERASE 16 U/L (9-52); ALBUMIN 4.5 g/dL (3.5-5.0); ALKALINE PHOSPHATASE 91 U/L (38-126); ANION GAP 8 (5-19); ASPARTATE AMINO TRANSFERASE 22 U/L (14-36); BILIRUBIN,DIRECT 0.4 mg/dL (0.0-0.4); BILIRUBIN,TOTAL 1.8 mg/dL (0.2-1.3); BLOOD UREA NITROGEN 20 mg/dL (7-20); CALCIUM 9.3 mg/dL (8.4-10.2); CARBON DIOXIDE 30 mmol/L (22-30); CHLORIDE 100 mmol/L (98-107); GLUCOSE 217 mg/dL (75-110); POTASSIUM 4.4 mmol/L (3.6-5.0); TOTAL PROTEIN 7.7 g/dL (6.3-8.2)
[2018-08-13] MEDS ORDERED: NORMAL SALINE 1000 ML 1,000 ML IV ONE (16:58)
--- NOTE | 2018-08-13 18:10 | RADIOLOGY REPORT (SQ) ---
EXAM DESCRIPTION: CT ABD/PELVIS WITH IV ONLY COMPLETED DATE/TIME: 08/13/2018 5:54 pm REASON FOR STUDY: RLQ pain COMPARISON: None. TECHNIQUE: CT scan of the abdomen and pelvis performed using helical scanning technique with dynamic intravenous contrast injection. No oral contrast. Images reviewed with lung, soft tissue, and bone w indows. Reconstructed coronal and sagittal MPR images reviewed. Delayed images for evaluation of the urinary system also acquired. All images stored on PACS. All CT scanners at this facility use dose modulation, iterative reconstruction, and/or weight based d osing when appropriate to reduce radiation dose to as low as reasonably achievable (ALARA). [facility]: Dose Right [facility]: CareDose [facility]: Dose Right [facility]: Teradose 4D [facility]: [email or web address] CONTRAST TYPE AND DOSE: contrast/concentration: Isovue 350.00 mg/ml; Total Contrast Delivered: 100.0 ml; Total Saline Delivered: 72.0 ml RENAL FUNCTION: GFR > 60. RADIATION DOSE: CT Rad equipment meets quality standard of care and radiation dose reduction techniq ues were employed. CTDIvol: 22.5 - 29.2 mGy. DLP: 4321 mGy-cm.. LIMITATIONS: None. FINDINGS: LOWER CHEST: No significant findings. LIVER: Normal size. No enhancing masses. No dilated ducts. SPLEEN: Normal size. No focal lesions. PANCREAS: No masses identified. No significant calcifications. No adjacent inflammation or peripancre atic fluid collections. Pancreatic duct not dilated. GALLBLADDER: No calcified stones. No inflammatory changes to suggest cholecystitis. ADRENAL GLANDS: No significant masses. RIGHT KIDNEY AND URETER: No cysts identified. No solid masses identified. No calcified stones. No hyd ronephrosis or hydroureter. LEFT KIDNEY AND URETER: No cysts identified. No solid masses identified. No calcified stones. No hydr onephrosis or hydroureter. AORTA AND VESSELS: No aneurysm. No dissection. Renal arteries, SMA, celiac without significant stenos is. RETROPERITONEUM: No bulky retroperitoneal adenopathy. BOWEL AND PERITONEAL CAVITY: No obstruction or inflammatory changes. No free fluid. APPENDIX: Dilated appendix with moderate adjacent inflammatory changes consistent with acute appendic itis. No abscess identified. PELVIS: No mass. No free fluid. Unremarkable bladder. ABDOMINAL WALL: No masses. No hernias. BONES: No acute findings. OTHER: No other significant finding. IMPRESSION: Dilated appendix with moderate adjacent inflammatory changes consistent with acute appen dicitis. No abscess identified. TECHNICAL DOCUMENTATION: JOB ID: [id number] [place]-72 Quality ID # 436: Final reports with documentation of one or more dose reduction techniques (e.g., Au tomated exposure control, adjustment of the mA and/or kV according to patient size, use of iterative reconstruction technique) 2010 [employer]- All Rights Reserved Reading location - IP/workstation name: [email or web address]
[2018-08-13 18:22] LABS: APPEARANCE,URINE SLIGHTLY-CLOUDY; BILIRUBIN,URINE NEGATIVE (NEGATIVE); COLOR,URINE YELLOW; GLUCOSE, URINE NEGATIVE (NEGATIVE); KETONES,URINE NEGATIVE (NEGATIVE); LEUKOCYTE ESTERASE,URINE TRACE (NEGATIVE); NITRITE,URINE NEGATIVE (NEGATIVE); PROTEIN,URINE 30 mg/dL (NEGATIVE); URINE SPECIFIC GRAVITY 1.015; UROBILINOGEN,URINE NEGATIVE mg/dL (<2.0)
--- NOTE | 2018-08-13 20:37 | EKG REPORT ---
SEVERITY:- ABNORMAL ECG - SINUS RHYTHM LEFT BUNDLE BRANCH BLOCK : Confirmed by: Nilo Barney MD 13-Aug-2018 20:35:51
[2018-08-13 21:22] VITALS: BP 109/66
== END 2018-08-13 21:24 | disposition short-term general hospital (02) ==
LOC: ER 15:10
DX: K35.30 Acute appendicitis with localized peritonitis, without perforation or gangrene (principal); D72.829 Elevated white blood cell count, unspecified; R10.2 Pelvic and perineal pain; R11.0 Nausea; E11.51 Type 2 diabetes mellitus with diabetic peripheral angiopathy without gangrene; Z79.4 Long term (current) use of insulin; I44.7 Left bundle-branch block, unspecified; I10 Essential (primary) hypertension; I25.2 Old myocardial infarction; Z79.02 Long term (current) use of antithrombotics/antiplatelets; Z95.5 Presence of coronary angioplasty implant and graft; Z91.013 Allergy to seafood; Z88.1 Allergy status to other antibiotic agents; Z87.891 Personal history of nicotine dependence
CPT/HCPCS: 93005; 99284; 96375; 96365; 96366; 36415; 87040; 85025; 80053; 81001; 74177; 93010; J1335; J1885; J7030

== ENCOUNTER 2018-08-27 22:43 | Emergency (ER) | payer MEDICARE, MEDICAID ==
[2018-08-28 00:23] LABS: ABSOLUTE BASOPHILS # (AUTO) 0.1 10^3/uL (0.0-0.2); ABSOLUTE EOSINOPHILS # (AUTO) 0.5 10^3/uL (0.0-0.6); ABSOLUTE LYMPHOCYTES (AUTO) 3.6 10^3/uL (0.5-4.7); ABSOLUTE MONOCYTES (AUTO) 0.6 10^3/uL (0.1-1.4); ABSOLUTE NEUT (AUTO) 5.3 10^3/uL (1.7-8.2); BASOPHILS % (AUTO) 1.1 % (0-2); EOSINOPHILS % (AUTO) 5.2 % (0-6); HEMOGLOBIN 12.2 g/dL (12.0-15.5); LYMPHOCYTES % (AUTO) 35.3 % (13-45); MEAN CORPUSCULAR HEMOGLOBIN 29.2 pg (27.0-33.4); MEAN CORPUSCULAR VOLUME 86 fl (80-97); PLATELET COUNT 299 10^3/uL (150-450); RED BLOOD COUNT 4.19 10^6/uL (3.72-5.28); RED CELL DISTRIBUTION WIDTH 12.9 % (11.5-14.0); SEGMENTED NEUTROPHILS % (AUTO) 52.4 % (42-78); TOTAL CELLS COUNTED % (AUTO) 100 %; WHITE BLOOD COUNT 10.1 10^3/uL (4.0-10.5)
[2018-08-28 00:46] LABS: ALANINE AMINOTRANSFERASE 27 U/L (9-52); ALBUMIN 4.4 g/dL (3.5-5.0); ALKALINE PHOSPHATASE 87 U/L (38-126); ANION GAP 7 (5-19); ASPARTATE AMINO TRANSFERASE 19 U/L (14-36); BILIRUBIN,DIRECT 0.2 mg/dL (0.0-0.4); BILIRUBIN,TOTAL 0.5 mg/dL (0.2-1.3); BLOOD UREA NITROGEN 25 mg/dL (7-20); CALCIUM 9.8 mg/dL (8.4-10.2); CARBON DIOXIDE 29 mmol/L (22-30); CHLORIDE 104 mmol/L (98-107); GLUCOSE 142 mg/dL (75-110); LIPASE 70.3 U/L (23-300); POTASSIUM 4.5 mmol/L (3.6-5.0); SODIUM 139.7 mmol/L (137-145); TOTAL PROTEIN 7.3 g/dL (6.3-8.2)
--- NOTE | 2018-08-28 02:08 | RADIOLOGY REPORT (SQ) ---
EXAM DESCRIPTION: CT ABDOMEN PELVIS WITH IV CONTRAST COMPLETED DATE/TME: 08/28/2018 01:05 CLINICAL HISTORY: 57 years, Female, eval recurrent appendicitis COMPARISON: 08/13/2018 CT TECHNIQUE: 457 Images stored on PACS. All CT scanners at this facility use dose modulation, iterative reconstruction, and/or weight based dosing when appropriate to reduce radiation dose to as low as reasonably achievable (ALARA). [facility]: Dose Right [facility]: CareDose [facility]: Dose Right [facility]: Teradose 4D [facility]: [employer] LIMITATIONS: None. FINDINGS: Limited evaluation of the lung bases is unremarkable. Osseous structures are grossly intact. Fatty infiltrative change to the liver. The spleen, adrenal glands, pancreas, kidneys are unremarkable. The gallbladder is present. Tiny fat-containing umbilical hernia. No gross evidence for bowel obstruction. Inflammatory changes and distention associated with the appendix on the prior exam has nearly completely resolved. There is some equivocal residual periappendiceal inflammation. No abscess, free air, or free fluid. IMPRESSION: Findings of acute appendicitis described previously have nearly completely resolved. The appendix does not appear dilated and there is only mild residual periappendiceal inflammation. No abscess, free air, or free fluid. TECHNICAL DOCUMENTATION: Quality ID # 436: Final reports with documentation of one or more dose reduction techniques (e.g., Automated exposure control, adjustment of the mA and/or kV according to patient size, use of iterative reconstruction technique) copyright 2011 [employer]- All Rights Reserved
[2018-08-28 02:43] LABS: APPEARANCE,URINE SLIGHTLY-CLOUDY; BILIRUBIN,URINE NEGATIVE (NEGATIVE); COLOR,URINE YELLOW; GLUCOSE, URINE NEGATIVE (NEGATIVE); KETONES,URINE NEGATIVE (NEGATIVE); LEUKOCYTE ESTERASE,URINE NEGATIVE (NEGATIVE); NITRITE,URINE NEGATIVE (NEGATIVE); PROTEIN,URINE 30 mg/dL (NEGATIVE); URINE SPECIFIC GRAVITY 1.032; UROBILINOGEN,URINE NEGATIVE mg/dL (<2.0)
--- NOTE | 2018-08-28 03:53 | ER Document Report ---
ED General - General Chief Complaint: Abdominal Pain Stated Complaint: ABDOMINAL PAIN Time Seen by Provider: 08/28/18 01:05 Primary Care Provider: ALEXY BAIG MD [Primary Care Provider] - Follow up as needed Notes: Patient is a 57-year-old female past medical history of diabetes, hypertension, hyperlipidemia, coronary artery disease, very well known to me who presents tonight with right lower quadrant abdominal pain with associated nausea. The patient was treated for acute appendicitis with IV antibiotics at [facility] after being diagnosed with appendicitis here on 13 August. This method of treatment was elected for as the patient is on Effient and has drug-eluting stents. Patient was discharged home on Augmentin. States she finished the Augmentin 3 days ago and have been having no pain or any additional symptoms since that time. She states tonight that she had a relatively abrupt onset of right lower quadrant abdominal pain that she describes as an aching, cramping pain worsened by movement. Nothing has improved the pain and she did try a 5 mg oxycodone tablet. Notes nausea but no vomiting. No fever or constitutional symptoms. She did contact her surgeon Dr. Bryant who instructed to come to the emergency department for assessment. TRAVEL OUTSIDE OF THE [place] IN LAST 30 DAYS: No - Related Data Allergies/Adverse Reactions: Shellfish * [Shellfish] Allergy (Severe, Verified 08/28/18 01:55) Hives sulfamethoxazole [From Bactrim] Allergy (Severe, Verified 08/28/18 01:55) Anaphylaxis, RASH trimethoprim [From Bactrim] Allergy (Severe, Verified 08/28/18 01:55) Anaphylaxis, RASH Past Medical History - General Information source: Patient - Social History Smoking Status: Former Smoker Frequency of alcohol use: None Drug Abuse: None Lives with: Spouse/Significant other Family History: Reviewed & Not Pertinent, Malignancy, Other - Asthma and heart disease Patient has suicidal ideation: No Patient has homicidal ideation: No - Past Medical History Cardiac Medical History: Reports: Hx Congestive Heart Failure, Hx DVT, Hx Heart Attack - x2 in 2018, Hx Hypercholesterolemia, Hx Hypertension, Hx Peripheral Vascular Disease Denies: Hx Coronary Artery Disease Pulmonary Medical History: Reports: Hx Pneumonia - hx Denies: Hx Asthma, Hx Bronchitis, Hx COPD Neurological Medical History: Reports: 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 Denies: Hx Hepatitis, Hx Hiatal Hernia, Hx Ulcer Musculoskeletal Medical History: Denies Hx Arthritis Psychiatric Medical History: Reports: Hx Depression Infectious Medical History: Denies: Hx Hepatitis Past Surgical History: Reports: Hx Cardiac Catheterization - stents, Hx Orthopedic Surgery - left toe, Other - Bilateral vitrectomies, also ? eye laser surgery. Negative ex laparoscopy.. Denies: Hx Hysterectomy, Hx Mastectomy, Hx Open Heart Surgery, Hx Pacemaker - Immunizations Hx Diphtheria, Pertussis, Tetanus Vaccination: Yes Review of Systems - Review of Systems Notes: Constitutional: Negative for fever. HENT: Negative for sore throat. Eyes: Negative for visual changes. Cardiovascular: Negative for chest pain. Respiratory: Negative for shortness of breath. Gastrointestinal: Positive for abdominal pain and nausea Genitourinary: Negative for dysuria. Musculoskeletal: Negative for back pain. Skin: Negative for rash. Neurological: Negative for headaches, weakness or numbness. 10 point ROS negative except as marked above and in HPI. Physical Exam - Vital signs Vitals: Temp Pulse Resp BP Pulse Ox 98.6 F 71 14 135/65 H 98 08/27/18 23:07 08/27/18 23:07 08/27/18 23:07 08/27/18 23:07 08/27/18 23:07 Interpretation: Normal Notes: PHYSICAL EXAMINATION: GENERAL: Well-appearing, well-nourished and in no acute distress. HEAD: Atraumatic, normocephalic. EYES: Pupils equal round and reactive to light, extraocular movements intact, sclera anicteric, conjunctiva are normal. ENT: nares patent, oropharynx clear without exudates. Moist mucous membranes. NECK: Normal range of motion, supple without lymphadenopathy LUNGS: Breath sounds clear to auscultation bilaterally and equal. No wheezes rales or rhonchi. HEART: Regular rate and rhythm without murmurs ABDOMEN: Soft, mild tenderness on palpation of the right lower quadrant without other areas of localized tenderness. There is some rebound to the right lower quadrant on palpation. EXTREMITIES: Normal range of motion, no pitting or edema. No cyanosis. NEUROLOGICAL: No focal neurological deficits. Moves all extremities spont aneously and on command. PSYCH: Normal mood, normal affect. SKIN: Warm, Dry, normal turgor, no rashes or lesions noted. Course - Re-evaluation Re-evalutation: 08/28/18 04:08 Presentation of a overall well-appearing 57-year-old female in no acute distress. I have the pleasure of knowing Ms. Stearns very well. She is coming in today with right lower abdominal pain that started earlier this evening. On exam she does have some focal tenderness the right lower quadrant with mild rebound. CT scan of the abdomen and pelvis with IV contrast shows a very small amount of residual periappendiceal inflammation although the findings previously noted on the prior CT have effectively completely resolved. White blood cell count is normal. Patient's vitals are within normal limits. I did contact the surgeon who cared for Ms. Stearns, Dr. Bryant. We reviewed her case, CT findings and labs. We have decided on a plan to begin the patient on oral antibiotics and have her follow-up in clinic as opposed to hospitalize her transfer. The patient is very comfortable with this plan. She has been given her first of ciprofloxacin and Flagyl here in the emergency department. At this time will discharge with return precautions and follow-up recommendations. Verbal discharge instructions given a the bedside and opportunity for questions given. Medication warnings reviewed. Patient is in agreement with this plan and has verbalized understanding of return precautions and the need for primary care follow-up in the next 24-72 hours. - Vital Signs Vital signs: Temp Pulse Resp BP Pulse Ox 98.6 F 71 14 135/65 H 98 08/27/18 23:07 08/27/18 23:07 08/27/18 23:07 08/27/18 23:07 08/27/18 23:07 - Laboratory Result Diagrams: 08/28/18 00:12 08/28/18 00:12 Laboratory results interpreted by me: 08/28/18 08/28/18 00:12 02:23 BUN 25 H Est GFR ( Amer) 58 L Est GFR (Non-Af Amer) 48 L Glucose 142 H Urine Protein 30 H Discharge - Discharge Clinical Impression: Right lower quadrant abdominal pain Condition: Good Disposition: HOME, SELF-CARE Additional Instructions: I spoke to Dr. Annette rick. We have agreed to start you on 2 antibiotics and have you follow-up in the clinic on Tuesday as scheduled. Please return to the emergency room immediately if you develop a fever of greater than 100.4 F, worsening pain, began vomiting, or have any additional concerns. Dr. Bryant is planning to have his nurse contact you in the morning. It is always a pleasure seeing you Chuy! Prescriptions: Ciprofloxacin HCl [Cipro 500 mg Tablet] 500 mg PO BID #20 tablet Metronidazole [Flagyl 500 mg Tablet] 500 mg PO Q6H #40 tablet Referrals: ALEXY BAIG MD [Primary Care Provider] - Follow up as needed
[2018-08-28] MEDS ORDERED: CIPROFLOXACIN HCL 500 MG TABLET PO ONE (04:07)
[2018-08-28] MEDS ORDERED: METRONIDAZOLE 500 MG TABLET PO ONE (04:07)
[2018-08-28 04:39] VITALS: BP 120/59
== END 2018-08-28 04:38 | disposition home or self-care (01) ==
LOC: ER 22:43
DX: R10.31 Right lower quadrant pain (principal); R10.9 Unspecified abdominal pain; E11.9 Type 2 diabetes mellitus without complications; E78.5 Hyperlipidemia, unspecified; I25.10 Atherosclerotic heart disease of native coronary artery without angina pectoris; R11.0 Nausea; Z87.891 Personal history of nicotine dependence; I50.9 Heart failure, unspecified; I11.0 Hypertensive heart disease with heart failure
CPT/HCPCS: 99284; 36415; 83690; 85025; 80053; 81001; 74177; A9270 ×2

== ENCOUNTER 2018-12-16 13:12 | Emergency (ER) | payer MEDICARE, MEDICAID ==
--- NOTE | 2018-12-16 14:20 | ER Document Report ---
ED General - General Chief Complaint: Dizziness Stated Complaint: DIZZINESS Time Seen by Provider: 12/16/18 14:19 Primary Care Provider: ALEXY BAIG MD [Primary Care Provider] - Follow up as needed Notes: This is a pleasant 58-year-old female to the emergency department chief complaint of dizziness. Patient states that it came on suddenly. Does not have any chest pain. No shortness of breath. Long-standing history of neuropathy as well as heart attack. Had 2 stents placed. On anticoagulation therapy at this time. Denies any trauma. States it is worse when she moves her head. Does have a significant amount of nausea at this time as well. Denies any abdominal pain, headache, back pain, neck pain or other issues. Did have a cortisone shot in her right shoulder 1 week ago. TRAVEL OUTSIDE OF THE [place] IN LAST 30 DAYS: No - HPI Onset: Just prior to arrival Onset/Duration: Sudden Quality of pain: No pain Severity: Moderate Pain Level: Denies Associated symptoms: Nausea - Related Data Allergies/Adverse Reactions: Shellfish * [Shellfish] Allergy (Severe, Verified 12/16/18 13:27) Hives sulfamethoxazole [From Bactrim] Allergy (Severe, Verified 12/16/18 13:27) Anaphylaxis, RASH trimethoprim [From Bactrim] Allergy (Severe, Verified 12/16/18 13:27) Anaphylaxis, RASH Past Medical History - General Information source: Patient, [facility] Records - Social History Smoking Status: Never Smoker Frequency of alcohol use: None Drug Abuse: None Lives with: Spouse/Significant other Family History: Reviewed & Not Pertinent, Malignancy, Other - Asthma and heart disease - Past Medical History Cardiac Medical History: Reports: Hx Congestive Heart Failure, Hx DVT, Hx Heart Attack - x2 in 2018, Hx Hypercholesterolemia, Hx Hypertension, Hx Peripheral Vascular Disease Denies: Hx Coronary Artery Disease Pulmonary Medical History: Reports: Hx Pneumonia - hx Denies: Hx Asthma, Hx Bronchitis, Hx COPD Neurological Medical History: Reports: 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 Denies: Hx Hepatitis, Hx Hiatal Hernia, Hx Ulcer Musculoskeletal Medical History: Denies Hx Arthritis Psychiatric Medical History: Reports: Hx Depression Infectious Medical History: Denies: Hx Hepatitis Past Surgical History: Reports: Hx Cardiac Catheterization - stents, Hx Orthopedic Surgery - left toe, Other - Bilateral vitrectomies, also ? eye laser surgery. Negative ex laparoscopy.. Denies: Hx Hysterectomy, Hx Mastectomy, Hx Open Heart Surgery, Hx Pacemaker - Immunizations Hx Diphtheria, Pertussis, Tetanus Vaccination: Yes Review of Systems - Review of Systems Notes: Constitutional: denies: Chills, Diaphoresis, Fever, Malaise, Weakness EENT: denies: Eye discharge, Blurred vision, Tearing, Double vision, Nose co ngestion, Nose discharge, Throat swelling, Mouth pain Cardiovascular: denies: Palpitations, Heart racing, Orthopnea, Dyspnea, Chest pain Respiratory: denies: Cough, Hurts to breathe, Wheezing, Shortness of breath Gastrointestinal: denies: Abdominal pain, Diarrhea, Black stools, bright red blood in stool. Does complain of nausea but no vomiting. Genitourinary: denies: Burning, Dysuria, Discharge, Frequency, Flank pain, Hematuria Musculoskeletal: denies: Joint pain, Joint swelling, Muscle pain, Muscle stiffness, back pain Hematologic/Lymphatic: denies: Anemia, Easy bleeding, Easy bruising, Blood clots Neurological/Psychological: denies: Confusion, Dementia, Depression, Loss of consciousness. she does complain of vertigo and dizziness Skin: No lesions, no masses, no skin breakdown, no abscesses Physical Exam - Vital signs Interpretation: Normal - General General appearance: Appears well, Alert - HEENT Head: Normocephalic, Atraumatic Eyes: Normal Pupils: PERRL - Respiratory Respiratory status: No respiratory distress Chest status: Nontender Breath sounds: Normal Chest palpation: Normal - Cardiovascular Rhythm: Regular Heart sounds: Normal auscultation Murmur: No - Abdominal Inspection: Normal Distension: No distension Bowel sounds: Normal Tenderness: Nontender Organomegaly: No organomegaly - Back Back: Normal, Nontender - Extremities General upper extremity: Normal inspection, Nontender, Normal color, Normal ROM, Normal temperature General lower extremity: Normal inspection, Nontender, Normal color, Normal ROM, Normal temperature. No: Terry's sign - Neurological Neuro grossly intact: Yes Cognition: Normal Orientation: AAOx4 [place] Coma Scale Eye Opening: Spontaneous [place] Coma Scale Verbal: Oriented [place] Coma Scale Motor: Obeys Commands Ashish Coma Scale Total: 15 Speech: Normal Cranial nerves: Normal Cerebellar coordination: Normal Motor strength normal: LUE, RUE, LLE, RLE Additional motor exam normals: Equal transportation director Sensory: Normal Notes: Positive [place]-Hallpike maneuver - Psychological Associated symptoms: Normal affect, Normal mood - Skin Skin Temperature: Warm Skin Moisture: Dry Skin Color: Normal Course - Re-evaluation Re-evalutation: 12/16/18 14:40 I comfortable stating that patient more than likely has BPV BPV. Based on the fact though that she has anticoagulation therapy on board and this is rather sudden onset I do want to make sure that she does not have some other sinister pathology going on such as a head bleed. We will do a CT head. We will do EKG and labs based on her history of NH recently. We will treat with meclizine and Zofran at this time as well. 12/16/18 16:47 Laboratory 12/16/18 12/16/18 12/16/18 15:06 15:06 15:06 WBC 7.9 RBC 4.35 Hgb 12.3 Hct 36.9 MCV 85 MCH 28.3 MCHC 33.4 RDW 14.1 H Plt Count 218 Seg Neutrophils % 61.5 Lymphocytes % 27.5 Monocytes % 7.4 Eosinophils % 3.1 Basophils % 0.5 Absolute Neutrophils 4.8 Absolute Lymphocytes 2.2 Absolute Monocytes 0.6 Absolute Eosinophils 0.2 Absolute Basophils 0.0 Sodium 142.0 Potassium 4.5 Chloride 104 Carbon Dioxide 28 Anion Gap 10 BUN 21 H Creatinine 0.93 Est GFR ( Amer) > 60 Est GFR (Non-Af Amer) > 60 Glucose 142 H Calcium 9.5 Total Bilirubin 1.1 Direct Bilirubin 0.2 Neonat Total Bilirubin Not Reportable Neonat Direct Bilirubin Not Reportable Neonat Indirect Bili Not Reportable AST 17 ALT 22 Alkaline Phosphatase 62 Troponin I < 0.012 Total Protein 7.1 Albumin 3.9 Urine Color Urine Appearance Urine pH Ur Specific [place] Urine Protein Urine Glucose (UA) Urine Ketones Urine Blood Urine Nitrite Urine Bilirubin Urine Urobilinogen Ur Leukocyte Esterase U Hyaline Cast (Auto) Squamous Epi Cells Auto Urine Mucus (Auto) Urine Ascorbic Acid 12/16/18 15:45 WBC RBC Hgb Hct MCV MCH MCHC RDW Plt Count Seg Neutrophils % Lymphocytes % Monocytes % Eosinophils % Basophils % Absolute Neutrophils Absolute Lymphocytes Absolute Monocytes Absolute Eosinophils Absolute Basophils Sodium Potassium Chloride Carbon Dioxide Anion Gap BUN Creatinine Est GFR ( Amer) Est GFR (Non-Af Amer) Glucose Calcium Total Bilirubin Direct Bilirubin Neonat Total Bilirubin Neonat Direct Bilirubin Neonat Indirect Bili AST ALT Alkaline Phosphatase Troponin I Total Protein Albumin Urine Color YELLOW Urine Appearance CLEAR Urine pH 5.0 Ur Specific [place] 1.010 Urine Protein NEGATIVE Urine Glucose (UA) NEGATIVE Urine Ketones NEGATIVE Urine Blood NEGATIVE Urine Nitrite NEGATIVE Urine Bilirubin NEGATIVE Urine Urobilinogen NEGATIVE Ur Leukocyte Esterase NEGATIVE U Hyaline Cast (Auto) 1 Squamous Epi Cells Auto 1 Urine Mucus (Auto) RARE Urine Ascorbic Acid NEGATIVE Head CT 12/16/18 14:37 IMPRESSION: NORMAL BRAIN CT WITHOUT CONTRAST. EVIDENCE OF ACUTE STROKE: NO. 12/16/18 16:47 Patient's labs are unremarkable. Reproducible vertigo. No signs of heart attack. EKG normal and unchanged. Troponin negative. No UTI. Unlikely pat ient is having a significant acute stroke. Warning signs were given however if the symptoms persist. Patient was given meclizine and Zofran. Still having some vertigo. I will proceed with discharge however at this time with a meclizine taper, Zofran and urged close follow-up. Repeat neurological exam was performed before discharge. No acute findings. Patient has no chest pain. - Laboratory Result Diagrams: 12/16/18 15:06 12/16/18 15:06 Laboratory results interpreted by me: 12/16/18 12/16/18 15:06 15:06 RDW 14.1 H BUN 21 H Glucose 142 H - EKG Interpretation by Ri EKG shows normal: Sinus rhythm [place]/QRS: LBBB Voltage: Consistant with LVH When compared to previous EKG there are: No significant change Discharge - Discharge Clinical Impression: Benign positional vertigo Qualifiers: Laterality: right Qualified Code(s): H81.11 - Benign paroxysmal vertigo, right ear Condition: Good Disposition: HOME, SELF-CARE Instructions: Vertigo ([facility]), Antinausea Medication ([facility]), Dizziness ([facility]), Meclizine ([facility]) Additional Instructions: Please follow-up with your primary care doctor at the first of the week if the symptoms persist. Take the medication as prescribed. In the event that you develop worsening symptoms or any other neurological symptoms other than the dizziness for which he presented with today then please return immediately for repeat evaluation. Go very slowly from sitting to standing. Plenty of water. Prescriptions: Meclizine HCl [Antivert 25 mg Tablet] 25 mg PO TID 10 Days #30 tablet Ondansetron [Zofran Odt 4 mg Tablet] 1 - 2 tab PO Q4H PRN #15 tab.rapdis PRN Reason: For Nausea/Vomiting Referrals: ALEXY BAIG MD [Primary Care Provider] - Follow up as needed
[2018-12-16] MEDS ORDERED: MECLIZINE HCL 25 MG TABLET PO ONE (14:37)
[2018-12-16] MEDS ORDERED: ONDANSETRON HCL 8 MG TABLET PO ONE (14:37)
--- NOTE | 2018-12-16 15:15 | EKG REPORT ---
SEVERITY:- ABNORMAL ECG - SINUS RHYTHM LEFT BUNDLE BRANCH BLOCK : Confirmed by: Nilo Barney MD 16-Dec-2018 15:14:35
[2018-12-16 15:38] LABS: ABSOLUTE EOSINOPHILS # (AUTO) 0.2 10^3/uL (0.0-0.6); ABSOLUTE LYMPHOCYTES (AUTO) 2.2 10^3/uL (0.5-4.7); ABSOLUTE MONOCYTES (AUTO) 0.6 10^3/uL (0.1-1.4); ABSOLUTE NEUT (AUTO) 4.8 10^3/uL (1.7-8.2); BASOPHILS % (AUTO) 0.5 % (0-2); EOSINOPHILS % (AUTO) 3.1 % (0-6); HEMATOCRIT 36.9 % (36.0-47.0); HEMOGLOBIN 12.3 g/dL (12.0-15.5); LYMPHOCYTES % (AUTO) 27.5 % (13-45); MEAN CORPUSCULAR HEMOGLOBIN 28.3 pg (27.0-33.4); MEAN CORPUSCULAR HGB CONC 33.4 g/dL (32.0-36.0); MEAN CORPUSCULAR VOLUME 85 fl (80-97); MONOCYTES % (AUTO) 7.4 % (3-13); PLATELET COUNT 218 10^3/uL (150-450); RED BLOOD COUNT 4.35 10^6/uL (3.72-5.28); RED CELL DISTRIBUTION WIDTH 14.1 % (11.5-14.0); SEGMENTED NEUTROPHILS % (AUTO) 61.5 % (42-78); TOTAL CELLS COUNTED % (AUTO) 100 %; WHITE BLOOD COUNT 7.9 10^3/uL (4.0-10.5)
--- NOTE | 2018-12-16 15:53 | RADIOLOGY REPORT (SQ) ---
EXAM DESCRIPTION: CT HEAD WITHOUT COMPLETED DATE/TIME: 12/16/2018 3:43 pm REASON FOR STUDY: sudden dizziness on thinners COMPARISON: 06/05/2018. TECHNIQUE: Axial images acquired through the brain without intravenous contrast. Images reviewed wi th bone, brain and subdural windows. Additional sagittal and coronal reconstructions were generated. Images stored on PACS. All CT scanners at this facility use dose modulation, iterative reconstruction, and/or weight based d osing when appropriate to reduce radiation dose to as low as reasonably achievable (ALARA). [facility]: Dose Right [facility]: CareDose [facility]: Dose Right [facility]: Teradose 4D [facility]: Blowtorch RADIATION DOSE: CT Rad equipment meets quality standard of care and radiation dose reduction techniq ues were employed. CTDIvol: 53.2 mGy. DLP: 1044 mGy-cm. mGy. LIMITATIONS: None. FINDINGS: VENTRICLES: Normal size and contour. CEREBRUM: No masses. No hemorrhage. No midline shift. No evidence for acute infarction. Normal gra y/white matter differentiation. No areas of low density in the white matter. CEREBELLUM: No masses. No hemorrhage. No alteration of density. No evidence for acute infarction. EXTRAAXIAL SPACES: No fluid collections. No masses. ORBITS AND GLOBE: No intra- or extraconal masses. Normal contour of globe without masses. CALVARIUM: No fracture. PARANASAL SINUSES: No fluid or mucosal thickening. SOFT TISSUES: No mass or hematoma. OTHER: No other significant finding. IMPRESSION: NORMAL BRAIN CT WITHOUT CONTRAST. EVIDENCE OF ACUTE STROKE: NO. COMMENT: Quality ID # [id number]: Final reports with documentation of one or more dose reduction techniques (e.g., Automated exposure control, adjustment of the mA and/or kV according to patient size, use of iterative reconstruction technique) TECHNICAL DOCUMENTATION: JOB ID: [id number] [employer]- All Rights Reserved Reading location - IP/workstation name: [email or web address]
[2018-12-16 16:01] LABS: ALANINE AMINOTRANSFERASE 22 U/L (9-52); ALBUMIN 3.9 g/dL (3.5-5.0); ALKALINE PHOSPHATASE 62 U/L (38-126); ANION GAP 10 (5-19); ASPARTATE AMINO TRANSFERASE 17 U/L (14-36); BILIRUBIN,DIRECT 0.2 mg/dL (0.0-0.4); BILIRUBIN,TOTAL 1.1 mg/dL (0.2-1.3); BLOOD UREA NITROGEN 21 mg/dL (7-20); CALCIUM 9.5 mg/dL (8.4-10.2); CARBON DIOXIDE 28 mmol/L (22-30); CHLORIDE 104 mmol/L (98-107); GLUCOSE 142 mg/dL (75-110); POTASSIUM 4.5 mmol/L (3.6-5.0); TOTAL PROTEIN 7.1 g/dL (6.3-8.2)
[2018-12-16 16:19] LABS: APPEARANCE,URINE CLEAR; BILIRUBIN,URINE NEGATIVE (NEGATIVE); COLOR,URINE YELLOW; GLUCOSE, URINE NEGATIVE (NEGATIVE); KETONES,URINE NEGATIVE (NEGATIVE); LEUKOCYTE ESTERASE,URINE NEGATIVE (NEGATIVE); NITRITE,URINE NEGATIVE (NEGATIVE); PROTEIN,URINE NEGATIVE (NEGATIVE); UROBILINOGEN,URINE NEGATIVE mg/dL (<2.0)
[2018-12-16 18:50] VITALS: BP 122/52
== END 2018-12-16 17:23 | disposition home or self-care (01) ==
LOC: ER 13:12
DX: H81.11 Benign paroxysmal vertigo, right ear (principal); I44.7 Left bundle-branch block, unspecified; R11.0 Nausea; E11.40 Type 2 diabetes mellitus with diabetic neuropathy, unspecified; E11.319 Type 2 diabetes mellitus with unspecified diabetic retinopathy without macular edema; Z79.4 Long term (current) use of insulin; I25.2 Old myocardial infarction; Z95.5 Presence of coronary angioplasty implant and graft; Z79.01 Long term (current) use of anticoagulants; Z91.013 Allergy to seafood; Z88.1 Allergy status to other antibiotic agents
CPT/HCPCS: 93005; 99284; 36415; 85025; 80053; 81001; 84484; 70450; 93010; A9270 ×2; S0119

== ENCOUNTER → 2019-02-15 | Outpatient (CLI) | payer MEDICARE, MEDICAID ==
--- NOTE | 2019-02-15 13:58 | RADIOLOGY REPORT (SQ) ---
EXAM DESCRIPTION: MRI RT UPPER JOINT WITHOUT COMPLETED DATE/TIME: 02/15/2019 10:57 am REASON FOR STUDY: RIGHT SHOULDER PAIN (M25.511) M25.511 PAIN IN RIGHT SHOULDER COMPARISON: None. TECHNIQUE: Right shoulder images acquired and stored on PACS. Multiplanar imaging to include fat sen sitive sequences such as T1, water sensitive sequences such as FST2/STIR, cartilage sensitive sequenc es such as FSPD/gradient-echo sequences. LIMITATIONS: None. FINDINGS: BONE MARROW AND CORTEX: No worrisome bone lesions or marrow replacement. No occult fractur es. JOINT OR BURSAL EFFUSION: Trace fluid in the subacromial/subdeltoid bursa GLENO-HUMERAL ARTICULATION: Normal articulation. No subluxation. No cystic change. No osteophytes or cartilage loss. ACROMION AND AC JOINT: Type 2 acromion with moderate acromioclavicular joint arthropathy, mild bony spurring and subcortical cyst formation with synovial thickening. This narrows the subacromial space on coronal image 7. ROTATOR CUFF AND INTERVAL: Full-thickness tear anterior half distal supraspinatus tendon at its great er tuberosity insertion on sagittal images 3-7 and coronal image 7. This extends into the rotator in terval. Subscapularis and infraspinatus are intact. LABRUM AND BICEPS LABRAL COMPLEX: Massive thickening of the intra-articular long head biceps tendon is present from tendinopathy, best shown on sagittal images 7-12. There is a diffuse superior marychuy l tear without paralabral cyst best shown on axial images 6-11 REMAINDER OF LABRUM AND IGHL : No gross tear or paralabral cyst formation. Labral evaluation is less than optimal without joint distention. No thickening of IGHL to suggest adhesive capsulitis. PERIARTICULAR AND ADJACENT SOFT TISSUES: No masses or abnormal nodes. OTHER: No other significant finding. IMPRESSION: Anterior supraspinatus tear extending into the rotator interval Long head biceps tendinopathy with superior labral tear TECHNICAL DOCUMENTATION: JOB ID: [id number] [employer]- All Rights Reserved Reading location - IP/workstation name: [email or web address]
== END ==
LOC: RAD 09:55
PROVIDERS: ATTEND Physician Assistant
DX: M25.511 Pain in right shoulder (principal)

== ENCOUNTER → 2019-03-27 | Outpatient (CLI) | payer MEDICARE, MEDICAID ==
--- NOTE | 2019-03-27 11:01 | RADIOLOGY REPORT (SQ) ---
EXAM DESCRIPTION: CHEST PA/LATERAL COMPLETED DATE/TIME: 03/27/2019 10:52 am REASON FOR STUDY: TYPE 2 DIABETES W DIABETIC AUTONOMIC (POLY)NEUROPATHY COMPARISON: 06/05/2018 EXAM PARAMETERS: NUMBER OF VIEWS: two views TECHNIQUE: Digital Frontal and Lateral radiographic views of the chest acquired. RADIATION DOSE: NA LIMITATIONS: none FINDINGS: LUNGS AND PLEURA: No opacities, masses or pneumothorax. No pleural effusion. MEDIASTINUM AND HILAR STRUCTURES: No masses or contour abnormalities. HEART AND VASCULAR STRUCTURES: Heart normal size. No evidence for failure. BONES: No acute findings. HARDWARE: None in the chest. OTHER: No other significant finding. IMPRESSION: NO SIGNIFICANT RADIOGRAPHIC FINDING IN THE CHEST. TECHNICAL DOCUMENTATION: JOB ID: [id number] [employer]- All Rights Reserved Reading location - IP/workstation name: [email or web address]
== END ==
LOC: OD 10:29
PROVIDERS: ATTEND Physician Assistant
DX: E11.43 Type 2 diabetes mellitus with diabetic autonomic (poly)neuropathy (principal)
CPT/HCPCS: 71046

== ENCOUNTER 2019-12-15 15:16 | Emergency (ER) | payer MEDICARE, MEDICAID ==
[2019-12-15] MEDS ORDERED: ONDANSETRON HCL INJ/PF 4 MG/2 ML SDV IV ONE (15:55)
--- NOTE | 2019-12-15 16:15 | ER Document Report ---
ED General - General Chief Complaint: Chest Pain Stated Complaint: CHEST PAIN Time Seen by Provider: 12/15/19 16:10 Primary Care Provider: ALEXY BAIG MD [Primary Care Provider] - Follow up as needed Mode of Arrival: Medic Information source: Patient TRAVEL OUTSIDE OF THE [place] IN LAST 30 DAYS: No - HPI Onset: This morning - around 8am. Chest pain went away around 4pm after vomiting Onset/Duration: Gradual Quality of pain: Pressure Severity: Moderate Pain Level: 3 Associated symptoms: Nausea Exacerbated by: Denies Relieved by: Denies Similar symptoms previously: No - patient says this felt different than her NC Recently seen / treated by doctor: No Notes: 59 year old female with a history of CAD s/p Stents, HTN, HLD, DM, DVT, PVD, Obesity here in the ER for chest pain with nausea since around 8am. The patient says she woke up this morning around 8am and as she sat up she noticed a pain/pressure in her chest and epigastric area. The patient felt nauseated with the chest pain. While in the ER, the patient vomited around 4pm and her chest pain went completely away after vomiting. The patient says this chest pain does not feel like when she had an NC in 2018 (she had SOB then with chest pressure). - Related Data Allergies/Adverse Reactions: Shellfish * [Shellfish] Allergy (Severe, Verified 12/15/19 15:30) Hives sulfamethoxazole [From Bactrim] Allergy (Severe, Verified 12/15/19 15:30) Anaphylaxis, RASH trimethoprim [From Bactrim] Allergy (Severe, Verified 12/15/19 15:30) Anaphylaxis, RASH Past Medical History - General Information source: Patient - Social History Smoking Status: Former Smoker Chew tobacco use (# tins/day): No Frequency of alcohol use: None Drug Abuse: None Family History: Reviewed & Not Pertinent, Malignancy, Other - Asthma and heart disease Patient has suicidal ideation: No Patient has homicidal ideation: No - Past Medical History Cardiac Medical History: Reports: Hx Congestive Heart Failure, Hx DVT, Hx Heart Attack - x2 in 2018, Hx Hypercholesterolemia, Hx Hypertension, Hx Peripheral Va scular Disease Denies: Hx Coronary Artery Disease Pulmonary Medical History: Reports: Hx Pneumonia - hx Denies: Hx Asthma, Hx Bronchitis, Hx COPD Neurological Medical History: Reports: 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 Denies: Hx Hepatitis, Hx Hiatal Hernia, Hx Ulcer Musculoskeletal Medical History: Denies Hx Arthritis Psychiatric Medical History: Reports: Hx Depression Infectious Medical History: Denies: Hx Hepatitis Past Surgical History: Reports: Hx Cardiac Catheterization - stents, Hx Orthopedic Surgery - left toe, Other - Bilateral vitrectomies, also ? eye laser surgery. Negative ex laparoscopy.. Denies: Hx Hysterectomy, Hx Mastectomy, Hx Open Heart Surgery, Hx Pacemaker - Immunizations Hx Diphtheria, Pertussis, Tetanus Vaccination: Yes Review of Systems - Review of Systems Constitutional: No symptoms reported EENT: No symptoms reported Cardiovascular: Chest pain Respiratory: No symptoms reported Gastrointestinal: Nausea, Vomiting Genitourinary: No symptoms reported Female Genitourinary: No symptoms reported Musculoskeletal: No symptoms reported Skin: No symptoms reported Hematologic/Lymphatic: No symptoms reported Neurological/Psychological: No symptoms reported -: Yes All other systems reviewed and negative Physical Exam - Vital signs Vitals: Pulse Ox 96 12/15/19 15:23 - Notes Notes: GENERAL: Well-appearing, well-nourished and in no acute distress. Obese. HEAD: Atraumatic, normocephalic. EYES: Pupils equal round and reactive to light, extraocular movements intact, sclera anicteric, conjunctiva are normal. ENT: External ears normal, nares patent, oropharynx clear without exudates. Moist mucous membranes. NECK: Normal range of motion, supple without lymphadenopathy or JVD. LUNGS: Breath sounds clear to auscultation bilaterally and equal. No wheezes rales or rhonchi. HEART: Regular rate and rhythm without murmurs, rubs or gallops. ABDOMEN: Soft, nontender, normoactive bowel sounds. No guarding, no rebound. No masses appreciated. EXTREMITIES: Normal range of motion, no pitting or edema. No clubbing or cyanosis. NEUROLOGICAL: Cranial nerves II through XII grossly intact. Normal speech, normal gait. PSYCH: Normal mood, normal affect. SKIN: Warm, Dry, normal turgor, no rashes or lesions noted. Course - Re-evaluation Re-evalutation: 12/15/19 19:50 The patient is here for chest pain since this morning which completely resolved with vomiting. The patient had serial Troponins which were negative. Patient's EKG is unchanged from prior EKGs. Patient told she needs to follow up with her PCP and [facility] and have an outpatient stress test. Patient is in agreement with this plan and she feels comfortable going home. - Vital Signs Vital signs: Temp Pulse Resp BP Pulse Ox 98.4 F 78 19 162/76 H 95 12/15/19 15:30 12/15/19 15:28 12/15/19 17:00 12/15/19 16:01 12/15/19 17:00 - Laboratory Result Diagrams: 12/15/19 18:30 12/15/19 16:43 Laboratory results interpreted by me: 12/15/19 12/15/19 16:43 18:30 WBC 16.7 H Lymph % (Auto) 8.1 L Absolute Neuts (auto) 13.7 H Seg Neutrophils % 82.3 H BUN 21 H Est GFR (MDRD) Non-Af 57 L Glucose 171 H - Diagnostic Test Radiology reviewed: Image reviewed, Reports reviewed - EKG Interpretation by Me EKG shows normal: Sinus rhythm, Intervals, ST-T Waves Rate: Normal Rhythm: NSR [place]/QRS: Left axis deviation, LBBB When compared to previous EKG there are: No significant change Discharge - Discharge Clinical Impression: Chest pain Qualifiers: Chest pain type: unspecified Qualified Code(s): R07.9 - Chest pain, unspecified Nausea & vomiting Qualifiers: Vomiting type: unspecified Vomiting Intractability: non-intractable Qualified Code(s): R11.2 - Nausea with vomiting, unspecified Condition: Stable Disposition: HOME, SELF-CARE Instructions: Chest Pain of Unclear Cause ([facility]), Nausea or Vomiting, Nonspecific ([facility]) Additional Instructions: Follow up with your primary care doctor and with your [facility] and tell them about your ER for chest pain. You had 2 Troponins (blood tests specific to your heart) drawn over the course of several hours and both were negative/normal. You also had an EKG and Chest Xray which looked similar to previous. Return to an ER for persistent chest pain, chest pain with trouble breathing, or if worse in anyway. Referrals: ALEXY BAIG MD [Primary Care Provider] - Follow up as needed
[2019-12-15 17:26] LABS: ALBUMIN 4.3 g/dL (3.5-5.0); ALKALINE PHOSPHATASE 73 U/L (38-126); ANION GAP 8 (5-19); ASPARTATE AMINO TRANSFERASE 23 U/L (14-36); BILIRUBIN,TOTAL 1.3 mg/dL (0.2-1.3); BLOOD UREA NITROGEN 21 mg/dL (7-20); CALCIUM 8.8 mg/dL (8.4-10.2); CARBON DIOXIDE 30 mmol/L (22-30); CHLORIDE 99 mmol/L (98-107); CREATINE KINASE 64 U/L (30-135); GLUCOSE 171 mg/dL (75-110); POTASSIUM 4.6 mmol/L (3.6-5.0); TOTAL PROTEIN 7.6 g/dL (6.3-8.2)
[2019-12-15 17:37] LABS: CREATINE KINASE MB 1.29 ng/mL (<4.55)
--- NOTE | 2019-12-15 17:37 | RADIOLOGY REPORT (SQ) ---
EXAM DESCRIPTION: CHEST SINGLE VIEW IMAGES COMPLETED DATE/TIME: 12/15/2019 3:57 pm REASON FOR STUDY: chest pain COMPARISON: 03/27/2019 EXAM PARAMETERS: NUMBER OF VIEWS: One view. TECHNIQUE: Single frontal radiographic view of the chest acquired. RADIATION DOSE: NA LIMITATIONS: None. FINDINGS: LUNGS AND PLEURA: No opacities, masses or pneumothorax. No pleural effusion. MEDIASTINUM AND HILAR STRUCTURES: No masses. Contour normal. HEART AND VASCULAR STRUCTURES: Heart normal in size. Normal vasculature. BONES: No acute findings. HARDWARE: None in the chest. OTHER: No other significant finding. IMPRESSION: NO ACUTE RADIOGRAPHIC FINDING IN THE CHEST. TECHNICAL DOCUMENTATION: JOB ID: [id number] [employer]- All Rights Reserved Reading location - IP/workstation name: [email or web address]
[2019-12-15 17:38] LABS: TROPONIN I < 0.012 ng/mL
[2019-12-15 18:42] LABS: ABSOLUTE BASOPHILS # (AUTO) 0.2 10^3/uL (0.0-0.2); ABSOLUTE EOSINOPHILS # (AUTO) 0.1 10^3/uL (0.0-0.6); ABSOLUTE LYMPHOCYTES (AUTO) 1.3 10^3/uL (0.5-4.7); ABSOLUTE MONOCYTES (AUTO) 1.3 10^3/uL (0.1-1.4); ABSOLUTE NEUT (AUTO) 13.7 10^3/uL (1.7-8.2); EOSINOPHILS % (AUTO) 0.5 % (0-6); HEMATOCRIT 39.2 % (36.0-47.0); HEMOGLOBIN 13.4 g/dL (12.0-15.5); LYMPHOCYTES % (AUTO) 8.1 % (13-45); MEAN CORPUSCULAR HEMOGLOBIN 28.9 pg (27.0-33.4); MEAN CORPUSCULAR HGB CONC 34.1 g/dL (32.0-36.0); MEAN CORPUSCULAR VOLUME 85 fl (80-97); MONOCYTES % (AUTO) 8.1 % (3-13); PLATELET COUNT 211 10^3/uL (150-450); RED BLOOD COUNT 4.62 10^6/uL (3.72-5.28); RED CELL DISTRIBUTION WIDTH 13.8 % (11.5-14.0); SEGMENTED NEUTROPHILS % (AUTO) 82.3 % (42-78); TOTAL CELLS COUNTED % (AUTO) 100 %; WHITE BLOOD COUNT 16.7 10^3/uL (4.0-10.5)
[2019-12-15 20:12] VITALS: BP 127/65
--- NOTE | 2019-12-16 10:43 | EKG REPORT ---
SEVERITY:- ABNORMAL ECG - SINUS RHYTHM LEFT BUNDLE BRANCH BLOCK : Confirmed by: Debi Carr 16-Dec-2019 10:42:48
== END 2019-12-15 20:20 | disposition home or self-care (01) ==
LOC: ER 15:16
DX: R07.9 Chest pain, unspecified (principal); R11.2 Nausea with vomiting, unspecified; Z87.891 Personal history of nicotine dependence; Z86.718 Personal history of other venous thrombosis and embolism; Z88.2 Allergy status to sulfonamides; Z88.8 Allergy status to other drugs, medicaments and biological substances; I25.10 Atherosclerotic heart disease of native coronary artery without angina pectoris; E78.5 Hyperlipidemia, unspecified; E11.9 Type 2 diabetes mellitus without complications; I11.0 Hypertensive heart disease with heart failure; I50.9 Heart failure, unspecified; E78.00 Pure hypercholesterolemia, unspecified
CPT/HCPCS: 93005; 99285; 96374; 36415; 82553; 82550; 83690; 85025; 80053; 84484; 71045; 93010; J2405

== ENCOUNTER → 2020-03-13 | Outpatient (CLI) | payer MEDICARE, MEDICAID ==
[2020-03-13 12:19] LABS: ABSOLUTE BASOPHILS # (AUTO) 0.1 10^3/uL (0.0-0.2); ABSOLUTE EOSINOPHILS # (AUTO) 0.2 10^3/uL (0.0-0.6); ABSOLUTE LYMPHOCYTES (AUTO) 2.2 10^3/uL (0.5-4.7); ABSOLUTE MONOCYTES (AUTO) 0.6 10^3/uL (0.1-1.4); ABSOLUTE NEUT (AUTO) 4.7 10^3/uL (1.7-8.2); BASOPHILS % (AUTO) 0.7 % (0-2); HEMATOCRIT 37.2 % (36.0-47.0); HEMOGLOBIN 12.4 g/dL (12.0-15.5); LYMPHOCYTES % (AUTO) 28.8 % (13-45); MEAN CORPUSCULAR HEMOGLOBIN 28.5 pg (27.0-33.4); MEAN CORPUSCULAR HGB CONC 33.2 g/dL (32.0-36.0); MEAN CORPUSCULAR VOLUME 86 fl (80-97); MONOCYTES % (AUTO) 7.1 % (3-13); PLATELET COUNT 246 10^3/uL (150-450); RED BLOOD COUNT 4.33 10^6/uL (3.72-5.28); RED CELL DISTRIBUTION WIDTH 14.8 % (11.5-14.0); SEGMENTED NEUTROPHILS % (AUTO) 60.4 % (42-78); TOTAL CELLS COUNTED % (AUTO) 100 %; WHITE BLOOD COUNT 7.7 10^3/uL (4.0-10.5)
[2020-03-13 12:41] LABS: ALBUMIN 3.8 g/dL (3.5-5.0); ALKALINE PHOSPHATASE 138 U/L (38-126); ANION GAP 7 (5-19); ASPARTATE AMINO TRANSFERASE 34 U/L (14-36); BILIRUBIN,DIRECT 0.1 mg/dL (0.0-0.4); BILIRUBIN,TOTAL 1.2 mg/dL (0.2-1.3); BLOOD UREA NITROGEN 15 mg/dL (7-20); C-REACTIVE PROTEIN 6.8 mg/L (<10.0); CARBON DIOXIDE 28 mmol/L (22-30); CHLORIDE 104 mmol/L (98-107); GLUCOSE 200 mg/dL (75-110); POTASSIUM 4.1 mmol/L (3.6-5.0); TOTAL PROTEIN 7.3 g/dL (6.3-8.2)
[2020-03-13 13:02] LABS: ERYTHROCYTE SEDIMENTATION RATE 46 mm/hr (0-30)
--- NOTE | 2020-03-13 14:39 | RADIOLOGY REPORT (SQ) ---
EXAM DESCRIPTION: FOOT RIGHT COMPLETE IMAGES COMPLETED DATE/TIME: 03/13/2020 1:50 pm REASON FOR STUDY: NON-PRS CHRONIC ULCER OTH PRT RIGHT FOOT W FAT LAYER EXPOSED L97.512 NON-PRS [employer] NELY ULCER OTH PRT RIGHT FOOT W FAT LAYER E11.621 TYPE 2 DIABETES MELLITUS WITH FOOT ULCER COMPARISON: None. NUMBER OF VIEWS: Three views. TECHNIQUE: AP, lateral and oblique radiographic images acquired of the right foot. LIMITATIONS: Bandage over the area of interest in the 3rd toe. FINDINGS: MINERALIZATION: Normal. BONES: Indistinct cortical margins distal tuft. JOINTS: Intact. SOFT TISSUES: Swelling. No foreign body. OTHER: No other significant finding. IMPRESSION: Cannot exclude osteomyelitis of the distal 3rd phalanx. TECHNICAL DOCUMENTATION: JOB ID: [id number] 2010 [employer]- All Rights Reserved Reading location - IP/workstation name: [email or web address]
== END ==
LOC: WC 11:37
PROVIDERS: ATTEND Preventive Medicine Undersea and Hyperbaric Medicine
DX: E11.621 Type 2 diabetes mellitus with foot ulcer (principal); L97.512 Non-pressure chronic ulcer of other part of right foot with fat layer exposed
CPT/HCPCS: 36415; 80053; 83036; 85025; 85652; 86140

== ENCOUNTER → 2020-03-13 | Outpatient (CLI) | payer MEDICARE, MEDICAID ==
--- NOTE | 2020-03-13 14:34 | RADIOLOGY REPORT (SQ) ---
EXAM DESCRIPTION: VENOUS BILATERAL LOWER IMAGES COMPLETED DATE/TIME: 03/13/2020 1:55 pm REASON FOR STUDY: EDEMA, RT TOE ABSCESS L02.611 CUTANEOUS ABSCESS OF RIGHT FOOT COMPARISON: None. TECHNIQUE: Dynamic and static otto scale and color images acquired of both lower extremity venous sy stems. Selected spectral images acquired with additional compression and augmentation maneuvers. Imag es stored on PACS. LIMITATIONS: None. FINDINGS: RIGHT LEG COMMON FEMORAL AND FEMORAL: Normal phasicity, compression and augmentation. No visualized echogenic m aterial on otto scale. No defects on color images. POPLITEAL: Normal compression and augmentation. No visualized echogenic material on otto scale. No de fects on color images. CALF VESSELS: Normal compression and augmentation. No visualized echogenic material on otto scale. No defects on color image. GSV AND SSV: Normal compression. No visualized echogenic material on otto scale. No defects on color images. ANY DEEP VENOUS INSUFFICIENCY: Not evaluated. ANY EVIDENCE OF POPLITEAL CYST: No. OTHER: No other significant finding. LEFT LEG COMMON FEMORAL AND FEMORAL: Normal phasicity, compression and augmentation. No visualized echogenic m aterial on otto scale. No defects on color images. POPLITEAL: Normal compression and augmentation. No visualized echogenic material on otto scale. No de fects on color images. CALF VESSELS: Normal compression and augmentation. No visualized echogenic material on otto scale. No defects on color images. GSV AND SSV: Normal compression. No visualized echogenic material on otto scale. No defects on color images. ANY DEEP VENOUS INSUFFICIENCY: Not evaluated. ANY EVIDENCE POPLITEAL CYST: No. OTHER: No other significant finding. IMPRESSION: NO EVIDENCE DVT OR SVT IN EITHER LEG. TECHNICAL DOCUMENTATION: JOB ID: [id number] 2010 [employer]- All Rights Reserved Reading location - IP/workstation name: [email or web address]
== END ==
LOC: SP 10:00
PROVIDERS: ATTEND Physician Assistant
DX: L02.611 Cutaneous abscess of right foot (principal); G57.93 Unspecified mononeuropathy of bilateral lower limbs; R60.0 Localized edema
CPT/HCPCS: 93970

== ENCOUNTER → 2020-03-20 | Outpatient (CLI) | payer MEDICARE, MEDICAID ==
--- NOTE | 2020-03-20 13:54 | RADIOLOGY REPORT (SQ) ---
EXAM DESCRIPTION: PHYSIO ARTERIAL LTD COMPLETE DATE/TIME: 03/20/2020 11:57 am REASON FOR STUDY: RT FOOT ULCER L97.512 NON-PRS CHRONIC ULCER OTH PRT RIGHT FOOT W FAT LAYER FINDINGS: Please see combined report for performance of procedure and radiologic supervision and int erpretation. IMPRESSION: Please see combined report for performance of procedure and radiologic supervision and i nterpretation. Reading location - IP/workstation name: [email or web address]
--- NOTE | 2020-03-20 13:58 | RADIOLOGY REPORT (SQ) ---
EXAM DESCRIPTION: ARTERIAL LOWER EXTREM BILAT IMAGES COMPLETED DATE/TIME: 03/20/2020 11:57 am REASON FOR STUDY: RT FOOT ULCER L97.512 NON-PRS CHRONIC ULCER OTH PRT RIGHT FOOT W FAT LAYER COMPARISON: None. TECHNIQUE: Dynamic and static otto scale and color images acquired of the lower extremity arteries. Additional selected spectral images recorded. ABIs recorded. LIMITATIONS: None. FINDINGS: RIGHT LEG: ABIS: Minimally diminished, measuring 0.9. INFLOW ARTERIES: Normal, no obstruction evident. FEMORAL ARTERIES:Multiphasic waveforms. Elevated velocities are seen throughout without focal stenosi s. POPLITEAL ARTERY:Multiphasic waveforms. Normal, no velocity elevation to suggest focal stenosis. Norm al color Doppler evaluation. No aneurysm. PATENT TIBIOPERONEAL TRUNK AND 3 VESSEL RUNOFF: Retrograde flow is seen within the posterior tibial a rtery. The peroneal artery is not demonstrated. Multiphasic waveforms in a antegrade flow are seen within the anterior tibial artery. TBI: Not performed. OTHER: No other significant finding. LEFT LEG: ABIS: Normal, over 1.0. INFLOW ARTERIES: Normal, no obstruction evident. FEMORAL ARTERIES:Multiphasic waveforms. Increased velocities are seen within the femoral artery witho ut focal stenosis. POPLITEAL ARTERY:Multiphasic waveforms. Normal, no velocity elevation to suggest focal stenosis. Norm al color Doppler evaluation. No aneurysm. PATENT TIBIOPERONEAL TRUNK AND 3 VESSEL RUNOFF: The peroneal artery is not demonstrated. Multiphasic waveforms are seen within the anterior and posterior tibial arteries. TBI: Not performed. OTHER: No other significant finding. IMPRESSION: Multiphasic waveforms with mildly elevated velocities. No focal stenosis. Retrograde f low is demonstrated within the right distal posterior tibial artery. COMMENT: [facility] NORMAL: Greater than 1.0 MINIMAL DISEASE: 0.9 to 1.0 CLAUDICATION: 0.5 to 0.9 SEVERE ARTERIAL DISEASE: Less than 0.5 [facility] NORMAL: Greater than 1.0 (1.2 If Heavy Calcifications) NORMAL TO MILD ISCHEMIA: 0.8 to 1.0 MODERATE ISCHEMIA: 0.4 to 0.8 SEVERE ISCHEMIA: Less than 0.4 TECHNICAL DOCUMENTATION: JOB ID: [id number] 2010 [employer]- All Rights Reserved Reading location - IP/workstation name: [email or web address]
== END ==
LOC: SP 09:53
PROVIDERS: ATTEND Preventive Medicine Undersea and Hyperbaric Medicine
DX: L97.512 Non-pressure chronic ulcer of other part of right foot with fat layer exposed (principal)
CPT/HCPCS: 93922; 93925

== ENCOUNTER 2020-05-23 12:34 | Emergency (ER) | payer MEDICARE, MEDICAID ==
[2020-05-23 12:41] VITALS: BP 154/65
--- NOTE | 2020-05-23 12:48 | ER Document Report ---
ED Medical Screen (RME) - General Chief Complaint: Abdominal Pain Stated Complaint: ABDOMINAL/BACK PAIN Time Seen by Provider: 05/23/20 12:41 Primary Care Provider: FELIX KENDALL DPM [Primary Care Provider] - Follow up as needed Information source: Patient Notes: Patient presents complaining of dysuria symptoms for the past week. Patient had outpatient lab work and her doctor advised her she had an elevated white blood cell count. Patient does complain of some frequency with decreased urine output. Patient reports lower abdominal pain and left flank pain today. Patient denies any fever nausea or vomiting. Patient does have a history of diabetes, hypertension, high cholesterol and CAD. I have greeted and performed a rapid initial assessment of this patient. A comprehensive ED assessment and evaluation of the patient, analysis of test results and completion of the medical decision making process will be conducted by additional ED providers. TRAVEL OUTSIDE OF THE [place] IN LAST 30 DAYS: No - Related Data Allergies/Adverse Reactions: Shellfish * [Shellfish] Allergy (Severe, Verified 05/23/20 12:46) Hives sulfamethoxazole [From Bactrim] Allergy (Severe, Verified 05/23/20 12:46) Anaphylaxis, RASH trimethoprim [From Bactrim] Allergy (Severe, Verified 05/23/20 12:46) Anaphylaxis, RASH Past Medical History - Past Medical History Cardiac Medical History: Reports: Hx Congestive Heart Failure, Hx DVT, Hx Heart Attack - x2 in 2018, Hx Hypercholesterolemia, Hx Hypertension, Hx Peripheral Vascular Disease Denies: Hx Coronary Artery Disease Pulmonary Medical History: Reports: Hx Pneumonia - hx Denies: Hx Asthma, Hx Bronchitis, Hx COPD Neurological Medical History: Reports: 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 Denies: Hx Hepatitis, Hx Hiatal Hernia, Hx Ulcer Musculoskeltal Medical History: Denies Hx Arthritis Psychiatric Medical History: Reports: Hx Depression Infectious Medical History: Denies: Hx Hepatitis Past Surgical History: Reports: Hx Cardiac Catheterization - stents, Hx Orthopedic Surgery - left toe, Other - Bilateral vitrectomies, also ? eye laser surgery. Negative ex laparoscopy.. Denies: Hx Hysterectomy, Hx Mastectomy, Hx Open Heart Surgery, Hx Pacemaker - Immunizations Hx Diphtheria, Pertussis, Tetanus Vaccination: Yes Physical Exam - Vital signs Vitals: Temp Pulse Resp BP Pulse Ox 98.6 F 82 18 154/65 H 99 05/23/20 12:40 05/23/20 12:40 05/23/20 12:40 05/23/20 12:40 05/23/20 12:40 - Back Back: CVA tenderness - Left Course - Vital Signs Vital signs: Temp Pulse Resp BP Pulse Ox 98.6 F 82 18 154/65 H 99 05/23/20 12:40 05/23/20 12:40 05/23/20 12:40 05/23/20 12:40 05/23/20 12:40 Doctor's Discharge - Discharge Referrals: FELIX KENDALL DPM [Primary Care Provider] - Follow up as needed
[2020-05-23 13:19] LABS: ABSOLUTE BASOPHILS # (AUTO) 0.1 10^3/uL (0.0-0.2); ABSOLUTE EOSINOPHILS # (AUTO) 0.2 10^3/uL (0.0-0.6); ABSOLUTE MONOCYTES (AUTO) 0.6 10^3/uL (0.1-1.4); ABSOLUTE NEUT (AUTO) 6.5 10^3/uL (1.7-8.2); BASOPHILS % (AUTO) 0.8 % (0-2); EOSINOPHILS % (AUTO) 2.4 % (0-6); HEMATOCRIT 36.7 % (36.0-47.0); HEMOGLOBIN 12.7 g/dL (12.0-15.5); LYMPHOCYTES % (AUTO) 21.2 % (13-45); MEAN CORPUSCULAR HEMOGLOBIN 29.5 pg (27.0-33.4); MEAN CORPUSCULAR HGB CONC 34.5 g/dL (32.0-36.0); MEAN CORPUSCULAR VOLUME 85 fl (80-97); MONOCYTES % (AUTO) 6.7 % (3-13); PLATELET COUNT 217 10^3/uL (150-450); RED CELL DISTRIBUTION WIDTH 13.9 % (11.5-14.0); SEGMENTED NEUTROPHILS % (AUTO) 68.9 % (42-78); TOTAL CELLS COUNTED % (AUTO) 100 %; WHITE BLOOD COUNT 9.4 10^3/uL (4.0-10.5)
[2020-05-23 13:43] LABS: ANION GAP 10 (5-19); BLOOD UREA NITROGEN 21 mg/dL (7-20); CALCIUM 9.1 mg/dL (8.4-10.2); CARBON DIOXIDE 29 mmol/L (22-30); CHLORIDE 100 mmol/L (98-107); GLUCOSE 220 mg/dL (75-110); POTASSIUM 4.3 mmol/L (3.6-5.0)
[2020-05-23 14:08] LABS: APPEARANCE,URINE CLOUDY; BILIRUBIN,URINE NEGATIVE (NEGATIVE); COLOR,URINE YELLOW; GLUCOSE, URINE NEGATIVE (NEGATIVE); KETONES,URINE NEGATIVE (NEGATIVE); LEUKOCYTE ESTERASE,URINE LARGE (NEGATIVE); NITRITE,URINE NEGATIVE (NEGATIVE); PROTEIN,URINE 100 mg/dL (NEGATIVE); URINE SPECIFIC GRAVITY 1.018
[2020-05-23] MEDS ORDERED: LIDOCAINE 1% INJ-PF (10 MG/ML) 30 ML SDV INJ ONE (14:41)
[2020-05-23] MEDS ORDERED: CEFTRIAXONE INJ 1000 MG VIAL IM ONE (14:41)
--- NOTE | 2020-05-23 14:43 | ER Document Report ---
ED GI/ - General Chief Complaint: Urinary Problem Stated Complaint: ABDOMINAL/BACK PAIN Time Seen by Provider: 05/23/20 12:41 Primary Care Provider: FELIX KENDALL DPM [Primary Care Provider] - Follow up as needed Notes: Patient is a 59-year-old female with past medical history of hypertension diabetes who presents emergency department with a chief complaint of left flank pain. Patient states that about a week ago, she started to have some urgency and frequency. She then developed some dysuria. She went to her primary care provider on Tuesday, but forgot to tell him about the dysuria. She ended up giving a urine sample this morning, but when she called for the results, she stated that they did not have the results. She then came to the emergency department due to the pain in her back. Patient states that pain worsens when she moves. Denies any fever. TRAVEL OUTSIDE OF THE [place] IN LAST 30 DAYS: No - Related Data Allergies/Adverse Reactions: Shellfish * [Shellfish] Allergy (Severe, Verified 05/23/20 12:46) Hives sulfamethoxazole [From Bactrim] Allergy (Severe, Verified 05/23/20 12:46) Anaphylaxis, RASH trimethoprim [From Bactrim] Allergy (Severe, Verified 05/23/20 12:46) Anaphylaxis, RASH Home Medications: novolin,l lisinopril, metoprolol, gabapentin, protonix, atorvastin, zoloft, baby asa Past Medical History - General Information source: Patient - Social History Smoking Status: Former Smoker Frequency of alcohol use: None Drug Abuse: None Family History: Reviewed & Not Pertinent, Malignancy, Other - Asthma and heart disease Patient has homicidal ideation: No - Past Medical History Cardiac Medical History: Reports: Hx Congestive Heart Failure, Hx DVT, Hx Heart Attack - x2 in 2018, Hx Hypercholesterolemia, Hx Hypertension, Hx Peripheral Vascular Disease Denies: Hx Coronary Artery Disease Pulmonary Medical History: Reports: Hx Pneumonia - hx Denies: Hx Asthma, Hx Bronchitis, Hx COPD Neurological Medical History: Reports: 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 Denies: Hx Hepatitis, Hx Hiatal Hernia, Hx Ulcer Musculoskeletal Medical History: Denies Hx Arthritis Psychiatric Medical History: Reports: Hx Depression Infectious Medical History: Denies: Hx Hepatitis Past Surgical History: Reports: Hx Cardiac Catheterization - stents, Hx Orthopedic Surgery - left toe, Other - Bilateral vitrectomies, also ? eye laser surgery. Negative ex laparoscopy.. Denies: Hx Hysterectomy, Hx Mastectomy, Hx Open Heart Surgery, Hx Pacemaker - Immunizations Hx Diphtheria, Pertussis, Tetanus Vaccination: Yes Review of Systems - Review of Systems Notes: REVIEW OF SYSTEMS: CONSTITUTIONAL : Denies recent illness. Denies recent unintentional weight loss. Denies fever, chills, or sweats. EENT: Denies eye, ear, throat, or mouth pain, discharge, or symptoms. Denies nasal or sinus congestion. CARDIOVASCULAR: Denies chest pain. RESPIRATORY: Denies shortness of breath, cough, congestion, difficulty breathing, or wheezing. GASTROINTESTINAL: Denies nausea, vomiting, and diarrhea. Denies abdominal pain. Denies constipation. GENITOURINARY: See HPI. MUSCULOSKELETAL: See HPI. Denies joint pain or swelling. SKIN: Denies rash, itchiness, or lesions HEMATOLOGIC : Denies easy bruising or bleeding. LYMPHATIC: Denies swollen, painful, enlarged glands. NEUROLOGICAL: Denies no numbness or tingling denies weakness. Denies headache. Denies altered mental status. Denies alteration in speech. PSYCHIATRIC: Denies stress, anxiety, alteration in sleep patterns, or depression. All other systems reviewed and negative. Physical Exam - Vital signs Vitals: Temp Pulse Resp BP Pulse Ox 98.6 F 82 18 154/65 H 99 05/23/20 12:40 05/23/20 12:40 05/23/20 12:40 05/23/20 12:40 05/23/20 12:40 - Notes Notes: PHYSICAL EXAMINATION: GENERAL: Appears well, healthy, well-nourished, no acute distress. HEAD: Normocephalic, atraumatic. EYES: PERRL, conjunctiva normal, all extraocular movements intact, sclera nonicteric ENT: Moist mucous membranes. NECK: Supple, no noticeable swelling, redness, rash. Normal range of motion. LUNGS: Equal breath sounds bilaterally and clear to auscultation. No wheezes rales or rhonchi. CARDIOVASCULAR: S1-S2, regular rate, regular rhythm. Radial pulses 2+, normal. ABDOMEN: Normoactive bowel sounds. Soft, nontender, no guarding, no rebound tenderness, and no masses palpated. EXTREMITIES: Normal strength and range of motion, no pitting or edema. No cyanosis. NEUROLOGICAL: Moves all extremities upon command. Strength 5/5 in all ext remities. PSYCH: Normal mood, normal affect. SKIN: Warm, dry. No rash, lesions, ulcerations noted. Normal skin turgor. BACK: L CVA tenderness. Course - Re-evaluation Re-evalutation: 05/23/20 14:38 Presentation is most consistent with acute pyelonephritis. Laboratories do demonstrate a large amount of white blood cells in the urine as well as bacteria. Patient has had constitutional symptoms at home as well as a fever. CVA tenderness is present on exam. The remainder laboratories are relatively unremarkable without evidence of renal dysfunction. I do not suspect an acute appendicitis, biliary pathology, pancreatitis, intra-abdominal abscess, or tubo- ovarian abscess based on history and examination. Patient has been given a dose of IM ceftriaxone. Patient is able to tolerate oral intake without difficulty. Will be discharged home on 7 day course of cephalexin. A urine culture has been sent. Strict return precautions and follow-up recommendations have been discussed at length. - Vital Signs Vital signs: Temp Pulse Resp BP Pulse Ox 98.6 F 82 18 154/65 H 99 05/23/20 12:40 05/23/20 12:40 05/23/20 12:40 05/23/20 12:40 05/23/20 12:40 - Laboratory Result Diagrams: 05/23/20 13:04 05/23/20 13:04 Laboratory results interpreted by me: 05/23/20 05/23/20 13:04 13:45 BUN 21 H Est GFR (MDRD) Non-Af 51 L Glucose 220 H Urine Protein 100 H Urine Blood MODERATE H Urine Urobilinogen 4.0 H Ur Leukocyte Esterase LARGE H Discharge - Discharge Clinical Impression: Pyelonephritis, Dysuria Condition: Stable Disposition: HOME, SELF-CARE Additional Instructions: You have been diagnosed with a condition called pyelonephritis which is an infection involving your kidneys and bladder. You have been given a dose of antibiotics here in the emergency department to help begin to treat this infection. Your also being sent home on antibiotics. Please start taking these later on today when you fill the prescription. Complete the course even if you feel better. Please return if you have persistent vomiting, pass out, have worsening pain, become unable to tolerate fluids, or have any other symptoms that are concerning to you. Please follow-up with your primary care physician in the next 24-48 hours. Prescriptions: Cephalexin [Keflex] 500 mg PO BID #14 capsule Referrals: ALEXY BAIG MD [ACTIVE STAFF] - Follow up in 3-5 days
[2020-05-23] MEDS ORDERED: HYDROCODONE/ACETAMINOPHEN 5-325 MG TABLET PO ONE (14:44)
== END 2020-05-23 15:17 | disposition home or self-care (01) ==
LOC: ER 12:34
DX: N12 Tubulo-interstitial nephritis, not specified as acute or chronic (principal); R30.0 Dysuria; R39.198 Other difficulties with micturition; R10.9 Unspecified abdominal pain; R39.15 Urgency of urination; R35.0 Frequency of micturition; I10 Essential (primary) hypertension; E11.9 Type 2 diabetes mellitus without complications; Z88.2 Allergy status to sulfonamides; Z88.8 Allergy status to other drugs, medicaments and biological substances; Z79.899 Other long term (current) drug therapy; Z79.82 Long term (current) use of aspirin; Z79.4 Long term (current) use of insulin; Z87.891 Personal history of nicotine dependence; I11.0 Hypertensive heart disease with heart failure; I50.9 Heart failure, unspecified; I25.2 Old myocardial infarction
CPT/HCPCS: 99284; 96372; 36415; 87086; 85025; 87088; 80048; 81001; 87186; J3490; J0696; A9270